=== PATIENT | female | born 1940 | race Caucasian/White ===

== ENCOUNTER → 2018-08-16 13:41 | Outpatient (CLI) | payer MEDICARE, SELFPAY ==
[2018-08-16 14:17] LABS: Basophils % 0.6 % (0.1-2.0); Eosinophils # 0.1 K/mm3 (0.0-0.4); Eosinophils % 1.6 % (0.1-12.0); Hematocrit 40.8 % (37.0-47.0); Hemoglobin 13.9 g/dL (12.2-16.2); Lymphocytes % 21.1 % (10-50); Mean Corpuscular HGB Conc 34.1 g/dL (31.8-35.4); Mean Corpuscular Volume 93.9 fl (81-99); Mean Platelet Volume 9.1 fl (7.4-10.4); Monocytes # 0.3 K/mm3 (0.1-1.0); Monocytes % 5.8 % (1.7-9.3); Neutrophils # 3.4 K/mm3 (1.8-7.8); Platelet Count 157 K/mm3 (142-424); Red Blood Count 4.35 M/mm3 (4.20-5.40); Red Cell Distribution Width 12.7 % (11.5-17.5); White Blood Count 4.8 K/mm3 (4.8-10.8)
[2018-08-16 14:54] LABS: Alanine Aminotransferase 26 U/L (12-78); Albumin Level 4.5 gm/dL (3.4-5.0); Albumin/Globulin Ratio 1.4 (1.1-1.8); Alkaline Phosphatase 56 U/L (46-116); Anion Gap 14.4 mEq/L (5-15); Aspartate Amino Transferase 24 U/L (15-37); Bilirubin,Total 0.6 mg/dL (0.2-1.0); Blood Urea Nitrogen 10 mg/dL (7-18); Calcium 9.5 mg/dL (8.5-10.1); Carbon Dioxide 29 mmol/L (21.0-32.0); Chloride 95 mmol/L (98-107); Chol/HDL Ratio 2.4 (1-3.5); Cholesterol 208 mg/dL (140-200); Creatinine,Serum 0.73 mg/dL (0.55-1.02); Estimated Glomerular Filt Rate 77 ml/min (>60); Free T4 (Free Thyroxine) 0.95 ng/dl (0.76-1.46); GFR (African American) 94 ML/MIN (>60); Globulin 3.2 gm/dl (1.3-3.2); Glucose 95 mg/dL (74-106); HDL Cholesterol 87 mg/dL (29-89); LDL Cholesterol 101 mg/dL (0-130); Potassium 4.4 mmoL/L (3.5-5.1); Sodium 134 mmol/L (136-145); Thyroid Stimulating Hormone 1.88 uIU/ml (0.358-3.740); Total Protein,Serum 7.7 gm/dL (6.4-8.2); Triglycerides 99 mg/dL (30-200); VLDL Cholesterol 20 mg/dL (0-40)
[2018-08-24 19:10] LABS: 1,25-Dihydroxy, Vitamin D-2 <10 pg/mL (.)
[2018-08-26 13:11] LABS: 1,25 Dihydroxy Vitamin D 43 pg/mL (.); 1,25-Dihydroxy, Vitamin D-3 40 pg/mL (.)
== END ==
PROVIDERS: Visit Provider Emergency Medicine
DX: R53.83 Other fatigue (principal); E78.5 Hyperlipidemia, unspecified
CPT/HCPCS: 80053; 80061; 82652; 84439; 84443; 85025

== ENCOUNTER → 2018-12-27 09:19 | Outpatient (CLI) | payer MEDICARE, SELFPAY ==
--- NOTE | 2018-12-27 09:21 | MM_ITS ---
MM Dig screening mamm BI w/CAD CAD Screening COMPARISON: Digital mammograms with CAD 10/17/2017 and 10/13/2016 INDICATION: There is no personal or family history of breast cancer. There has been previous biopsy left breast for benign disease. TECHNIQUE: Standard CC and MLO images were obtained. R2 CAD reviewed. FINDINGS: Moderate diffuse fibroglandular densities are seen throughout both breast. There are possible nodular density right breast not deftly seen on the previous exam and best seen on the CC projection. These could be summation shadow but recommend patient return for spot compression views in the CC projection and 90 degree lateral view. Ultrasound may be necessary as well. There are couple benign-appearing calcination is in each breast. A cardiac pacemaker seen overlying the left axilla. IMPRESSION: Moderate diffuse breast density with possible new nodular densities right breast BI-RADS Category: 0 Need Additional Imaging Evaluation RECOMMENDED FOLLOW-UP: IMM - IMMEDIATE FOLLOW-UP RECOMMENDED (A letter has been sent to the patient regarding results of the study.)
== END ==
PROVIDERS: PCP Emergency Medicine; Visit Provider Emergency Medicine
DX: Z12.31 Encounter for screening mammogram for malignant neoplasm of breast (principal)
CPT/HCPCS: 77067

== ENCOUNTER → 2019-01-09 14:15 | Outpatient (CLI) | payer MEDICARE, SELFPAY ==
--- NOTE | 2019-01-09 14:20 | MM_ITS ---
MM Dig mamm DX unilat RT CAD, US breast RT complete INDICATION: Follow-up abnormal mammogram ORDERING PHYSICIAN: Bruce Pineda MD PATIENT AGE: 78 years COMPARISON: 12/27/2018, 10/12/2016 TECHNIQUE: Problem-solving views performed along with right breast ultrasound FINDINGS: Right mammogram: There is very dense fibroglandular tissue which decreases the sensitivity of mammography. There is a benign-appearing 5 mm nodular density in the lateral aspect of the right breast not readily apparent on the orthogonal view. A 4 mm nodular densities present in the medial aspect of the right breast. There are benign appearing calcifications. Right breast ultrasound: At 10:00 there is a 4 mm hypoechoic nodule with some internal septations consistent with a complex cyst. A 1 cm lobulated cyst behind the nipple. At 1:00 there is a 4 mm cyst. 2:00 there is a 4 mm cyst. No suspicious nodules are evident. IMPRESSION: Nodular densities in the right breast may correspond to cyst however, they're not visualized within the orthogonal plane on the mammogram. There are multiple right breast cyst on the breast ultrasound one of which is a complex cyst at 10:00. Recommend 6 month mammographic and sonographic follow-up BI-RADS Category: 3 Probably Benign Finding Short Term Follow-up RECOMMENDED FOLLOW-UP: 6M - 6 MONTH FOLLOW-UP (A letter has been sent to the patient regarding results of the study.)
== END ==
PROVIDERS: PCP Emergency Medicine; Visit Provider Emergency Medicine
DX: R92.8 Other abnormal and inconclusive findings on diagnostic imaging of breast (principal)
CPT/HCPCS: 76641; 77065

== ENCOUNTER 2019-05-08 11:51 | Inpatient (IN) ==
--- NOTE | 2019-05-08 12:02 | Emergency Department Note ---
ED Disposition Clinical Impression: Left displaced femoral neck fracture, Hyponatremia Disposition: Admitted As Inpatient Condition on Discharge: Fair - Critical Care Critical Care Time: No Attestation: On , the high probability of a clinically significant, sudden or life threatening deterioration of the following system(s) required my full and direct attention, intervention and personal management. The time I documented below is in addition to time spent performing reported procedures but includes the following listed in this critical care notation. Medical Decision Making - Medical Records Medical records reviewed: Yes: I reviewed the patient's medical records. - Javier Inquiry Pt receiving controlled substance: Yes Javier was queried for this patient: No Reason not queried -: Emergent pt cond-no time Risks and benefits of using a controlled substance: were discussed with pt by me Vital Signs: 05/08/19 11:58 05/08/19 12:28 Temperature 98 F Temperature Source Oral Pulse Rate [Left Radial] 61 65 Respiratory Rate 16 Blood Pressure [Right Arm] 164/77 H 146/77 H Blood Pressure Mean [Right Arm] 106 100 Blood Pressure Position [Right Arm] Sitting Sitting 02 Sat by Pulse Oximetry 98 94 L Oxygen Delivery Method Room Air Nasal Cannula Oxygen Flow Rate (LPM) 2 - Lab Data Lab Results 05/08/19 12:00: WBC 4.3 L, RBC 4.06 L, Hgb 13.3, Hct 38.9, MCV 95.7, MCH 32.8 H, MCHC 34.3, RDW 12.9, Plt Count 146, MPV 8.6, Neut % (Auto) 61.1, Lymph % (Auto) 30.4, [place] % (Auto) 6.7, Eos % (Auto) 1.1, Baso % (Auto) 0.6, Neut # (Auto) 2.6, Lymph # (Auto) 1.3, [place] # (Auto) 0.3, Eos # (Auto) 0.1, Baso # (Auto) 0.0 05/08/19 12:00: PT 10.5, INR 1.01, APTT 26.0 05/08/19 12:00: Sodium 125 L, Potassium 4.3, Chloride 90 L, Carbon Dioxide 30, Anion Gap 9.3, BUN 7, Creatinine 0.68, Estimated Creat Clear 35, Estimated GFR 84, Est GFR ( Amer) 101, Glucose 101, Calcium 9.5 Result diagrams: 05/08/19 12:00 05/08/19 12:00 Orders (Tests/Meds): ED MEDICATIONS Discontinued Medications Generic Name Dose Route Start Last Admin Trade Name Karsten PRN Reason Stop Dose Admin Morphine Sulfate 4 mg 05/08/19 11:58 05/08/19 12:08 Morphine 4mg/Ml Syringe IV 05/08/19 11:59 4 mg ONCE ONE Administration Morphine Sulfate 4 mg 05/08/19 12:38 05/08/19 12:41 Morphine 4mg/Ml Syringe IV 05/08/19 12:39 4 mg ONCE ONE Administration Ondansetron HCl 4 mg 05/08/19 11:58 05/08/19 12:18 Zofran 4mg/2ml Vial IV 05/08/19 11:59 4 mg ONCE ONE Administration ORDERS Category Date Time Status Type and Screen Stat BBK 05/08/19 12:36 Received Consult to Orthopedic Surgery [CONS] Stat Cons 05/08/19 12:34 Ordered EKG Request [ECG Request by Dr/Nse] Stat Y 05/08/19 11:58 Ordered - Radiology Data #1 Image(s): Chest Image Reviewed: Yes I reviewed the patient's radiology image Preliminary Findings: Normal/NAD #2 Image(s): Hip Image Reviewed: Yes I reviewed the patient's radiology image Left femoral neck fracture Medical Decision Narrative: Patient with mechanical fall and left femoral neck fracture demonstrated on x- ray. She is neurovascularly intact distally. Labs do show some hyponatremia of 125, patient did have normal sodium in July of this year. I have discussed this case with Ortho on-call, Dr. Perez, who advises surgery later today or tomorrow morning if cleared by medicine. I discussed this case with Dr. Llanos who will admit for further management. Fall HPI - General Chief Complaint: Fall Stated Complaint: L hip pain Time Seen by Provider: 05/08/19 11:59 Mode of Arrival: EMS Source of Information: Patient Limitations: No Limitations - History of Present Illness HPI Narrative: This is a 79-year-old female with a past medical history significant for tremors who presents to the emergency department for evaluation of left hip pain after a fall that occurred just prior to arrival. She missed a step while at [employer] and fell onto her left hip. She did not hit her head, denies any loss of consciousness. No neck or back pain. Any movement makes the pain worse, nothing makes it better. No previous surgery to this hip. She does not take any blood thinners. - Related Data Home Medications Medication Instructions Recorded Confirmed atorvastatin 10 mg tablet 5 mg PO DAILY tab 07/30/18 05/08/19 cyanocobalamin (vitamin B-12) 1,000 mcg PO DAILY 07/30/18 05/08/19 1,000 mcg capsule primidone 50 mg tablet 1 tab PO DAILY 90 Days #180 tab 07/30/18 05/08/19 Allergies Allergy/AdvReac Type Severity Reaction Status Date / Time Sulfa (Sulfonamide Allergy Unknown Verified 02/26/19 13:13 Antibiotics) sulfamethizole Allergy Unknown Verified 02/26/19 13:13 triamcinolone Allergy Unknown Verified 02/26/19 13:13 [facility] History - Hepatitis A Screen Attestation statement:: This patient has been screened for Hepatitis A risk factors. I have reviewed the patient's past medical history: Yes Medical History: Reports:: Hyperlipidemia, Hypertension, Internal Pacemaker, Transient Ischemic Attacks (TIA) Other Medical History: Reports: Arthritis, Other Comment: Had 2 strokes - Last stroke 2005 Other Surgeries: Yes: Cholecystectomy, Pacemaker, Tubal Ligation, Other Amputation: No Fractures: Yes Comment: Hole in heart repair & D&C - Social History Smoking Status: Never smoker Alcohol Intake: never Substance Use Type: denies use Occupational Status: retired Housing: house Household Members: spouse Family Hx:: Cancer, Coronary Artery Disease, Diabetes, Heart Attack, Hyperl ipidemia, Hypertension, Stroke, Thyroid Disorder ROS Obtained: Yes All systems reviewed & no additional complaints Physical Exam - General General appearance: alert, in distress - Head Head exam: atraumatic, normocephalic, normal inspection, other (No signs of basilar skull fracture) - Eye Eye exam: Present: normal appearance, PERRL, EOMI - ENT ENT exam: Present: normal exam, mucous membranes moist - Neck Neck exam: Present: normal inspection, full ROM. Absent: tenderness - Chest Chest inspection: Present: normal inspection, symmetric chest wall rise. Absent: tenderness - Respiratory Respiratory exam: Present: normal lung sounds bilaterally. Absent: respiratory distress - Cardiovascular Cardiovascular exam: Present: regular rate, normal rhythm. Absent: JVD - Abdominal Exam Abdominal exam: Present: soft, normal bowel sounds. Absent: distention, tenderness, guarding - Expanded Lower Extremity Exam Left Hip/Pelvis exam: Present: other (Held in flexion, pain with range of motion) Foot/toe exam: Present: normal inspection, other (2+ DP and PT pulses, sensation grossly intact distally) - Neurological Exam Neurological exam: Present: alert, oriented X3 - Psychiatric Psychiatric exam: Present: normal affect - Skin Skin exam: Present: warm, dry, intact, normal color
[2019-05-08 12:17] LABS: Basophils % 0.6 % (0.1-2.0); Eosinophils # 0.1 K/mm3 (0.0-0.4); Eosinophils % 1.1 % (0.1-12.0); Hematocrit 38.9 % (37.0-47.0); Hemoglobin 13.3 g/dL (12.2-16.2); Lymphocytes # 1.3 K/mm3 (0.7-4.5); Lymphocytes % 30.4 % (10-50); Mean Corpuscular HGB Conc 34.3 g/dL (31.8-35.4); Mean Corpuscular Volume 95.7 fl (81-99); Mean Platelet Volume 8.6 fl (7.4-10.4); Monocytes # 0.3 K/mm3 (0.1-1.0); Monocytes % 6.7 % (1.7-9.3); Neutrophils # 2.6 K/mm3 (1.8-7.8); Neutrophils % 61.1 % (37.0-80.0); Platelet Count 146 K/mm3 (142-424); Red Blood Count 4.06 M/mm3 (4.20-5.40); Red Cell Distribution Width 12.9 % (11.5-17.5); White Blood Count 4.3 K/mm3 (4.8-10.8)
[2019-05-08 12:25] LABS: Anion Gap 9.3 mEq/L (5-15); Calcium 9.5 mg/dL (8.5-10.1)
[2019-05-08 12:27] LABS: INR 1.01 (0.9-1.1); Prothrombin Time 10.5 seconds (9.4-11.8)
--- NOTE | 2019-05-08 13:57 | Consult Report ---
History of Present Illness Consult date: 05/08/19 Requesting physician: Nieves Jefferson Consult reason: pre-op evaluation Chief complaint: left hip fracture, pre-op evaluation Additional Medical History:: 1. Status post [employer] pacemaker insertion 07/2018, Dr. Karla Schmidt, [place], [place] for sick sinus syndrome with symptomatic bradycardia 2. Prediabetic, on no medication 3. Hypertension 4. Hyperlipidemia History of present illness: 79-year-old white female was walking down basement steps in the [employer] and missed the last 2 steps resulting in falling on her left hip. Due to pain patient was transported to the emergency department for evaluation with x-ray showing evidence of mildly impacted left femoral neck fracture. Plan for surgical treatment later today. Cardiology consulted for evaluation in light of the patient's history of pacemaker. She denies chest pain, pressure or tightness prior to the fall and denies dizziness or lightheadedness. She reports having a stress test in the last 1 to 2 years that was unremarkable except inability to increase heart rate. [employer] pacemaker interrogated today. She is paced in the atrium 80% of the time and in the ventricle less than 1% of the time. No arrhythmias are noted. Long battery life of at least 10 years noted. [facility] History Medical History: Reports:: Hyperlipidemia, Hypertension, Internal Pacemaker, Transient Ischemic Attacks (TIA) *Have you ever received a pneumonia vaccine?: No *Have you received a flu vaccine this season?: No Other Medical History: Reports: Arthritis, Other Other Surgeries: Yes: Cholecystectomy, Pacemaker, Tubal Ligation, Other Amputation: No Fractures: Yes - *Social History Smoking Status: Never smoker Alcohol Intake: never Substance Use Type: denies use *Occupational Status:: retired Housing: house Household Members: spouse *Travel in the last 8 weeks: None Family Hx:: Cancer, Coronary Artery Disease, Diabetes, Heart Attack, Hyperlipidemia, Hypertension, Stroke, Thyroid Disorder Meds Home Medications Medication Instructions Recorded Confirmed Type atorvastatin 10 mg tablet 5 mg PO DAILY tab 07/30/18 05/08/19 History cyanocobalamin (vitamin B-12) 1,000 mcg PO DAILY 07/30/18 05/08/19 History 1,000 mcg capsule primidone 50 mg tablet 50 tab PO BID 90 Days #180 tab 07/30/18 05/08/19 History Allergies Allergy/AdvReac Type Severity Reaction Status Date / Time Sulfa (Sulfonamide Allergy Unknown Verified 02/26/19 13:13 Antibiotics) sulfamethizole Allergy Unknown Verified 02/26/19 13:13 triamcinolone Allergy Unknown Verified 02/26/19 13:13 Review of Systems - *Cardiovascular Denies chest pain, Denies shortness of breath - *Respiratory Denies cough, Denies shortness of breath - *Gastrointestinal Denies loose stools, Denies nausea, Denies vomiting - *Genitourinary Denies blood in urine - *Musculoskeletal Denies joint pain, Denies back pain - *Neurologic Denies fainting, Denies tingling, Denies dizziness, Denies weakness Exam Vital signs and Labs for Last 24 Hours: Temp Pulse Resp BP Pulse Ox 98 F 65 16 146/77 H 94 L 05/08/19 11:58 05/08/19 12:28 05/08/19 11:58 05/08/19 12:28 05/08/19 12:28 Laboratory Results - last 24 hr 05/08/19 12:00: WBC 4.3 L, RBC 4.06 L, Hgb 13.3, Hct 38.9, MCV 95.7, MCH 32.8 H, MCHC 34.3, RDW 12.9, Plt Count 146, MPV 8.6, Neut % (Auto) 61.1, Lymph % (Auto) 30.4, [place] % (Auto) 6.7, Eos % (Auto) 1.1, Baso % (Auto) 0.6, Neut # (Auto) 2.6, Lymph # (Auto) 1.3, [place] # (Auto) 0.3, Eos # (Auto) 0.1, Baso # (Auto) 0.0 05/08/19 12:00: PT 10.5, INR 1.01, APTT 26.0 05/08/19 12:00: Sodium 125 L, Potassium 4.3, Chloride 90 L, Carbon Dioxide 30, Anion Gap 9.3, BUN 7, Creatinine 0.68, Estimated Creat Clear 35, Estimated GFR 84, Est GFR ( Amer) 101, Glucose 101, Calcium 9.5 05/08/19 12:36: Blood Type A Positive, Antibody Screen Negative I & O for Last 24 hours: Intake & Output 05/06/19 05/07/19 05/08/19 05/09/19 11:59 11:59 11:59 11:59 Weight 105 lb - *Routine HEENT Exam Head: Present: normocephalic Eye: Present: EOMI, PERRL ENT: Present: mucous membranes moist - *Routine Neck Exam Present: supple. Absent: JVD, carotid bruit - *Routine Respiratory Exam Present: CTA bilaterally. Absent: accessory muscle use, rales, rhonchi, wheezes - *Routine Cardiovascular Exam Present: RRR. Absent: murmur, gallop, rubs - *Routine Abdominal Exam Present: soft. Absent: tenderness, distended, guarding - *Routine Extremities Exam Absent: edema, calf tenderness - *Routine Neurological Exam Present: alert, oriented X3, moving all extremities Assessment and Plan (1) Left displaced femoral neck fracture Current visit: Yes Status: Acute Category: Medical Code(s): S72.002A - Fracture of unspecified part of neck of left femur, initial encounter for closed fracture (2) Cardiac pacemaker in situ Current visit: Yes Status: Acute Category: Medical Code(s): Z95.0 - Presence of cardiac pacemaker (3) History of hypertension Current visit: Yes Status: Acute Category: Medical Code(s): Z86.79 - Personal history of other diseases of the circulatory system (4) Hyponatremia Current visit: Yes Status: Acute Category: Medical Code(s): E87.1 - Hypo-osmolality and hyponatremia - Assessment and plan all Dx Assessment and Plan for all problems:: 1. Preliminary echo shows normal LVEF without significant valve disease. Pt is a low and acceptable risk from a cardiology standpoint to proceed with orthopaedic surgery. Pacemaker precautions angie-operatively. 2. Continue home medications perioperatively. 3. History of hypertension but pt states she is not on medication. Elevated BP at this time likely due to pain from hip fracture.
--- NOTE | 2019-05-08 14:44 | Cardiology Report ---
APPROVED REPORT EXAM: Comprehensive 2D, Doppler, and color-flow Echocardiogram [employer] Rep[employer] Manager: Ariela Arora RVT Ht: 5 ft 4 in Wt: 105lbs BSA: 1.49 BP: 146/77 mmHg Indications: Pre-op-Lt hip fx, Pacer,HTN,HLD,Prior repair of hole in heart 2D Dimensions LVOT 1.66 cm (M/F) 1.5-2.5 M-Mode Dimensions RVDd 1.78 cm (0.9-2.6)LA Diam 3.10 cm (1.9-4.0) LVDd 4.30 cm (3.5-5.7)Ao Diam 3.00 cm (2.0-3.7) LVDs 2.69 cm (3.5-5.7)AV Cusp 1.70 cm (1.5-2.6) IVSd 1.07 cm (0.6-1.1)PWd 0.64 cm (0.6-1.1) EF (Teich) 67.70% FS 37.40% EDV (Teich) 83.10 mLESV (Teich) 26.80 mL LV Diastology E/A Ratio 0.52 Mitral Valve MV A Velocity 73.00 (40-130 cm/s) Left Ventricle Left atrium is mildly enlarged, left ventricle normal size, mild concentric left ventricular hypertrophy, visually estimated ejection fraction 55% with no regional wall motion abnormality, grade 1 diastolic dysfunction seen without tissue Doppler evidence of raise left atrial pressure. Right Ventricle Right atrium and right ventricle normal size and contractility, there is a pacemaker lead seen right atrium and right ventricle. Aortic Valve Aortic valve is thickened and calcified there is no aortic stenosis, there is mild aortic insufficiency. Mitral Valve Mitral valve leaflets are minimally thickened, there is no mitral stenosis, there is mild mitral regurgitation. Tricuspid Valve Tricuspid valve is grossly normal, there is mild tricuspid regurgitation. Tricuspid regurgitation jet velocity is inadequate for calculation of the right ventricular systolic pressure. Pulmonic Valve Pulmonic valve is poorly visualized. Great Vessels Aortic root is normal size. Pericardium No significant pericardial effusion noted. Conclusion 1. Mildly enlarged left atrium, normal left ventricular size, mild concentric left ventricular hypertrophy, visually estimated ejection fraction 55% with no regional wall motion abnormality, grade 1 diastolic dysfunction seen without tissue Doppler evidence of raise left atrial pressure. 2. Mild aortic, mild mitral and tricuspid regurgitation. 3. No significant pericardial effusion noted. Electronically signed by : Andres Estrdaa, 05/08/2019 14:43:58
--- NOTE | 2019-05-08 15:34 | History & Physical Report ---
*Admission Date: 05/08/19 *Chief complaint: fall *History of present illness: Patient is a 79 year old female who presented after a fall. She mentions that she was walking down the set of stairs at [employer] and missed a step then fell on her hardwood floor. She did not hit her head and/or lose consciousness. She mentions landing on her left hip and has been hurting in that area after mechanical fall, so she came into our ED. Workup in ED showed left femoral neck fracture. She is also notable to have chronic but stable hyponatremia. Dr. Miller was consulted for surgery. I saw and evaluated the patient at bedside around 130 pm for medical clearance for surgery [facility] History I have reviewed the patient's past medical history: Yes Medical History: Reports:: Hyperlipidemia, Hypertension, Internal Pacemaker, Transient Ischemic Attacks (TIA) Denies:: Diabetes Mellitus Type 1, Diabetes Mellitus Type 2 *Have you ever received a pneumonia vaccine?: Yes *Have you received a flu vaccine this season?: Yes Other Medical History: Reports: Arthritis, Other Other Surgeries: Yes: Cholecystectomy, Pacemaker, Tubal Ligation, Other Amputation: No Fractures: Yes - *Social History Educational Level: Completed High School Smoking Status: Former smoker Alcohol Intake: never Substance Use Type: denies use *Occupational Status:: retired Housing: house Household Members: spouse *Travel in the last 8 weeks: None Family Hx:: Cancer, Coronary Artery Disease, Diabetes, Heart Attack, Hyperlipidemia, Hypertension, Stroke, Thyroid Disorder Review of Systems - Constitutional Denies chills, Denies fever(s) - Eyes Denies blurry vision, Denies change in vision - ENT Denies bleeding gums, Denies nasal congestion - *Cardiovascular Denies chest pain at rest, Denies chest pain with activity - *Respiratory Denies chest congestion, Denies cough - *Gastrointestinal Denies bloating, Denies difficulty swallowing - *Genitourinary Denies pelvic pain - *Musculoskeletal Denies joint pain, Denies decreased muscle mass - Integumentary/Breasts Denies bleeding lesions - *Neurologic Denies fainting, Denies tingling, Denies dizziness, Denies weakness - Psychiatric Denies lack of enjoyment, Denies anxiety, Denies behavioral changes - Hematologic/Lymphatic Denies easy bleeding Meds Home Medications Medication Instructions Recorded Confirmed Type atorvastatin 10 mg tablet 5 mg PO DAILY tab 07/30/18 05/08/19 History cyanocobalamin (vitamin B-12) 1,000 mcg PO DAILY 07/30/18 05/08/19 History 1,000 mcg capsule primidone 50 mg tablet 50 tab PO BID 90 Days #180 tab 07/30/18 05/08/19 History Allergies Allergy/AdvReac Type Severity Reaction Status Date / Time Sulfa (Sulfonamide Allergy Unknown Verified 02/26/19 13:13 Antibiotics) sulfamethizole Allergy Unknown Verified 02/26/19 13:13 triamcinolone Allergy Unknown Verified 02/26/19 13:13 Exam Vital signs and Labs for Last 24 Hours: Temp Pulse Resp BP Pulse Ox 98.0 F 77 17 136/62 90 L 05/08/19 15:05 05/08/19 15:05 05/08/19 15:05 05/08/19 15:05 05/08/19 15:05 Laboratory Results - last 24 hr 05/08/19 12:00: WBC 4.3 L, RBC 4.06 L, Hgb 13.3, Hct 38.9, MCV 95.7, MCH 32.8 H, MCHC 34.3, RDW 12.9, Plt Count 146, MPV 8.6, Neut % (Auto) 61.1, Lymph % (Auto) 30.4, [place] % (Auto) 6.7, Eos % (Auto) 1.1, Baso % (Auto) 0.6, Neut # (Auto) 2.6, Lymph # (Auto) 1.3, [place] # (Auto) 0.3, Eos # (Auto) 0.1, Baso # (Auto) 0.0 05/08/19 12:00: PT 10.5, INR 1.01, APTT 26.0 05/08/19 12:00: Sodium 125 L, Potassium 4.3, Chloride 90 L, Carbon Dioxide 30, Anion Gap 9.3, BUN 7, Creatinine 0.68, Estimated Creat Clear 35, Estimated GFR 84, Est GFR ( Amer) 101, Glucose 101, Calcium 9.5 05/08/19 12:36: Blood Type A Positive, Antibody Screen Negative I & O for Last 24 hours: Intake & Output 05/06/19 05/07/19 05/08/19 05/09/19 11:59 11:59 11:59 11:59 Weight 105 lb 116 lb 7 oz - *Routine HEENT Exam Head: Present: normocephalic Eye: Present: EOMI, PERRL ENT: Present: mucous membranes moist - *Routine Neck Exam Present: supple. Absent: lymphadenopathy - *Routine Respiratory Exam Present: CTA bilaterally - *Routine Cardiovascular Exam Present: RRR - *Routine Abdominal Exam Present: soft, normoactive bowel sounds. Absent: tenderness - *Routine Extremities Exam Absent: cyanosis, clubbing, edema Comments: left hip pain and unable to lift her left leg active or passively, consistent w/ femur fracture - *Routine Skin Exam Present: warm. Absent: rash - *Routine Neurological Exam Present: alert, oriented X3 Assessment and Plan (1) Left displaced femoral neck fracture Current visit: Yes Status: Acute Category: Medical Code(s): S72.002A - Fracture of unspecified part of neck of left femur, initial encounter for closed fracture (2) Cardiac pacemaker in situ Current visit: Yes Status: Acute Category: Medical Code(s): Z95.0 - Presence of cardiac pacemaker (3) History of hypertension Current visit: Yes Status: Acute Category: Medical Code(s): Z86.79 - Personal history of other diseases of the circulatory system (4) Hyponatremia Current visit: Yes Status: Acute Category: Medical Code(s): E87.1 - Hypo- osmolality and hyponatremia - Assessment and plan all Dx Assessment and Plan for all problems:: She denies having any allergic reaction and/or complications with pain medications, anesthesia. Her hyponatremia is chronic and she is AAO x 4. She did take ASA 81 mg earlier this morning. Got cardiac clearance, please see their note for full details. Her last meal was 10 am today. From our standpoint, patient is cleared to have surgery.
--- NOTE | 2019-05-08 21:50 | Consult Report ---
*Admission Date: 05/08/19 *Reason for consult:: L hip fracture *History of present illness: 79yo F admitted earlier this evening after a fall at [employer] today. She was walking down a set of stairs and missed a step, falling onto the hardwood floor. She had immediate pain in the L hip and was unable to ambulate. She denies previous issues with this hip, no prior surgery on the hip. She was an independent ambulator and was able to walk without limitation or assistive device. No LOC or other injuries during today's fall. Her medical history includes HTN, hyperlipidemia, h/o TIA. She has had a pacemaker placed, as well as tubal ligation and cholecystectomy. She is a former smoker. She lives at home with her , in a one-level home with one step to enter. Currently she reports pain in the left hip but no numbness/tingling in the LLE, no chest pain/dyspnea, no abdominal pain. Review of Systems - Review of Systems Review of systems:: pertinent systems reviewed and negative unless documented below - *Neurologic Denies behavioral changes, Denies fainting, Denies tingling, Denies dizziness, Denies weakness [facility] History I have reviewed the patient's past medical history: Yes Medical History: Reports:: Hyperlipidemia, Hypertension, Internal Pacemaker, Transient Ischemic Attacks (TIA) Denies:: Diabetes Mellitus Type 1, Diabetes Mellitus Type 2 *Have you ever received a pneumonia vaccine?: Yes *Have you received a flu vaccine this season?: Yes Other Medical History: Reports: Arthritis, Other Other Surgeries: Yes: Cholecystectomy, Pacemaker, Tubal Ligation, Other Amputation: No Fractures: Yes - *Social History Educational Level: Completed High School Smoking Status: Former smoker Alcohol Intake: never Substance Use Type: denies use *Occupational Status:: retired Housing: house Household Members: spouse *Travel in the last 8 weeks: None Family Hx:: Cancer, Coronary Artery Disease, Diabetes, Heart Attack, Hyperlipidemia, Hypertension, Stroke, Thyroid Disorder Meds Home Medications Medication Instructions Recorded Confirmed Type atorvastatin 10 mg tablet 5 mg PO DAILY tab 07/30/18 05/08/19 History cyanocobalamin (vitamin B-12) 1,000 mcg PO DAILY 07/30/18 05/08/19 History 1,000 mcg capsule primidone 50 mg tablet 50 tab PO BID 90 Days #180 tab 07/30/18 05/08/19 History Allergies Allergy/AdvReac Type Severity Reaction Status Date / Time Sulfa (Sulfonamide Allergy Unknown Verified 02/26/19 13:13 Antibiotics) sulfamethizole Allergy Unknown Verified 02/26/19 13:13 triamcinolone Allergy Unknown Verified 02/26/19 13:13 Exam Vital signs and Labs for Last 24 Hours: Temp Pulse Resp BP Pulse Ox 98.0 F 60 16 149/64 H 99 05/08/19 19:41 05/08/19 20:30 05/08/19 20:30 05/08/19 19:41 05/08/19 20:30 Laboratory Results - last 24 hr 05/08/19 12:00: WBC 4.3 L, RBC 4.06 L, Hgb 13.3, Hct 38.9, MCV 95.7, MCH 32.8 H, MCHC 34.3, RDW 12.9, Plt Count 146, MPV 8.6, Neut % (Auto) 61.1, Lymph % (Auto) 30.4, [place] % (Auto) 6.7, Eos % (Auto) 1.1, Baso % (Auto) 0.6, Neut # (Auto) 2.6, Lymph # (Auto) 1.3, [place] # (Auto) 0.3, Eos # (Auto) 0.1, Baso # (Auto) 0.0 05/08/19 12:00: PT 10.5, INR 1.01, APTT 26.0 05/08/19 12:00: Sodium 125 L, Potassium 4.3, Chloride 90 L, Carbon Dioxide 30, Anion Gap 9.3, BUN 7, Creatinine 0.68, Estimated Creat Clear 35, Estimated GFR 84, Est GFR ( Amer) 101, Glucose 101, Calcium 9.5 05/08/19 12:36: Blood Type A Positive, Antibody Screen Negative I & O for Last 24 hours: Intake & Output 05/06/19 05/07/19 05/08/19 05/09/19 11:59 11:59 11:59 11:59 Intake Total 0 / 0 Balance 0 / 0 Weight 105 lb 116 lb 7 oz - Constitutional no acute distress - *Routine HEENT Exam Head: Present: normocephalic Eye: Present: EOMI ()))) ENT: Present: mucous membranes moist - *Routine Extremities Exam Comments: LLE shortened and internally rotated no ecchymosis, erythema or cutaneous lesions L hip moderate tenderness over L hip +DF/PF/EHL LLE palpable pedal pulses LLE, foot warm SILT distally LLE L calf soft, non-tender Results - Labs Result Diagrams: 05/08/19 12:00 05/08/19 12:00 Labs: Abnormal lab results 05/08/19 05/08/19 Range/Units 12:00 12:00 WBC 4.3 L (4.8-10.8) K/mm3 RBC 4.06 L (4.20-5.40) M/mm3 MCH 32.8 H (27.0-31.2) pg Sodium 125 L (136-145) mmol/L Chloride 90 L (98-107) mmol/L H & H 05/08/19 Range/Units 12:00 Hgb 13.3 (12.2-16.2) g/dL Hct 38.9 (37.0-47.0) % Coagulation 05/08/19 Range/Units 12:00 INR 1.01 (0.9-1.1) All other labs normal. - Diagnostic results Hip x-ray: image reviewed (mildly displaced L femoral neck fracture; garden IV) Assessment and Plan (1) Left displaced femoral neck fracture Current visit: Yes Status: Acute Category: Medical Code(s): S72.002A - Fracture of unspecified part of neck of left femur, initial encounter for closed fracture (2) Cardiac pacemaker in situ Current visit: Yes Status: Acute Category: Medical Code(s): Z95.0 - Presence of cardiac pacemaker (3) History of hypertension Current visit: Yes Status: Acute Category: Medical Code(s): Z86.79 - Personal history of other diseases of the circulatory system (4) Hyponatremia Current visit: Yes Status: Acute Category: Medical Code(s): E87.1 - Hypo- osmolality and hyponatremia - Assessment and plan all Dx Assessment and Plan for all problems:: 79yo F with L femoral neck fracture -- I discussed the nature of the patient's injury with her and her , and my recommendation is for hemiarthroplasty -- I discussed the risks of surgery, including bleeding, infection, fracture, persistent pain/limp, loss of function/mobility, and risk of anesthesia. The patient vocalized understanding, and would like to proceed with surgery. We will plan on L hip hemiarthroplasty tomorrow morning. -- bedrest, marin catheter for comfort; may try nam's traction for comfort -- ice pack L hip PRN -- patient has been medically cleared by Dr. Jefferson and the cardiology service
[2019-05-09 05:46] LABS: Basophils % 0.3 % (0.1-2.0); Eosinophils % 0.5 % (0.1-12.0); Hematocrit 34.7 % (37.0-47.0); Lymphocytes # 0.7 K/mm3 (0.7-4.5); Lymphocytes % 9.6 % (10-50); Mean Corpuscular HGB Conc 33.5 g/dL (31.8-35.4); Mean Corpuscular Volume 96.3 fl (81-99); Mean Platelet Volume 9.5 fl (7.4-10.4); Monocytes # 0.4 K/mm3 (0.1-1.0); Monocytes % 6.2 % (1.7-9.3); Neutrophils % 83.4 % (37.0-80.0); Platelet Count 126 K/mm3 (142-424); White Blood Count 7.2 K/mm3 (4.8-10.8)
[2019-05-09 05:50] LABS: Hemoglobin 11.5 g/dL (12.2-16.2)
[2019-05-09 05:58] LABS: Albumin Level 3.4 gm/dL (3.4-5.0); Albumin/Globulin Ratio 1.2 (1.1-1.8); Anion Gap 7.6 mEq/L (5-15); Bilirubin,Total 0.7 mg/dL (0.2-1.0); Globulin 2.8 gm/dl (1.3-3.2); Total Protein,Serum 6.2 gm/dL (6.4-8.2)
[2019-05-09 06:04] LABS: Calcium 8.2 mg/dL (8.5-10.1)
--- NOTE | 2019-05-09 07:31 | Progress Note ---
Subjective Date: 05/09/19 Time: 07:28 Principal diagnosis: Hip fracture Interval history: 79 yo WF in bed in [facility]. Admits to drinking lots of water at home (possibly the cause of her hyponatremia) No chest pain Exam Vital signs and Labs for Last 24 Hours: Temp Pulse Resp BP Pulse Ox 98.2 F 63 19 129/78 99 05/09/19 04:00 05/09/19 04:00 05/09/19 04:00 05/09/19 04:00 05/09/19 04:00 Laboratory Results - last 24 hr 05/08/19 12:00: WBC 4.3 L, RBC 4.06 L, Hgb 13.3, Hct 38.9, MCV 95.7, MCH 32.8 H, MCHC 34.3, RDW 12.9, Plt Count 146, MPV 8.6, Neut % (Auto) 61.1, Lymph % (Auto) 30.4, [place] % (Auto) 6.7, Eos % (Auto) 1.1, Baso % (Auto) 0.6, Neut # (Auto) 2.6, Lymph # (Auto) 1.3, [place] # (Auto) 0.3, Eos # (Auto) 0.1, Baso # (Auto) 0.0 05/08/19 12:00: PT 10.5, INR 1.01, APTT 26.0 05/08/19 12:00: Sodium 125 L, Potassium 4.3, Chloride 90 L, Carbon Dioxide 30, Anion Gap 9.3, BUN 7, Creatinine 0.68, Estimated Creat Clear 35, Estimated GFR 84, Est GFR ( Amer) 101, Glucose 101, Calcium 9.5 05/08/19 12:36: Blood Type A Positive, Antibody Screen Negative 05/09/19 05:31: WBC 7.2 D, RBC 3.60 L, Hgb 11.5 L D, Hct 34.7 L, MCV 96.3, MCH 32.3 H, MCHC 33.5, RDW 13.0, Plt Count 126 L, MPV 9.5, Neut % (Auto) 83.4 H, Lymph % (Auto) 9.6 L, [place] % (Auto) 6.2, Eos % (Auto) 0.5, Baso % (Auto) 0.3, Neut # (Auto) 6.0, Lymph # (Auto) 0.7, [place] # (Auto) 0.4, Eos # (Auto) 0.0, Baso # (Auto) 0.0 05/09/19 05:31: Sodium 127 L, Potassium 4.6, Chloride 96 L, Carbon Dioxide 28, Anion Gap 7.6, BUN 6 L, Creatinine 0.71, Estimated Creat Clear 40, Estimated GFR 80, Est GFR ( Amer) 96, Glucose 121 H, Calcium 8.2 L D, Total Bilirubin 0.7, AST 26, ALT 21, Alkaline Phosphatase 42 L, Total Protein 6.2 L, Albumin 3.4, Globulin 2.8, Albumin/Globulin Ratio 1.2 I & O for Last 24 hours: Intake & Output 05/06/19 05/07/19 05/08/19 05/09/19 11:59 11:59 11:59 11:59 Intake Total 1820 / 1820 Output Total 700 / 700 Balance 1120 / 1120 Weight 105 lb 119 lb 4 oz - *Routine HEENT Exam Head: Present: normocephalic Eye: Present: EOMI, PERRL ENT: Present: mucous membranes moist - *Routine Respiratory Exam Present: CTA bilaterally. Absent: accessory muscle use, rales, rhonchi, wheezes - *Routine Cardiovascular Exam Present: RRR. Absent: murmur, gallop, rubs - *Routine Extremities Exam Absent: edema, calf tenderness - *Routine Neurological Exam Present: alert, oriented X3, moving all extremities Progress Note: A&P (1) Left displaced femoral neck fracture Status: Acute Current Visit: Yes (2) Cardiac pacemaker in situ Status: Acute Current Visit: Yes (3) History of hypertension Status: Acute Current Visit: Yes (4) Hyponatremia Status: Acute Current Visit: Yes Assessment and Plan for All Diagnoses:: 1. Cardiac status stable. Pacemaker functioning normally. Echo shows normal LVEF. Follow up with Dr. Smith after discharge. 2. Hyponatremia, improved overnight 3. Hip surgery today. 4. Nothing further to add. Will see as needed.
--- NOTE | 2019-05-09 08:41 | Progress Note ---
<Nicolasa Greenfield - Last Filed: 05/09/19 08:39> Internal Medicine - PN: Subj *Date: 05/09/19 *Time: 08:39 Interval history: Patient states she has had a rough night. She has been in pain and could not sleep. She states she cannot take morphine because it makes her sick. She is requesting something else for pain today. She is scheduled for surgery on her hip at 10 am. Exam Vital signs and Labs for Last 24 Hours: Temp Pulse Resp BP Pulse Ox 98.2 F 63 19 129/78 99 05/09/19 04:00 05/09/19 04:00 05/09/19 04:00 05/09/19 04:00 05/09/19 04:00 Laboratory Results - last 24 hr 05/08/19 12:00: WBC 4.3 L, RBC 4.06 L, Hgb 13.3, Hct 38.9, MCV 95.7, MCH 32.8 H, MCHC 34.3, RDW 12.9, Plt Count 146, MPV 8.6, Neut % (Auto) 61.1, Lymph % (Auto) 30.4, [place] % (Auto) 6.7, Eos % (Auto) 1.1, Baso % (Auto) 0.6, Neut # (Auto) 2.6, Lymph # (Auto) 1.3, [place] # (Auto) 0.3, Eos # (Auto) 0.1, Baso # (Auto) 0.0 05/08/19 12:00: PT 10.5, INR 1.01, APTT 26.0 05/08/19 12:00: Sodium 125 L, Potassium 4.3, Chloride 90 L, Carbon Dioxide 30, Anion Gap 9.3, BUN 7, Creatinine 0.68, Estimated Creat Clear 35, Estimated GFR 84, Est GFR ( Amer) 101, Glucose 101, Calcium 9.5 05/08/19 12:36: Blood Type A Positive, Antibody Screen Negative 05/09/19 05:31: WBC 7.2 D, RBC 3.60 L, Hgb 11.5 L D, Hct 34.7 L, MCV 96.3, MCH 32.3 H, MCHC 33.5, RDW 13.0, Plt Count 126 L, MPV 9.5, Neut % (Auto) 83.4 H, Lymph % (Auto) 9.6 L, [place] % (Auto) 6.2, Eos % (Auto) 0.5, Baso % (Auto) 0.3, Neut # (Auto) 6.0, Lymph # (Auto) 0.7, [place] # (Auto) 0.4, Eos # (Auto) 0.0, Baso # (Auto) 0.0 05/09/19 05:31: Sodium 127 L, Potassium 4.6, Chloride 96 L, Carbon Dioxide 28, Anion Gap 7.6, BUN 6 L, Creatinine 0.71, Estimated Creat Clear 40, Estimated GFR 80, Est GFR ( Amer) 96, Glucose 121 H, Calcium 8.2 L D, Total Bilirubin 0.7, AST 26, ALT 21, Alkaline Phosphatase 42 L, Total Protein 6.2 L, Albumin 3.4, Globulin 2.8, Albumin/Globulin Ratio 1.2 I & O for Last 24 hours: Intake & Output 05/06/19 05/07/19 05/08/19 05/09/19 11:59 11:59 11:59 11:59 Intake Total 1820 / 1820 Output Total 700 / 700 Balance 1120 / 1120 Weight 105 lb 119 lb 4 oz - Constitutional no acute distress - *Routine Cardiovascular Exam Present: RRR - *Routine Abdominal Exam Present: soft, normoactive bowel sounds. Absent: tenderness - *Routine Extremities Exam Absent: cyanosis, clubbing, edema Comments: tenderness to palpation in the left groin area - *Routine Skin Exam Present: warm. Absent: rash - *Routine Neurological Exam Present: alert, oriented X3 Assessment and Plan (1) Left displaced femoral neck fracture Current visit: Yes Status: Acute Category: Medical Code(s): S72.002A - Fracture of unspecified part of neck of left femur, initial encounter for closed fracture (2) Cardiac pacemaker in situ Current visit: Yes Status: Acute Category: Medical Code(s): Z95.0 - Presence of cardiac pacemaker (3) History of hypertension Current visit: Yes Status: Acute Category: Medical Code(s): Z86.79 - Personal history of other diseases of the circulatory system (4) Hyponatremia Current visit: Yes Status: Acute Category: Medical Code(s): E87.1 - Hypo- osmolality and hyponatremia - Assessment and plan all Dx Assessment and Plan for all problems:: Still hyponatremic today. Patient is scheduled for surgery at 10 AM. Will discuss other pain medication options with Dr. Llanos. <Cam Llanos - Last Filed: 05/09/19 15:04> Internal Medicine - PN: Subj *Date: 05/09/19 *Time: 15:03 Exam Vital signs and Labs for Last 24 Hours: Temp Pulse Resp BP Pulse Ox 97.6 F 74 18 154/69 H 90 L 05/09/19 14:44 05/09/19 14:44 05/09/19 14:44 05/09/19 14:44 05/09/19 14:44 Laboratory Results - last 24 hr 05/09/19 05:31: WBC 7.2 D, RBC 3.60 L, Hgb 11.5 L D, Hct 34.7 L, MCV 96.3, MCH 32.3 H, MCHC 33.5, RDW 13.0, Plt Count 126 L, MPV 9.5, Neut % (Auto) 83.4 H, Lymph % (Auto) 9.6 L, [place] % (Auto) 6.2, Eos % (Auto) 0.5, Baso % (Auto) 0.3, Neut # (Auto) 6.0, Lymph # (Auto) 0.7, [place] # (Auto) 0.4, Eos # (Auto) 0.0, Baso # (Auto) 0.0 05/09/19 05:31: Sodium 127 L, Potassium 4.6, Chloride 96 L, Carbon Dioxide 28, Anion Gap 7.6, BUN 6 L, Creatinine 0.71, Estimated Creat Clear 40, Estimated GFR 80, Est GFR ( Amer) 96, Glucose 121 H, Calcium 8.2 L D, Total Bilirubin 0.7, AST 26, ALT 21, Alkaline Phosphatase 42 L, Total Protein 6.2 L, Albumin 3.4, Globulin 2.8, Albumin/Globulin Ratio 1.2 I & O for Last 24 hours: Intake & Output 05/07/19 05/08/19 05/09/19 05/10/19 11:59 11:59 11:59 11:59 Intake Total 1820 / 1820 1575 / 1575 Output Total 820 / 820 100 / 100 Balance 1000 / 1000 1475 / 1475 Weight 105 lb 119 lb 4 oz Assessment and Plan (1) Left displaced femoral neck fracture Current visit: Yes Status: Acute Category: Medical Code(s): S72.002A - Fracture of unspecified part of neck of left femur, initial encounter for closed fracture (2) Cardiac pacemaker in situ Current visit: Yes Status: Acute Category: Medical Code(s): Z95.0 - Presence of cardiac pacemaker (3) History of hypertension Current visit: Yes Status: Acute Category: Medical Code(s): Z86.79 - Personal history of other diseases of the circulatory system (4) Hyponatremia Current visit: Yes Status: Acute Category: Medical Code(s): E87.1 - Hypo- osmolality and hyponatremia - Assessment and plan all Dx Assessment and Plan for all problems:: Patient seen and examined. Concur with above.
--- NOTE | 2019-05-09 09:20 | Pharmacy Consult Notes ---
[facility] Pharmacy VTE Monitoring - Patient Demographics Admission date: 05/08/19 Report Date: 05/09/19 Time: 09:20 Allergies/Adverse Reactions: Patient Allergies Sulfa (Sulfonamide Antibiotics) Allergy (Unknown, Verified 02/26/19 13:13) sulfamethizole Allergy (Unknown, Verified 02/26/19 13:13) triamcinolone Allergy (Unknown, Verified 02/26/19 13:13) Height: 1.63 m Weight: 54.091 kg Patient Problems: Current Active Problems Left displaced femoral neck fracture (Acute) Hyponatremia (Acute) Cardiac pacemaker in situ (Acute) History of hypertension (Acute) - VTE Risk Labs: VTE Related Lab Results Hgb 11.5 g/dL (12.2-16.2) L D 05/09/19 05:31 Hct 34.7 % (37.0-47.0) L 05/09/19 05:31 Plt Count 126 K/mm3 (142-424) L 05/09/19 05:31 PT 10.5 seconds (9.4-11.8) 05/08/19 12:00 INR 1.01 (0.9-1.1) 05/08/19 12:00 APTT 26.0 seconds (23.6-34.0) 05/08/19 12:00 BUN 6 mg/dL (7-18) L 05/09/19 05:31 Creatinine 0.71 mg/dL (0.55-1.02) 05/09/19 05:31 Estimated Creat Clear 40 mL/min (50-200) 05/09/19 05:31 Was VTE Risk Assessment Performed: Yes VTE Score: 4 VTE Risk Level: Low Risk Clinical Trial Participant: No - Prophylaxis VTE Prophylaxis Ordered?: Yes Types of VTE Prophylaxis: TEDS Knee High
--- NOTE | 2019-05-09 12:56 | Electrocardiograph Report ---
APPROVED REPORT Exam: Resting ECG HR:60 bpm ECG Measurements Heart Rate 60 AXES MN 162 P 24 QRSd 76 QRS 36 QT 426 T71 QTc 426 <Conclusion> Electronic atrial pacemaker Electronically signed by : Franco Turner, 05/09/2019 12:56:15
--- NOTE | 2019-05-09 13:07 | Progress Note ---
[facility] Anesthesia Checklist - Structural Data Admitted From: Inpatient Planned Operative Procedure/s: orif l hip Consent for Planned Operative Procedure(s) Verified: Yes - Airway Assessment C-Spine Mobility Assessed: Yes TMJ Mobility Assessed: Yes Dentition: Poor Dentition - Neurological Assessment Level of Consciousness: Awake, Alert, Appropriate - Anesthesia Plan Anesthesia Risk discussed: Yes Anesthesia Plan: Verified ASA Class: III Anesthesia Type: MAC [facility] History I have reviewed the patient's past medical history: Yes Medical History: Reports:: Hyperlipidemia, Hypertension, Internal Pacemaker, Transient Ischemic Attacks (TIA) Denies:: Diabetes Mellitus Type 1, Diabetes Mellitus Type 2 *Have you ever received a pneumonia vaccine?: Yes *Have you received a flu vaccine this season?: Yes Other Medical History: Reports: Arthritis, Other Anesthesia experience/problems:: none Other Surgeries: Yes: Cholecystectomy, Pacemaker, Tubal Ligation, Other Amputation: No Fractures: Yes - *Social History Educational Level: Completed High School Smoking Status: Former smoker Alcohol Intake: never Substance Use Type: denies use *Occupational Status:: retired Housing: house Household Members: spouse *Travel in the last 8 weeks: None Family Hx:: Cancer, Coronary Artery Disease, Diabetes, Heart Attack, Hyperlipidemia, Hypertension, Stroke, Thyroid Disorder
--- NOTE | 2019-05-09 13:08 | Progress Note ---
[facility] Anesthesia Record Part I Intake, IV Amount: 1,500 Estimated blood loss (mL): 100 Urine output (mL): 450 Blood Pressure: 118/61 SaO2: 100 Pulse Rate: 69 Respiratory Rate: 12 Temperature: 98.1 F Patient is:: Awake, Stable Stable to PACU at:: 13:00
--- NOTE | 2019-05-09 13:09 | Progress Note ---
[facility] Anesthesia Record Part II Discharge Time: 13:30 Destination: floor PACU nurse assessment reviewed?: Yes Patient Condition:: Good Anesthesia Complications:: None Swallowing reflex intact?: Yes Cyanosis?: No
--- NOTE | 2019-05-09 16:44 | Operative Note ---
Date of procedure: 05/09/19 Pre-op Diagnosis:: LEFT femoral neck fracture Post-op Diagnosis:: LEFT femoral neck fracture Procedure performed:: LEFT hip hemiarthroplasty Surgeon:: Karen Miller MD Horse Groomer(s):: Tanvi Taylor MEDICAL LIBRARIAN:: Brian Banerjee Anesthesia: MAC, spinal Estimated blood loss (mL): 100 Clinical Note:: 79yo F admitted last night after a fall at [employer] earlier in the day. She was walking down a set of stairs and missed a step, falling onto the hardwood floor. She had immediate pain in the L hip and was unable to ambulate. She denies previous issues with this hip, no prior surgery on the hip. She was an independent ambulator and was able to walk without limitation or assistive device. No LOC or other injuries during today's fall. Her medical history includes HTN, hyperlipidemia, h/o TIA. She has had a pacemaker placed, as well as tubal ligation and cholecystectomy. She is a former smoker. She lives at home with her , in a one-level home with one step to enter. Currently she reports pain in the left hip but no numbness/tingling in the LLE, no chest pain/dyspnea, no abdominal pain. She was seen and cleared by both medical and cardiology services prior to surgery. I discussed the nature of the patient's injury with her and her , and my recommendation is for hemiarthroplasty. I discussed the risks of surgery, including bleeding, infection, fracture, persistent pain/limp, loss of function/mobility, and risk of anesthesia. The patient vocalized understanding and provided informed consent for the procedure. Operative findings:: implants: [employer] Synergy femoral stem, size 12; standard neck bipolar head component = 46mm (46mm OD, 28mm ID +8) Operative note:: The patient was identified in preoperative holding and the L hip signed by myself. She was then taken to the operating room where 1g Ancef was infused intravenously and spinal anesthesia administered with MAC. Once the patient was sedated, she was placed in the right lateral decubitus position with a peg board positioner, and the L hip prepped and draped in the usual sterile fashion. Timeout was performed, identifying the correct patient, correct procedure and correct site. The procedure was begun by making a longitudinal, curvilinear incision over the posterolateral aspect the the L hip, centered over the greater trochanter. Subcutaneous tissue was dissected with cautery until fascia was encountered. The fascia was incised in line with the shaft of the femur distally and curved proximally; fibers of the gluteus tony were bluntly spread with finger dissection. Charnley retractor was placed under the fascia. The hip joint was visualized and there was moderate fracture hematoma present. This was evacuated and the short external rotators identified. The piriformis was tagged and reflected off the femur. Underlying joint capsule was seen to have a rent from the fracture; capsulotomy was completed and leaflets tagged. Corkscrew was inserted into the femoral head through the fracture site, and the femoral head was removed intact; it measured around 46mm in diameter. A size 45mm femoral head trial was placed into the acetabulum and found to be too small. 46 trial was used and appeared to give a good fit, 47 was found to be too large; 46 was the desired bipolar head size. Oscillating saw was then used to clean up the femoral neck fracture site; the neck was resected at the level of one fingerbreadth above the lesser trochanter. Cookie cutter osteotome was used to remove bone proximally in the femoral neck/greater trochanter and create a lateralized starting point for my broach. Canal finder was passed to find/open the femoral canal. Reamers of increasing size were passed down the femoral canal, starting with an 8 and increasing by one until a 12 gave good chatter/fill to the canal. Broaches were then passed by hand, starting with a size 10 broach and increasing by one to a size 12 broach, taking care to retain the patient's natural femoral anteversion. A 12 broach appeared to give the best fit in the proximal femur, so this was the desired femoral stem size. Next, a trial neck of standard length was placed on the stem/broach and size 46 trial head placed on the neck. The hip was then reduced and taken through a range of motion; it was found to be slightly unstable with flexion/internal rotation. The head offset was increased to a +8, which provided excellent stability without the need to increase neck offset; the hip was stable in full extension and did not dislocate until around 80 degrees internal rotation with the hip flexed to 90 degrees. The hip felt very stable, so we decided upon this configuration of components for the final implants. All trial implants were removed, the wound irrigated with pulsivac saline, and the final components were placed: size 12 femoral stem with standard neck, 46mm +8 bipolar head. The head was impacted into place and the hip reduced. Piriformis and capsule were repaired and the wound closed in a layered fashion using patty on the skin. Sterile dressing wa s applied to the hip and an abduction pillow placed between the patient's legs. She was then awoken and transferred to her bed; she was taken to PACU in good condition. There were no complications during this case. Tourniquet time (min): 0 Condition: stable Disposition: PACU Specimens:: left femoral head removed, not sent for pathology Complications:: none
[2019-05-10 05:40] LABS: Lymphocytes # 0.6 K/mm3 (0.7-4.5)
[2019-05-10 05:41] LABS: Anion Gap 10.3 mEq/L (5-15); Calcium 7.5 mg/dL (8.5-10.1)
[2019-05-10 05:44] LABS: Basophils % 0.3 % (0.1-2.0); Eosinophils % 0.1 % (0.1-12.0); Lymphocytes % 9.9 % (10-50); Mean Corpuscular HGB Conc 33.2 g/dL (31.8-35.4); Mean Platelet Volume 9.3 fl (7.4-10.4); Monocytes # 0.5 K/mm3 (0.1-1.0); Monocytes % 7.5 % (1.7-9.3); Neutrophils # 5.1 K/mm3 (1.8-7.8); Neutrophils % 82.2 % (37.0-80.0); Platelet Count 111 K/mm3 (142-424); Red Blood Count 2.26 M/mm3 (4.20-5.40); Red Cell Distribution Width 13.4 % (11.5-17.5); White Blood Count 6.2 K/mm3 (4.8-10.8)
[2019-05-10 05:47] LABS: Hematocrit 21.9 % (37.0-47.0); Hemoglobin 7.3 g/dL (12.2-16.2)
[2019-05-10 06:38] LABS: Hemoglobin 6.7 g/dL (12.2-16.2)
[2019-05-10 06:39] LABS: Hematocrit 21.2 % (37.0-47.0)
--- NOTE | 2019-05-10 08:27 | Progress Note ---
<Nicolasa Greenfield - Last Filed: 05/10/19 08:25> Internal Medicine - PN: Subj *Date: 05/10/19 *Time: 08:25 Interval history: Patient states she is feeling better this morning. She only has pain in her hip if she moves it. She is currently getting blood as her H&H dropped. Her sodium has improved. She states she did sleep well and was able to eat some breakfast this morning. Exam Vital signs and Labs for Last 24 Hours: Temp Pulse Resp BP Pulse Ox 99.3 F 88 20 125/52 L 95 05/10/19 08:22 05/10/19 08:22 05/10/19 08:22 05/10/19 08:22 05/10/19 08:22 Laboratory Results - last 24 hr 05/08/19 12:36: Blood Type A Positive, Antibody Screen Negative, Crossmatch (AHG) See Detail 05/10/19 05:25: WBC 6.2, RBC 2.26 L D, Hgb 7.3 L* D, Hct 21.9 L*, MCV 97.0, MCH 32.2 H, MCHC 33.2, RDW 13.4, Plt Count 111 L, MPV 9.3, Neut % (Auto) 82.2 H, Lymph % (Auto) 9.9 L, Day % (Auto) 7.5, Eos % (Auto) 0.1, Baso % (Auto) 0.3, Neut # (Auto) 5.1, Lymph # (Auto) 0.6 L, Day # (Auto) 0.5, Eos # (Auto) 0.0, Baso # (Auto) 0.0 05/10/19 05:25: Sodium 131 L, Potassium 4.3, Chloride 100, Carbon Dioxide 25, Anion Gap 10.3, BUN 10 D, Creatinine 0.76, Estimated Creat Clear 40, Estimated GFR 74, Est GFR ( Amer) 89, Glucose 165 H D, Calcium 7.5 L 05/10/19 05:25: Blood Type Confirm A Positive 05/10/19 06:15: Hgb 6.7 L*, Hct 21.2 L* I & O for Last 24 hours: Intake & Output 05/07/19 05/08/19 05/09/19 05/10/19 11:59 11:59 11:59 11:59 Intake Total 1820 / 1820 6273 / 6273 Output Total 820 / 820 1300 / 1300 Balance 1000 / 1000 4973 / 4973 Weight 105 lb 119 lb 4 oz 120 lb 1 oz - Constitutional no acute distress - *Routine Respiratory Exam Present: CTA bilaterally - *Routine Cardiovascular Exam Present: RRR - *Routine Abdominal Exam Present: soft, normoactive bowel sounds. Absent: tenderness - *Routine Extremities Exam Absent: cyanosis, clubbing, edema - *Routine Skin Exam Present: pallor, warm. Absent: rash - *Routine Neurological Exam Present: alert, oriented X3 Assessment and Plan (1) Left displaced femoral neck fracture Current visit: Yes Status: Acute Category: Medical Code(s): S72.002A - Fracture of unspecified part of neck of left femur, initial encounter for closed fracture (2) Cardiac pacemaker in situ Current visit: Yes Status: Acute Category: Medical Code(s): Z95.0 - Presence of cardiac pacemaker (3) History of hypertension Current visit: Yes Status: Acute Category: Medical Code(s): Z86.79 - Personal history of other diseases of the circulatory system (4) Hyponatremia Current visit: Yes Status: Acute Category: Medical Code(s): E87.1 - Hypo- osmolality and hyponatremia (5) Anemia Current visit: Yes Status: Acute Category: Medical Code(s): D64.9 - Anemia, unspecified - Assessment and plan all Dx Assessment and Plan for all problems:: We will continue blood transfusion and recheck a 1 hour post H&H. Surgery and therapy to follow the patient. <Cam Llanos - Last Filed: 05/10/19 09:51> Internal Medicine - PN: Subj *Date: 05/10/19 *Time: 09:49 Exam Vital signs and Labs for Last 24 Hours: Temp Pulse Resp BP Pulse Ox 100.1 F H 98 H 15 146/59 H 95 05/10/19 09:07 05/10/19 09:07 05/10/19 09:07 05/10/19 09:07 05/10/19 09:07 Laboratory Results - last 24 hr 05/08/19 12:36: Blood Type A Positive, Antibody Screen Negative, Crossmatch (AHG) See Detail 05/10/19 05:25: WBC 6.2, RBC 2.26 L D, Hgb 7.3 L* D, Hct 21.9 L*, MCV 97.0, MCH 32.2 H, MCHC 33.2, RDW 13.4, Plt Count 111 L, MPV 9.3, Neut % (Auto) 82.2 H, Lymph % (Auto) 9.9 L, Day % (Auto) 7.5, Eos % (Auto) 0.1, Baso % (Auto) 0.3, Neut # (Auto) 5.1, Lymph # (Auto) 0.6 L, Day # (Auto) 0.5, Eos # (Auto) 0.0, Baso # (Auto) 0.0 05/10/19 05:25: Sodium 131 L, Potassium 4.3, Chloride 100, Carbon Dioxide 25, Anion Gap 10.3, BUN 10 D, Creatinine 0.76, Estimated Creat Clear 40, Estimated GFR 74, Est GFR ( Amer) 89, Glucose 165 H D, Calcium 7.5 L 05/10/19 05:25: Blood Type Confirm A Positive 05/10/19 06:15: Hgb 6.7 L*, Hct 21.2 L* I & O for Last 24 hours: Intake & Output 05/07/19 05/08/19 05/09/19 05/10/19 11:59 11:59 11:59 11:59 Intake Total 1820 / 1820 6753 / 6753 Output Total 820 / 820 1300 / 1300 Balance 1000 / 1000 5453 / 5453 Weight 105 lb 119 lb 4 oz 120 lb 1 oz Assessment and Plan (1) Left displaced femoral neck fracture Current visit: Yes Status: Acute Category: Medical Code(s): S72.002A - Fracture of unspecified part of neck of left femur, initial encounter for closed fracture (2) Cardiac pacemaker in situ Current visit: Yes Status: Acute Category: Medical Code(s): Z95.0 - Presence of cardiac pacemaker (3) History of hypertension Current visit: Yes Status: Acute Category: Medical Code(s): Z86.79 - Personal history of other diseases of the circulatory system (4) Hyponatremia Current visit: Yes Status: Acute Category: Medical Code(s): E87.1 - Hypo- osmolality and hyponatremia (5) Anemia Current visit: Yes Status: Acute Category: Medical Code(s): D64.9 - Anemia, unspecified - Assessment and plan all Dx Assessment and Plan for all problems:: Patient seen and examined. Concur with above. She became dizzy when tried to get up with therapy yesterday, likely from anemia. Agree with blood transfusion. Will give dose of Lasix after blood transfusion as she in positive on fluid balance from surgery.
[2019-05-10 14:03] LABS: Hematocrit 32.4 % (37.0-47.0)
[2019-05-10 14:05] LABS: Hemoglobin 10.9 g/dL (12.2-16.2)
--- NOTE | 2019-05-10 16:34 | Progress Note ---
Subjective Date: 05/10/19 Time: 16:15 Principal diagnosis: Hip fracture-status post bipolar hemiarthroplasty, left hip Interval history: Patient is status post LEFT hip bipolar hemiarthroplasty post op day #1. Patient is sitting out in the chair. Says is doing well and reports no problems. Patient has minimal pain and says it's well-controlled with medication. No history of any nausea or vomiting. No history of any cough, chest pain, shortness of breath or palpitations. Patient says she is eating and drinking well. No history of any distal tingling or numbness. Patient received blood transfusion earlier today for low postoperative H&H with appropriate posttran sfusion bump. PN: Obj Ex Vital signs: Temp Pulse Resp BP Pulse Ox 99.4 F 85 18 152/63 H 95 05/10/19 12:14 05/10/19 12:14 05/10/19 12:14 05/10/19 12:14 05/10/19 12:14 Narrative: Laboratory Results - last 24 hr 05/08/19 12:36: Blood Type A Positive, Antibody Screen Negative, Crossmatch (AHG) See Detail 05/10/19 05:25: WBC 6.2, RBC 2.26 L D, Hgb 7.3 L* D, Hct 21.9 L*, MCV 97.0, MCH 32.2 H, MCHC 33.2, RDW 13.4, Plt Count 111 L, MPV 9.3, Neut % (Auto) 82.2 H, Lymph % (Auto) 9.9 L, [place] % (Auto) 7.5, Eos % (Auto) 0.1, Baso % (Auto) 0.3, Neut # (Auto) 5.1, Lymph # (Auto) 0.6 L, [place] # (Auto) 0.5, Eos # (Auto) 0.0, Baso # (Auto) 0.0 05/10/19 05:25: Sodium 131 L, Potassium 4.3, Chloride 100, Carbon Dioxide 25, Anion Gap 10.3, BUN 10 D, Creatinine 0.76, Estimated Creat Clear 40, Estimated GFR 74, Est GFR ( Amer) 89, Glucose 165 H D, Calcium 7.5 L 05/10/19 05:25: Blood Type Confirm A Positive 05/10/19 06:15: Hgb 6.7 L*, Hct 21.2 L* 05/10/19 13:20: Hgb 10.9 L D, Hct 32.4 L Exam General appearance: alert, active, awake, no acute distress Cardiovascular: regular rate & rhythm, normal peripheral pulses Respiratory: No respiratory distress noted, speaks in full sentences ABD: soft and non tender Neuro: alert, awake, oriented x 3 Psych: normal mood and affect Genitourinary: Catheter in situ. On examination of the lower extremities the limb lengths are equal. Thigh and calf are soft and nontender. On examination of the LEFT hip the Silverlon dressings are clean, dry and intact. There is minimal soakage of the dressings. Distal pulses are 1+. Distal sensation is intact to light touch throughout. No motor deficits noted distally. - Urinary Catheter Management Soto Cath placed during this visit: Yes Urethral indwelling: Yes Reason for continuing: Surgical procedure Progress Note: A&P (1) Left displaced femoral neck fracture Status: Acute Current Visit: Yes (2) Cardiac pacemaker in situ Status: Acute Current Visit: Yes (3) History of hypertension Status: Acute Current Visit: Yes (4) Hyponatremia Status: Acute Current Visit: Yes (5) Anemia Status: Acute Current Visit: Yes Assessment and Plan for All Diagnoses:: I have reviewed the clinical findings and progress with the patient and family. Patient is doing well and reports no problems. Patient started mobilization weightbearing as tolerated on the LEFT side with a walker and to continue the same; continue PT OT. Continue DVT prophylaxis. Continue abduction pillow when in bed and continue standard precautions for the posterior approach to hip joint. Discontinue IV fluids and discontinue the urinary catheter. Case management consult regarding discharge planning. Continue medical management as per Dr. Llanos.
[2019-05-11 06:30] LABS: Basophils % 0.5 % (0.1-2.0); Eosinophils # 0.1 K/mm3 (0.0-0.4); Eosinophils % 1.4 % (0.1-12.0); Lymphocytes # 0.7 K/mm3 (0.7-4.5); Mean Corpuscular HGB Conc 33.7 g/dL (31.8-35.4); Mean Corpuscular Volume 92.2 fl (81-99); Mean Platelet Volume 10.3 fl (7.4-10.4); Monocytes # 0.4 K/mm3 (0.1-1.0); Neutrophils % 78.2 % (37.0-80.0); Platelet Count 73 K/mm3 (142-424); Red Cell Distribution Width 14.5 % (11.5-17.5); White Blood Count 5.2 K/mm3 (4.8-10.8)
[2019-05-11 06:32] LABS: Hematocrit 26.8 % (37.0-47.0)
[2019-05-11 06:38] LABS: Anion Gap 3.6 mEq/L (5-15); Calcium 7.8 mg/dL (8.5-10.1)
--- NOTE | 2019-05-11 08:03 | Progress Note ---
Internal Medicine - PN: Subj *Date: 05/11/19 *Time: 09:03 Interval history: She feels better after her blood transfusion. She sat up in the chair yesterday. Hip is sore. Denies shortness of breath or palpitations. Appetite is good. Exam Vital signs and Labs for Last 24 Hours: Temp Pulse Resp BP Pulse Ox 98.5 F 94 H 16 148/61 H 96 05/11/19 04:00 05/11/19 04:00 05/11/19 04:00 05/11/19 04:00 05/11/19 04:00 Laboratory Results - last 24 hr 05/08/19 12:36: Blood Type A Positive, Antibody Screen Negative, Crossmatch (AHG) See Detail 05/10/19 13:20: Hgb 10.9 L D, Hct 32.4 L 05/11/19 06:20: WBC 5.2, RBC 2.90 L D, Hgb 9.0 L D, Hct 26.8 L, MCV 92.2, MCH 31.1, MCHC 33.7, RDW 14.5, Plt Count 73 L D, MPV 10.3, Neut % (Auto) 78.2, Lymph % (Auto) 13.0, [place] % (Auto) 7.0, Eos % (Auto) 1.4, Baso % (Auto) 0.5, Neut # (Auto) 4.0, Lymph # (Auto) 0.7, [place] # (Auto) 0.4, Eos # (Auto) 0.1, Baso # (Auto) 0.0 05/11/19 06:20: Sodium 130 L, Potassium 3.6, Chloride 99, Carbon Dioxide 31 D, Anion Gap 3.6 L, BUN 9, Creatinine 0.53 L D, Estimated Creat Clear 40, Estimated GFR 112, Est GFR ( Amer) 135 D, Glucose 129 H, Calcium 7.8 L I & O for Last 24 hours: Intake & Output 05/08/19 05/09/19 05/10/19 05/11/19 11:59 11:59 11:59 11:59 Intake Total 1820 / 1820 7040 / 7040 1730 / 1730 Output Total 820 / 820 1300 / 1300 500 / 500 Balance 1000 / 1000 5740 / 5740 1230 / 1230 Weight 105 lb 119 lb 4 oz 120 lb 1 oz 120 lb 1 oz Narrative: She appears comfortable. Color improved. Lungs are clear to auscultation. Heart is regular. Extremities no edema. Assessment and Plan (1) Left displaced femoral neck fracture Current visit: Yes Status: Acute Category: Medical Code(s): S72.002A - Fracture of unspecified part of neck of left femur, initial encounter for closed fracture (2) Cardiac pacemaker in situ Current visit: Yes Status: Acute Category: Medical Code(s): Z95.0 - Presence of cardiac pacemaker (3) History of hypertension Current visit: Yes Status: Acute Category: Medical Code(s): Z86.79 - Personal history of other diseases of the circulatory system (4) Hyponatremia Current visit: Yes Status: Acute Category: Medical Code(s): E87.1 - Hypo- osmolality and hyponatremia (5) Postoperative anemia Current visit: Yes Status: Acute Category: Medical Code(s): D64.9 - Anemia, unspecified - Assessment and plan all Dx Assessment and Plan for all problems:: H&H improved after 3 units of blood but has decreased slightly this morning; likely due to equilibration. We will continue to monitor. Blood sugar has been elevated the past 2 mornings. Will check an A1c. Continue rehab per Ortho recommendations.
--- NOTE | 2019-05-11 21:49 | Progress Note ---
Subjective Date: 05/11/19 Time: 21:30 Principal diagnosis: Hip fracture-status post bipolar hemiarthroplasty, left hip Interval history: Patient is status post LEFT hip hemiarthroplasty post op day #2. Patient is sleeping at this time and I did not wake her up. Her family ([id number] and her ) are at the bedside and states she has been doing well. They did not have any concerns or questions. Nursing staff reports no problems and says that patient has been comfortable all day; patient has been mobilizing with help weightbearing as tolerated on the left side. PN: Obj Ex Vital signs: Temp Pulse Resp BP Pulse Ox 98.5 F 74 16 129/51 L 94 L 05/11/19 20:00 05/11/19 20:00 05/11/19 20:00 05/11/19 20:00 05/11/19 20:00 Narrative: Laboratory Results - last 24 hr 05/11/19 06:20: WBC 5.2, RBC 2.90 L D, Hgb 9.0 L D, Hct 26.8 L, MCV 92.2, MCH 31.1, MCHC 33.7, RDW 14.5, Plt Count 73 L D, MPV 10.3, Neut % (Auto) 78.2, Lymph % (Auto) 13.0, [place] % (Auto) 7.0, Eos % (Auto) 1.4, Baso % (Auto) 0.5, Neut # (Auto) 4.0, Lymph # (Auto) 0.7, [place] # (Auto) 0.4, Eos # (Auto) 0.1, Baso # (Auto) 0.0 05/11/19 06:20: Sodium 130 L, Potassium 3.6, Chloride 99, Carbon Dioxide 31 D, Anion Gap 3.6 L, BUN 9, Creatinine 0.53 L D, Estimated Creat Clear 40, Estimated GFR 112, Est GFR ( Amer) 135 D, Glucose 129 H, Calcium 7.8 L Exam General appearance: Sleeping, no acute distress Cardiovascular: regular rate & rhythm, normal peripheral pulses Respiratory: No respiratory distress noted On examination of the lower extremities the limb lengths are equal. She has abduction wedge between the legs. On examination of the LEFT hip the dressings are clean, dry and intact. There is minimal soakage of the Silverlon dressings. No evidence of any infection or other complications is noted. Distal pulses are 1+. - Urinary Catheter Management Soto Cath placed during this visit: no Urethral indwelling: Yes Progress Note: A&P (1) Left displaced femoral neck fracture Status: Acute Current Visit: Yes (2) Cardiac pacemaker in situ Status: Acute Current Visit: Yes (3) History of hypertension Status: Acute Current Visit: Yes (4) Hyponatremia Status: Acute Current Visit: Yes (5) Postoperative anemia Status: Acute Current Visit: Yes Assessment and Plan for All Diagnoses:: I have reviewed the findings and progress with the family. Patient is doing well and no problems are reported. Patient is mobilizing well weightbearing as tolerated on the LEFT side with the walker and to continue the same. Continue DVT prophylaxis. Continue abduction pillow when in bed and continue standard precautions for the posterior approach hip replacement. Case management consult regarding discharge planning. Continue medical management as per Viet.
[2019-05-12 06:17] LABS: Basophils % 0.3 % (0.1-2.0); Eosinophils # 0.2 K/mm3 (0.0-0.4); Eosinophils % 4.3 % (0.1-12.0); Lymphocytes # 0.8 K/mm3 (0.7-4.5); Lymphocytes % 16.9 % (10-50); Mean Corpuscular HGB Conc 33.5 g/dL (31.8-35.4); Mean Corpuscular Volume 92.5 fl (81-99); Mean Platelet Volume 9.4 fl (7.4-10.4); Monocytes # 0.4 K/mm3 (0.1-1.0); Monocytes % 7.7 % (1.7-9.3); Neutrophils # 3.3 K/mm3 (1.8-7.8); Neutrophils % 70.7 % (37.0-80.0); Platelet Count 94 K/mm3 (142-424); Red Blood Count 2.47 M/mm3 (4.20-5.40); Red Cell Distribution Width 14.3 % (11.5-17.5); White Blood Count 4.7 K/mm3 (4.8-10.8)
[2019-05-12 06:25] LABS: Anion Gap 8.3 mEq/L (5-15); Calcium 7.8 mg/dL (8.5-10.1)
[2019-05-12 06:27] LABS: Hematocrit 22.8 % (37.0-47.0); Hemoglobin 7.7 g/dL (12.2-16.2)
--- NOTE | 2019-05-12 08:59 | Progress Note ---
<Carol Frazier - Last Filed: 05/12/19 09:03> Internal Medicine - PN: Subj *Date: 05/12/19 *Time: 09:03 Interval history: Nursing reports bloody drainage from surgical site. Hemoglobin has decreased to 7.7 this morning. Potassium is low at 3.3. Hemoglobin A1c is normal at 5.7. Patient states she is feeling fine. She did sleep. She only has pain with ambulation. She is eating satisfactory. Bowels have not moved. She is voiding QS. She denies chest pain and shortness of breath. She continues to work with physical therapy. Exam Vital signs and Labs for Last 24 Hours: Temp Pulse Resp BP Pulse Ox 98.5 F 88 17 133/59 L 92 L 05/12/19 08:00 05/12/19 08:00 05/12/19 08:00 05/12/19 08:00 05/12/19 08:00 Laboratory Results - last 24 hr 05/12/19 05:28: WBC 4.7 L, RBC 2.47 L, Hgb 7.7 L*, Hct 22.8 L*, MCV 92.5, MCH 31.0, MCHC 33.5, RDW 14.3, Plt Count 94 L D, MPV 9.4, Neut % (Auto) 70.7, Lymph % (Auto) 16.9, [place] % (Auto) 7.7, Eos % (Auto) 4.3, Baso % (Auto) 0.3, Neut # (Auto) 3.3, Lymph # (Auto) 0.8, [place] # (Auto) 0.4, Eos # (Auto) 0.2, Baso # (Auto) 0.0 05/12/19 05:28: Sodium 134 L, Potassium 3.3 L, Chloride 99, Carbon Dioxide 30, Anion Gap 8.3, BUN 6 L D, Creatinine 0.61, Estimated Creat Clear 41, Estimated GFR 95, Est GFR ( Amer) 115, Glucose 113 H, Calcium 7.8 L 05/12/19 05:28: Hemoglobin A1c 5.7 I & O for Last 24 hours: Intake & Output 05/09/19 05/10/19 05/11/19 05/12/19 11:59 11:59 11:59 11:59 Intake Total 1820 / 1820 7040 / 7040 2090 / 2090 600 / 600 Output Total 820 / 820 1300 / 1300 700 / 700 200 / 200 Balance 1000 / 1000 5740 / 5740 1390 / 1390 400 / 400 Weight 119 lb 4 oz 120 lb 1 oz 120 lb 1 oz 122 lb 7 oz - Constitutional no acute distress Comments: Appears comfortable - *Routine Respiratory Exam Present: CTA bilaterally (Anteriorly and posteriorly) - *Routine Cardiovascular Exam Present: RRR - *Routine Abdominal Exam Present: soft, normoactive bowel sounds, distended (Mildly). Absent: tenderness - *Routine Extremities Exam Absent: edema Comments: Scuds in place bilateral lower extremities. Left reinforced wound dressing is clean and dry - *Routine Neurological Exam Present: alert, oriented X3 Assessment and Plan (1) Left displaced femoral neck fracture Current visit: Yes Status: Acute Category: Medical Code(s): S72.002A - Fracture of unspecified part of neck of left femur, initial encounter for closed fracture (2) Cardiac pacemaker in situ Current visit: Yes Status: Acute Category: Medical Code(s): Z95.0 - Presence of cardiac pacemaker (3) History of hypertension Current visit: Yes Status: Acute Category: Medical Code(s): Z86.79 - Personal history of other diseases of the circulatory system (4) Hyponatremia Current visit: Yes Status: Acute Category: Medical Code(s): E87.1 - Hypo- osmolality and hyponatremia (5) Postoperative anemia Current visit: Yes Status: Acute Category: Medical Code(s): D64.9 - Anemia, unspecified - Assessment and plan all Dx Assessment and Plan for all problems:: P.o. potassium has been ordered. Continue with physical therapy. Will follow orthopedic direction. <Cam Llanos - Last Filed: 05/12/19 12:49> Internal Medicine - PN: Subj *Date: 05/12/19 *Time: 12:48 Exam Vital signs and Labs for Last 24 Hours: Temp Pulse Resp BP Pulse Ox 98.5 F 88 17 133/59 L 92 L 05/12/19 08:00 05/12/19 08:00 05/12/19 08:00 05/12/19 08:00 05/12/19 08:00 Laboratory Results - last 24 hr 05/12/19 05:28: WBC 4.7 L, RBC 2.47 L, Hgb 7.7 L*, Hct 22.8 L*, MCV 92.5, MCH 31.0, MCHC 33.5, RDW 14.3, Plt Count 94 L D, MPV 9.4, Neut % (Auto) 70.7, Lymph % (Auto) 16.9, [place] % (Auto) 7.7, Eos % (Auto) 4.3, Baso % (Auto) 0.3, Neut # (Auto) 3.3, Lymph # (Auto) 0.8, [place] # (Auto) 0.4, Eos # (Auto) 0.2, Baso # (Auto) 0.0 05/12/19 05:28: Sodium 134 L, Potassium 3.3 L, Chloride 99, Carbon Dioxide 30, Anion Gap 8.3, BUN 6 L D, Creatinine 0.61, Estimated Creat Clear 41, Estimated GFR 95, Est GFR ( Amer) 115, Glucose 113 H, Calcium 7.8 L 05/12/19 05:28: Hemoglobin A1c 5.7 I & O for Last 24 hours: Intake & Output 05/10/19 05/11/19 05/12/19 05/13/19 11:59 11:59 11:59 11:59 Intake Total 7040 / 7040 2090 / 2090 600 / 600 Output Total 1300 / 1300 700 / 700 200 / 200 Balance 5740 / 5740 1390 / 1390 400 / 400 Weight 120 lb 1 oz 120 lb 1 oz 122 lb 7 oz Assessment and Plan (1) Left displaced femoral neck fracture Current visit: Yes Status: Acute Category: Medical Code(s): S72.002A - Fracture of unspecified part of neck of left femur, initial encounter for closed fracture (2) Cardiac pacemaker in situ Current visit: Yes Status: Acute Category: Medical Code(s): Z95.0 - Presence of cardiac pacemaker (3) History of hypertension Current visit: Yes Status: Acute Category: Medical Code(s): Z86.79 - Personal history of other diseases of the circulatory system (4) Hyponatremia Current visit: Yes Status: Acute Category: Medical Code(s): E87.1 - Hypo- osmolality and hyponatremia (5) Postoperative anemia Current visit: Yes Status: Acute Category: Medical Code(s): D64.9 - Anemia, unspecified - Assessment and plan all Dx Assessment and Plan for all problems:: Patient seen and examined. Subjectively she looks and feels better. She is tolerating activity in the room. Nursing staff notes increased bloody drainage from her wound in her hemoglobin has dropped again. Ortho to evaluate.
--- NOTE | 2019-05-12 15:59 | Progress Note ---
Subjective Date: 05/12/19 Time: 12:00 Principal diagnosis: Hip fracture-status post bipolar hemiarthroplasty, left hip Interval history: The patient was seen earlier this afternoon around lunch time, doing well at that time. She reports soreness in the L hip, controlled with pain medication. Denies lightheadedness, dizziness, chest pain, shortness of breath. Denies hematuria; has not had BM since surgery. Appetite is decreased. She has had some drainage from her dressing. PN: Obj Ex Vital signs: Temp Pulse Resp BP Pulse Ox 98.2 F 79 18 125/52 L 95 05/12/19 15:49 05/12/19 15:49 05/12/19 15:49 05/12/19 15:49 05/12/19 15:49 - Constitutional no acute distress - Routine Extremities Exam Comments: L hip dressing intact, moderate strikethrough dressing removed, no active drainage from hip; blood is dark/old mild periwound ecchymosis, no erythema, minimal tenderness negative logroll L hip 2+ palpable pedal pulses LLE, foot warm/well-perfused SILT distally LLE L calf soft, non-tender +DF/PF/EHL LLE hip abduction pillow in place - Urinary Catheter Management Soto Cath placed during this visit: no Urethral indwelling: Yes Progress Note: A&P (1) Left displaced femoral neck fracture Status: Acute Current Visit: Yes (2) Cardiac pacemaker in situ Status: Acute Current Visit: Yes (3) History of hypertension Status: Acute Current Visit: Yes (4) Hyponatremia Status: Acute Current Visit: Yes (5) Postoperative anemia Status: Acute Current Visit: Yes Assessment and Plan for All Diagnoses:: 79yo F POD 3 s/p L hip hemiarthroplasty for femoral neck fracture -- dressing changed, please apply ice frequently to surgical site; change dressing PRN -- continue PT/OT, posterior hip precautions, abduction pillow; WBAT LLE -- will continue to watch Hgb closely, do not believe there is active bleeding from the hip -- anticipate d/c home tomorrow if Hgb stable; will discuss with Dr. Llanos
[2019-05-12 16:23] LABS: Hemoglobin 7.3 g/dL (12.2-16.2)
[2019-05-12 16:24] LABS: Hematocrit 22.2 % (37.0-47.0)
[2019-05-13 06:57] LABS: Basophils % 0.4 % (0.1-2.0); Eosinophils # 0.2 K/mm3 (0.0-0.4); Eosinophils % 4.3 % (0.1-12.0); Lymphocytes # 0.7 K/mm3 (0.7-4.5); Mean Corpuscular HGB Conc 33.2 g/dL (31.8-35.4); Mean Corpuscular Volume 94.6 fl (81-99); Mean Platelet Volume 9.6 fl (7.4-10.4); Monocytes # 0.4 K/mm3 (0.1-1.0); Monocytes % 8.5 % (1.7-9.3); Neutrophils % 69.8 % (37.0-80.0); Platelet Count 120 K/mm3 (142-424); Red Blood Count 2.53 M/mm3 (4.20-5.40); Red Cell Distribution Width 14.6 % (11.5-17.5); White Blood Count 4.4 K/mm3 (4.8-10.8)
[2019-05-13 07:05] LABS: Hemoglobin 7.9 g/dL (12.2-16.2)
[2019-05-13 07:40] LABS: Anion Gap 5.6 mEq/L (5-15); Calcium 8.4 mg/dL (8.5-10.1)
--- NOTE | 2019-05-13 09:48 | Progress Note ---
<Carol Frazier - Last Filed: 05/13/19 09:49> Internal Medicine - PN: Subj *Date: 05/13/19 *Time: 09:49 Interval history: Patient had a good day yesterday. She ambulated with less discomfort. She has been eating without problems. Bowels have not moved but she feels like they will when when she gets home. She is voiding without difficulty. She is anxious to go home. Exam Vital signs and Labs for Last 24 Hours: Temp Pulse Resp BP Pulse Ox 98.7 F 94 H 20 156/74 H 97 05/13/19 07:52 05/13/19 07:52 05/13/19 07:52 05/13/19 07:52 05/13/19 07:52 Laboratory Results - last 24 hr 05/12/19 16:05: Hgb 7.3 L*, Hct 22.2 L* 05/13/19 06:43: WBC 4.4 L, RBC 2.53 L, Hgb 7.9 L*, Hct 24.0 L, MCV 94.6, MCH 31.4 H, MCHC 33.2, RDW 14.6, Plt Count 120 L D, MPV 9.6, Neut % (Auto) 69.8, Lymph % (Auto) 17.0, [place] % (Auto) 8.5, Eos % (Auto) 4.3, Baso % (Auto) 0.4, Neut # (Auto) 3.0, Lymph # (Auto) 0.7, [place] # (Auto) 0.4, Eos # (Auto) 0.2, Baso # (Auto) 0.0 05/13/19 06:43: Sodium 134 L, Potassium 3.6, Chloride 100, Carbon Dioxide 32, Anion Gap 5.6, BUN 8 D, Creatinine 0.57, Estimated Creat Clear 41, Estimated GFR 103, Est GFR ( Amer) 124, Glucose 112 H, Calcium 8.4 L I & O for Last 24 hours: Intake & Output 05/10/19 05/11/19 05/12/19 05/13/19 11:59 11:59 11:59 11:59 Intake Total 7040 / 7040 2090 / 2090 600 / 600 1080 / 1080 Output Total 1300 / 1300 700 / 700 200 / 200 Balance 5740 / 5740 1390 / 1390 400 / 400 1080 / 1080 Weight 120 lb 1 oz 120 lb 1 oz 122 lb 7 oz 122 lb 7.01 oz - Constitutional no acute distress Comments: Appears comfortable - *Routine Respiratory Exam Present: CTA bilaterally - *Routine Cardiovascular Exam Present: RRR - *Routine Extremities Exam Absent: edema, calf tenderness - *Routine Neurological Exam Present: alert, oriented X3 Assessment and Plan (1) Left displaced femoral neck fracture Current visit: Yes Status: Acute Category: Medical Code(s): S72.002A - Fracture of unspecified part of neck of left femur, initial encounter for closed fracture (2) Cardiac pacemaker in situ Current visit: Yes Status: Acute Category: Medical Code(s): Z95.0 - Presence of cardiac pacemaker (3) History of hypertension Current visit: Yes Status: Acute Category: Medical Code(s): Z86.79 - Personal history of other diseases of the circulatory system (4) Hyponatremia Current visit: Yes Status: Acute Category: Medical Code(s): E87.1 - Hypo- osmolality and hyponatremia (5) Postoperative anemia Current visit: Yes Status: Acute Category: Medical Code(s): D64.9 - Anemia, unspecified - Assessment and plan all Dx Assessment and Plan for all problems:: Discharge to home with home health. Follow-up with PCP and Dr. Perez <Cam Llanos - Last Filed: 05/13/19 11:07> Internal Medicine - PN: Subj *Date: 05/13/19 *Time: 11:05 Exam Vital signs and Labs for Last 24 Hours: Temp Pulse Resp BP Pulse Ox 98.7 F 94 H 20 156/74 H 97 05/13/19 07:52 05/13/19 07:52 05/13/19 07:52 05/13/19 07:52 05/13/19 07:52 Laboratory Results - last 24 hr 05/12/19 16:05: Hgb 7.3 L*, Hct 22.2 L* 05/13/19 06:43: WBC 4.4 L, RBC 2.53 L, Hgb 7.9 L*, Hct 24.0 L, MCV 94.6, MCH 31.4 H, MCHC 33.2, RDW 14.6, Plt Count 120 L D, MPV 9.6, Neut % (Auto) 69.8, Lymph % (Auto) 17.0, Bl[place] % (Auto) 8.5, Eos % (Auto) 4.3, Baso % (Auto) 0.4, Neut # (Auto) 3.0, Lymph # (Auto) 0.7, [place] # (Auto) 0.4, Eos # (Auto) 0.2, Baso # (Auto) 0.0 05/13/19 06:43: Sodium 134 L, Potassium 3.6, Chloride 100, Carbon Dioxide 32, Anion Gap 5.6, BUN 8 D, Creatinine 0.57, Estimated Creat Clear 41, Estimated GFR 103, Est GFR ( Amer) 124, Glucose 112 H, Calcium 8.4 L I & O for Last 24 hours: Intake & Output 05/10/19 05/11/19 05/12/19 05/13/19 11:59 11:59 11:59 11:59 Intake Total 7040 / 7040 2090 / 2090 600 / 600 1080 / 1080 Output Total 1300 / 1300 700 / 700 200 / 200 Balance 5740 / 5740 1390 / 1390 400 / 400 1080 / 1080 Weight 120 lb 1 oz 120 lb 1 oz 122 lb 7 oz 122 lb 7.01 oz Assessment and Plan (1) Left displaced femoral neck fracture Current visit: Yes Status: Acute Category: Medical Code(s): S72.002A - Fracture of unspecified part of neck of left femur, initial encounter for closed fracture (2) Cardiac pacemaker in situ Current visit: Yes Status: Acute Category: Medical Code(s): Z95.0 - Presence of cardiac pacemaker (3) History of hypertension Current visit: Yes Status: Acute Category: Medical Code(s): Z86.79 - Personal history of other diseases of the circulatory system (4) Hyponatremia Current visit: Yes Status: Acute Category: Medical Code(s): E87.1 - Hypo- osmolality and hyponatremia (5) Postoperative anemia Current visit: Yes Status: Acute Category: Medical Code(s): D64.9 - Anemia, unspecified - Assessment and plan all Dx Assessment and Plan for all problems:: Patient seen and examined. H&H has stabilized and increased this AM. She is hemodynamiclly stable and progressing well with PT. Concur with plan for discharge. SHe will see her PCP, Dr. Noel to f/u on her H&H and hypokalemia.
--- NOTE | 2019-05-13 13:33 | Discharge Summary ---
General - General Admission date:: 05/08/19 Discharge date: 05/13/19 HPI HPI: Patient is a 79 year old female who presented after a fall. She mentioned that she was walking down the [place] stairs [place] [employer] and missed a step then fell on the hardwood floor. She did not hit her head and/or lose consciousness. She mentioned landing on her left hip and it had been hurting in that area, so she came into our ED. Workup in ED showed left femoral neck fracture. She was also notable to have chronic but stable hyponatremia. Dr. Miller was consulted for surgery. Hospital Course Hospital Course: The patient's initial chest x-ray showed nothing acute. Cardiology was consulted for cardiac clearance and performed an echo. She had had a pacemaker inserted for sick sinus syndrome in the past. The echo showed a normal LVEF without significant valve disease and cardiology felt she was an acceptable risk to proceed with orthopedic surgery. The patient was seen by Dr. Miller and she planned surgery for 05/09/2019. The patient had a left hip hemiarthroplasty on 05/09/2019. She did have postoperative anemia and had to receive blood. Her sodium improved. She was able to rest a little bit better after surgery and tolerated some food. She was given a dose of Lasix after the blood transfusion as she was positive on her fluid balance from surgery. The patient's pain was well controlled with pain medication. Orthopedics felt she could mobilize as tolerated on the left side with a walker and would need continued PT and OT as well as DVT prophylaxis. She would also need the abduction pillow when in bed. Her H&H improved with transfusion of 3 units of packed red blood cells. She was able to work with physical therapy and tolerated the use of a walker. She did have some hypokalemia, therefore potassium was ordered. She had some increased bloody drainage from her wound and her hemoglobin dropped again down to 7.7. Dr. Miller saw the patient and did not feel that there was active bleeding from the hip. She wanted to monitor the patient's hemoglobin. The patient was able to ambulate with less discomfort and was eating with no problems. Her H&H did stabilize and it was felt she was hemodynamically stable to be discharged home and continue with home health physical therapy. She will need to follow-up with her PCP, Dr. Noel to have her H&H and her potassium rechecked. She will also follow-up with Dr. Miller. Objective Vital signs: Temp Pulse Resp BP Pulse Ox 98.7 F 94 H 20 156/74 H 97 05/13/19 07:52 05/13/19 07:52 05/13/19 07:52 05/13/19 07:52 05/13/19 07:52 Narrative: - Constitutional no acute distress Comments: Appears comfortable - *Routine Respiratory Exam Present: CTA bilaterally - *Routine Cardiovascular Exam Present: RRR - *Routine Extremities Exam Absent: edema, calf tenderness - *Routine Neurological Exam Present: alert, oriented X3 Results Labs on day of discharge: Labs from last 24 hours 05/13/19 05/13/19 05/12/19 06:43 06:43 16:05 WBC 4.4 L RBC 2.53 L Hgb 7.9 L* 7.3 L* Hct 24.0 L 22.2 L* MCV 94.6 MCH 31.4 H MCHC 33.2 RDW 14.6 Plt Count 120 L D MPV 9.6 Neut % (Auto) 69.8 Lymph % (Auto) 17.0 [place] % (Auto) 8.5 Eos % (Auto) 4.3 Baso % (Auto) 0.4 Neut # (Auto) 3.0 Lymph # (Auto) 0.7 [place] # (Auto) 0.4 Eos # (Auto) 0.2 Baso # (Auto) 0.0 Sodium 134 L Potassium 3.6 Chloride 100 Carbon Dioxide 32 Anion Gap 5.6 BUN 8 D Creatinine 0.57 Estimated Creat Clear 41 Estimated GFR 103 Est GFR ( Amer) 124 Glucose 112 H Calcium 8.4 L DS: Diagnosis - Discharge Diagnosis (1) Left displaced femoral neck fracture Status: Acute (2) Cardiac pacemaker in situ Status: Acute (3) History of hypertension Status: Acute (4) Hyponatremia Status: Acute (5) Postoperative anemia Status: Acute Discharge Plan - Patient Discharge Instructions ACTIVITY: Ambulate as tolerated DIET: continue same diet Additional Instructions: -- continue posterior hip precautions, hip abduction pillow while in bed -- up as tolerated with assistance and rolling walker -- ice to L hip as needed Patient Instructions: Hip Fracture, DI for Hip Fracture, DI for Hip Replacement, DI for Surgical Site Infection - Follow up Plan Follow up with: Karen Miller MD [Physician] - 06/02/19 1:15 pm Shawn Noel [Primary Care Provider] - 06/10/19 11:00 am (4 weeks) Disposition: Home Health Service Home Medications: Home Medications Medication Instructions Recorded Confirmed Type cyanocobalamin (vitamin B-12) 1,000 mcg PO DAILY 07/30/18 05/08/19 History 1,000 mcg capsule primidone 50 mg tablet 50 tab PO BID 90 Days #180 tab 07/30/18 05/08/19 History Aspirin [Aspirin 325mg Tab] 325 mg PO DAILY #45 tab 05/13/19 Rx Potassium Chloride [Klor-Con 10] 10 meq PO DAILY #30 tablet.er 05/13/19 Rx Prescriptions/Medication Reconciliation: New Aspirin [Aspirin 325mg Tab] 325 mg PO DAILY #45 tab Potassium Chloride [Klor-Con 10] 10 meq PO DAILY #30 tablet.er Continued primidone 50 mg tablet 50 tab PO BID 90 Days #180 tab cyanocobalamin (vitamin B-12) 1,000 mcg capsule 1,000 mcg PO DAILY - Problem Reconciliation Problems Reviewed?: Yes
== END 2019-05-13 12:45 | disposition home health service (06) | DRG 470 ==
LOC: ER 11:51 → 2ND 13:13
PROVIDERS: ADMIT Family Medicine; ATTEND Family Medicine
CPT/HCPCS: 36415; 71010; 71045; 73502; 80048; 80053; 83036; 85014; 85018; 85025; 85610; 85730; 86850; 93005; 93306; 94761; 96374; 96375; 96376; 97110; 97116; 97162; 97165; 97530; 99285; C1713; C1776; J2405; P9016

== ENCOUNTER → 2019-06-02 12:28 | Outpatient (CLI) | payer MEDICARE, SELFPAY ==
--- NOTE | 2019-06-02 12:33 | XR_ITS ---
PROCEDURE: XR HIP LT 2-3V W/PELVIS CLINICAL INDICATION: Post Op Lt hip FX COMPARISON: XR HIP LT 2-3V W/PELVIS from 05/09/2019 FINDINGS: Status post left hip hemiarthroplasty. There is good alignment with no evidence of orthopedic hardware malfunction. Skin clips remain present. Soft tissue gas is no longer apparent. IMPRESSION: Good alignment status post left hip hemiarthroplasty Dictated by: Jose Keen MD 06/02/2019 16:58 Electronically signed by Jose Keen MD in [place] 06/02/2019 16:58
== END ==
PROVIDERS: PCP Family Medicine; Visit Provider Orthopaedic Surgery
DX: S72.002A Fracture of unspecified part of neck of left femur, initial encounter for closed fracture (principal)
CPT/HCPCS: 73502

== ENCOUNTER 2019-06-13 13:00 | Outpatient (RCR) | payer MEDICARE, SELFPAY ==
--- NOTE | 2019-06-06 11:40 | HMH.PTOPEV ---
PT Outpatient Evaluation Rehab PT Outpatient Evaluation Start: 06/06/19 11:30 Freq: Status: Active Protocol: Document 06/06/19 11:31 CASTRO (Rec: 06/06/19 11:40 CASTRO [id number]) Electronically Signed By Jonnathan Silva, PT 06/06/19 11:31 Outpatient Therapy Subjective History Subjective History Pt presents s/p L hip hemiarthroplasty on 05/15/19. Pt reports sx. d/t fall-fx, and recovery post-op 'has been great'. Pt reports no L hip pain, and no limitations with prolonged standing/walking, and reports no restrictions from MD. Chief Complaint Stiff,Weakness Symptom Type Dull Symptoms Relieved By Rest/Positioning Symptoms Aggravated By Physical Activity Prior Functional Limitations None Current Functional Limitations Lifting,Housework,Walking Symptom Description Intermittent Level of pain today (0-10) 0 Pain scale - at its best (0-10) 0 Pain scale - at its worst (0-10) 0 Hip/Knee Eval Gait Observation General Gait Pattern Observation Shuffling Step Assistive Device Assistive Devices Rolling / Wheeled Walker Palpation Tenderness left Knee Palpation Overall Comment lateral hip 0-1/4 Hip Palpation Findings Tenderness MMT bilateral Hip Flexion Strength Grade 4 Good Hip Abduction Strength Grade 4- Good- Hip Adduction Strength Grade 4- Good- Hip Extension Strength Grade 4- Good- Hip External Rotation Strength Grade 4 Good Hip Internal Rotation Strength Grade 4 Good Knee Extension Strength Grade 5 Normal Knee Flexion Strength Grade 5 Normal ROM left Hip Flexion w/Knee Flexed Active Range 0-100 of Motion (degrees) Hip Abduction Active Range of Motion ( 0-40 degrees) Hip Extension Active Range of Motion ( 0-15 degrees) Outpatient Therapy Assessment Impairments Problems/Impairmments Palpation Tenderness,Impaired Range of Motion,Impaired Strength,Impaired Gait Pattern ,Impaired Walking,Impaired Household Care,Impaired Self Care/Self Management Prognosis Rehab Potential Good Clinical Impression Consistent with Diagnosis Yes Short Term Goals Number of Weeks 2-4 Decreased Palpation Tenderness Yes: WFL Increase Range of Motion Yes: WFL Increase Strength Yes: 4-4+/5 Improve Gait Pattern without Assistive Yes: WFL Device
== END 2019-06-13 13:05 | disposition home or self-care (01) ==
LOC: PT 13:00
PROVIDERS: PCP Family Medicine; Visit Provider Orthopaedic Surgery
DX: S72.002A Fracture of unspecified part of neck of left femur, initial encounter for closed fracture (principal)
CPT/HCPCS: 97110; 97163

== ENCOUNTER → 2019-07-28 09:50 | Outpatient (CLI) | payer MEDICARE, SELFPAY ==
--- NOTE | 2019-07-28 09:57 | XR_ITS ---
PROCEDURE: XR HIP LT 2-3V W/PELVIS CLINICAL INDICATION: Lt hip FU Follow-up hip replacement COMPARISON: XR HIP LT 2-3V W/PELVIS from 06/02/2019 FINDINGS: Left-sided bipolar prosthesis remains in place with good alignment. The tip of the prosthesis is not demonstrated on the exam and is asked be repeated but has not been repeated as 07/30/2019. Addendum may be added once that is performed. There are some coarse calcifications in the mid abdomen to the left of the L4 vertebral body and could be pancreatic. IMPRESSION: Status post left hip hemiarthroplasty placement as described above with good position. The tip of the femoral prosthesis is not included. Dictated by: Jose Keen MD 07/30/2019 08:54 Electronically signed by Jose Keen MD in [place] 07/30/2019 08:54
== END ==
PROVIDERS: PCP Family Medicine; Visit Provider Orthopaedic Surgery
DX: Z96.642 Presence of left artificial hip joint (principal); M25.552 Pain in left hip
CPT/HCPCS: 73502

== ENCOUNTER → 2019-07-30 10:15 | Outpatient (CLI) | payer MEDICARE, SELFPAY | PROVIDERS: PCP Family Medicine; Visit Provider Orthopaedic Surgery | DX: Z96.642 Presence of left artificial hip joint (principal); M25.552 Pain in left hip ==

== ENCOUNTER 2019-08-19 08:13 | Observation (INO) ==
[2019-08-19 08:33] LABS: Basophils % 0.6 % (0.1-2.0); Eosinophils # 0.1 K/mm3 (0.0-0.4); Eosinophils % 1.7 % (0.1-12.0); Hematocrit 42.7 % (37.0-47.0); Lymphocytes # 1.9 K/mm3 (0.7-4.5); Lymphocytes % 33.1 % (10-50); Mean Corpuscular HGB Conc 32.8 g/dL (31.8-35.4); Mean Corpuscular Volume 94.9 fl (81-99); Mean Platelet Volume 8.3 fl (7.4-10.4); Monocytes # 0.4 K/mm3 (0.1-1.0); Monocytes % 6.5 % (1.7-9.3); Neutrophils # 3.3 K/mm3 (1.8-7.8); Neutrophils % 58.1 % (37.0-80.0); Platelet Count 177 K/mm3 (142-424); Red Cell Distribution Width 13.2 % (11.5-17.5); White Blood Count 5.7 K/mm3 (4.8-10.8)
[2019-08-19 08:37] LABS: Albumin/Globulin Ratio 1.6 (1.1-1.8); Bilirubin,Total 0.4 mg/dl (0.2-1.3); Calcium 10.2 mg/dl (8.4-10.2); Globulin 3.1 g/dL (1.3-3.2); Total Protein,Serum 8.1 g/dl (6.3-8.2)
[2019-08-19 08:38] LABS: INR 0.96 (0.9-1.1)
[2019-08-19 09:27] LABS: Creatine Kinase 44 U/L (30-135)
--- NOTE | 2019-08-19 10:37 | Emergency Department Note ---
ED Disposition Clinical Impression: Uncontrolled hypertension, Hypotension, Epistaxis not due to trauma, Diaphoresis Disposition: Admitted as Observation Condition on Discharge: Good Instructions: DI for Nosebleed Additional Instructions: Patient was admitted to Dr. Valdovinos. Referrals: Shawn Noel [Primary Care Provider] - - Critical Care Critical Care Time: No Attestation: On 08/19/19, the high probability of a clinically significant, sudden or life threatening deterioration of the following system(s) required my full and direct attention, intervention and personal management. The time I documented below is in addition to time spent performing reported procedures but includes the following listed in this critical care notation. Medical Decision Making - Medical Records Medical records reviewed: Yes: I reviewed the patient's medical records. - Javier Inquiry Pt receiving controlled substance: No Vital Signs: 08/19/19 08:13 08/19/19 08:46 08/19/19 08:54 Pulse Rate [Radial] 113 H 62 63 Respiratory Rate 18 Blood Pressure [Right Arm] 128/81 70/46 L 108/61 L Blood Pressure Mean [Right Arm] 96 54 76 Blood Pressure Source [Right Arm] Automatic Cuff Automatic Cuff Automatic Cuff Blood Pressure Position [Right Arm] Sitting Sitting Sitting 02 Sat by Pulse Oximetry 95 91 L 93 L Oxygen Delivery Method Room Air Room Air Room Air Oxygen Flow Rate (LPM) 08/19/19 09:16 08/19/19 09:52 08/19/19 10:00 Pulse Rate [Radial] 61 67 61 Respiratory Rate 18 20 Blood Pressure [Right Arm] 199/94 H 155/92 H 201/89 H Blood Pressure Mean [Right Arm] 129 113 126 Blood Pressure Source [Right Arm] Automatic Cuff Blood Pressure Position [Right Arm] Sitting Supine 02 Sat by Pulse Oximetry 99 100 100 Oxygen Delivery Method Nasal Cannula Nasal Cannula Oxygen Flow Rate (LPM) 2 2 08/19/19 10:29 Pulse Rate [Radial] 60 Respiratory Rate 20 Blood Pressure [Right Arm] 192/79 H Blood Pressure Mean [Right Arm] 116 Blood Pressure Source [Right Arm] Blood Pressure Position [Right Arm] Supine 02 Sat by Pulse Oximetry 99 Oxygen Delivery Method Nasal Cannula Oxygen Flow Rate (LPM) 2 - Lab Data Lab results reviewed: Yes: I reviewed the patient's lab results. Lab Results 08/19/19 08:24: WBC 5.7, RBC 4.50, Hgb 14.0, Hct 42.7, MCV 94.9, MCH 31.2, MCHC 32.8, RDW 13.2, Plt Count 177, MPV 8.3, Neut % (Auto) 58.1, Lymph % (Auto) 33.1, [place] % (Auto) 6.5, Eos % (Auto) 1.7, Baso % (Auto) 0.6, Neut # (Auto) 3.3, Lymph # (Auto) 1.9, [place] # (Auto) 0.4, Eos # (Auto) 0.1, Baso # (Auto) 0.0 08/19/19 08:24: Sodium 130 L, Potassium 4.0, Chloride 93 L, Carbon Dioxide 28, Anion Gap 13.0, BUN 9, Creatinine 0.60, Estimated Creat Clear 36, Estimated GFR 97, Est GFR ( Amer) 117, Glucose 92, Calcium 10.2, Total Bilirubin 0.4, AST 35, ALT 19, Alkaline Phosphatase 50, Total Protein 8.1, Albumin 5.0, Globulin 3.1, Albumin/Globulin Ratio 1.6 08/19/19 08:24: PT 10.0, INR 0.96 08/19/19 08:24: Total Creatine Kinase 44, CK-MB (CK-2) 0.6, CK-MB (CK-2) Rel Index 1.4, Troponin I < 0.01 Result diagrams: 08/19/19 08:24 08/19/19 08:24 Orders (Tests/Meds): ED MEDICATIONS Discontinued Medications Generic Name Dose Route Start Last Admin Trade Name Karsten PRN Reason Stop Dose Admin Clonidine HCl 0.2 mg 08/19/19 09:40 08/19/19 10:12 Clonidine 0.1mg Tablet PO 08/19/19 09:41 0.1 mg ONCE ONE Administration Ketorolac Tromethamine 15 mg 08/19/19 10:08 08/19/19 10:12 Toradol 30mg/Ml Vial IV 08/19/19 10:09 15 mg ONCE ONE Administration Ondansetron HCl 4 mg 08/19/19 09:16 08/19/19 09:19 Zofran 4mg/2ml Vial IV 08/19/19 09:17 4 mg ONCE ONE Administration Oxymetazoline HCl 1 ml 08/19/19 08:25 08/19/19 08:26 Afrin Nasal [place] 15ml NS 08/19/19 08:26 1 bottle ONCE ONE Administration ORDERS Category Date Time Status Troponin I Q3H Lab 08/19/19 12:15 Ordered Troponin I Q3H Lab 08/19/19 15:15 Ordered - CT Data CT Scan: Head Time Received: 10:00 Preliminary Findings: Normal/NAD - ECG Data Tracing #1 Normal Sinus Rhythm: Yes Medical Decision Narrative: Patient did receive Afrin suctioning and a Rhino Rocket in the left nostril. This did control her bleeding. However patient became hypotensive and diaphoretic. Blood pressure went from 201/90 down to 70/40. She also had decreased peripheral pulses and she also became diaphoretic at that time an EKG was done which was within normal limits. Patient then was giving given a 1 L fluid bolus. Patient did go to radiology to have a CT scan done of her head which came back within normal limits presently patient is hypertensive at 192/70 patient did receive a 0.1 mg clonidine about 20 minutes ago. Epistaxis HPI - General Chief complaint: Epistaxis Stated complaint: nose bleed Time Seen by Provider: 08/19/19 09:00 Mode of Arrival: Wheelchair Limitations: No Limitations Description of Symptoms (Recalled from ER Triage Doc. by RN): nose bleed - History of Present Illness HPI Narrative: 79-year-old female presents the ED with an acute nosebleed. She stated that the nosebleed started about 1 hour prior to arrival. Patient denies any other symptoms. She denies any recent fever shakes or chills. And she also denies any nausea or vomiting. Patient does take aspirin. Patient's blood pressure here in the ED is 201/90. She also denies any cough or shortness of breath. - Related Data Home Medications Medication Instructions Recorded Confirmed cyanocobalamin (vitamin B-12) 1,000 mcg PO DAILY 07/30/18 08/19/19 1,000 mcg capsule primidone 50 mg tablet 50 tab PO BID 90 Days #180 tab 07/30/18 08/19/19 Aspirin [Aspirin 325mg Tab] 325 mg PO DAILY 08/19/19 08/19/19 Potassium Chloride [Klor-Con 10] 10 meq PO DAILY 08/19/19 08/19/19 Allergies Allergy/AdvReac Type Severity Reaction Status Date / Time Sulfa (Sulfonamide Allergy Unknown Verified 07/28/19 10:23 Antibiotics) sulfamethizole Allergy Unknown Verified 07/28/19 10:23 triamcinolone Allergy Unknown Verified 07/28/19 10:23 [facility] History - Hepatitis A Screen Drug use history?: No High risk sexual behaviors?: No History of sexually transmitted infection?: No Currently employed?: No Childcare worker?: No Do you have indoor plumbing?: Yes Do you have electricity?: Yes Attestation statement:: This patient has been screened for Hepatitis A risk factors. I have reviewed the patient's past medical history: Yes Medical History: Reports:: Hyperlipidemia, Hypertension, Internal Pacemaker, Transient Ischemic Attacks (TIA) Denies:: Diabetes Mellitus Type 1, Diabetes Mellitus Type 2 Other Medical History: Reports: Arthritis, Other Comment: Had 2 strokes - Last stroke 2005 Laterality Cases: Left: Total Hip Replacement Other Surgeries: Yes: Cholecystectomy, Colonoscopy, Pacemaker, Tubal Ligation, Other Amputation: No Fractures: Yes Comment: Hole in heart repair & D&C. Left hip - Social History Educational Level: Completed High School Smoking Status: Former smoker Alcohol Intake: never Substance Use Type: denies use Occupational Status: other Housing: house Household Members: spouse Family Hx:: Cancer, Coronary Artery Disease, Diabetes, Heart Attack, Hyperlipidemia, Hypertension, Stroke, Thyroid Disorder ROS Obtained: Yes All systems reviewed & no additional complaints - Constitutional Constitutional: Reports system reviewed and no additional complaints, except as docu - Eyes Eyes: Reports system reviewed and no additional complaints, except as docu - ENT Ears, Nose, Mouth, and Throat: Reports system reviewed and no additional complaints, except as docu - Cardiovascular Cardiovascular: Reports system reviewed and no additional complaints, except as docu - Respiratory Respiratory: Yes system reviewed and no additional complaints, except as docu - Gastrointestinal Gastrointestingal: Reports: system reviewed and no additional complaints, except as docu - Genitourinary Male Genitourinary: Reports system reviewed and no additional complaints, except as docu Female Genitourinary: Reports system reviewed and no additional complaints, exc ept as docu - Musculoskeletal Musculoskeletal: Reports system reviewed and no additional complaints, except as docu - Integumentary/Breasts Skin/Breast: Reports system reviewed and no additional complaints, except as docu - Neurologic Neurologic: Reports system reviewed and no additional complaints, except as docu - Endocrine Endocrine: Reports system reviewed and no additional complaints, except as docu - Hematologic/Lymphatic Henatologic/Lymphatic: Reports system reviewed and no additional complaints, except as docu - Allergic/Immunologic Allergic/Immunologic: Reports system reviewed and no additional complaints, except as docu Physical Exam - General General appearance: alert, in no apparent distress - Head Head exam: atraumatic, normocephalic - Eye Eye exam: Present: normal appearance, PERRL - ENT ENT exam: Present: other (Patient is having a nosebleed from the left nostril.) - Respiratory Respiratory exam: Present: normal lung sounds bilaterally - Cardiovascular Cardiovascular exam: Present: regular rate - Abdominal Exam Abdominal exam: Present: soft, distention - External exam: Present: normal external exam - Extremities Exam Extremities exam: Present: normal inspection - Back Exam Back exam: Present: normal inspection - Neurological Exam Neurological exam: Present: alert, oriented X3 - Psychiatric Psychiatric exam: Present: normal affect - Skin Skin exam: Present: warm, intact - Lymphatic Lymphatic Findings: no adenopathy
--- NOTE | 2019-08-19 12:07 | Pharmacy Consult Notes ---
[facility] Pharmacy VTE Monitoring - Patient Demographics Admission date: 08/19/19 Report Date: 08/19/19 Time: 12:06 Allergies/Adverse Reactions: Patient Allergies Sulfa (Sulfonamide Antibiotics) Allergy (Unknown, Verified 07/28/19 10:23) sulfamethizole Allergy (Unknown, Verified 07/28/19 10:23) triamcinolone Allergy (Unknown, Verified 07/28/19 10:23) Height: 1.63 m Weight: 48.648 kg Patient Problems: Current Active Problems Uncontrolled hypertension (Acute) Hypotension (Acute) Epistaxis not due to trauma (Acute) Diaphoresis (Acute) - VTE Risk Labs: VTE Related Lab Results Hgb 14.0 g/dL (12.2-16.2) 08/19/19 08:24 Hct 42.7 % (37.0-47.0) 08/19/19 08:24 Plt Count 177 K/mm3 (142-424) 08/19/19 08:24 PT 10.0 seconds (9.4-11.8) 08/19/19 08:24 INR 0.96 (0.9-1.1) 08/19/19 08:24 BUN 9 mg/dl (7-17) 08/19/19 08:24 Creatinine 0.60 mg/dl (0.52-1.04) 08/19/19 08:24 Estimated Creat Clear 36 mL/min (50-200) 08/19/19 08:24 - Prophylaxis VTE Prophylaxis Ordered?: Yes Types of VTE Prophylaxis: TEDS Knee High Location of Applied Device: Bilateral Lower Extremeties - VTE Diagnosis Confirmed Treatment or plan recommended: Continue Current Treatment
--- NOTE | 2019-08-19 16:04 | Consult Report ---
*Admission Date: 08/19/19 *Reason for consult:: epistaxis *History of present illness: left sided episaxis Review of Systems - ENT Reports nosebleed [facility] History Medical History: Reports:: Hyperlipidemia, Hypertension, Internal Pacemaker, Transient Ischemic Attacks (TIA) Denies:: Cancer, Diabetes Mellitus Type 1, Diabetes Mellitus Type 2, MRSA *Have you ever received a pneumonia vaccine?: Yes *Have you received a flu vaccine this season?: Yes Other Medical History: Reports: Anemia, Arthritis, Sinus Problems, Other Laterality Cases: Left: Arthroscopy Hip, Total Hip Replacement Other Surgeries: Yes: Cholecystectomy, Colonoscopy, Pacemaker, Tubal Ligation, Other Amputation: No Fractures: Yes - *Social History Educational Level: Completed Graduate School Smoking Status: Former smoker # Packs/Day (cigarettes): 1 Smoking End Date: 2003 Alcohol Intake: never Substance Use Type: denies use *Occupational Status:: retired Housing: house Household Members: spouse *Travel in the last 8 weeks: None Family Hx:: Cancer, Coronary Artery Disease, Diabetes, Heart Attack, Hyperlipidemia, Hypertension, Stroke, Thyroid Disorder Meds Home Medications Medication Instructions Recorded Confirmed Type primidone 50 mg tablet 50 tab PO BID 90 Days #180 tab 07/30/18 08/19/19 History Allergies Allergy/AdvReac Type Severity Reaction Status Date / Time Sulfa (Sulfonamide Allergy Unknown Verified 07/28/19 10:23 Antibiotics) sulfamethizole Allergy Unknown Verified 07/28/19 10:23 triamcinolone Allergy Unknown Verified 07/28/19 10:23 morphine AdvReac Mild Nausea Verified 08/19/19 12:49 Exam Vital signs and Labs for Last 24 Hours: Temp Pulse Resp BP Pulse Ox 98.1 F 66 18 193/86 H 95 08/19/19 11:21 08/19/19 11:21 08/19/19 11:21 08/19/19 11:21 08/19/19 11:21 Laboratory Results - last 24 hr 08/19/19 08:24: WBC 5.7, RBC 4.50, Hgb 14.0, Hct 42.7, MCV 94.9, MCH 31.2, MCHC 32.8, RDW 13.2, Plt Count 177, MPV 8.3, Neut % (Auto) 58.1, Lymph % (Auto) 33.1, [place] % (Auto) 6.5, Eos % (Auto) 1.7, Baso % (Auto) 0.6, Neut # (Auto) 3.3, Lymph # (Auto) 1.9, [place] # (Auto) 0.4, Eos # (Auto) 0.1, Baso # (Auto) 0.0 08/19/19 08:24: Sodium 130 L, Potassium 4.0, Chloride 93 L, Carbon Dioxide 28, Anion Gap 13.0, BUN 9, Creatinine 0.60, Estimated Creat Clear 36, Estimated GFR 97, Est GFR ( Amer) 117, Glucose 92, Calcium 10.2, Total Bilirubin 0.4, AST 35, ALT 19, Alkaline Phosphatase 50, Total Protein 8.1, Albumin 5.0, Inessa bulin 3.1, Albumin/Globulin Ratio 1.6 08/19/19 08:24: PT 10.0, INR 0.96 08/19/19 08:24: Total Creatine Kinase 44, CK-MB (CK-2) 0.6, CK-MB (CK-2) Rel I ndex 1.4, Troponin I < 0.01 I & O for Last 24 hours: Intake & Output 08/16/19 08/17/19 08/18/19 08/19/19 23:59 23:59 23:59 23:59 Intake Total 480 / 480 Balance 480 / 480 Weight 107 lb 4 oz - *Routine HEENT Exam Comments: Patient was seen at 3:50 PM on the second floor because of epistaxis which apparently happened at about 10 AM this morning when she went to the ER. A consult was apparently put in at 12:23 PM to the ENT clinic but we were not notified until 3:45 AM. When examined the patient had no active bleeding. Apparently a Rhino Rocket was placed in her nose and then removed by the ER doctor when she got to the floor. Examination revealed some dried blood in the left nasal fossa with an underlying significant deviation of the nasal septum to the left. There was no active bleeding the nasopharynx was clean and there was no retro-nasal drainage. The remainder of the head and neck examination was normal. A CBC and PT and INR done on admission were all within the normal range. Given the fact that there is no active bleeding what I did recommend was rest, ice packs to the nose for 10 minutes every 6 hours, Afrin nasal spray every 6 hours to both nostrils for 3 days, improved humidification at the bedside, and she needs to stay off her ASA 81 mg for at least 5 days. It would be a good idea to also use nasal saline spray 3 or 4 times a day in order to moisturize the nose. Vitals need to be monitored on a regular basis. As does her hemoglobin and if she should get recurrence of active bleeding then it would be prudent to place a Rhino Rocket and leave it in for a minimum of 3 days. She should follow-up with the ENT clinic as necessary. Dr Javier Pisano please send a copy to Dr. Franco Valdovinos Results - Labs 08/19/19 08:24 08/19/19 08:24 Laboratory Results - last 24 hr 08/19/19 08:24: WBC 5.7, RBC 4.50, Hgb 14.0, Hct 42.7, MCV 94.9, MCH 31.2, MCHC 32.8, RDW 13.2, Plt Count 177, MPV 8.3, Neut % (Auto) 58.1, Lymph % (Auto) 33.1, [place] % (Auto) 6.5, Eos % (Auto) 1.7, Baso % (Auto) 0.6, Neut # (Auto) 3.3, Lymph # (Auto) 1.9, [place] # (Auto) 0.4, Eos # (Auto) 0.1, Baso # (Auto) 0.0 08/19/19 08:24: Sodium 130 L, Potassium 4.0, Chloride 93 L, Carbon Dioxide 28, Anion Gap 13.0, BUN 9, Creatinine 0.60, Estimated Creat Clear 36, Estimated GFR 97, Est GFR ( Amer) 117, Glucose 92, Calcium 10.2, Total Bilirubin 0.4, AST 35, ALT 19, Alkaline Phosphatase 50, Total Protein 8.1, Albumin 5.0, Globulin 3.1, Albumin/Globulin Ratio 1.6 08/19/19 08:24: PT 10.0, INR 0.96 08/19/19 08:24: Total Creatine Kinase 44, CK-MB (CK-2) 0.6, CK-MB (CK-2) Rel Index 1.4, Troponin I < 0.01
--- NOTE | 2019-08-19 17:23 | History & Physical Report ---
*Admission Date: 08/19/19 *Chief complaint: nosebleed *History of present illness: 79-year-old female with medical history significant for sick sinus syndrome requiring pacemaker presented to the emergency department with 1 hour of nosebleed early this morning. Patient admits for the last several days she has had a frontal sinus headache. Without because this morning her nose began bleeding. She made multiple attempts at home to get the bleeding to stop but was unsuccessful. Patient presented to the emergency department. On presentation once her epistaxis was diagnosed a Rhino Rocket was placed. Patient became hypotensive after this and was given fluid bolus and IV fluids. She then became hypertensive. Because of her hypotension decision was made to admit her for further observation along with her epistaxes. Shortly after admission to the floor patient began bleeding around the Rhino Rocket. ER physician was kind enough to reassess the patient and the Rhino Rocket was removed and patient was given Afrin nasal spray which controlled her bleeding. Since then ENT consult has been obtained. Dr. Pisano has recommended continued medication as well as Afrin nasal spray every 6 hours. Patient reports feeling well and her headache is gone. Since admission to the floor patient's blood pressures have been in the 100s to 130 systolic. Patient has no personal history of hypertension and has never been on a new antihypertensive medication [facility] History I have reviewed the patient's past medical history: Yes Medical History: Reports:: Hyperlipidemia, Internal Pacemaker, Transient Ischemic Attacks (TIA) Denies:: Cancer, Diabetes Mellitus Type 1, Diabetes Mellitus Type 2, MRSA *Have you ever received a pneumonia vaccine?: Yes *Have you received a flu vaccine this season?: Yes Other Medical History: Reports: Anemia, Arthritis, Sinus Problems, Other Laterality Cases: Left: Arthroscopy Hip, Total Hip Replacement Other Surgeries: Yes: Cholecystectomy, Colonoscopy, Pacemaker, Tubal Ligation, Other Amputation: No Fractures: Yes - *Social History Educational Level: Completed Graduate School Smoking Status: Former smoker # Packs/Day (cigarettes): 1 Smoking End Date: 2003 Alcohol Intake: never Substance Use Type: denies use *Occupational Status:: retired Housing: house Household Members: spouse *Travel in the last 8 weeks: None Family Hx:: Cancer, Coronary Artery Disease, Diabetes, Heart Attack, Hyperlipidemia, Hypertension, Stroke, Thyroid Disorder Review of Systems - ENT Denies bleeding gums - *Cardiovascular Denies chest pain, Denies chest pain at rest - *Respiratory Denies change in phlegm color, Denies chest congestion, Denies cough - *Gastrointestinal Denies abdominal pain, Denies belching, Denies bloating - *Genitourinary Denies abnormal periods - *Musculoskeletal Denies abnormal walking, Denies joint pain, Denies decreased muscle mass Meds Home Medications Medication Instructions Recorded Confirmed Type primidone 50 mg tablet 50 tab PO BID 90 Days #180 tab 07/30/18 08/19/19 History Allergies Allergy/AdvReac Type Severity Reaction Status Date / Time Sulfa (Sulfonamide Allergy Unknown Verified 07/28/19 10:23 Antibiotics) sulfamethizole Allergy Unknown Verified 07/28/19 10:23 triamcinolone Allergy Unknown Verified 07/28/19 10:23 morphine AdvReac Mild Nausea Verified 08/19/19 12:49 Exam Vital signs and Labs for Last 24 Hours: Temp Pulse Resp BP Pulse Ox 98.0 F 60 17 110/44 L 97 08/19/19 16:00 08/19/19 16:00 08/19/19 16:00 08/19/19 16:00 08/19/19 16:00 Laboratory Results - last 24 hr 08/19/19 08:24: WBC 5.7, RBC 4.50, Hgb 14.0, Hct 42.7, MCV 94.9, MCH 31.2, MCHC 32.8, RDW 13.2, Plt Count 177, MPV 8.3, Neut % (Auto) 58.1, Lymph % (Auto) 33.1, [place] % (Auto) 6.5, Eos % (Auto) 1.7, Baso % (Auto) 0.6, Neut # (Auto) 3.3, Lymph # (Auto) 1.9, [place] # (Auto) 0.4, Eos # (Auto) 0.1, Baso # (Auto) 0.0 08/19/19 08:24: Sodium 130 L, Potassium 4.0, Chloride 93 L, Carbon Dioxide 28, Anion Gap 13.0, BUN 9, Creatinine 0.60, Estimated Creat Clear 36, Estimated GFR 97, Est GFR ( Amer) 117, Glucose 92, Calcium 10.2, Total Bilirubin 0.4, AST 35, ALT 19, Alkaline Phosphatase 50, Total Protein 8.1, Albumin 5.0, Globulin 3.1, Albumin/Globulin Ratio 1.6 08/19/19 08:24: PT 10.0, INR 0.96 08/19/19 08:24: Total Creatine Kinase 44, CK-MB (CK-2) 0.6, CK-MB (CK-2) Rel Index 1.4, Troponin I < 0.01 I & O for Last 24 hours: Intake & Output 08/17/19 08/18/19 08/19/19 08/20/19 11:59 11:59 11:59 11:59 Intake Total 720 / 720 Output Total 200 / 200 Balance 520 / 520 Weight 107 lb 4 oz - *Routine HEENT Exam Head: Present: normocephalic Eye: Present: EOMI, PERRL ENT: Present: mucous membranes moist Comments: Left anterior nasal septum with superficial erosion but no active bleeding. There is plenty of dried blood. - *Routine Neck Exam Present: supple. Absent: lymphadenopathy - *Routine Respiratory Exam Present: CTA bilaterally - *Routine Cardiovascular Exam Present: RRR - *Routine Abdominal Exam Present: soft, normoactive bowel sounds. Absent: tenderness - *Routine Extremities Exam Absent: cyanosis, clubbing, edema - *Routine Skin Exam Present: warm. Absent: rash - *Routine Neurological Exam Present: alert, oriented X3 - Detailed Eye Exam Eyelids: Left normal inspection Assessment and Plan (1) Epistaxis not due to trauma Current visit: Yes Status: Acute Category: Medical Code(s): R04.0 - Epistaxis (2) Long-term use of aspirin therapy Current visit: Yes Status: Acute Category: Medical Code(s): Z79.82 - alf (current) use of aspirin (3) Cardiac pacemaker in situ Current visit: No Status: Acute Category: Medical Code(s): Z95.0 - Presence of cardiac pacemaker - Assessment and plan all Dx Assessment and Plan for all problems:: Continue humidification and Afrin nasal spray overnight. Monitor blood pressure.
--- NOTE | 2019-08-20 07:10 | Discharge Summary ---
General - General Admission date:: 08/19/19 Discharge date: 08/20/19 HPI HPI: 79-year-old female with medical history significant for sick sinus syndrome requiring pacemaker presented to the emergency department with 1 hour of nosebleed early this morning. Patient admits for the last several days she has had a frontal sinus headache. Without because this morning her nose began bleeding. She made multiple attempts at home to get the bleeding to stop but was unsuccessful. Patient presented to the emergency department. On presentation once her epistaxis was diagnosed a Rhino Rocket was placed. Patient became hypotensive after this and was given fluid bolus and IV fluids. She then became hypertensive. Because of her hypotension decision was made to admit her for further observation along with her epistaxes. Shortly after admission to the floor patient began bleeding around the Rhino Rocket. ER physician was kind enough to reassess the patient and the Rhino Rocket was removed and patient was given Afrin nasal spray which controlled her bleeding. Since then ENT consult has been obtained. Dr. Pisano has recommended continued medication as well as Afrin nasal spray every 6 hours. Patient reports feeling well and her headache is gone. Since admission to the floor patient's blood pressures have been in the 100s to 130 systolic. Patient has no personal history of hypertension and has never been on a new antihypertensive medication Hospital Course Hospital Course: Patient was admitted. Dr. Pisano evaluated the patient. Nosebleed had stopped. He recommended Afrin nasal spray every 6 hours while hospitalized and monitoring of her blood pressure. Patient did not have any further hypertension. There was no further bleeding. Patient was observed overnight with constant application of humidified air to the nose and mouth. The following morning as there were no further nosebleeds and patient's blood pressure was controlled she was discharged home. Patient will follow-up with her primary care provider on an as needed basis. We did discuss ways to treat a nosebleed should this recur. I have recommended she stop her aspirin as she is taking this only for a primary preventive purposes. Objective Vital signs: Temp Pulse Resp BP Pulse Ox 97.9 F 62 18 147/72 H 95 08/20/19 03:51 08/20/19 03:51 08/20/19 03:51 08/20/19 03:51 08/20/19 03:51 no acute distress - *Routine Neck Exam Present: supple - *Routine Respiratory Exam Present: CTA bilaterally - *Routine Cardiovascular Exam Present: RRR (I mean his numbers look slightly better) Results Labs on day of discharge: Labs from last 24 hours 08/19/19 08/19/19 08/19/19 08:24 08:24 08:24 WBC RBC Hgb Hct MCV MCH MCHC RDW Plt Count MPV Neut % (Auto) Lymph % (Auto) [place] % (Auto) Eos % (Auto) Baso % (Auto) Neut # (Auto) Lymph # (Auto) [place] # (Auto) Eos # (Auto) Baso # (Auto) PT 10.0 INR 0.96 Sodium 130 L Potassium 4.0 Chloride 93 L Carbon Dioxide 28 Anion Gap 13.0 BUN 9 Creatinine 0.60 Estimated Creat Clear 36 Estimated GFR 97 Est GFR ( Amer) 117 Glucose 92 Calcium 10.2 Total Bilirubin 0.4 AST 35 ALT 19 Alkaline Phosphatase 50 Total Creatine Kinase 44 CK-MB (CK-2) 0.6 CK-MB (CK-2) Rel Index 1.4 Troponin I < 0.01 Total Protein 8.1 Albumin 5.0 Globulin 3.1 Albumin/Globulin Ratio 1.6 08/19/19 08:24 WBC 5.7 RBC 4.50 Hgb 14.0 Hct 42.7 MCV 94.9 MCH 31.2 MCHC 32.8 RDW 13.2 Plt Count 177 MPV 8.3 Neut % (Auto) 58.1 Lymph % (Auto) 33.1 [place] % (Auto) 6.5 Eos % (Auto) 1.7 Baso % (Auto) 0.6 Neut # (Auto) 3.3 Lymph # (Auto) 1.9 [place] # (Auto) 0.4 Eos # (Auto) 0.1 Baso # (Auto) 0.0 PT INR Sodium Potassium Chloride Carbon Dioxide Anion Gap BUN Creatinine Estimated Creat Clear Estimated GFR Est GFR ( Amer) Glucose Calcium Total Bilirubin AST ALT Alkaline Phosphatase Total Creatine Kinase CK-MB (CK-2) CK-MB (CK-2) Rel Index Troponin I Total Protein Albumin Globulin Albumin/Globulin Ratio DS: Diagnosis - Discharge Diagnosis (1) Epistaxis not due to trauma Status: Acute (2) Long-term use of aspirin therapy Status: Acute (3) Cardiac pacemaker in situ Status: Acute Discharge Plan - Patient Discharge Instructions ACTIVITY: Continue current activity DIET: continue same diet Patient Instructions: Essential Hypertension, DI for Hypotension - Follow up Plan Follow up with: Shawn Noel [Primary Care Provider] - Disposition: Home, Self-Intermediate Medications: Home Medications Medication Instructions Recorded Confirmed Type primidone 50 mg tablet 50 tab PO BID 90 Days #180 tab 07/30/18 08/19/19 History Prescriptions/Medication Reconciliation: Continued primidone 50 mg tablet 50 tab PO BID 90 Days #180 tab - Problem Reconciliation Problems Reviewed?: Yes
--- NOTE | 2019-08-20 16:12 | Electrocardiograph Report ---
APPROVED REPORT Exam: Resting ECG HR:62 bpm ECG Measurements Heart Rate 62 AXES [place] 122 P 15 QRSd 78 QRS 38 QT 432 T77 QTc 438 <Conclusion> Electronic atrial pacemaker Electronically signed by : Franco Turner, 08/20/2019 16:12:35
== END 2019-08-20 09:25 | disposition home or self-care (01) ==
LOC: ER 08:13 → 2ND 08:13
PROVIDERS: ADMIT Family Medicine; ATTEND Family Medicine
CPT/HCPCS: 70450; 80053; 82550; 82553; 84484; 85025; 85610; 93005; 96365; 96375; 99284; G0378; J2405

== ENCOUNTER → 2019-08-25 13:42 | Outpatient (CLI) | payer MEDICARE, SELFPAY ==
--- NOTE | 2019-08-25 13:42 | US_ITS ---
PROCEDURE: US BREAST RT COMPLETE CLINICAL INDICATION: 6 mth f/u due after 07/13/18 COMPARISON: BREASTRT US breast RT complete from 01/09/2019 FINDINGS: There is a stable small hypoechoic cystic-appearing lesion at the 10 o'clock position outer breast with internal echoes suggesting a complex cyst measuring 0.5 by 0.6 x 0.3 cm. There is a stable hypoechoic cystic-appearing lesion just behind the nipple measuring 0.9 by 1.0 x 0.4 cm. There is a normal appearing node in the axilla. IMPRESSION: Stable benign-appearing hypoechoic lesions, no additional follow-up is indicated Dictated by: Dr. Anthony Adan MD 08/29/2019 13:[address] Anthony Adan MD in [place] 08/29/2019 13:00
--- NOTE | 2019-08-25 13:42 | MM_ITS ---
PROCEDURE: MM DIG MAMM DX UNILAT RT CAD CLINICAL INDICATION: 6 mth f/u due after 07/13/18 COMPARISON: DIGMAMMDX MAMMOGRAM DX-MATERNITY NURSE N/C from 06/22/2009 DIGMAMMDX MAMMOGRAM DX-MATERNITY NURSE N/C from 07/14/2009 DMSB DIGITAL MAMM-SCREEN BILATERAL from 06/28/2010 DIG MAMM-SCREEN REJI from 12/27/2018 BREASTRT US breast RT complete from 01/09/2019 DIG MAMM-DX UNI-RT from 01/09/2019 TECHNIQUE: Standard CC and MLO images were obtained. R2 CAD reviewed. FINDINGS: Again noted is a diffusely dense and heterogenic parenchymal pattern. Nii images are most helpful revealing a small benign-appearing oval lesion at approximately the 10 o'clock position measuring 5.4 mm similar in size and overall appearance to the previous mammogram and ultrasound exam December 2018. The previous ultrasound exam showed minimal internal echoes and this likely is a small fibroadenoma or possibly a complex cyst. Certainly has benign features IMPRESSION: Dense parenchymal pattern with stable benign-appearing lesion 10 o'clock position and recommend the patient return to normal yearly screening schedule BI-RAD Category: 2 Benign Finding(s) FOLLOW-UP: 6M 6Month Follow-up to return to normal yearly screening schedule (A letter has been sent to the patient regarding results of the study.) Dictated by: Dr. Anthony Adan MD 08/29/2019 07:[address] Anthony Adan MD in [place] 08/29/2019 07:58
== END ==
PROVIDERS: PCP Family Medicine; Visit Provider Emergency Medicine
DX: R92.8 Other abnormal and inconclusive findings on diagnostic imaging of breast (principal)
CPT/HCPCS: 76641; 77061; 77065; G0279

== ENCOUNTER → 2020-03-05 08:52 | Outpatient (CLI) | payer MEDICARE, SELFPAY ==
--- NOTE | 2020-03-05 08:52 | MM_ITS ---
PROCEDURE: MM DIG SCREENING MAMM BI W/CAD Referring Doctor: Bruce Pineda Patient Age:79Y CLINICAL INDICATION: Follow-up screening no hormones, no new complaints. Pacemaker. Noncontributory family history Percutaneous biopsy medial left breast 2009 COMPARISON: MG DIGMAMMS MAMMOGRAM SCREEN-SENIOR INTEGRATION ARCHITECT N/C from 12/22/2008 MG DIGMAMMDX MAMMOGRAM DX-SENIOR INTEGRATION ARCHITECT N/C from 06/22/2009 MG DIGMAMMDX MAMMOGRAM DX-SENIOR INTEGRATION ARCHITECT N/C from 07/14/2009 MG DMSB DIGITAL MAMM-SCREEN BILATERAL from 06/28/2010 MG DIG MAMM-SCREEN REJI from 12/27/2018 MG DIG MAMM-DX UNI-RT from 01/09/2019 US BREASTRT US breast RT complete from 01/09/2019 MG MM DIG MAMM DX UNILAT RT CAD from 08/25/2019 US US BREAST RT COMPLETE from 08/25/2019 TECHNIQUE: Standard CC and MLO images were obtained. R2 CAD reviewed. Bilateral digital breast tomosynthesis included. Additional axillary CC views both breast along with additional nipple profile MLO views both breast included today FINDINGS: Areas of dense heterogeneous breast particular for this age patient-this does decrease sensitivity of mammography But no suspicious calcifications the the Right breast: Previous December 2018 and August 2019 ultrasound demonstrated stable well-marginated overall benign-appearing hypoechoic areas at right breast.. These seem to correlate with the stable ovoid well marginated stable appearing nodule seen laterally of measuring a just over 6 mm maximally but of given the stability this can be followed.. Otherwise areas of dense fibroglandular tissue, most pronounced at the retroareolar region, appear stable. The Left breast:. The relative density in the retroareolar region MLO view, seems to dissipate on the repeat standard MLO view as well as MLO tomosynthesis views thus, with no findings here on cc image sets. Overall left breast appear stable with no discrete nor focal new density Asymmetric region density towards axillary tail of the left breast also appears similar to multiple the previous studies.. The metallic marker from previous percutaneous biopsy at medial left breast is again noted IMPRESSION: No significant new findings. . Relatively dense heterogeneous breast for this age patient (which does decrease sensitivity of mammography) but But no new areas of significant concern Bilateral follow-up 1 year recommended and would be encouraged BI-RAD Category: 2 Benign Finding(s) FOLLOW-UP: 1YR 1 Year Follow-up (A letter has been sent to the patient regarding results of the study.) Dictated by: Chencho Casillas MD 03/10/2020 11:41 Chencho Casillas MD in [place] 03/10/2020 11:41
== END ==
PROVIDERS: PCP Emergency Medicine; Visit Provider Emergency Medicine
DX: Z12.31 Encounter for screening mammogram for malignant neoplasm of breast (principal)
CPT/HCPCS: 77063; 77067

== ENCOUNTER → 2020-04-14 13:44 | Outpatient (CLI) | payer MEDICARE, SELFPAY ==
[2020-04-14 14:00] LABS: Chloride 92 mmol/L (98-107)
[2020-04-14 14:01] LABS: Potassium 4.6 mmoL/L (3.5-5.1); Sodium 132 mmol/L (136-145)
[2020-04-14 14:03] LABS: Alanine Aminotransferase 19 U/L (12-78); Albumin Level 5.2 g/dl (3.5-5.0); Albumin/Globulin Ratio 1.6 (1.1-1.8); Alkaline Phosphatase 56 U/L (38-126); Anion Gap 15.6 mEq/L (5-15); Aspartate Amino Transferase 39 U/L (14-36); Bilirubin,Total 0.7 mg/dl (0.2-1.3); Blood Urea Nitrogen 9 mg/dl (7-17); Carbon Dioxide 29 mmol/L (22.0-30.0); Estimated Glomerular Filt Rate 96 ml/min (>60); GFR (African American) 117 ML/MIN (>60); Globulin 3.3 g/dL (1.3-3.2); Total Protein,Serum 8.5 g/dl (6.3-8.2)
[2020-04-14 14:04] LABS: Calcium 10.2 mg/dl (8.4-10.2); Chol/HDL Ratio 2.8 (1-3.5); Cholesterol 300 mg/dl (140-200); Glucose 103 mg/dl (74-100); HDL Cholesterol 106 mg/dl (40-60); Triglycerides 165 mg/dl (30-150); VLDL Cholesterol 33 mg/dL (0-40)
[2020-04-14 14:21] LABS: Free T4 (Free Thyroxine) 1.15 ng/dl (0.78-2.19)
[2020-04-14 14:25] LABS: Basophils % 0.6 % (0.1-2.0); Eosinophils # 0.1 K/mm3 (0.0-0.4); Eosinophils % 2.4 % (0.1-12.0); Hematocrit 45.6 % (37.0-47.0); Hemoglobin 15.1 g/dL (12.2-16.2); Lymphocytes # 1.2 K/mm3 (0.7-4.5); Lymphocytes % 27.2 % (10-50); Mean Corpuscular HGB Conc 33.1 g/dL (31.8-35.4); Mean Corpuscular Hemoglobin 32.6 pg (27.0-31.2); Mean Corpuscular Volume 98.5 fl (81-99); Mean Platelet Volume 9.5 fl (7.4-10.4); Monocytes # 0.4 K/mm3 (0.1-1.0); Monocytes % 8.4 % (1.7-9.3); Neutrophils # 2.6 K/mm3 (1.8-7.8); Neutrophils % 61.4 % (37.0-80.0); Platelet Count 183 K/mm3 (142-424); Red Blood Count 4.63 M/mm3 (4.20-5.40); Red Cell Distribution Width 13.2 % (11.5-17.5); White Blood Count 4.2 K/mm3 (4.8-10.8)
[2020-04-14 14:34] LABS: Thyroid Stimulating Hormone 2.03 uIU/mL (0.465-4.68)
[2020-04-14 15:14] LABS: 25-OH Vitamin D, Total 48.9 ng/mL (30-100)
== END ==
PROVIDERS: Visit Provider Emergency Medicine
DX: D64.9 Anemia, unspecified (principal); I10 Essential (primary) hypertension; E55.9 Vitamin D deficiency, unspecified
CPT/HCPCS: 80053; 80061; 82306; 84439; 84443; 85025

== ENCOUNTER 2020-09-21 15:24 | Emergency (ER) | payer MEDICARE, SELFPAY ==
[2020-09-21 15:31] VITALS: RESP 16; TEMP 36.7; O2SAT 98; BMI 18.8
--- NOTE | 2020-09-21 15:33 | XR_ITS ---
PROCEDURE: XR PELVIS 1-2V CLINICAL INDICATION: fall COMPARISON: CR XR HIP LT 2-3V W/PELVIS from 07/28/2019 TECHNIQUE: XR Pelvis AP View FINDINGS: Total left hip arthroplasty is noted. The distal femoral prosthesis is not visualized on the current study. No evidence of periprosthetic fractures within the limitations of the study. Minor degenerative changes of the right hip joint with subchondral sclerosis. No evidence of acute fractures within the limitations of the study. The visualized sacral foramina are unremarkable. Vascular calcification is noted. IMPRESSION: Total left hip arthroplasty noted. Distal femoral prosthesis is not visualized on the current study. No acute fractures within the limitations of the study. Dictated by: Brittany Chew 09/21/2020 16:05 Brittany Chew in [place] 09/21/2020 16:05
--- NOTE | 2020-09-21 15:33 | XR_ITS ---
PROCEDURE: XR COCCYX 2V CLINICAL INDICATION: fall COMPARISON: No exams were available for comparison FINDINGS: The visualized lumbosacral spine demonstrates normal alignment. Degenerative changes of the lower lumbar spine noted. The coccyx demonstrates no evidence of acute angulation or fractures. Mild osteopenia limits evaluation. Left hip arthroplasty is partially visualized. The sacral foramina and the visualized pelvis are unremarkable. IMPRESSION: No evidence of acute angulation or evidence of fractures noted on the current study. Osteopenia. Dictated by: Brittany Chew 09/21/2020 16:11 Brittany Chew in [place] 09/21/2020 16:11
--- NOTE | 2020-09-21 15:38 | HMH.EDUTC ---
[facility] [place] Clinical Impression: Coccyx contusion Qualifiers: Encounter type: initial encounter Qualified Code(s): S30.0XXA - Contusion of lower back and pelvis, initial encounter Disposition: Home, Self-Care Condition on Discharge: Good Instructions: Contusion Additional Instructions: Ice to area every couple hours may help with pain and discomfort Over the counter Motrin and/Tylenol as directed on package for pain Warm compresses may also help with pain discomfort along with sitting on pillow Return if needed Straight to ER if any life threatening symptoms Follow up with Family Doctor for further evaluation and treatment if needed Referrals: Bruce Pineda MD [Primary Care Provider] - As needed Time of Disposition: 16:20 Medical Decision Making - Javier Inquiry Pt receiving controlled substance: No Javier was queried for this patient: No Vital Signs: 09/21/20 15:31 09/21/20 16:30 Temperature 98.1 F 98.1 F Temperature Source Oral Pulse Rate 88 Respiratory Rate 16 16 Blood Pressure 148/56 H 02 Sat by Pulse Oximetry 98 Oxygen Delivery Method Room Air Room Air - Radiology Data #1 Image(s): Pelvis Image Reviewed: Yes I have reviewed radiologist's interpretation Preliminary Findings: No Fracture Seen Total left hip arthroplasty noted. Distal femoral prosthesis is not visualized on the current study. No acute fractures within the limitations of the study. #2 Image(s): Other (coccyx) Image Reviewed: Yes I have reviewed radiologist's interpretation Preliminary Findings: No Fracture Seen No evidence of acute angulation or evidence of fractures noted on the current study. Osteopenia [facility] [place] - General Stated complaint: AO 09/21@10:00 fell in tub injured tail bone Time Seen by Provider: 09/21/20 15:38 Mode of Arrival: Ambulatory Source of Information: Patient Limitations: No Limitations Description of Symptoms (Recalled from Triage Doc. by RN): pt fell in the bathtub around 10 am and is c/o pain in her tailbone area HEENT Symptoms (Recalled from RN notes): No Resp Symptoms (Recalled from RN notes): No Skin Symptoms (Recalled from RN notes): No MS Symptoms (Recalled from RN notes): Yes (tailbone pain) Functional Status (Recalled from RN notes): na - History of Present Illness Provider Complaint: Patient state that she was taking a bath at home when she slipped getting out of the tub and laned on her tailbone States that ever since she has been having pain in her tailbone and hurts when she sits on it Denies any other injuries and denies hip pain - Related Data Previous Rx's Medication Instructions Recorded atorvastatin 10 mg tablet 10 mg PO HS #90 tab 04/16/20 losartan 25 mg tablet 25 mg PO DAILY #90 tab 05/27/20 naproxen 500 mg tablet 500 mg PO Q12H 7 Days #14 tab 06/21/20 primidone 50 mg tablet See Rx Instructions .ROUTE 07/26/20 .COMPLEX #180 tab Allergies Allergy/AdvReac Type Severity Reaction Status Date / Time Sulfa (Sulfonamide Allergy Unknown Verified 06/21/20 14:07 Antibiotics) sulfamethizole Allergy Unknown Verified 06/21/20 14:07 triamcinolone Allergy Unknown Verified 06/21/20 14:07 morphine AdvReac Mild Nausea Verified 06/21/20 14:07 - Worker's Comp Is this a Worker's Comp case?: No [facility] History - Hepatitis A Screen Drug use history?: No High risk sexual behaviors?: No History of sexually transmitted infection?: No Currently employed?: No Childcare worker?: No Do you have indoor plumbing?: Yes Do you have electricity?: Yes Attestation statement:: This patient has been screened for Hepatitis A risk factors. I have reviewed the patient's past medical history: Yes Medical History: Reports:: Hyperlipidemia, Hypertension, Internal Pacemaker, Transient Ischemic Attacks (TIA) Denies:: Cancer, Diabetes Mellitus Type 1, Diabetes Mellitus Type 2, MRSA Other Medical History: Reports: Anemia, Arthritis, Sinus Problems, Other Comment: Rosa
[2020-09-21 16:30] VITALS: BP 148/56; PULSE 88; RESP 16; TEMP 36.7; O2SAT 98
== END 2020-09-21 16:30 | disposition home or self-care (01) ==
PROVIDERS: Emergency Provider Nurse Practitioner; PCP Emergency Medicine
DX: S30.0XXA Contusion of lower back and pelvis, initial encounter (principal); W16.212A Fall in (into) filled bathtub causing other injury, initial encounter; Y92.012 Bathroom of single-family (private) house as the place of occurrence of the external cause; E78.5 Hyperlipidemia, unspecified; I10 Essential (primary) hypertension; Z95.0 Presence of cardiac pacemaker; Z96.642 Presence of left artificial hip joint; Z87.891 Personal history of nicotine dependence
CPT/HCPCS: G0463; 72170; 72220; 99202

== ENCOUNTER → 2020-10-18 17:18 | Outpatient (CLI) | payer MEDICARE, SELFPAY ==
[2020-10-18 17:44] LABS: Basophils % 0.8 % (0.1-2.0); Eosinophils # 0.1 K/mm3 (0.0-0.4); Hematocrit 38.8 % (37.0-47.0); Hemoglobin 13.1 g/dL (12.2-16.2); Lymphocytes # 1.3 K/mm3 (0.7-4.5); Lymphocytes % 30.4 % (10-50); Mean Corpuscular HGB Conc 33.7 g/dL (31.8-35.4); Monocytes # 0.3 K/mm3 (0.1-1.0); Monocytes % 6.1 % (1.7-9.3); Neutrophils # 2.5 K/mm3 (1.8-7.8); Neutrophils % 59.8 % (37.0-80.0); Platelet Count 158 K/mm3 (142-424); Red Blood Count 4.09 M/mm3 (4.20-5.40); Red Cell Distribution Width 13.3 % (11.5-17.5); White Blood Count 4.2 K/mm3 (4.8-10.8)
[2020-10-18 18:09] LABS: Chloride 91 mmol/L (98-107); Potassium 4.1 mmoL/L (3.5-5.1); Sodium 128 mmol/L (136-145)
[2020-10-18 18:11] LABS: Alanine Aminotransferase 15 U/L (12-78); Aspartate Amino Transferase 33 U/L (14-36); Bilirubin,Total 0.4 mg/dl (0.2-1.3); Blood Urea Nitrogen 11 mg/dl (7-17); Estimated Glomerular Filt Rate 96 ml/min (>60); GFR (African American) 117 ML/MIN (>60)
[2020-10-18 18:12] LABS: Albumin Level 5.2 g/dl (3.5-5.0); Alkaline Phosphatase 62 U/L (38-126); Anion Gap 13.1 mEq/L (5-15); Calcium 9.8 mg/dl (8.4-10.2); Carbon Dioxide 28 mmol/L (22.0-30.0); Chol/HDL Ratio 2.9 (1-3.5); Cholesterol 277 mg/dl (140-200); Globulin 2.6 g/dL (1.3-3.2); Glucose 91 mg/dl (74-100); HDL Cholesterol 97 mg/dl (40-60); Total Protein,Serum 7.8 g/dl (6.3-8.2); Triglycerides 92 mg/dl (30-150); VLDL Cholesterol 18 mg/dL (0-40)
[2020-10-18 18:31] LABS: Free T4 (Free Thyroxine) 0.99 ng/dl (0.78-2.19)
[2020-10-18 18:44] LABS: Thyroid Stimulating Hormone 1.32 uIU/mL (0.465-4.68)
[2020-10-21 11:13] LABS: Peripheral Smear Review Scanned Result
== END ==
PROVIDERS: Visit Provider Physician Assistant
DX: D64.9 Anemia, unspecified (principal); E55.9 Vitamin D deficiency, unspecified; E87.1 Hypo-osmolality and hyponatremia; R61 Generalized hyperhidrosis; Z79.82 Long term (current) use of aspirin; I10 Essential (primary) hypertension; D72.9 Disorder of white blood cells, unspecified
CPT/HCPCS: 80053; 80061; 82306; 84439; 84443; 85025

== ENCOUNTER → 2020-11-03 11:36 | Outpatient (CLI) | payer MEDICARE, SELFPAY ==
[2020-11-03 12:19] LABS: Basophils % 0.8 % (0.1-2.0); Eosinophils % 0.7 % (0.1-12.0); Hematocrit 39.8 % (37.0-47.0); Hemoglobin 13.7 g/dL (12.2-16.2); Lymphocytes # 0.9 K/mm3 (0.7-4.5); Lymphocytes % 17.4 % (10-50); Mean Corpuscular HGB Conc 34.4 g/dL (31.8-35.4); Mean Corpuscular Hemoglobin 32.5 pg (27.0-31.2); Mean Corpuscular Volume 94.4 fl (81-99); Mean Platelet Volume 8.9 fl (7.4-10.4); Monocytes # 0.5 K/mm3 (0.1-1.0); Monocytes % 10.3 % (1.7-9.3); Neutrophils # 3.6 K/mm3 (1.8-7.8); Neutrophils % 70.7 % (37.0-80.0); Platelet Count 153 K/mm3 (142-424); Red Blood Count 4.22 M/mm3 (4.20-5.40); Red Cell Distribution Width 13.4 % (11.5-17.5); White Blood Count 5.1 K/mm3 (4.8-10.8)
[2020-11-03 13:32] LABS: Erythrocyte Sedimentation Rate 18 mm/hr (0-30)
[2020-11-03 19:19] LABS: C-Reactive Protein 7.5 mg/L (0-4)
[2020-11-03 20:20] LABS: Vitamin B12 270 pg/mL (239-931)
[2020-11-03 20:24] LABS: Folate 7.43 ng/mL
[2020-11-04 09:26] LABS: RA Latex Turbid. 10.6 IU/mL (0.0-13.9)
[2020-11-04 11:59] LABS: HIV Screen 4th Generation wRfx Non Reactive (Non Reactive)
[2020-11-07 10:27] LABS: Anti-Cyclic Citrullinated Pept 2 units (0-19)
[2020-11-20 11:40] LABS: Antinuclear Antibodies (ANA) NEGATIVE
== END ==
PROVIDERS: Visit Provider Physician Assistant
DX: D72.819 Decreased white blood cell count, unspecified (principal); R19.8 Other specified symptoms and signs involving the digestive system and abdomen; Z11.4 Encounter for screening for human immunodeficiency virus [HIV]
CPT/HCPCS: 36415; 82525; 82607; 82746; 85025; 85651; 86038; 86140; 86200; 86431; 86703; G0432

== ENCOUNTER → 2021-02-22 10:11 | Outpatient (POV) | payer MEDICARE, SELFPAY | PROVIDERS: Visit Provider Dermatology | DX: Z00.00 Encounter for general adult medical examination without abnormal findings (principal) ==

== ENCOUNTER → 2021-03-18 10:21 | Outpatient (CLI) | payer MEDICARE, SELFPAY ==
--- NOTE | 2021-03-18 10:21 | MM_ITS ---
PROCEDURE: MM DIG SCREENING MAMM BI W/CAD Digital Breast Tomosynthesis Included CLINICAL INDICATION: screening There is no personal or family history of breast cancer. There has been a previous biopsy left breast for benign disease. COMPARISON: MG DIG MAMM-DX UNI-RT from 01/09/2019 MG MM DIG MAMM DX UNILAT RT CAD from 08/25/2019 MG MM DIG SCREENING MAMM BI W/CAD from 03/05/2020 TECHNIQUE: Standard CC and MLO images and 3D Tomosynthesis was obtained. R2 CAD reviewed. FINDINGS: Moderate diffuse somewhat heterogenic fibroglandular densities are seen in both breasts and the findings are fairly symmetrical bilaterally. There is a biopsy clip inner quadrant left breast. A single CAD marking right breast was reviewed and it is benign. There is a stable round nodular density with smooth borders upper outer quadrant right breast. There is no suspicious lesion and no suspicious microcalcifications. IMPRESSION: Stable exam with moderate breast density and no suspicious lesions seen BI-RAD Category: 2 Benign Finding(s) FOLLOW-UP: 1YR 1 Year Follow-up (A letter has been sent to the patient regarding results of the study.) Dictated by: Dr. Anthony Adan MD 03/31/2021 13:30 Dr. Anthony Adan MD in [place] 03/31/2021 13:30
== END ==
PROVIDERS: PCP Emergency Medicine; Visit Provider Emergency Medicine
DX: Z12.31 Encounter for screening mammogram for malignant neoplasm of breast (principal)
CPT/HCPCS: 77063; 77067

== ENCOUNTER → 2021-07-18 12:32 | Outpatient (CLI) | payer MEDICARE, SELFPAY | PROVIDERS: Visit Provider Nurse Practitioner | DX: Z20.822 Contact with and (suspected) exposure to COVID-19 (principal) | CPT/HCPCS: C9803; U0003; U0005 ==

== ENCOUNTER → 2021-08-04 16:00 | Outpatient (CLI) | payer MEDICARE, SELFPAY ==
[2021-08-04 13:59] LABS: Eosinophils # 0.1 K/mm3 (0.0-0.4); Eosinophils % 1.8 % (0.1-12.0); Hematocrit 42.3 % (37.0-47.0); Hemoglobin 13.9 g/dL (12.2-16.2); Lymphocytes # 1.1 K/mm3 (0.7-4.5); Lymphocytes % 27.5 % (10-50); Mean Corpuscular HGB Conc 32.8 g/dL (31.8-35.4); Mean Corpuscular Hemoglobin 32.4 pg (27.0-31.2); Mean Corpuscular Volume 98.6 fl (81-99); Mean Platelet Volume 9.7 fl (7.4-10.4); Monocytes # 0.3 K/mm3 (0.1-1.0); Monocytes % 6.7 % (1.7-9.3); Neutrophils # 2.4 K/mm3 (1.8-7.8); Neutrophils % 62.9 % (37.0-80.0); Platelet Count 180 K/mm3 (142-424); Red Blood Count 4.29 M/mm3 (4.20-5.40); Red Cell Distribution Width 13.2 % (11.5-17.5); White Blood Count 3.9 K/mm3 (4.8-10.8)
[2021-08-04 14:45] LABS: Alanine Aminotransferase 17 U/L (12-78); Albumin Level 5.6 g/dl (3.5-5.0); Alkaline Phosphatase 47 U/L (38-126); Anion Gap 13.4 mEq/L (5-15); Aspartate Amino Transferase 36 U/L (14-36); Bilirubin,Total 0.7 mg/dl (0.2-1.3); Blood Urea Nitrogen 11 mg/dl (7-17); Calcium 9.6 mg/dl (8.4-10.2); Carbon Dioxide 29 mmol/L (22.0-30.0); Chloride 91 mmol/L (98-107); Chol/HDL Ratio 3.4 (1-3.5); Cholesterol 312 mg/dl (140-200); Estimated Glomerular Filt Rate 96 ml/min (>60); GFR (African American) 116 ML/MIN (>60); Globulin 2.8 g/dL (1.3-3.2); Glucose 92 mg/dl (74-100); HDL Cholesterol 93 mg/dl (40-60); Potassium 4.4 mmoL/L (3.5-5.1); Sodium 129 mmol/L (136-145); Total Protein,Serum 8.4 g/dl (6.3-8.2); Triglycerides 106 mg/dl (30-150); VLDL Cholesterol 21 mg/dL (0-40)
[2021-08-04 14:56] LABS: Direct LDL Cholesterol 178.33 mg/dL (100-129)
[2021-08-04 15:16] LABS: Thyroid Stimulating Hormone 1.48 uIU/mL (0.465-4.68)
[2021-08-04 15:35] LABS: Vitamin B12 > 1000 pg/mL (239-931)
[2021-08-04 17:00] LABS: Hemoglobin A1C 5.5 % (4.0-6.0)
== END ==
PROVIDERS: Visit Provider Family Medicine
DX: S72.002A Fracture of unspecified part of neck of left femur, initial encounter for closed fracture (principal); E11.9 Type 2 diabetes mellitus without complications; Z00.00 Encounter for general adult medical examination without abnormal findings; I10 Essential (primary) hypertension; E87.1 Hypo-osmolality and hyponatremia
CPT/HCPCS: 80053; 80061; 82607; 83036; 84443; 85025

== ENCOUNTER → 2021-10-05 09:00 | Outpatient (CLI) | payer MEDICARE, SELFPAY ==
--- NOTE | 2021-10-05 09:01 | XR_ITS ---
FINAL REPORT TECHNIQUE: Bone densitometry calculations of the lumbar spine, left forearm and right hip were obtained. CLINICAL HISTORY: . post menopausal FINDINGS: DEXA BONE DENSITY AXIAL SKELETON Using L1-4, the bone mineral density of the spine is 0.875 g/cm2, corresponding to T-score of -1.6. Using the right hip, the bone mineral density of the femoral neck is 0.492 g/cm2, corresponding to a T-score of -3.2. Using the left forearm, the bone mineral density of the distal 1/3 is 0.521 g/cm2, corresponding to a T-score of -2.9. NOTE: T-score: Standard deviation compared with peak bone mass of young adult mean. *Following the recommendations of the International Society of Bone Densitometry, classification of hip BMD is based on the lower of two T-scores; total hip or femoral neck. IMPRESSION: Osteoporosis: Lowest T-score is at or below -2.5. This patient's T-score meets the World Health Organization criteria for osteoporosis. Reviewed, Interpreted and Dictated by Maycol Frank MD Transcribed by Sangita Rehman Authenticated by Maycol Frank MD on 10/05/2021 10:12:20 AM [facility]
== END ==
PROVIDERS: PCP Emergency Medicine; Visit Provider Family Medicine
DX: Z78.0 Asymptomatic menopausal state (principal)
CPT/HCPCS: 77080

== ENCOUNTER 2022-02-15 13:21 | Outpatient (CLI) | payer MEDICARE, SELFPAY ==
[2022-02-15 14:08] VITALS: BP 158/96; PULSE 78; RESP 18; TEMP 36; O2SAT 97
== END 2022-02-15 14:08 | disposition home or self-care (01) ==
PROVIDERS: PCP Family Medicine; Visit Provider Family Medicine
DX: M81.0 Age-related osteoporosis without current pathological fracture (principal)
CPT/HCPCS: 96372; J0897

== ENCOUNTER → 2022-04-06 10:43 | Outpatient (CLI) | payer MEDICARE, SELFPAY ==
--- NOTE | 2022-04-06 10:43 | MM_ITS ---
PROCEDURE INFORMATION: Exam: MG Bilateral Screening 3D Mammography Exam date and time: 04/06/2022 10:45 AM Age: 82 years old Clinical indication: Screening examination TECHNIQUE: Imaging protocol: Bilateral Screening tomosynthesis and 2D mammography including computer-aided detection (CAD) when performed. COMPARISON: 1. MG MM DIG SCREENING MAMM BI W/CAD 03/18/2021 10:25 AM 2. MG MM DIG SCREENING MAMM BI W/CAD 03/05/2020 8:54 AM FINDINGS: MAMMOGRAPHY: Breast composition: The breasts are heterogeneously dense, which may obscure small masses. Mass: None. Architectural distortion: None. Calcifications: No suspicious calcifications. Asymmetric density: None. Skin thickening: None. Axillary adenopathy: None. IMPRESSION: No mammographic evidence of malignancy. Annual screening is recommended unless otherwise clinically indicated. ASSESSMENT: BI-RADS Category 1: Negative
== END ==
PROVIDERS: PCP Family Medicine; Visit Provider Family Medicine
DX: Z12.31 Encounter for screening mammogram for malignant neoplasm of breast (principal)
CPT/HCPCS: 77063; 77067

== ENCOUNTER → 2022-05-30 14:20 | Outpatient (CLI) | payer MEDICARE, SELFPAY ==
--- NOTE | 2022-05-30 14:20 | CT_ITS ---
FINAL REPORT TECHNIQUE: Thin section axial CT images of the temporal bones were obtained. Coronal reformatted images were also obtained.This study was performed with techniques to keep radiation doses as low as reasonably achievable (ALARA). Individualized dose reduction techniques using automated exposure control or adjustment of mA and/or kV according to the patient''s size were employed. CLINICAL HISTORY: .hearing loss FINDINGS: Right temporal bone: The internal auditory canal has an unremarkable appearance. The inner ear structures are unremarkable. The external auditory canal has an unremarkable appearance. No abnormality is identified of the middle ear cavity. The ossicles are intact. The mastoid air cells and mastoid antrum have an unremarkable appearance. No bony mass is identified. Left temporal bone:The internal auditory canal has an unremarkable appearance. The inner ear structures are unremarkable. The external auditory canal has an unremarkable appearance. No abnormality is identified of the middle ear cavity. The ossicles are intact. The mastoid air cells and mastoid antrum have an unremarkable appearance. No bony mass is identified. IMPRESSION: Unremarkable temporal bones. Reviewed, Interpreted and Dictated by Pelon Krause III, MD Transcribed by Carol Lopez Authenticated and [facility]
== END ==
PROVIDERS: PCP Family Medicine; Visit Provider Student in an Organized Health Care Education/Training Program
DX: H91.90 Unspecified hearing loss, unspecified ear (principal); H93.13 Tinnitus, bilateral
CPT/HCPCS: 70480

== ENCOUNTER → 2022-07-18 11:45 | Outpatient (CLI) | payer MEDICARE, SELFPAY ==
[2022-07-18 15:26] LABS: Basophils % 0.9 % (0.1-2.0); Hematocrit 39.6 % (37.0-47.0); Hemoglobin 13.5 g/dL (12.2-16.2); Lymphocytes # 1.2 K/mm3 (0.7-4.5); Lymphocytes % 26.9 % (10-50); Mean Corpuscular Hemoglobin 32.9 pg (27.0-31.2); Mean Corpuscular Volume 96.7 fl (81-99); Mean Platelet Volume 10.1 fl (7.4-10.4); Monocytes # 0.3 K/mm3 (0.1-1.0); Monocytes % 6.1 % (1.7-9.3); Neutrophils # 2.9 K/mm3 (1.8-7.8); Neutrophils % 65.2 % (37.0-80.0); Platelet Count 163 K/mm3 (142-424); Red Blood Count 4.09 M/mm3 (4.20-5.40); Red Cell Distribution Width 12.7 % (11.5-17.5); White Blood Count 4.5 K/mm3 (4.8-10.8)
[2022-07-18 15:32] LABS: Alanine Aminotransferase 20 U/L (12-78); Albumin/Globulin Ratio 1.8 (1.1-1.8); Alkaline Phosphatase 43 U/L (38-126); Anion Gap 12.5 mEq/L (5-15); Aspartate Amino Transferase 33 U/L (14-36); Bilirubin,Total 0.6 mg/dl (0.2-1.3); Blood Urea Nitrogen 9 mg/dl (7-17); Calcium 9.3 mg/dl (8.4-10.2); Carbon Dioxide 26 mmol/L (22.0-30.0); Chloride 96 mmol/L (98-107); Chol/HDL Ratio 2.4 (1-3.5); Cholesterol 188 mg/dl (140-200); Estimated Glomerular Filt Rate 96 ml/min (>60); GFR (African American) 116 ML/MIN (>60); Globulin 2.8 g/dL (1.3-3.2); Glucose 110 mg/dl (74-100); HDL Cholesterol 77 mg/dl (40-60); Potassium 4.5 mmoL/L (3.5-5.1); Sodium 130 mmol/L (136-145); Total Protein,Serum 7.8 g/dl (6.3-8.2); Triglycerides 136 mg/dl (30-150); VLDL Cholesterol 27 mg/dL (0-40)
[2022-07-18 15:51] LABS: Direct LDL Cholesterol 71.23 mg/dL (100-129)
== END ==
PROVIDERS: PCP Family Medicine; Visit Provider Family Medicine
DX: D64.9 Anemia, unspecified (principal); E78.5 Hyperlipidemia, unspecified
CPT/HCPCS: 80053; 80061; 85025

== ENCOUNTER 2022-07-19 09:02 | Emergency (ER) | payer MEDICARE, SELFPAY ==
[2022-07-19 09:05] VITALS: BP 182/85; PULSE 85; RESP 18; TEMP 36.5; O2SAT 96; BMI 21.2
--- NOTE | 2022-07-19 09:14 | XR_ITS ---
FINAL REPORT CLINICAL HISTORY: fall, pain COMPARISON: 05/08/2019 FINDINGS: SINGLE-VIEW CHEST The heart size is normal. The mediastinum is normal. The lungs are clear. No pleural effusion is identified. There is no pneumothorax. IMPRESSION: No acute disease. Reviewed, Interpreted and Dictated by Richie Perez MD Transcribed by Carol Lopez Authenticated and . [facility]
--- NOTE | 2022-07-19 09:14 | CT_ITS ---
FINAL REPORT TECHNIQUE: Axial imaging of the lumbar spine was obtained without contrast. Sagittal and coronal reformatted images were also obtained and reviewed.This study was performed with techniques to keep radiation doses as low as reasonably achievable (ALARA). Individualized dose reduction techniques using automated exposure control or adjustment of mA and/or kV according to the patient's size were employed. CLINICAL HISTORY: Acute low back pain after fall COMPARISON: None FINDINGS: There is no fracture. The vertebral alignment is normal. There is moderate diffuse degenerative disc with multilevel canal stenosis most pronounced at L3-4 and L4-5. IMPRESSION: Multilevel degenerative change without acute bony abnormality. Reviewed, Interpreted and Dictated by Richie Perez MD Transcribed by Leona Chavarria Authenticated and [facility]
--- NOTE | 2022-07-19 09:14 | CT_ITS ---
FINAL REPORT TECHNIQUE: Noncontrast exam CLINICAL HISTORY: fall, pain, no LOC COMPARISON: 08/19/2019 FINDINGS: No abnormal density is seen. There is moderate atrophy and chronic microvascular change. There is no hemorrhage. No mass effect is seen. There is a moderate size area of encephalomalacia noted in the left frontal lobe. Bone windows show no evidence of fracture. IMPRESSION: No acute findings. Chronic changes as above, progressed compared to the prior study. Reviewed, Interpreted and Dictated by Richie Perez MD Transcribed by Leona Chavarria Authenticated and . [facility]
--- NOTE | 2022-07-19 09:14 | CT_ITS ---
FINAL REPORT TECHNIQUE: Axial images through the pelvis were performed by computed tomography. This study was performed with techniques to keep radiation doses as low as reasonably achievable (ALARA). Individualized dose reduction techniques using automated exposure control or adjustment of mA and/or kV according to the patient's size were employed. CLINICAL HISTORY: fall, pain FINDINGS: There is mild flexion deformity of the distal sacrum best seen on sagittal images suspicious for fracture. The remaining bony pelvis is intact. Left hip arthroplasty is unremarkable. There is no pelvic hemorrhage. IMPRESSION: Mildly displaced fracture of the distal sacrum. Reviewed, Interpreted and Dictated by Richie Perez MD Transcribed by Carol Lopez Authenticated and [facility]
--- NOTE | 2022-07-19 09:14 | XR_ITS ---
FINAL REPORT CLINICAL HISTORY: fall, pain COMPARISON: 09/21/2020 FINDINGS: Pelvis A single view was obtained. There is no acute fracture or dislocation. Patient is status post left hip arthroplasty. The joint spaces appear normal. No soft tissue abnormality is identified. IMPRESSION: No acute process. Reviewed, Interpreted and Dictated by Richie Perez MD Transcribed by Carol Lopez Authenticated and [facility]
--- NOTE | 2022-07-19 09:14 | CT_ITS ---
FINAL REPORT TECHNIQUE: Axial images through the thoracic spine were performed. Sagittal reconstruction images were performed. This study was performed with techniques to keep radiation doses as low as reasonably achievable, (ALARA). Individualized dose reduction techniques using automated exposure control or adjustment of mA and/or kV according to the patient's size were employed. CLINICAL HISTORY: Acute mid back pain after fall COMPARISON: None FINDINGS: There is no fracture. There is thoracic kyphosis without subluxation. There are mild diffuse degenerative disc changes. IMPRESSION: Degenerative changes without acute process. Reviewed, Interpreted and Dictated by Richie Perez MD Transcribed by Leona Chavarria Authenticated and . [facility]
--- NOTE | 2022-07-19 09:14 | CT_ITS ---
FINAL REPORT TECHNIQUE: Thin section axial CT with sagittal reconstruction without contrast CLINICAL HISTORY: Acute neck pain after fall COMPARISON: None FINDINGS: No fracture is seen. Alignment is normal. There is moderate diffuse degenerative disc disease. There is mild facet arthropathy. IMPRESSION: Degenerative changes with no acute process. Reviewed, Interpreted and Dictated by Richie Perez MD Transcribed by Leona Chavarria Authenticated and [facility]
--- NOTE | 2022-07-19 09:17 | HMH.EDGENADL ---
Discharge Plan Disposition Patient Disposition: Home, Self-Care Condition: Good Prescriptions Prescriptions: New hydrocodone-acetaminophen 5-325 mg tablet 1 tab PO Q8H PRN (Reason: pain) Qty: 12 0RF No Action atorvastatin [Lipitor] 20 mg tablet 20 mg PO DAILY Qty: 90 3RF losartan 25 mg tablet See Rx Instructions .ROUTE .COMPLEX Qty: 90 3RF Rx Instructions: Take 1 tablet by mouth once daily primidone 50 mg tablet See Rx Instructions .ROUTE .COMPLEX Qty: 180 3RF Dose Instruction: Take 1 tablet by mouth twice daily Rx Instructions: Take 1 tablet by mouth twice daily Referrals Follow up/Referrals: El Garvey MD [Primary Care Provider] - See instructions Activity Restrictions/Add. Instructions Additional Instructions/Restrictions: You were evaluated in the emergency department today. Please follow-up with your primary care provider over the next 48 hours. 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 You may also take Tylenol and ibuprofen instead. Return to the emergency department for any new or worsening symptoms. Clinical Impressions Clinical Impression: Closed sacral fracture Qualifiers: Encounter type: initial encounter Zone of sacrum fracture: unspecified portion of sacrum Qualified Code(s): S32.10XA - Unspecified fracture of sacrum, initial encounter for closed fracture Laceration of scalp Qualifiers: Encounter type: initial encounter Qualified Code(s): S01.01XA - Laceration without foreign body of scalp, initial encounter Fall Qualifiers: Encounter type: initial encounter Qualified Code(s): W19.XXXA - Unspecified fall, initial encounter Instructions Patient Instructions: DI for Pelvic Fracture, How to Prevent Falls Discharge ED Provider: Erinn Beth General Adult HPI General Chief complaint: Fall Stated complaint: AO 07/19@home pain in [place] Time Seen by Provider: 07/19/22 09:11 History of Present Illness HPI narrative: This patient is an 82-year-old female presenting to the emergency department for evaluation after a mechanical ground-level fall that happened just prior to arrival. She reports that she did not realize that her puppy was behind her, and she tripped backwards over him, landing on her buttocks. She did hit her head, but she denies any loss of consciousness. She complains of severe low back/buttocks pain at this time. Her pain is moderate and constant, aching in nature. She does not take any blood thinners. She denies any other injuries. She was well prior to the fall. Related Data Previous Rx's Medication Instructions Recorded atorvastatin 20 mg tablet (Lipitor) 20 mg PO DAILY Cholesterol #90 tabs 07/18/22 losartan 25 mg tablet See Rx Instructions .Route 07/18/22 .COMPLEX blood pressure #90 tabs primidone 50 mg tablet See Rx Instructions .Route 07/18/22 .COMPLEX #180 tabs hydrocodone 5 mg-acetaminophen 325 1 tab PO Q8H PRN pain #12 tabs 07/19/22 mg tablet Allergies Allergy/AdvReac Type Severity Reaction Status Date / Time Sulfa (Sulfonamide Allergy Unknown Verified 07/18/22 10:24 Antibiotics) sulfamethizole Allergy Unknown Verified 07/18/22 10:24 triamcinolone Allergy Unknown Verified 07/18/22 10:24 morphine AdvReac Mild Nausea Verified 07/18/22 10:24 PFSH PFSH Disclaimer: The information contained in this section may have been updated after the patient was seen, as this information can be updated by other users. Medical History Arthritis Hearing Loss Hypercholesterolemia Hypertension Seizures Sinus disorder TIA (transient ischemic attack) Tinnitus Surgical History History of total left hip replacement Hx of cholecystectomy Hx of heart surgery Family History Other Cancer Coronary artery disease
--- NOTE | 2022-07-19 09:22 | PC.NURSE ---
pt to radiology with water treatment technician via WC
[2022-07-19 09:30] VITALS: BP 163/69; PULSE 61; O2SAT 98
[2022-07-19 09:50] LABS: Basophils % 0.3 % (0.1-2.0); Eosinophils # 0.1 K/mm3 (0.0-0.4); Eosinophils % 0.8 % (0.1-12.0); Hematocrit 39.1 % (37.0-47.0); Hemoglobin 13.4 g/dL (12.2-16.2); Lymphocytes # 0.6 K/mm3 (0.7-4.5); Lymphocytes % 10.3 % (10-50); Mean Corpuscular HGB Conc 34.3 g/dL (31.8-35.4); Mean Corpuscular Hemoglobin 33.3 pg (27.0-31.2); Mean Corpuscular Volume 97.1 fl (81-99); Mean Platelet Volume 9.2 fl (7.4-10.4); Monocytes # 0.2 K/mm3 (0.1-1.0); Monocytes % 4.3 % (1.7-9.3); Neutrophils # 4.8 K/mm3 (1.8-7.8); Neutrophils % 84.2 % (37.0-80.0); Platelet Count 152 K/mm3 (142-424); Red Blood Count 4.02 M/mm3 (4.20-5.40); Red Cell Distribution Width 12.8 % (11.5-17.5); White Blood Count 5.7 K/mm3 (4.8-10.8)
[2022-07-19 09:52] LABS: Chloride 95 mmol/L (98-107)
[2022-07-19 09:53] LABS: Potassium 4.5 mmoL/L (3.5-5.1); Sodium 132 mmol/L (136-145)
[2022-07-19 09:55] LABS: Alanine Aminotransferase 23 U/L (12-78); Aspartate Amino Transferase 34 U/L (14-36); Bilirubin,Total 0.5 mg/dl (0.2-1.3); Blood Urea Nitrogen 11 mg/dl (7-17); Creatinine Clearance Estimated 39 mL/min (50-200); Estimated Glomerular Filt Rate 96 ml/min (>60); GFR (African American) 116 ML/MIN (>60)
[2022-07-19 09:56] LABS: Albumin Level 4.6 g/dl (3.5-5.0); Albumin/Globulin Ratio 1.7 (1.1-1.8); Alkaline Phosphatase 33 U/L (38-126); Calcium 9.4 mg/dl (8.4-10.2); Globulin 2.7 g/dL (1.3-3.2); Glucose 146 mg/dl (74-100); Total Protein,Serum 7.3 g/dl (6.3-8.2)
[2022-07-19 10:17] LABS: Activated Partial Thrombo Time 24.6 seconds (22.8-30.6); INR 1.01 (0.9-1.1); Prothrombin Time 10.9 seconds (10.1-12.5)
[2022-07-19 11:00] VITALS: BP 137/67; PULSE 60; RESP 18; O2SAT 93
--- NOTE | 2022-07-19 11:15 | PC.NURSE ---
Consulting Ortho, Dr. Bradford.
--- NOTE | 2022-07-19 11:17 | PC.NURSE ---
pt ambulated to restroom with standby assist at this time
--- NOTE | 2022-07-19 11:23 | PC.NURSE ---
pt back to bed ER MD at discussing results and POC at this time
[2022-07-19 11:30] VITALS: BP 147/69; PULSE 60; RESP 18; O2SAT 95
[2022-07-19 12:32] VITALS: BP 132/70; PULSE 60; RESP 18; TEMP 36.5; O2SAT 93
[2022-07-19 12:37] LABS: Anion Gap 12.5 mEq/L (5-15); Carbon Dioxide 29 mmol/L (22.0-30.0)
== END 2022-07-19 12:32 | disposition home or self-care (01) ==
PROVIDERS: Emergency Provider Emergency Medicine; PCP Family Medicine
DX: S32.10XA Unspecified fracture of sacrum, initial encounter for closed fracture (principal); S01.01XA Laceration without foreign body of scalp, initial encounter; W18.30XA Fall on same level, unspecified, initial encounter; M19.90 Unspecified osteoarthritis, unspecified site; I10 Essential (primary) hypertension; E78.00 Pure hypercholesterolemia, unspecified; Z86.73 Personal history of transient ischemic attack (TIA), and cerebral infarction without residual deficits; G40.909 Epilepsy, unspecified, not intractable, without status epilepticus; Z96.642 Presence of left artificial hip joint; Z90.49 Acquired absence of other specified parts of digestive tract; Z86.79 Personal history of other diseases of the circulatory system; Z80.9 Family history of malignant neoplasm, unspecified; Z82.49 Family history of ischemic heart disease and other diseases of the circulatory system; Z83.3 Family history of diabetes mellitus; Z83.49 Family history of other endocrine, nutritional and metabolic diseases; Z82.3 Family history of stroke; Z83.42 Family history of familial hypercholesterolemia; Z23 Encounter for immunization
CPT/HCPCS: 70450; 71045; 72125; 72128; 72131; 72170; 72192; 80053; 85025; 85610; 85730; 90471; 90715; 99285

== ENCOUNTER 2022-08-16 14:00 | Outpatient (RCR) | payer MEDICARE, SELFPAY ==
--- NOTE | 2022-07-24 16:02 | HMH.PTOPEV ---
PT Outpatient Evaluation Rehab PT Outpatient Evaluation Start: 07/24/22 15:04 Freq: Status: Active Protocol: Document 07/24/22 15:04 ROSMERYANDREY (Rec: 07/24/22 16:02 NATALIYA [id number]) E-signed By Erinn Castro, PT Outpatient Therapy Subjective History Subjective History Pt is an 82 y/o female that reports she tripped and fell over her dog on 07/19/22 landing on her butt and hitting her head with immediate pain. Pt reports she went to [facility] ER on 07/19/22 and had a pelvis CT scan performed with findings of: mild flexion deformity of the distal sacrum best seen on sagittal images suspicious for fracture. The remaining bony pelvis is intact. Left hip arthroplasty is unremarkable. There is no pelvic hemorrhage. Pt also states she had imaging of her thoracic/lumbar spine and head without significant findings. Pt denies dizziness, headaches, paresthesia or b/b dysfunction . Pt reports dull, constant pain of the left-side of the sacrum that is worse with prolonged sitting or lying on her back, bending forward and performing transfers. Pt reports she was given a donut which does help with pain while sitting. Pt reports she was prescribed Oxycodone she takes as needed which helps with pain. Pt reports she is using a quad cane at home and a walker in the community. Pt reports she returns to her MD in a month for a followup. Medical History: hx of L JOSH, high blood pressure, osteoporosis TU with RW (likely limited by p! with sit to stand transfers) Balance: modified tanedm EO firm surface 20
== END 2022-08-16 14:05 | disposition home or self-care (01) ==
LOC: PT 14:00
PROVIDERS: PCP Family Medicine; Visit Provider Family Medicine
DX: S32.10XA Unspecified fracture of sacrum, initial encounter for closed fracture (principal)
CPT/HCPCS: 97110; 97112; 97163; 97530

== ENCOUNTER 2022-08-21 14:43 | Outpatient (CLI) | payer MEDICARE, SELFPAY ==
[2022-08-21 14:53] VITALS: BP 142/75; PULSE 89; RESP 20; TEMP 36.4; O2SAT 99
== END 2022-08-21 15:11 | disposition home or self-care (01) ==
LOC: INF 14:44
PROVIDERS: PCP Family Medicine; Visit Provider Family Medicine
DX: M81.0 Age-related osteoporosis without current pathological fracture (principal)
CPT/HCPCS: 96372; J0897

== ENCOUNTER 2022-10-02 14:33 | Emergency (ER) | payer MEDICARE, SELFPAY ==
[2022-10-02 14:34] VITALS: BP 140/70; PULSE 69; RESP 17; TEMP 36.6; O2SAT 98; BMI 21.4
--- NOTE | 2022-10-02 14:36 | HMH.EDGENADL ---
Discharge Plan Disposition Patient Disposition: Home, Self-Care Prescriptions Prescriptions: No Action atorvastatin [Lipitor] 20 mg tablet 20 mg PO DAILY Qty: 90 3RF hydrocodone-acetaminophen 5-325 mg tablet 1 tab PO Q8H PRN (Reason: pain) Qty: 20 0RF primidone 50 mg tablet 50 mg PO BID Rx Instructions: Take 1 tablet by mouth twice daily losartan 25 mg tablet 25 mg PO DAILY Rx Instructions: Take 1 tablet by mouth once daily Referrals Follow up/Referrals: Real Bradford DO [Staff Physician] - See instructions (next available appointment ) El Garvey MD [Primary Care Provider] - See instructions Clinical Impressions Clinical Impression: Closed fracture of left distal radius Discharge ED Provider: Darwin Noel General Adult HPI General Chief complaint: Extremity Injury, Upper Stated complaint: AO fell 09/01/22 left hand Time Seen by Provider: 10/02/22 14:36 History of Present Illness HPI narrative: 82-year-old female fall onto left arm outstretched with immediate deformity of the left distal forearm sensation or motor function since that time pain is mild does not take any pain medicine denies any denies any other injuries not on any anticoagulation. Related Data Home Medications Medication Instructions Recorded Confirmed losartan 25 mg tablet 25 mg PO DAILY blood pressure 08/21/22 08/21/22 primidone 50 mg tablet 50 mg PO BID Tremors 08/21/22 08/21/22 Previous Rx's Medication Instructions Recorded hydrocodone 5 mg-acetaminophen 325 1 tab PO Q8H PRN pain #20 tabs 08/03/22 mg tablet atorvastatin 20 mg tablet (Lipitor) 20 mg PO DAILY Cholesterol #90 tabs 08/15/22 Allergies Allergy/AdvReac Type Severity Reaction Status Date / Time Sulfa (Sulfonamide Allergy Unknown Verified 08/15/22 14:36 Antibiotics) sulfamethizole Allergy Unknown Verified 08/15/22 14:36 triamcinolone Allergy Unknown Verified 08/15/22 14:36 morphine AdvReac Mild Nausea Verified 08/15/22 14:36 [facility] Disclaimer: The information contained in this section may have been updated after the patient was seen, as this information can be updated by other users. Medical History Arthritis Hearing Loss Hypercholesterolemia Hypertension Seizures Sinus disorder TIA (transient ischemic attack) Tinnitus Surgical History History of total left hip replacement Hx of cholecystectomy Hx of heart surgery hole in heart fixed Family History Other Cancer Coronary artery disease Diabetes Heart attack Hypercholesterolemia Hypertension Stroke Thyroid disorder Social History (Updated 08/21/22 @ 15:09 by Brock Hunt RN) Smoking Status: Former smoker alcohol intake: never substance use type: denies use current occupational status: retired Travel in the last 8 weeks: None household members: spouse housing: house caffeine: Yes (one cup of coffee/day) ROS Obtained: Yes All systems reviewed & no additional complaints except as documented Physical Exam General General appearance: alert Respiratory Respiratory exam: Present normal lung sounds bilaterally; Absent respiratory distress Cardiovascular Cardiovascular exam: Present regular rate; Absent tachycardia Extremities Exam Extremities exam: Present other (Deformity at the distal forearm on the left arm with the dorsal angulation of the distal fragments median ulnar radial nerve sensation motor function normal vascular exam is normal) Neurological Exam Neurological exam: Present alert and oriented X3 Medical Decision Making Javier Inquiry Pt receiving controlled substance: No Vital Signs: 10/02/22 14:34 Temperature 97.9 F Temperature Source Oral Pulse Rate [Radial] 69 Respiratory Rate 17 Blood Pressure [Right Arm] 140/70 Blood Pressure
--- NOTE | 2022-10-02 14:37 | PC.NURSE ---
dr oliva at bedside for evaluation
--- NOTE | 2022-10-02 14:39 | XR_ITS ---
FINAL REPORT CLINICAL HISTORY: fall, deformity FINDINGS: LEFT WRIST Three views demonstrate a comminuted, impacted fracture of the distal radius with dorsal displacement and angulation of the distal fracture fragments. There are mild degenerative changes noted. There is soft tissue swelling. IMPRESSION: Comminuted, impacted fracture of the distal radius with dorsal displacement and angulation of the distal fracture fragments. Reviewed, Interpreted and Dictated by Pelon Krause III, MD Transcribed by Kadi Adorno Authenticated and [facility]
--- NOTE | 2022-10-02 14:41 | PC.NURSE ---
XR AT BEDSIDE
--- NOTE | 2022-10-02 15:14 | XR_ITS ---
FINAL REPORT CLINICAL HISTORY: post splint XR-- post reduction and splint COMPARISON: 30 minutes prior FINDINGS: 3 views of the left wrist were obtained. Overlying splint material is present. There is partially improved dorsal displacement of the distal radial fracture fragments. IMPRESSION: Partially improved dorsal displacement of the distal radial fracture fragments post splinting. Reviewed, Interpreted and Dictated by Pelon Krause III, MD Transcribed by Nehemias Espinosa Authenticated and [facility]
--- NOTE | 2022-10-02 15:19 | PC.NURSE ---
XR AT BEDSIDE
--- NOTE | 2022-10-02 15:30 | PC.NURSE ---
DR YADAV AT BEDSIDE TO UPDATE PT ON POC
--- NOTE | 2022-10-02 15:32 | PC.NURSE ---
DR YADAV SPEAKING WITH DR. HODGE
[2022-10-02 15:40] VITALS: BP 138/75; PULSE 72; RESP 17; TEMP 36.7; O2SAT 99
== END 2022-10-02 15:40 | disposition home or self-care (01) ==
PROVIDERS: Emergency Provider Student in an Organized Health Care Education/Training Program; PCP Family Medicine
DX: S52.502A Unspecified fracture of the lower end of left radius, initial encounter for closed fracture (principal); Z87.891 Personal history of nicotine dependence; W19.XXXA Unspecified fall, initial encounter
CPT/HCPCS: 25605; 73110; 99284

== ENCOUNTER → 2022-10-06 15:24 | Outpatient (CLI) | payer MEDICARE, SELFPAY ==
--- NOTE | 2022-10-06 15:33 | ECG_ITS ---
APPROVED REPORT Exam: Resting ECG HR:78 bpm ECG Measurements Heart Rate 78 AXES GA 237 P 251 QRSd 94 QRS 68 QT 368 T 47 QTc 402 Conclusion ELECTRONIC ATRIAL PACEMAKER ABNORMAL RHYTHM ECG UNCONFIRMED REPORT Electronically signed by : Franco Turner MD 10/07/2022 08:33:08
--- NOTE | 2022-10-06 15:47 | XR_ITS ---
FINAL REPORT CLINICAL HISTORY: pre op, cough COMPARISON: 07/19/2022 FINDINGS: Two views of the chest were obtained. The heart size and pulmonary vascularity are within normal limits. The mediastinum is normal. No acute pulmonary abnormality is identified. Left subclavian pacer is identified. There is no pneumothorax. The bony thorax is intact. There are moderate degenerative changes of the thoracic spine. IMPRESSION: No active cardiopulmonary disease. Reviewed, Interpreted and Dictated by Pelon Krause III, MD Transcribed by Carol Lopez Authenticated and [facility]
[2022-10-06 17:25] LABS: Basophils % 0.9 % (0.1-2.0); Eosinophils # 0.1 K/mm3 (0.0-0.4); Eosinophils % 2.4 % (0.1-12.0); Hematocrit 39.2 % (37.0-47.0); Hemoglobin 12.7 g/dL (12.2-16.2); Lymphocytes # 1.2 K/mm3 (0.7-4.5); Lymphocytes % 31.2 % (10-50); Mean Corpuscular HGB Conc 32.4 g/dL (31.8-35.4); Mean Corpuscular Hemoglobin 31.3 pg (27.0-31.2); Mean Corpuscular Volume 96.5 fl (81-99); Mean Platelet Volume 8.9 fl (7.4-10.4); Monocytes # 0.4 K/mm3 (0.1-1.0); Monocytes % 9.4 % (1.7-9.3); Neutrophils # 2.1 K/mm3 (1.8-7.8); Neutrophils % 56.1 % (37.0-80.0); Platelet Count 154 K/mm3 (142-424); Red Blood Count 4.06 M/mm3 (4.20-5.40); Red Cell Distribution Width 12.9 % (11.5-17.5); White Blood Count 3.8 K/mm3 (4.8-10.8)
[2022-10-06 17:42] LABS: Alanine Aminotransferase 17 U/L (12-78); Albumin Level 4.4 g/dl (3.5-5.0); Albumin/Globulin Ratio 1.9 (1.1-1.8); Alkaline Phosphatase 40 U/L (38-126); Anion Gap 8.5 mEq/L (5-15); Aspartate Amino Transferase 28 U/L (14-36); Bilirubin,Total 0.4 mg/dl (0.2-1.3); Blood Urea Nitrogen 10 mg/dl (7-17); Calcium 8.9 mg/dl (8.4-10.2); Carbon Dioxide 29 mmol/L (22.0-30.0); Chloride 95 mmol/L (98-107); Estimated Glomerular Filt Rate 96 ml/min (>60); GFR (African American) 116 ML/MIN (>60); Globulin 2.3 g/dL (1.3-3.2); Glucose 105 mg/dl (74-100); Potassium 4.5 mmoL/L (3.5-5.1); Sodium 128 mmol/L (136-145); Total Protein,Serum 6.7 g/dl (6.3-8.2)
== END ==
PROVIDERS: PCP Family Medicine; Visit Provider Orthopaedic Surgery
DX: S52.502A Unspecified fracture of the lower end of left radius, initial encounter for closed fracture (principal); S72.002A Fracture of unspecified part of neck of left femur, initial encounter for closed fracture; Z01.818 Encounter for other preprocedural examination
CPT/HCPCS: 36415; 71046; 80053; 85025; 93005

== ENCOUNTER 2022-10-11 10:29 | Day surgery (SDC) | payer MEDICARE, SELFPAY ==
[2022-10-06 09:48] VITALS: BMI 21.4
[2022-10-11 11:13] VITALS: BP 162/74; PULSE 62; RESP 18; TEMP 36.1; O2SAT 99
--- NOTE | 2022-10-11 12:03 | P.PN_ITS ---
[facility] Disclaimer: The information contained in this section may have been updated after the patient was seen, as this information can be updated by other users. Medical History Arthritis Hearing Loss Hypercholesterolemia Hypertension Sinus disorder TIA (transient ischemic attack) Tinnitus Surgical History History of total left hip replacement Hx of cholecystectomy Hx of heart surgery Family History Other Cancer Coronary artery disease Diabetes Heart attack Hypercholesterolemia Hypertension Stroke Thyroid disorder Social History Smoking Status: Former smoker alcohol intake: never substance use type: denies use current occupational status: retired Travel in the last 8 weeks: None household members: spouse housing: house caffeine: Yes (one cup of coffee/day) [facility] Anesthesia Checklist Patient Identification Patient Identification: Arm Band and Verbal (Name & ) Structural Data Admitted From: Home Planned Operative Procedure/s: ORIF wrist Consent for Planned Operative Procedure(s) Verified: Yes NPO Status Verified Time NPO: 00:00 Additional verifications Anesthesia Reactions: No Hx Blood Transfusions: Yes Blood Transfusion Reaction: No Airway Assessment C-Spine Mobility Assessed: Yes TMJ Mobility Assessed: Yes Dentition: Edentulous Neurological Assessment Level of Consciousness: Awake Hx Seizures: No Numbness or tingling in extremities: No Anesthesia Plan Anesthesia Risk discussed: Yes Anesthesia Plan: Verified ASA Class: III Anesthesia Type: MAC w/Block
--- NOTE | 2022-10-11 14:15 | XR_ITS ---
FINAL REPORT CLINICAL HISTORY: WRIST IN OR, FT 23sec FINDINGS: FLUOROSCOPY LESS THAN 1 HOUR HISTORY: Fluoroscopy guided injection. FINDINGS: Fluoroscopic guidance was provided for left wrist injection. Two images were obtained. 0.3 minutes of fluoroscopy time were used. IMPRESSION: As above Reviewed, Interpreted and Dictated by Pelon Krause III, MD Transcribed by Leona Chavarria Authenticated and [facility]
[2022-10-11 14:25] VITALS: BP 99/57; PULSE 74; RESP 14; TEMP 37.2; O2SAT 99
--- NOTE | 2022-10-11 14:29 | P.OP_ITS ---
Date of procedure: 10/11/22 Pre-op Diagnosis:: Left distal radius fracture intra-articular 3 part Post-op Diagnosis:: Same Procedure performed:: Open reduction internal fixation left distal radius fracture intra-articular 3 part Surgeon:: Real Bradford DO GLASS ROBOT OPERATOR:: Jer Davis Anesthesia: MAC and regional Estimated blood loss (mL): 0 Operative findings:: See dictation Operative note:: Patient was identified preoperatively left wrist marked yes my initials. Underwent a block with anesthesia. Taken to the operating room placed upon the operating bed. General anesthesia was ministered airway was secured. Left up per extremity prepped draped normal sterile fashion. Once prepped and draped final operative timeout performed to identify proper patient procedure and extremity. Everyone involved in the case agreed. No counter indications to beginning. Did receive preoperative antibiotics. Marking pen was used to doris plan incision over the volar wrist. Esmarch was used to exsanguinate extremity medic tourniquet inflated to 250 mmHg. Skin knife was used incise the skin careful dissection taken down over the FCR tendon. The FCR tendon sheath was opened FCR tendon was retracted radially throughout the procedure to protect the radial artery. Floor of the FCR was opened dissection was taken down to identify pronator quadratus muscle which was cut in L-type fashion off the distal radius. Fracture site was encountered hematoma evacuated. Pulmonary reduction was performed with traction and a dorsal to volar force with direct visualization of the fracture and reduction with the [place] elevator. C arm x-rays were taken to show christian of the radial height neutral alignment and severe posterior dorsal comminution. Plate was selected from the [employer] distal radius plate and pulmonary held to the bone with a K wire. A cortical screw was placed in the shaft. Distal locking screws were then placed in the distal radius. All monitored radiographically on the C arm images. Once adequate fixation was obtained distally additional locking screw was placed in the shaft. Copious irrigation of the wound performed. Deep layers closed with Vicryl stitch. Skin closed with nylon stitch. Sterile dressing placed. Well- padded volar splint placed. Patient waken from anesthesia taken recovery in stable condition. Condition: stable Disposition: PACU Complications:: None apparent
[2022-10-11 14:35] VITALS: BP 112/59; PULSE 60; RESP 16; O2SAT 95
[2022-10-11 14:45] VITALS: BP 100/53; PULSE 60; RESP 16; O2SAT 95
[2022-10-11 14:55] VITALS: BP 108/56; PULSE 60; RESP 16; TEMP 36.6; O2SAT 94
[2022-10-11 15:45] VITALS: TEMP 43
== END 2022-10-11 14:55 | disposition home or self-care (01) ==
PROVIDERS: PCP Family Medicine; Visit Provider Orthopaedic Surgery
PROC: (CPT 25609; principal; 2022-10-11 12:00)
DX: S52.572A Other intraarticular fracture of lower end of left radius, initial encounter for closed fracture (principal); W01.0XXA Fall on same level from slipping, tripping and stumbling without subsequent striking against object, initial encounter; I10 Essential (primary) hypertension
CPT/HCPCS: 25609; 73100; 96374; C1713; C1776

== ENCOUNTER → 2022-10-26 14:11 | Outpatient (CLI) | payer MEDICARE, SELFPAY ==
--- NOTE | 2022-10-26 14:15 | XR_ITS ---
FINAL REPORT CLINICAL HISTORY: left wrist pain COMPARISON: 10/02/2022 FINDINGS: LEFT WRIST Three views demonstrate sideplate and screws securing comminuted fracture of the distal radial metaphysis. Hardware is new since prior exam. Overlying cast. Bony fragments are near anatomic alignment. The visualized joint spaces are normally aligned. The soft tissues are unremarkable. IMPRESSION: New sideplate and screws securing the distal radial metaphysis fracture with near anatomic alignment of the bony fragments. Reviewed, Interpreted and Dictated by Maycol Frank MD Transcribed by Leona Chavarria Authenticated and [facility]
== END ==
PROVIDERS: PCP Family Medicine; Visit Provider Orthopaedic Surgery
DX: S52.502A Unspecified fracture of the lower end of left radius, initial encounter for closed fracture (principal); M25.532 Pain in left wrist
CPT/HCPCS: 73110

== ENCOUNTER 2022-10-26 15:19 | Outpatient (RCR) | payer MEDICARE, SELFPAY | END 2022-10-26 16:20 | disposition home or self-care (01) | LOC: OT 15:19 | PROVIDERS: Visit Provider Orthopaedic Surgery | DX: S52.502D Unspecified fracture of the lower end of left radius, subsequent encounter for closed fracture with routine healing (principal); M25.532 Pain in left wrist | CPT/HCPCS: 97763 ==

== ENCOUNTER → 2022-11-23 13:19 | Outpatient (CLI) | payer MEDICARE, SELFPAY ==
--- NOTE | 2022-11-23 13:24 | XR_ITS ---
FINAL REPORT CLINICAL HISTORY: lt wrist pain COMPARISON: 10/26/2022 FINDINGS: LEFT WRIST Three views of the left wrist revealed at the cast noted on the prior exam of October 26 has been removed. The comminuted fracture of the distal radius with a bridging orthopedic plate and screws is again noted, with fracture lines extending to the radiocarpal joint. There is an increase in callus formation since the prior exam.. The visualized joint spaces are normally aligned. The soft tissues are unremarkable. IMPRESSION: Increase in callus formation at the fracture site of the distal radius since October 26. No significant change in position of the fracture fragments. Reviewed, Interpreted and Dictated by Maycol Frank MD Transcribed by Bianca Lora Authenticated and [facility]
== END ==
PROVIDERS: PCP Family Medicine; Visit Provider Orthopaedic Surgery
DX: S72.002A Fracture of unspecified part of neck of left femur, initial encounter for closed fracture (principal); M25.532 Pain in left wrist
CPT/HCPCS: 73110

== ENCOUNTER 2023-03-06 10:32 | Outpatient (CLI) | payer MEDICARE, SELFPAY ==
[2023-03-06 10:46] VITALS: BP 140/79; PULSE 84; RESP 18; O2SAT 99
== END 2023-03-06 11:00 | disposition home or self-care (01) ==
LOC: INF 10:33
PROVIDERS: PCP Family Medicine; Visit Provider Nurse Practitioner Family
DX: M81.0 Age-related osteoporosis without current pathological fracture (principal)
CPT/HCPCS: 96372; J0897

== ENCOUNTER → 2023-03-15 15:59 | Outpatient (CLI) | payer MEDICARE, SELFPAY ==
[2023-03-15 13:04] LABS: Basophils % 0.8 % (0.1-2.0); Eosinophils # 0.1 K/mm3 (0.0-0.4); Eosinophils % 2.6 % (0.1-12.0); Hematocrit 43.2 % (37.0-47.0); Hemoglobin 14.2 g/dL (12.2-16.2); Lymphocytes % 28.6 % (10-50); Mean Corpuscular HGB Conc 32.8 g/dL (31.8-35.4); Mean Corpuscular Hemoglobin 31.5 pg (27.0-31.2); Mean Platelet Volume 10.1 fl (7.4-10.4); Monocytes # 0.3 K/mm3 (0.1-1.0); Monocytes % 8.1 % (1.7-9.3); Neutrophils % 59.8 % (37.0-80.0); Platelet Count 166 K/mm3 (142-424); Red Cell Distribution Width 13.5 % (11.5-17.5); White Blood Count 3.3 K/mm3 (4.8-10.8)
[2023-03-15 13:05] LABS: Alanine Aminotransferase 28 U/L (12-78); Albumin Level 4.8 g/dl (3.5-5.0); Albumin/Globulin Ratio 1.8 (1.1-1.8); Alkaline Phosphatase 51 U/L (38-126); Anion Gap 13.3 mEq/L (5-15); Aspartate Amino Transferase 35 U/L (14-36); Bilirubin,Total 0.6 mg/dl (0.2-1.3); Blood Urea Nitrogen 5 mg/dl (7-17); Calcium 9.3 mg/dl (8.4-10.2); Carbon Dioxide 25 mmol/L (22.0-30.0); Chloride 99 mmol/L (98-107); Cholesterol 204 mg/dl (140-200); Estimated Glomerular Filt Rate 80 ml/min (>60); GFR (African American) 97 ML/MIN (>60); Globulin 2.7 g/dL (1.3-3.2); Glucose 111 mg/dl (74-100); HDL Cholesterol 69 mg/dl (40-60); Potassium 4.3 mmoL/L (3.5-5.1); Sodium 133 mmol/L (136-145); Total Protein,Serum 7.5 g/dl (6.3-8.2); Triglycerides 149 mg/dl (30-150); VLDL Cholesterol 30 mg/dL (0-40)
[2023-03-15 13:17] LABS: Direct LDL Cholesterol 95.28 mg/dL (100-129)
== END ==
PROVIDERS: PCP Internal Medicine; Visit Provider Internal Medicine
DX: E78.5 Hyperlipidemia, unspecified (principal); S72.002A Fracture of unspecified part of neck of left femur, initial encounter for closed fracture; Y99.9 Unspecified external cause status
CPT/HCPCS: 80053; 80061; 85025

== ENCOUNTER 2023-08-15 08:51 | Outpatient (CLI) | payer MEDICARE, SELFPAY ==
--- NOTE | 2023-08-15 08:52 | XR_ITS ---
FINAL REPORT CLINICAL HISTORY: osteoporosis screening COMPARISON: 10/05/2021 FINDINGS: Using L1-4, the bone mineral density of the spine is 0.862 g/cm2, corresponding to T-score of -1.7 which is consistent with osteopenia. Previously was 0.875 with T-score of -1.6. Using the right hip, the bone mineral density of the femoral neck is 0.547 g/cm2, corresponding to a T-score of -2.7 which is consistent with osteoporosis. Previously was 0.492 with T-score of -3.2. Using the right wrist, the bone mineral density of the one third is 0.5-1 g/cm2, corresponding to a T-score of -2.9 which is consistent with osteoporosis. Previously was 0.521 with T-score of -2.9. FRAX not reported because some T-score at or below -2.5; patient treated for osteoporosis. NOTE: T-score: Standard deviation compared with peak bone mass of young adult mean. *Following the recommendations of the International Society of Bone densitometry, classification of hip BMD is based on the lower of two T-scores; total hip or femoral neck. IMPRESSION: Diminished bone mineral density consistent with osteoporosis. Reviewed, Interpreted and Dictated by Maycol Frank MD Transcribed by Leona Chavarria Authenticated and [facility]
== END 2023-08-15 23:59 ==
LOC: RAD 08:52
PROVIDERS: PCP Internal Medicine; Visit Provider Internal Medicine
DX: M81.0 Age-related osteoporosis without current pathological fracture (principal)
CPT/HCPCS: 77080

== ENCOUNTER 2023-09-05 10:46 | Outpatient (CLI) | payer MEDICARE, SELFPAY ==
[2023-09-05 10:55] VITALS: BP 122/64; PULSE 70; RESP 18; O2SAT 97
[2023-09-05] MEDS: DENOSUMAB 60 MG/ML SYRINGE SQ (10:55)
== END 2023-09-05 11:03 | disposition home or self-care (01) ==
LOC: INF 10:46
PROVIDERS: PCP Nurse Practitioner Family; Visit Provider Nurse Practitioner Family
DX: M81.0 Age-related osteoporosis without current pathological fracture (principal)
CPT/HCPCS: 96372; J0897

== ENCOUNTER 2023-09-26 18:31 | Outpatient (CLI) | payer MEDICARE, SELFPAY ==
[2023-09-26 18:10] LABS: Basophils % 0.9 % (0.1-2.0); Eosinophils # 0.1 K/mm3 (0.0-0.4); Eosinophils % 1.9 % (0.1-12.0); Hematocrit 43.8 % (37.0-47.0); Hemoglobin 14.2 g/dL (12.2-16.2); Lymphocytes # 1.5 K/mm3 (0.7-4.5); Lymphocytes % 34.1 % (10-50); Mean Corpuscular HGB Conc 32.4 g/dL (31.8-35.4); Mean Corpuscular Hemoglobin 32.9 pg (27.0-31.2); Mean Corpuscular Volume 101.5 fl (81-99); Mean Platelet Volume 10.2 fl (7.4-10.4); Monocytes # 0.3 K/mm3 (0.1-1.0); Monocytes % 7.9 % (1.7-9.3); Neutrophils # 2.4 K/mm3 (1.8-7.8); Neutrophils % 55.1 % (37.0-80.0); Platelet Count 164 K/mm3 (142-424); Red Blood Count 4.31 M/mm3 (4.20-5.40); Red Cell Distribution Width 14.4 % (11.5-17.5); White Blood Count 4.3 K/mm3 (4.8-10.8)
[2023-09-26 18:12] LABS: Chloride 101 mmol/L (98-107); Potassium 4.5 mmoL/L (3.5-5.1); Sodium 134 mmol/L (136-145)
[2023-09-26 18:14] LABS: Blood Urea Nitrogen 12 mg/dl (7-17); Estimated Glomerular Filt Rate 80 ml/min (>60); GFR (African American) 97 ML/MIN (>60)
[2023-09-26 18:15] LABS: Alanine Aminotransferase 27 U/L (12-78); Albumin Level 4.7 g/dl (3.5-5.0); Albumin/Globulin Ratio 1.9 (1.1-1.8); Alkaline Phosphatase 57 U/L (38-126); Anion Gap 9.5 mEq/L (5-15); Aspartate Amino Transferase 36 U/L (14-36); Bilirubin,Total 0.7 mg/dl (0.2-1.3); Calcium 9.8 mg/dl (8.4-10.2); Carbon Dioxide 28 mmol/L (22.0-30.0); Chol/HDL Ratio 2.5 (1-3.5); Cholesterol 210 mg/dl (140-200); Globulin 2.5 g/dL (1.3-3.2); Glucose 120 mg/dl (74-100); HDL Cholesterol 84 mg/dl (40-60); Total Protein,Serum 7.2 g/dl (6.3-8.2); Triglycerides 154 mg/dl (30-150); VLDL Cholesterol 31 mg/dL (0-40)
[2023-09-26 18:26] LABS: Direct LDL Cholesterol 95.66 mg/dL (100-129)
[2023-09-26 18:34] LABS: 25-OH Vitamin D, Total 48.8 ng/mL (30-100)
[2023-09-26 18:46] LABS: Thyroid Stimulating Hormone 1.75 uIU/mL (0.465-4.68)
[2023-09-26 18:50] LABS: Ferritin 50.1 ng/ml (11.1-264)
[2023-09-26 19:00] LABS: Hemoglobin A1C 5.9 % (4.0-6.0)
[2023-09-26 23:00] LABS: Vitamin B12 > 1000 pg/mL (239-931)
[2023-09-27 00:35] LABS: Folate 8.95 ng/mL
[2023-09-28 17:57] LABS: Peripheral Smear Review Scanned Result
== END 2023-09-26 23:59 ==
LOC: LAB.DROPOF 18:36
PROVIDERS: PCP Internal Medicine; Visit Provider Internal Medicine
DX: D64.9 Anemia, unspecified (principal); R53.83 Other fatigue; D72.810 Lymphocytopenia; T50.B95A Adverse effect of other viral vaccines, initial encounter; E78.5 Hyperlipidemia, unspecified; E55.9 Vitamin D deficiency, unspecified; R73.09 Other abnormal glucose; E05.90 Thyrotoxicosis, unspecified without thyrotoxic crisis or storm
CPT/HCPCS: 80053; 80061; 82306; 82607; 82728; 82746; 83036; 84443; 85025

== ENCOUNTER 2023-10-15 18:17 | Outpatient (CLI) | payer MEDICARE, SELFPAY | END 2023-10-15 23:59 | disposition home or self-care (01) | LOC: LAB.DROPOF 18:18 | PROVIDERS: PCP Internal Medicine; Visit Provider Internal Medicine | DX: R30.0 Dysuria (principal) | CPT/HCPCS: 87086 ==

== ENCOUNTER 2024-03-21 11:07 | Outpatient (CLI) | payer MEDICARE, SELFPAY ==
[2024-03-21] MEDS: DENOSUMAB 60 MG/ML SYRINGE SQ (11:16)
[2024-03-21 11:21] VITALS: BP 147/80; PULSE 83; RESP 18; TEMP 36.5; O2SAT 97
== END 2024-03-21 11:21 | disposition home or self-care (01) ==
LOC: INF 11:08
PROVIDERS: PCP Internal Medicine; Visit Provider Nurse Practitioner Family
DX: M81.0 Age-related osteoporosis without current pathological fracture (principal)
CPT/HCPCS: 96372; J0897

== ENCOUNTER 2024-05-05 14:00 | Outpatient (CLI) | payer MEDICARE, SELFPAY | END 2024-05-05 23:59 | disposition home or self-care (01) | LOC: LAB.DROPOF 05-06 10:06 | PROVIDERS: PCP Internal Medicine; Visit Provider Internal Medicine | DX: R39.9 Unspecified symptoms and signs involving the genitourinary system (principal) | CPT/HCPCS: 87086 ==

== ENCOUNTER 2024-09-19 10:59 | Outpatient (CLI) | payer MEDICARE, SELFPAY ==
[2024-09-19] MEDS: DENOSUMAB 60 MG/ML SYRINGE SUBCUT (11:19)
[2024-09-19 11:20] VITALS: BP 135/72; PULSE 94; RESP 18; TEMP 36; O2SAT 98
== END 2024-09-19 11:23 | disposition home or self-care (01) ==
LOC: INF 11:00
PROVIDERS: PCP Family Medicine; Visit Provider Nurse Practitioner Family
DX: M81.0 Age-related osteoporosis without current pathological fracture (principal)
CPT/HCPCS: 96372; J0897

== ENCOUNTER 2024-10-23 18:28 | Emergency (ER) | payer MEDICARE, SELFPAY ==
[2024-10-23 18:28] VITALS: BP 191/99; PULSE 88; RESP 24; TEMP 36.7; O2SAT 98; BMI 25.3
--- NOTE | 2024-10-23 18:30 | ECG_ITS ---
APPROVED REPORT Exam: Resting ECG HR:76 bpm ECG Measurements Heart Rate 76 AXES IN 252 P 267 QRSd 95 QRS 11 QT 361 T 51 QTc 391 Conclusion ELECTRONIC ATRIAL PACEMAKER ABNORMAL RHYTHM ECG Electronically signed by : MERRITT ESTRELLA, 10/24/2024 02:46:26
--- NOTE | 2024-10-23 18:34 | XR_ITS ---
PROCEDURE INFORMATION: Exam: XR Chest Exam date and time: 10/23/2024 6:40 PM Age: 84 years old Clinical indication: Other: Chest pain TECHNIQUE: Imaging protocol: Radiologic exam of the chest. Views: 2 views. COMPARISON: CR XR CHEST 2V 10/06/2022 3:50 PM FINDINGS: Tubes, catheters and devices: Stable pacemaker. Lungs: Left lower lobar benign calcified granulomata. No consolidation. Pleural spaces: Unremarkable. No pleural effusion. No pneumothorax. Heart/Mediastinum: Unremarkable. No cardiomegaly. Bones/joints: Unremarkable. IMPRESSION: No acute findings.
--- NOTE | 2024-10-23 18:34 | ED_ITS ---
<Statement entered by Umesh Dooley MD - 10/23/24 19:49> I was consulted by the NESTOR, and we discussed the complexity of problems being addressed. I approved the treatment and management plan for this patient's care in the emergency department, thus performing a substantial portion of the medical decision making. I had a lengthy discussion with the patient and at bedside. She feels completely back to normal after the above interventions. Her troponin is slightly elevated at 0.05, her EKG is reassuring. She is made aware that we would like to wait for 2-hour troponin for her to rule out ACS. Given that she feels completely back to normal and feels that her food bolus is passed, she is adamant that she wants to go home. I informed her that there could be an occult cardiac process that could only be ruled out with troponin, but she prefers to go home at this time and understands and is able to verbalize the risks of cardiac events back to me. Regarding her hyponatremia, I told her that this must be followed up with PCP. She is completely asymptomatic from this, but understands that it could have significant effects on both her mentation and kidney function, she is able to verbalize this back to me and again would like to be discharged with follow-up with PCP. Umesh Dooley MD Discharge Plan Disposition Patient Disposition: Home, Self-Care Condition: Good Prescriptions Prescriptions: No Action propranolol 10 mg tablet 10 mg PO BID 90 Days Qty: 180 4RF Prolia 60 mg/mL syringe 60 mg SQ [id number] losartan 25 mg tablet 25 mg PO DAILY 90 Days Qty: 90 4RF Rx Instructions: Take 1 tablet by mouth once daily nitrofurantoin monohyd/m-cryst [Macrobid] 100 mg capsule 100 mg PO BID 5 Days Qty: 10 0RF Rx Instructions: must administer with a meal/food primidone 50 mg tablet See Rx Instructions .ROUTE .COMPLEX Qty: 90 4RF Dose Instruction: TAKE 1 TABLET BY MOUTH TWICE DAILY FOR TREMORS Rx Instructions: TAKE 1 TABLET BY MOUTH TWICE DAILY FOR TREMORS atorvastatin [Lipitor] 20 mg tablet 20 mg PO DAILY Qty: 90 3RF coQ10 (ubiquinol) 100 mg Capsule 100 mg PO DAILY Rx Instructions: UNKNOWN DOSE Referrals Follow up/Referrals: Eddie Mallory II, MD [Staff Physician] - See instructions Provider,Referral, [Primary Care Provider] - See instructions Activity Restrictions/Add. Instructions Additional Instructions/Restrictions: As we discussed if you have any new recurrent or worsening signs or symptoms return to the ER. I am going to refer you to gastroenterology for upper endoscopy. Please call tomorrow to make your appointment. Clinical Impressions Clinical Impression: Esophageal obstruction due to food impaction Print Language Print Language: Icelandic Discharge ED Provider: Umesh Dooley HPI General Chief Complaint: Chest Pain Stated Complaint: Chest Pain Time Seen by Provider: 10/23/24 18:34 History of Present Illness HPI narrative: Patient presents initially for evaluation of chest pain. Patient states that she was eating dinner of a hamburger at home and tried to swallow and felt a sharp pain in her chest. She has had no nausea no vomiting but reports that the pain is still present. It happened approximately an hour prior to presentation. She has never had dysphagia before. Patient does have a history of cardiac pacemaker hyperlipidemia hypertension and a history of grade 1 diastolic dysfunction in the past. And also a history of a repair of a hole in her heart . She denies any diaphoresis shortness of breath fever chills hemoptysis hematochezia melena hematemesis diarrhea. Related Data Home Medications ?Medication ?Instructions ?Recorded ?Confirmed coQ10 (ubiquinol) 100 mg capsule 100 mg PO DAILY Supplement 10/11/22 08/04/24 denosumab 60 mg/mL subcutaneous 60 mg SQ [id number] 08/20/23 08/04/24 syringe (Prolia) Previous Rx's ?Medication ?Instructions ?Recorded propranolol 10 mg tablet 10 mg PO BID 90 days #180 tabs 09/26/23 losartan 25 mg tablet 25 mg PO DAILY blood pressure 90 10/11/23 days #90 tabs nitrofurantoin 100 mg PO BID 5 days #10 caps 05/09/24 monohydrate/macrocrystals 100 mg capsule (Macrobid) primidone 50 mg tablet See Rx Instructions .Route 09/08/24 .COMPLEX #90 tabs atorvastatin 20 mg tablet (Lipitor) 20 mg PO DAILY Cholesterol #90 tabs 09/22/24 Allergies Allergy/AdvReac Type Severity Reaction Status Date / Time Sulfa (Sulfonamide Allergy Unknown Verified 08/04/24 09:14 Antibiotics) sulfamethizole Allergy Unknown Verified 08/04/24 09:14 triamcinolone Allergy Unknown Verified 08/04/24 09:14 morphine AdvReac Mild Nausea Verified 08/04/24 09:14 [facility] Disclaimer: The information contained in this section may have been updated after the patient was seen, as this information can be updated by other users. Medical History Closed fracture of left distal radius Status post open reduction internal fixation with volar plating after her fall. [facility] and is currently home. She has no pain from this and actually seems to be doing fairly well considering. Hearing Loss Tinnitus Sinus disorder Arthritis Hypercholesterolemia Hypertension TIA (transient ischemic attack) Surgical History Hx of cholecystectomy Hx of heart surgery hole in heart fixed History of total left hip replacement Family History Other Cancer Coronary artery disease Diabetes Heart attack Hypercholesterolemia Hypertension Stroke Thyroid disorder Social History Smoking Status: Former smoker alcohol intake: never substance use type: denies use current occupational status: retired Travel in the last 8 weeks?: None household members: spouse housing: house caffeine: Yes (one cup of coffee/day) Have you lived/traveled outside [place] in past 30 days?: No Contact w/someone who lives/traveled outside US past 30 days?: No Exposure to someone with infectious disease in past 14 days?: No Do you have a fever (greater than 100.4 F or 38 C)?: No Have you tested positive for COVID-19?: No Exposed to someone with COVID-19 in past 14 days?: No Do you have a sore throat?: No Do you have a cough?: No Do you have any weakness?: No Do you have any diarrhea?: No Are you experiencing any unusual bleeding?: No Do you have any muscle aches/pain?: No Do you have any abdominal pain?: No Are you experiencing loss of taste or smell?: No Other Medical History Have you received the Flu Vaccine for this season: No Have you received the Pneumonia Vaccine: Yes ROS Obtained: Yes Systems reviewed as appropriate & no additional complaints except as documented Physical Exam General General appearance: alert and in no apparent distress Respiratory Respiratory exam: Present normal lung sounds bilaterally Cardiovascular Cardiovascular exam: Present regular rate Neurological Exam Neurological exam: Present alert and oriented X3 HEART Score HEART Score HEART Score assessment performed?: Yes History (anamnesis): Slightly suspicious ECG: Normal Age: >65 years Risk factors: 3 or more risk factors Troponin: 1-3x normal limit HEART Score: 5 Critical Care Critical Care Time Critical Care Time: Yes Attestation: On 10/23/24, the high probability of a clinically significant, sudden or life threatening deterioration of the following system(s) required my full and direct attention, intervention and personal management. The time I documented below is in addition to time spent performing reported procedures but includes the following listed in this critical care notation. Total Time Total Critical Care Time: 35 Medical Decision Making Medical Records Medical records reviewed: Yes I reviewed the patient's medical records. Javier Inquiry Pt receiving controlled substance: No Vital Signs Vital Signs: 10/23/24 18:28 10/23/24 18:36 10/23/24 19:02 Temperature 98.1 F Temperature Source Oral Pulse Rate 60 Pulse Rate [Right] 88 Respiratory Rate 24 12 13 Blood Pressure 191/99 H 165/87 H Blood Pressure [Right Arm] 191/99 H Blood Pressure Mean [Right Arm] 129 Blood Pressure Source Blood Pressure Source [Right Arm] Automatic Cuff Blood Pressure Position 02 Sat by Pulse Oximetry 98 98 Oxygen Delivery Method Room Air 10/23/24 19:33 Temperature 98.2 F Temperature Source Oral Pulse Rate 61 Pulse Rate [Right] Respiratory Rate 20 Blood Pressure 165/87 H Blood Pressure [Right Arm] Blood Pressure Mean [Right Arm] Blood Pressure Source Automatic Cuff Blood Pressure Source [Right Arm] Blood Pressure Position Sitting 02 Sat by Pulse Oximetry Oxygen Delivery Method Room Air Lab Data Lab results reviewed: Yes I reviewed the patient's lab results. Labs: Lab Results 10/23/24 18:39: WBC 4.7 L, RBC 4.07 L, Hgb 13.2, Hct 37.8, MCV 92.9, MCH 32.4 H, MCHC 34.9, RDW 12.3, Plt Count 143, MPV 10.6 H, Neut % (Auto) 55.3, Lymph % (Auto) 29.5, [place] % (Auto) 9.8 H, Eos % (Auto) 4.3, Baso % (Auto) 0.9, Neut # (Auto) 2.6, Lymph # (Auto) 1.4, [place] # (Auto) 0.5, Eos # (Auto) 0.2, Baso # (Auto) 0.0, Sodium 122 L, Potassium 4.5, Chloride 98, Carbon Dioxide 23, Anion Gap 5.5, BUN 8, Creatinine 0.60, Estimated Creat Clear 44, Estimated GFR 95, Est GFR ( Amer) 116, Glucose 140 H, Calcium 9.8, Magnesium 2.0, Total Bilirubin 0.5, AST 37 H, ALT 30, Alkaline Phosphatase 44, Troponin I 0.05 H, Total Protein 7.1, Albumin 4.8, Globulin 2.3, Albumin/Globulin Ratio 2.1 H 10/23/24 18:39 10/23/24 18:39 Response Orders (Tests/Meds): ED MEDICATIONS Discontinued Medications Generic Name Dose Route Start Last Admin Trade Name Freq PRN Reason Stop Dose Admin Belladonna Alkaloids 60 ml 10/23/24 18:57 Belladonna Alkaloids 60 Ml Ml PO 10/23/24 18:58 ONCE ONE Ondansetron HCl 4 mg 10/23/24 18:34 10/23/24 18:42 Ondansetron 4mg/2ml Vial IV 10/23/24 18:35 Not Given ONCE ONE ORDERS Category Date Time Status Chest XR 2 view (NOT portable) [XR chest 2V] Stat Exams 10/23/24 18:34 Taken CBC w/Auto Diff [Complete Blood Count Auto Diff] Stat Lab 10/23/24 18:39 Completed CMP [Comprehensive Metabolic Panel] Stat Lab 10/23/24 18:39 Completed HIV Combo Stat Lab 10/23/24 18:39 Received Hepatitis C Ab Qual. W/ RFX Stat Lab 10/23/24 18:39 Received Magnesium Stat Lab 10/23/24 18:39 Completed Trop I [Troponin I] Stat Lab 10/23/24 18:39 Completed Troponin I Q3H Lab 10/23/24 21:45 Ordered MDM Narrative Medical Decision Narrative: In summary patient is a 84-year-old female who presents to the emergency department for evaluation of initially a complaint of chest pain. Patient is initially hypertensive on arrival with a blood pressure 191/99 pulse 88 normal sinus rhythm on bedside monitor breathing 24 times a minute satting at 98% on room air upon arrival, afebrile at 98.1. Physical exam is remarkable for clear breath sounds with no increased work of breathing adventitious sounds or accessory muscle use, heart sounds are S1-S2 regular rate and rhythm without murmurs gallops rubs or thrills. Patient does have tenderness to palpation in the epigastrium/substernally with no radiation. The remainder of her abdomen is soft nontender no rebound or guarding no rigidity.. Differential diagnosis includes esophageal spasm versus food impaction versus ACS etc. Initial workup will be conducted with hematologic labs twelve-lead EKG plain film chest x-ray. Initial interventions include Toradol Tylenol Zofran. I also gave the patient a small sip of water which was painful however she did not vomited back up. Initial workup reviewed by me and her hematologic labs are significant for white count of 4.7 hemoglobin and hematocrit are normal there is no neutrophilic shift, CMP significant for sodium of 122 glucose of 141 AST of 37 troponin of 0.05 and the remainder of her hematologic labs are nonactionable. My informal interpretation of her plain film of the chest shows no acute processes prior to radiology read. Please see final read for formal interpretation.. Upon repeat evaluation we had the patient drink a soda and jump up and down at the bedside and she felt like her symptoms completely resolved after that. She was tolerant of oral intake. We did have a shared decision-making discussion with the patient regarding her elevated troponin and low sodium however patient was adamant that she was not staying for repeat testing and via patient directed discharge and decision making has elected to go home with strict return precautions. Given this patient is appropriate for discharge at her request with referral to gastroenterology for upper endoscopy and strict return precautions if she has continued new or worsening signs or symptoms. Patient verbalized understanding agreement.
--- OUTSIDE RECORDS SUMMARY | 2024-10-23 18:34 | XMS_ITS ---
Author Organization Unknown Patient Care team information Name Category Status Period Participants - - Proposed period not known -
--- OUTSIDE RECORDS SUMMARY | 2024-10-23 18:35 | XMS_ITS | Data Portability ---
Author Organization [facility] Address [address] [facility] [place] [address] Care Team Providers Care Black Ash Worker Name Role Phone DELON CORTES Referring Provider [phone] SABRINA ROBERSON Orthopedic Surgeon ROJELIO OAKES Phys. Med. & Rehab Assessment Encounter Date Assessment Date Assessment LastModified by Organization Details LastModified Time 08/31/2023 08/31/2023 MLF 1) significant MCP and PIP joint capsular stiffness of the small finger inhibiting terminal hook and fist postures. 2) volar plate tightness with mild flexion contracture of the small finger inhibiting terminal extension. 3) diminished light touch along the median nerve distribution inhibiting normal and functional sensation. [email or web address] Not available 08/31/2023 12:58:41 09/07/2023 09/07/2023 MLF 1) significant MCP and PIP joint capsular stiffness of the small finger inhibiting terminal hook and fist postures. 2) volar plate tightness with mild flexion contracture of the small finger inhibiting terminal extension. 3) diminished light touch along the median nerve distribution inhibiting normal and functional sensation. [email or web address] Not available 09/07/2023 09:14:51 09/14/2023 09/14/2023 MLF 1) significant MCP and PIP joint capsular stiffness of the small finger inhibiting terminal hook and fist postures. 2) volar plate tightness with mild flexion contracture of the small finger inhibiting terminal extension. 3) diminished light touch along the median nerve distribution inhibiting normal and functional sensation. [email or web address] Not available 09/14/2023 13:27:28 09/18/2023 09/18/2023 Patient is doing very well at this time and can continue activity with the hand/arm as tolerated at this time. Continue scar massage. Her preference is to transition to a home therapy program. Patient will follow up in clinic on an as-needed basis should additional questions or concerns arise. [email or web address] Not available 09/18/2023 16:12:14 09/18/2023 09/18/2023 MLF 1) significant MCP and PIP joint capsular stiffness of the small finger inhibiting terminal hook and fist postures. 2) volar plate tightness with mild flexion contracture of the small finger inhibiting terminal extension. 3) diminished light touch along the median nerve distribution inhibiting normal and functional sensation. [email or web address] Not available 09/18/2023 11:47:13 Plan of Treatment Reminders Order Date Submit Date Provider Last Modified By Organization Details Last Modified Time Details Appointments None record ed. Lab None record ed. Referral None record ed. Procedures None record ed. Surgeries None record ed. Imaging None record ed. Medication Orders None record ed. Patient TargetsNo targets recorded. Patient Instructions Encounter Date Encounter Id Patient Instructions Last Modified By Organization Details Last Modified Time 08/31/2023 [id number] STG 1) Improving functional AROM to within 80-90% of the unaffected within an appropriate time-frame from the injury/surgery to improve ADL function with fine and gross motor dexterity. 2) Obtain intrinsic length with a PDC of < 1cm and within 80-90% of the unaffected in 3-4 weeks 3) To achieve 80-90% of functional scada technician and pinch strength in order to maintain normal ADL function and/or engage in personally meaningful occupations that are rewarding to the client. 4) Client will improve overall function at home and work and demonstrate this through the QuickDASH assessment when/if appropriate time frames are determined. Rehab potential is Good Plan of Care (POC: 1-2x/week for 6-8 weeks.) [email or web address] Not available 08/31/2023 12:58:42 09/07/2023 [id number] STG 1) Improving functional AROM to within 80-90% of the unaffected within an appropriate time-frame from the injury/surgery to improve ADL function with fine and gross motor dexterity. 2) Obtain intrinsic length with a PDC of < 1cm and within 80-90% of the unaffected in 3-4 weeks 3) To achieve 80-90% of functional scada technician and pinch strength in order to maintain normal ADL function and/or engage in personally meaningful occupations that are rewarding to the client. 4) Client will improve overall function at home and work and demonstrate this through the QuickDASH assessment when/if appropriate time frames are determined. Rehab potential is Good Plan of Care (POC: 1-2x/week for 6-8 weeks.) [email or web address] Not available 09/07/2023 09:14:51 09/14/2023 [id number] STG 1) Improving functional AROM to within 80-90% of the unaffected within an appropriate time-frame from the injury/surgery to improve ADL function with fine and gross motor dexterity. 2) Obtain intrinsic length with a PDC of < 1cm and within 80-90% of the unaffected in 3-4 weeks 3) To achieve 80-90% of functional scada technician and pinch strength in order to maintain normal ADL function and/or engage in personally meaningful occupations that are rewarding to the client. 4) Client will improve overall function at home and work and demonstrate this through the QuickDASH assessment when/if appropriate time frames are determined. Rehab potential is Good Plan of Care (POC: 1-2x/week for 6-8 weeks.) [email or web address] Not available 09/14/2023 13:27:28 09/18/2023 [id number] STG 1) Improving functional AROM to within 80-90% of the unaffected within an appropriate time-frame from the injury/surgery to improve ADL function with fine and gross motor dexterity. 2) Obtain intrinsic length with a PDC of < 1cm and within 80-90% of the unaffected in 3-4 weeks 3) To achieve 80-90% of functional scada technician and pinch strength in order to maintain normal ADL function and/or engage in personally meaningful occupations that are rewarding to the client. 4) Client will improve overall function at home and work and demonstrate this through the QuickDASH assessment when/if appropriate time frames are determined. Rehab potential is Good Plan of Care (POC: 1-2x/week for 6-8 weeks.) [email or web address] Not available 09/18/2023 11:47:13 Reason for Referral None Reported. Results Created Date Observation Date Name Description Value Unit Range Abnormal Flag Note LastModifiedBy Organization Detail LastModifiedTime 08/08/19 24 08/08/2023 SURGI LEIGHA surgical SEE BELOW normal Depar tment of Patho logy Surgi leigha Patho logy Repor t NAME: TOVA JAMA PATH. 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 SOURC E OF SPECI MEN: KEN TREN' S RIGHT , SMALL FINGE R - FASCI A CLINI LEIGHA INFOR MATIO N: CARPA L TUNNE L SYNDR OME / KEN TREN' S CONTR ACTUR E Gross Descr iptio n: Recei nava in forma lisa label ed with the patie nt's name and desig nated as righ t small finge r Ken tren' s fasci a is a singl e irreg ular fragm ent of yello w-louise fibro us soft tissu e which is 2.1 x 1.4 x 0.3 cm. Entir whit submi tted in a singl e casse tte label ed A1. JAB 08/08 03:56 PM Micro scopi c Descr iptio n: A micro scopi c exami natio n has been perfo rmed and the resul t(s) are as noted above . SY Savage MD Monet d Out Date: 08/09 15:40 Page 1 of 1 Not Available [facility] [address] [place] [address], [phone], 08/09/2023 15:40:50 Result Notes None recorded. Procedures Surgical History Date Name Laterality Status Provider Name and Address Organization Details Recorded Time 09/18/19 24 OT Therapeutic Exercise completed JOSEFINA KENDALL/L, T [address] [place] [address], [phone], [facility] 09/18/2023 11:47:13 09/18/19 24 OT Manual Therapy completed JOSEFINA KENDALL/Haily, T [address] [place] [address], [phone], [facility] 09/18/2023 11:47:13 09/18/19 24 PT Paraffin Bath completed VONDA LOPES, OTR/L, CHT [address] [place], [address], [facility] 09/18/2023 11:47:13 09/14/19 24 OT Therapeutic Exercise completed VONDA LOPES, OTR/L, CHT [address] [place], [address], [facility] 09/14/2023 14:29:22 09/14/19 24 OT Manual Therapy completed VONDA LOPES, OTR/L, CHT [address] [place], [address], [facility] 09/14/2023 13:27:28 09/14/19 24 PT Paraffin Bath completed VONDA LOPES, OTR/L, CHT [address] [place], [address], [facility] 09/14/2023 13:27:28 09/07/19 24 OT Therapeutic Exercise completed VONDA LOPES, OTR/L, CHT [address] [place], [address], [facility] 09/07/2023 14:08:05 09/07/19 24 OT Manual Therapy completed VONDA LOPES, OTR/L, CHT [address] [place], [address], [facility] 09/07/2023 09:14:51 09/07/19 24 PT Paraffin Bath completed VONDA LOPES, OTR/L, CHT [address] [place], [address], [facility] 09/07/2023 13:21:52 08/31/19 24 Orthotic Management; Subsequent Encounter completed VONDA LOPES, OTR/L, CHT [address] [place], [address], [facility] 08/31/2023 14:14:35 08/31/19 24 OT Therapeutic Exercise completed VONDA LOPES, OTR/L, CHT [address] [place], [address], [facility] 08/31/2023 12:58:41 08/31/19 24 OT Manual Therapy completed VONDA LOPES, OTR/L, CHT [address] [place], [address], [facility] 08/31/2023 14:14:30 08/31/19 24 PT Hot/Cold Pack completed VONDA LOPES, OTR/L, CHT [address] [place], [address], [facility] 08/31/2023 13:08:53 08/21/19 24 OT Therapeutic Exercise completed VONDA LOPES, OTR/L, CHT [address] [place], [address], [facility] 08/21/2023 16:07:13 08/21/19 24 OT Manual Therapy completed VONDA LOPES, OTR/L, CHT [address] [place], [address], [facility] 08/21/2023 13:05:00 08/14/19 24 OT Therapeutic Exercise completed VONDA LOPES, OTR/L, CHT [address] [place], [address], [facility] 08/14/2023 14:11:25 08/14/19 24 OT Manual Therapy completed VONDA LOPES, OTR/L, CHT [address] [place], [address], [facility] 08/14/2023 14:11:21 08/10/19 24 Orthotic, HFO, Static Custom completed VONDA LOPES, OTR/L, CHT [address] [place], [address], [facility] 08/10/2023 14:43:56 08/10/19 24 OT Evaluation - High complexity completed VONDA LOPES, OTR/L, CHT [address] [place], [address], [facility] 08/10/2023 14:43:47 08/10/19 24 OT Therapeutic Exercise completed VONDA LOPES, OTR/L, CHT [address] [place], [address], [facility] 08/10/2023 14:44:05 08/08/19 24 Op Note completed SABRINA ROBERSON MD [address] [place], [address], [facility] 08/08/2023 17:26:26 07/09/19 24 Electromyography (EMG) with Nerve Conduction Study (NCV) completed ROJELIO OAKES MD [address] [place], [address], [facility] 07/09/2023 15:45:02 07/09/19 24 Ultrasound evaluation, Nerve(s) completed ROJELIO OAKES MD [address] [place], [address], [facility] 07/09/2023 15:45:31 04/24/20 22 Tympanogram completed KEISHA BLEVINS [address] [place], [address], [facility] 04/24/2022 12:13:04 04/24/20 22 Audiogram completed KEISHA BLEVINS [address] [place], [address], [facility] 04/24/2022 12:13:02 Pacemaker/Cardiac Implant completed Ayana [facility] 07/27/2023 10:37:52 cholecystectomy completed Ayana [facility] 07/27/2023 10:34:20 ligation of fallopian tube completed Ayana [facility] 07/27/2023 10:34:32 procedure on wrist completed García saucedo [facility] 07/27/2023 10:34:48 total replacement of left hip joint completed Ayana [facility] 07/27/2023 10:35:07 Imaging Results None recorded. Procedure Notes None recorded. Medical Equipment None Reported. Allergies Allergen ID Allergen Name Allergen Category Reaction Reaction Severity Criticality Documentation Date Start Date Code Code System Note Provider Name and Address Organization Details Recorded Time 837612 Substance with sulfonami de structure and antibacte rial mechanism of action (substanc e) medicatio n Not available Not available Not available 06/15/2023 54943 8003 SNOMED Barak Chacon [facility] 3 09:35:27 183292 morphine medicatio n vomiting moderate Not available 07/27/2023 7052 RxNorm Matilda Disla [facility] 4 10:58:17 Medications Name Sig Start Date Stop Date Status Note LastModified by Organization Details LastModified Time primidone 50 mg tablet Take 1 tablet twice a day by oral route. active Not Available Not Available No t Available hydrocodone 5 mg-acetamino phen 325 mg tablet Take 1 tablet(s) EVERY 4-6 HOURS by oral route, as needed for severe post surgical pain 2023 active Not Available Not Available Not Avai lable meloxicam 7.5 mg tablet TAKE 1 TAB PO QD WITH FOOD REGARDLESS OF PAIL LEVEL FOR 1 WEEK, THEN TAKE ONLY PRN FOR PAIN RELIEF THEREAFTER 2023 active Not Available Not Available Not Avai lable propranolol 10 mg tablet Take 1 tablet twice a day by oral route. active Not Available Not Available No t Available Neurontin 100 mg capsule TAKE 1 CAPSULE PO QHS FOR 1 WEEK 2023 active Not Available Not Available Not Avai lable losartan 25 mg tablet Take 1 tablet every day by oral route. active Not Available Not Available No t Available atorvastatin active Not Available Not Available Not Available Vitals Date Recorded Body height Body mass index (BMI) Body weight Provider Name and Address Organization Details Last Updated DateTime 09/18/2023 160.02 cm 23 kg/m2 25549.01 g Barak Chacon [facility] 09/18/2023 15:53:33 Social History Question Answer Notes LastModified by Organizat ion Details LastModified Time Tobacco Smoking Status Never Smoker Ayana Parish [facility] 07/27/2023 10:31:33 What Is Your Level Of Alcohol Consumption? None [email or web address] Information not available 07/27/2023 What Was The Date Of Your Most Recent Tobacco Screening? 07/27/2023 [email or web address] Information not available 07/27/2023 Do You Use Any Illicit Or Recreational Drugs? No [email or web address] Information not available 07/27/2023 Has Tobacco Cessation Counseling Been Provided? No [email or web address] Information not available 07/27/2023 Do You Or Have You Ever Used Any Other Forms Of Tobacco Or Nicotine? No [email or web address] Information not available 07/27/2023 Sex: Unknown Functional Status None recorded. Mental Status None recorded. Family History Nothing Reported. Medical History Condition Response Allergies/Hayfever N Gout N Anxiety/Depression N Other N Thyroid Disease N Kidney Stones N Heart Conditions Y Hernia N Migraines N Thyroid Problems N COPD N Glaucoma N Pneumonia N Skin Problems N Pacemaker Y Immune System Disorder N Anesthesia Complications N Heart Attack ([place]) N Mental Illness N Neurological Problems N Diabetes N Rheumatic Fever N Bleeding Disorder N Arthritis Y Seizures/Epilepsy N Blood Clot N Tuberculosis N Genetic Disorder N AIDS/HIV N Cancer N Stroke Y Asthma N Blood Thinners N Alcohol Overuse/Alcohol Abuse N Sleep Apnea N High Cholesterol Y Liver Disease N Included as Review of Systems N Hypertension Y Osteoporosis N Kidney Disease N Gynecological HistoryNo gynecological history recorded. Obstetrics History GPAL:G 0 P 0 0 0 0 Immunizations Vaccine Type Date Status Note Provider Nam e and Address Organization Details Recorded Time Influenza, adjuvanted, trivalent, PF 05/15/2018 [facility] 14:31:22 Influenza, high-dose, quadrivalent, PF 04/05/2021 completed Cornelius Springer [facility] 08/21/2023 14:31:22 Influenza, high-dose, quadrivalent, PF 04/21/2022 [facility]23 14:31:22 COVID-19, mRNA, LNP-S, PF, 100 mcg/0.5mL dose or 50 mcg/0.25mL dose 08/04/2020 completed Cornelius Springer [facility] 08/21/2023 14:31:22 COVID-19, mRNA, LNP-S, PF, 100 mcg/0.5mL dose or 50 mcg/0.25mL dose 09/01/2020 [facility] 08/[facility]/2023 14:31:22 COVID-19, mRNA, LNP-S, PF, 100 mcg/0.5mL dose or 50 mcg/0.25mL dose 04/20/2021 completed Cornelius Springer [facility] 08/21/2023 14:31:22 zoster live 07/16/2018 completed Cornelius savage [facility] 08/21/2023 14:31:22 Influenza, high-dose, trivalent, PF 04/14/2020 completed Cornelius Springer [facility], [facility] 08/21/2023 14:31:22 Hep A, adult 11/27/2018 completed Cornelius Martin er [facility] 08/21/2023 14:31:22 Past Encounters Encounter ID Performer Location Encounter Start Date Encounter Closed Date Diagnosis/Indication Diagnosis SNOMED-CT Code Diagnosis ICD10 Code Diagnosis Note [id number] KEISHA BLEVINS ENT [facility] CLOSED [address] [place] [address] 04/24/2022 11:42:29 04/24/2022 12:22:48 Mixed conductive and sensorineural hearing loss of right ear 7196834844 9105 H90.A31 Bilateral tinnitus 01353 33226 102 H93.13 [id number] SABRINA ROBERSON MD ORTHOPEDI [address] [place] [address] 06/15/2023 09:26:50 06/15/2023 10:19:03 Carpal tunnel syndrome 09231561 G56.01 Dupuytren' s contracture of finger 739335304 M72.0 Right small finger Dupuytren' s contractur e with ADQ cord: 70?? PIP contractur e [id number] ROJELIO OAKES MD PHYSICAL MEDICINE & REHABILIT ATION [facility] [place] [address] 07/09/2023 14:13:13 07/10/2023 12:39:50 Carpal tunnel syndrome of right wrist 9316266779 06855 G56.01 Severe [id number] SABRINA ROBERSON MD ORTHOPEDI [address] [place] [address] 07/27/2023 10:22:40 07/27/2023 11:03:58 Carpal tunnel syndrome 14102261 G56.01 EMG/NCV (07/09/2023 ) demonstrat ed acute severe right carpal tunnel syndrome affecting sensory and motor components with ongoing axonal loss. Also evidence of mild ulnar neuropathy without focal slowing, which may be incidental and age-relate d. No evidence of radiculopa thy. Supplement al ultrasound revealed median nerve compressio n at the carpal tunnel with proximal swelling. Dupuytren' s contracture of finger 275510769 M72.0 Right small finger Dupuytren' s contractur e with ADQ cord: 70?? PIP contractur e Closed fra cture of distal end of radius 83714103 S52.551D Right minimally displaced extra-naldo cular distal radius fracture (DOI: 03/28/2023) [id number] SABRINA ROBERSON MD SURGERY SCHEDULE [address] [place] [address] 08/08/2023 11:26:04 08/08/2023 11:26:46 [id number] VONDA LOPES OTR/L, CHT PHYSICAL THERAPY / HAND THERAPY [facility] [address] [place] [address] 08/10/2023 13:21:31 08/13/2023 14:00:19 Carpal tunnel syndrome of right wrist 0486907492 33043 G56.01 ECTR Dupuytren contracture of right palm 2984633763 5770331 M72.0 SF STPF [id number] JOSEFINA KENDALL/L, CHT PHYSICAL THERAPY / HAND THERAPY [facility] [address] [place] [address] 08/14/2023 13:26:36 08/15/2023 10:14:42 Carpal tunnel syndrome of right wrist 9261000789 53146 G56.01 ECTR Dupuytren contracture of right palm 0674642028 9564875 M72.0 SF STPF [id number] SYLVIE CLAIRE PA-C ORTHOPEDI CS [facility] [address] [place] [address] 08/21/2023 14:21:28 08/21/2023 14:56:02 Postoperative care 676931918 Z48.89 s/p Right endoscopic carpal tunnel release; Right small finger Dupuytren' s fasciectom y with contractur e release (DOS: 08/08/23) Closed fra cture of distal end of radius 58588502 S52.551D Right minimally displaced extra-naldo cular distal radius fracture (DOI: 03/28/2023) [id number] VONDA LOPES OTR/L, CHT PHYSICAL THERAPY / HAND THERAPY [facility] [place] [address] 08/21/2023 14:22:05 08/22/2023 04:50:41 Carpal tunnel syndrome of right wrist 5135791721 72245 G56.01 ECTR Dupuytren contracture of right palm 5357193319 8780708 M72.0 SF STPF [id number] JOSEFINA KENDALL/L, CHT PHYSICAL THERAPY / HAND THERAPY [facility] [place] [address] 08/31/2023 12:37:32 09/03/2023 14:26:45 Carpal tunnel syndrome of right wrist 0672373306 15133 G56.01 ECTR Dupuytren contracture of right palm 5220206336 9773770 M72.0 SF STPF [id number] VONDA LOPES OTR/L, CHT PHYSICAL THERAPY / HAND THERAPY [place] [facility] [address] [place] [address] 09/07/2023 13:10:20 09/08/2023 04:20:18 Carpal tunnel syndrome of right wrist 9929416918 07921 G56.01 ECTR Dupuytren contracture of right palm 1367839767 0475781 M72.0 SF STPF [id number] JOSEFINA KENDALL/L, CHT PHYSICAL THERAPY / HAND THERAPY [place] [address] [place] [address] 09/14/2023 13:23:10 09/15/2023 05:08:16 Carpal tunnel syndrome of right wrist 3761997308 77783 G56.01 ECTR Dupuytren contracture of right palm 6474772634 9262455 M72.0 SF STPF [id number] SABRINA ROBERSON [place] [address] 09/18/2023 14:09:34 09/18/2023 16:14:28 Postoperative care 589889832 Z48.89 6 weeks s/p Right endoscopic carpal tunnel release; Right small finger Dupuytren' s fasciectom y with contractur e release (DOS: 08/08/23) Closed fra cture of distal end of radius 88338374 S52.551D Right minimally displaced extra-naldo cular distal radius fracture (DOI: 03/28/2023) [id number] VONDA LOPES, OTR/L, CHT [facility] [address] [address] 09/18/2023 14:06:56 09/19/2023 04:58:19 Carpal tunnel syndrome of right wrist 4509189047 03969 G56.01 ECTR Dupuytren contracture of right palm 5658491640 2052869 M72.0 SF STPF Health Concerns Section Related Observation LastModified by Organization Detai ls LastModified Time None Recorded Concern Status LastModified by Organization Details LastModified Time None Recorded Advance Directives Directive None Recorded Payers Encounter Date Sequence Insurance Name Policy Number Policy Cancino Covered Member ID Cancino Member ID Guarantor Name 08/31/2023 1 [place]EMENT [place]IONAL PPO) [facility] Tova Pisano [id number] Tova Pisano 09/07/2023 1 [place]) [facility] [id number] Tova Pisano 09/14/2023 1 [place] [facility] T[place] [id number] Tova Pisano 09/18/2023 1 [place] [facility] Tova Pis[place] [id number] Tova Pisano 09/18/2023 1 [place] [facility] Tova Pisano [id number] Tova Pisano Notes Date Note Type Note Provider Name and Address Organization Details Recorded Time 08/31/2023 text/html Patient History: Pt reports that she has not been wearing her extension splint at night, but overall is making good progress with flexion. Pain (0-10): Moderate Pain in last 24 hours (0-10:How often symptoms experienced Constantly (76-100%), Frequently (51-75%), Occasionally (26-50%), Intermittently (0-25%): Intermittently DOI:DOS: [id number] Deficits: Pt reports having at least 3 performance deficits that are limiting ADL and IADL functional secondary to having hand/arm surgery/injury.These ADL Deficits specifically are related to: JOSEFINA KENDALL/Haily, [address], [address], [facility] 08/31/2023 14:15:05 09/07/2023 text/html Patient History: Pt reports that she is functionally improving. Pain (0-10): Moderate Pain in last 24 hours (0-10:How often symptoms experienced Constantly (76-100%), Frequently (51-75%), Occasionally (26-50%), Intermittently (0-25%): Intermittently DOI:DOS: [id number] Deficits: Pt reports having at least 3 performance deficits that are limiting ADL and IADL functional secondary to having hand/arm surgery/injury.These ADL Deficits specifically are related to: JOSEFINA KENDALL/Haily, [facility] [address] [place] [address], [phone], [facility] 09/07/2023 14:08:41 09/14/2023 text/html Patient History: Pt reports that her SF continues to get more straight. Pain (0-10): Moderate Pain in last 24 hours (0-10:How often symptoms experienced Constantly (76-100%), Frequently (51-75%), Occasionally (26-50%), Intermittently (0-25%): Intermittently DOI:DOS: [id number] Deficits: Pt reports having at least 3 performance deficits that are limiting ADL and IADL functional secondary to having hand/arm surgery/injury.These ADL Deficits specifically are related to: JOSEFINA KENDALL/Haily, T [address] [place], [phone], [facility] 09/14/2023 14:39:34 09/18/2023 text/html Patient History: Pt reports with continued progress with functional strengthening. Pain (0-10): Moderate Pain in last 24 hours (0-10:How often symptoms experienced Constantly (76-100%), Frequently (51-75%), Occasionally (26-50%), Intermittently (0-25%): Intermittently DOI:DOS: [id number] Deficits: Pt reports having at least 3 performance deficits that are limiting ADL and IADL functional secondary to having hand/arm surgery/injury.These ADL Deficits specifically are related to: JOSEFINA KENDALL/Haily, T [address] [place] [address], [phone], [facility] 09/18/2023 15:39:55 09/18/2023 text/html Patient returns to the clinic today for postoperative evaluation. Reports she is doing well with improvement in preoperative numbness and tingling, only with mild residual fingers and the fingertips which is gradually improving. Therapy has been helpful. POST OP GLOBAL VISITDATE OF SURGERY: 08/08/23TIME POST SURGERY:{{10-14 DAYS 2 WKS 6 WKS 12WKS OTHER: 5-6 weeks#}}SURGERY:-Rig ht endoscopic carpal tunnel release-Right small finger Dupuytren's fasciectomy with contracture release PREOP SYMPTOMS{{RESOLVED B ARMAND* WORSE SAME}} PAIN LEVEL (VAS){{1* 2 3 4 5 6 7 8 9 10}}/10 OVERALL ASSESSMENT{{IMPROVIN G* WORSENING SAME}} NEW SYMPTOMS OR QUESTIONS: Doing well, less n.t, OTHER RECENT SURGERIES: EMPLOYMENT STATUS: SABRINA ROBERSON MD [address] [place] [address], [phone], [facility] 09/18/2023 16:12:25 OBGyn Episode No OBEpisode recorded.
--- OUTSIDE RECORDS SUMMARY | 2024-10-23 18:35 | XMS_ITS ---
Author Organization Unknown TREATMENT PLAN Planned Care Start Date Provider Encounter for Check-up [id number] [facility]
[2024-10-23 18:36] VITALS: BP 191/99; PULSE 60; RESP 12; O2SAT 98
[2024-10-23 18:48] LABS: Basophils % 0.9 % (0.1-2.0); Eosinophils # 0.2 Kmm3 (0.0-0.4); Eosinophils % 4.3 % (0.1-12.0); Hematocrit 37.8 % (37.0-47.0); Hemoglobin 13.2 g/dL (12.2-16.2); Lymphocytes # 1.4 K/mm3 (0.7-4.5); Lymphocytes % 29.5 % (10-50); Mean Corpuscular HGB Conc 34.9 g/dL (31.8-35.4); Mean Corpuscular Hemoglobin 32.4 pg (27.0-31.2); Mean Corpuscular Volume 92.9 fl (81-99); Mean Platelet Volume 10.6 fl (7.4-10.4); Monocytes # 0.5 K/mm3 (0.1-1.0); Monocytes % 9.8 % (1.7-9.3); Neutrophils # 2.6 K/mm3 (1.8-7.8); Neutrophils % 55.3 % (37.0-80.0); Nucleated Red Blood Cells # 0 10^3/uL; Nucleated Red Blood Cells % 0 %; Platelet Count 143 K/mm3 (142-424); Red Blood Count 4.07 M/mm3 (4.20-5.40); Red Cell Distribution Width 12.3 % (11.5-17.5); Red Cell Distribution Width-SD 42.1 fL; White Blood Count 4.7 K/mm3 (4.8-10.8)
[2024-10-23 18:57] LABS: Alanine Aminotransferase 30 U/L (12-78); Albumin Level 4.8 g/dl (3.5-5.0); Albumin/Globulin Ratio 2.1 (1.1-1.8); Alkaline Phosphatase 44 U/L (38-126); Anion Gap 5.5 mEq/L (5-15); Aspartate Amino Transferase 37 U/L (14-36); Bilirubin,Total 0.5 mg/dl (0.2-1.3); Blood Urea Nitrogen 8 mg/dl (7-17); Calcium 9.8 mg/dl (8.4-10.2); Carbon Dioxide 23 mmol/L (22.0-30.0); Chloride 98 mmol/L (98-107); Creatinine Clearance Estimated 44 mL/min (50-200); Estimated Glomerular Filt Rate 95 ml/min (>60); GFR (African American) 116 ML/MIN (>60); Globulin 2.3 g/dL (1.3-3.2); Glucose 140 mg/dl (74-100); Potassium 4.5 mmoL/L (3.5-5.1); Sodium 122 mmol/L (136-145); Total Protein,Serum 7.1 g/dl (6.3-8.2)
[2024-10-23 19:02] VITALS: BP 165/87; RESP 13
[2024-10-23 19:09] LABS: Troponin I 0.05 ng/ml (0.00-0.034)
--- NOTE | 2024-10-23 19:11 | PC.NURSE ---
Report received from Kami RN Pt resting quietly in bed epigastric pain of 5 on 1-10 scale reported. Skin pink warm and dry Resp full and easy Speech clear and appropriate. at bedside
--- NOTE | 2024-10-23 19:21 | PC.NURSE ---
Pt able to drink a soda and some water with no vomiting Pt jumped up and down slightly with standby assistance. Pt states pain in epigastric pain improved MD notified
[2024-10-23 19:33] VITALS: BP 165/87; PULSE 61; RESP 20; TEMP 36.8; O2SAT 97
[2024-10-23 19:47] LABS: HIV Combo NEGATIVE (Negative)
[2024-10-23 19:54] LABS: Hepatitis C Ab Qual. W/ RFX NEGATIVE (Negative)
== END 2024-10-23 19:35 | disposition home or self-care (01) ==
PROVIDERS: Physician Assistant; Emergency Provider Emergency Medicine
DX: R07.89 Other chest pain (principal); T18.128A Food in esophagus causing other injury, initial encounter; E87.1 Hypo-osmolality and hyponatremia; Z11.59 Encounter for screening for other viral diseases; Z11.4 Encounter for screening for human immunodeficiency virus [HIV]
CPT/HCPCS: 71046; 80053; 83735; 84484; 85025; 86803; 87389; 93005; 99285

== ENCOUNTER 2024-10-28 10:41 | Outpatient (CLI) | payer MEDICARE, SELFPAY ==
[2024-10-28 19:37] LABS: Creatinine,Urine Random 32 mg/dL (Not Estab.); Microalbumin < 6.000 mg/L (0-16.7)
[2024-10-28 19:39] LABS: Alanine Aminotransferase 24 U/L (12-78); Alkaline Phosphatase 46 U/L (38-126); Aspartate Amino Transferase 32 U/L (14-36); Bilirubin,Total 0.5 mg/dl (0.2-1.3); Calcium 9.6 mg/dl (8.4-10.2); Chloride 99 mmol/L (98-107); Chol/HDL Ratio 3.1 (1-3.5); Cholesterol 153 mg/dl (140-200); Glucose 109 mg/dl (74-100); HDL Cholesterol 50 mg/dl (40-60); Potassium 4.3 mmoL/L (3.5-5.1); Sodium 129 mmol/L (136-145); Triglycerides 296 mg/dl (30-150); VLDL Cholesterol 59 mg/dL (0-40)
[2024-10-28 19:41] LABS: Albumin Level 4.6 g/dl (3.5-5.0); Albumin/Globulin Ratio 2.2 (1.1-1.8); Anion Gap 10.3 mEq/L (5-15); Blood Urea Nitrogen 8 mg/dl (7-17); Carbon Dioxide 24 mmol/L (22.0-30.0); Estimated Glomerular Filt Rate 95 ml/min (>60); GFR (African American) 116 ML/MIN (>60); Globulin 2.1 g/dL (1.3-3.2); Total Protein,Serum 6.7 g/dl (6.3-8.2)
[2024-10-28 19:50] LABS: Direct LDL Cholesterol 55.25 mg/dL (100-129)
--- OUTSIDE RECORDS SUMMARY | 2024-10-29 11:04 | XMS_ITS | Data Portability ---
Author Organization [facility]ST[facility] Address [address] [place] [address] Care Team Providers Care Chemical Process Engineer Name Role Phone DELON CORTES Referring Provider [phone] SABRINA ROBERSON Orthopedic Surgeon ROJELIO OAKES Phys. Med. & Rehab [phone] Assessment Encounter Date Assessment Date Assessment LastModified by Organization Details LastModified Time 08/31/2023 08/31/2023 MLF 1) significant MCP and PIP joint capsular stiffness of the small finger inhibiting terminal hook and fist postures. 2) volar plate tightness with mild flexion contracture of the small finger inhibiting terminal extension. 3) diminished light touch along the median nerve distribution inhibiting normal and functional sensation. [email or web address] Not available 08/31/2023 12:58:41 09/07/2023 09/07/2023 MLF 1) significant MCP and PIP joint capsular stiffness of the small finger inhibiting terminal hook and fist postures. 2) volar plate tightness with mild flexion contracture of the small finger inhibiting terminal extension. 3) diminished light touch along the median nerve distribution inhibiting normal and functional sensation. Not available 09/07/2023 09:14:51 09/14/2023 09/14/2023 MLF 1) significant MCP and PIP joint capsular stiffness of the small finger inhibiting terminal hook and fist postures. 2) volar plate tightness with mild flexion contracture of the small finger inhibiting terminal extension. 3) diminished light touch along the median nerve distribution inhibiting normal and functional sensation. Not available 09/14/2023 13:27:28 09/18/2023 09/18/2023 Patient [...] nerve distribution inhibiting normal and functional sensation. [email or web address] Not available 09/18/2023 11:47:13 Plan of Treatment [...] By Organization Details Last Modified Time 08/31/2023 [id number] STG 1) Improving functional AROM to within 80-90% of the unaffected within an appropriate time-frame from the injury/surgery to improve ADL function with fine and gross motor dexterity. 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 4) Client will improve overall function at home and work and demonstrate this through the QuickDASH assessment when/if appropriate time frames are determined. Rehab potential is Good Plan of Care (POC: 1-2x/week for 6-8 weeks.) [email or web address] Not available 08/31/2023 12:58:42 09/07/2023 [id number] STG 1) Improving functional AROM to within 80-90% of the unaffected within an appropriate time-frame from the injury/surgery to improve ADL function with fine and gross motor dexterity. 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 4) Client will improve overall function at home and work and demonstrate this through the QuickDASH assessment when/if appropriate time frames are determined. Rehab potential is Good Plan of Care (POC: 1-2x/week for 6-8 weeks.) [email or web address] Not available 09/07/2023 09:14:51 09/14/2023 [id number] STG 1) Improving functional AROM to within 80-90% of the unaffected within an appropriate time-frame from the injury/surgery to improve ADL function with fine and gross motor dexterity. 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 4) Client will improve overall function at home and work and demonstrate this through the QuickDASH assessment when/if appropriate time frames are determined. Rehab potential is Good Plan of Care (POC: 1-2x/week for 6-8 weeks.) [email or web address] Not available 09/14/2023 13:27:28 09/18/2023 [id number] STG 1) Improving functional AROM to within 80-90% of the unaffected within an appropriate time-frame from the injury/surgery to improve ADL function with fine and gross motor dexterity. 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 4) Client will improve overall function at home and work and demonstrate this through the QuickDASH assessment when/if appropriate time frames are determined. Rehab potential is Good Plan of Care (POC: 1-2x/week for 6-8 weeks.) [email or web address] Not available 09/18/2023 11:47:13 Reason for Referral None Reported. Results Created Date Observation Date Name Description Value Unit Range Abnormal Flag Note LastModifiedBy Organization Detail LastModifiedTime 08/08/19 24 08/08/2023 SURGI LEIGHA surgical SEE BELOW normal Depar tment of Patho logy Surgi leigha Patho logy Repor t NAME: TOVA JAMA PATH. :SS-2 [id number] Copy to: Diagn osis: Right small [...] 15:40 Page 1 of 1 Not Available [facility] [address] [place] [address], [phone], 08/09/2023 15:40:50 Result Notes None recorded. Procedures Surgical History Date Name Laterality Status Provider Name and Address Organization Details Recorded Time 09/18/19 24 OT Therapeutic Exercise completed JOSEFINA KENDALL/L, T [address] [place] [address], [phone], [facility] 09/18/2023 11:47:13 09/18/19 24 OT Manual Therapy completed JOSEFINA KENDALL/Haily, T [address] [place] [address], [address], [facility] 09/18/2023 11:47:13 09/18/19 24 PT Paraffin Bath completed VONDA LOPES, OTR/L, CHT [address] [place], [address], [facility] 09/18/2023 11:47:13 09/14/19 24 OT Therapeutic Exercise completed VONDA LOPES, OTR/L, CHT [address] [place], [address], [facility] 09/14/2023 14:29:22 09/14/19 24 OT Manual Therapy completed VONDA LOPES, OTR/L, CHT [address] [place], [address], [facility] 09/14/2023 13:27:28 09/14/19 24 PT Paraffin Bath completed VNODA LOPES, OTR/L, CHT [address] [place], [address], [facility] 09/14/2023 13:27:28 09/07/19 24 OT Therapeutic Exercise completed VONDA LOPES, OTR/L, CHT [address] [place], [address], [facility] 09/07/2023 14:08:05 09/07/19 24 OT Manual Therapy completed VONDA LOPES, OTR/L, CHT [address] [place], [address], [facility] 09/07/2023 09:14:51 09/07/19 24 PT Paraffin Bath completed VONDA LOPES, OTR/L, CHT [address] [place], [address], [facility] 09/07/2023 13:21:52 08/31/19 24 Orthotic Management; Subsequent Encounter completed VONDA LOPES, OTR/L, CHT [address] [place], [address], [facility] 08/31/2023 14:14:35 08/31/19 24 OT Therapeutic Exercise completed VONDA LOPES, OTR/L, CHT [address] [place], [address], [facility] 08/31/2023 12:58:41 08/31/19 24 OT Manual Therapy completed VONDA LOPES, OTR/L, CHT [address] [place], [address], [facility] 08/31/2023 14:14:30 08/31/19 24 PT Hot/Cold Pack completed VONDA LOPES, OTR/L, CHT [address] [place], [address], [facility] 08/31/2023 13:08:53 08/21/19 24 OT Therapeutic Exercise completed VONDA LOPES, OTR/L, CHT [address] [place], [address], [facility] 08/21/2023 16:07:13 08/21/19 24 OT Manual Therapy completed VONDA LOPES, OTR/L, CHT [address] [place], [address], [facility] 08/21/2023 13:05:00 08/14/19 24 OT Therapeutic Exercise completed VONDA LOPES, OTR/L, CHT [address] [place], [address], [facility] 08/14/2023 14:11:25 08/14/19 24 OT Manual Therapy completed VONDA LOPES, OTR/L, CHT [address] [place], [address], [facility] 08/14/2023 14:11:21 08/10/19 24 Orthotic, HFO, Static Custom completed VONDA LOPES, OTR/L, CHT [address] [place], [address], [facility] 08/10/2023 14:43:56 08/10/19 24 OT Evaluation - High complexity completed VONDA LOPES, OTR/L, CHT [address] [place], [address], [facility] 08/10/2023 14:43:47 08/10/19 24 OT Therapeutic Exercise completed VONDA LOPES, OTR/L, CHT [address] [place], [address], [facility] 08/10/2023 14:44:05 08/08/19 24 Op Note completed SABRINA ROBERSON MD [address] [place], [address], [facility] 08/08/2023 17:26:26 07/09/19 24 Electromyography (EMG) with Nerve Conduction Study (NCV) completed ROJELIO OAKES MD [address] [place], [address], [facility] 07/09/2023 15:45:02 07/09/19 24 Ultrasound evaluation, Nerve(s) completed ROJELIO OAKES MD [address] [place], [address], [facility] 07/09/2023 15:45:31 04/24/20 22 Tympanogram completed KEISHA BLEVINS [address] [place], [address], [facility] 04/24/2022 12:13:04 04/24/20 22 Audiogram completed KEISHA BLEVINS [address] [place], [address], [facility] 04/24/2022 12:13:02 Pacemaker/Cardiac Implant completed Ayana [facility] 07/27/2023 10:37:52 cholecystectomy completed Ayana [facility] 07/27/2023 10:34:20 ligation of fallopian tube completed Ayana [facility] 07/27/2023 10:34:32 procedure on wrist completed García saucedo [facility] 07/27/2023 10:34:48 total replacement of left hip joint completed Ayana [facility] 07/27/2023 10:35:07 Imaging Results None recorded. Procedure Notes None recorded. Medical Equipment None Reported. Allergies Allergen ID Allergen Name Allergen Category Reaction Reaction Severity Criticality Documentation Date Start Date Code Code System Note Provider Name and Address Organization Details Recorded Time 562321 Substance with sulfonami de structure and antibacte rial mechanism of action (substanc e) medicatio n Not available Not available Not available 06/15/2023 69297 8003 SNOMED Barak Chacon [facility] 3 09:35:27 273720 morphine medicatio n vomiting moderate Not available 07/27/2023 7052 RxNorm Matilda Disla [facility] 4 10:58:17 Medications Name Sig Start Date [...] Updated DateTime 09/18/2023 160.02 cm 23 kg/m2 73718.01 g Barak Chacon [facility] 09/18/2023 15:53:33 Social History Question Answer Notes LastModified by Organizat ion Details LastModified Time Tobacco Smoking Status Never Smoker Ayana Parish [facility] 07/27/2023 10:31:33 What Is Your Level Of Alcohol Consumption? None [email or web address] Information not available 07/27/2023 What Was The Date Of Your Most Recent Tobacco Screening? 07/27/2023 [email or web address] Information not available 07/27/2023 Do You Use Any Illicit Or Recreational Drugs? No [email or web address] Information not available 07/27/2023 Has Tobacco Cessation Counseling Been Provided? No [email or web address] Information not available 07/27/2023 Do You Or Have You Ever Used Any Other Forms Of Tobacco Or Nicotine? No [email or web address] Information not available 07/27/2023 Sex: Unknown Functional Status None recorded. Mental Status None recorded. Family History Nothing Reported. Medical History Condition Response Allergies/Hayfever N Other N Anxiety/Depression N Gout N Thyroid Disease N Heart Conditions Y Kidney Stones N Hernia N Migraines N Thyroid Problems N COPD N Glaucoma N Pneumonia N Skin Problems N Pacemaker Y Immune System Disorder N Anesthesia Complications N Heart Attack (VT) N Mental Illness N Neurological Problems N [...] Influenza, adjuvanted, trivalent, PF 05[facility]15/2018 [facility] 14:31:22 Influenza, high-dose, quadrivalent, PF 04/05/2021 completed Cornelius Springer [facility] 08/21/2023 14:31:22 Influenza, high-dose, quadrivalent, PF 04/21/2022 [facility]/2023 14:31:22 COVID-19, mRNA, LNP-S, PF, 100 mcg/0.5mL dose or 50 mcg/0.25mL dose 08/04/2020 completed Cornelius Springer [facility] 08/21/2023 14:31:22 COVID-19, mRNA, LNP-S, PF, 100 mcg/0.5mL dose or 50 mcg/0.25mL dose 09/01/2020 [facility] 08/21/2023 14:31:22 COVID-19, mRNA, LNP-S, PF, 100 mcg/0.5mL dose or 50 mcg/0.25mL dose 04/20/2021 completed Cornelius Springer [facility] 08/21/2023 14:31:22 zoster live 07/16/2018 completed Cornelius [facility], [facility] 08/21/2023 14:31:22 Influenza, high-dose, trivalent, PF 04/14/2020 completed Cornelius Springer [facility], [facility] 08/21/2023 14:31:22 Hep A, adult 11/27/2018 completed Cornelius Martin er [facility] 08/21/2023 14:31:22 Past Encounters Encounter ID Performer Location Encounter Start Date Encounter Closed Date Diagnosis/Indication Diagnosis SNOMED-CT Code Diagnosis ICD10 Code Diagnosis Note [id number] KEISHA BLEVINS ENT [facility] CLOSED [address] [place] [address] 04/24/2022 11:42:29 04/24/2022 12:22:48 Mixed conductive and sensorineural hearing loss of right ear 3757068203 9105 H90.A31 Bilateral tinnitus 94576 89060 102 H93.13 [id number] SABRINA ROBERSON MD ORTHOPEDI [address] [place] [address] 06/15/2023 09:26:50 06/15/2023 10:19:03 Carpal tunnel syndrome 83214671 G56.01 Dupuytren' s contracture of finger 314953802 M72.0 Right small finger Dupuytren' s contractur e with ADQ cord: 70?? PIP contractur e [id number] ROJELIO OAKES MD PHYSICAL MEDICINE & REHABILIT ATION [facility] [place] [address] 07/09/2023 14:13:13 07/10/2023 12:39:50 Carpal tunnel syndrome of right wrist 3145636942 74594 G56.01 Severe [id number] SABRINA ROBERSON MD ORTHOPEDI [address] [place] [address] 07/27/2023 10:22:40 07/27/2023 11:03:58 Carpal tunnel syndrome 00779028 G56.01 EMG/NCV (07/09/2023 ) demonstrat ed acute severe right carpal tunnel syndrome affecting sensory and motor components with ongoing axonal loss. Also evidence of mild ulnar neuropathy without focal slowing, which may be incidental and age-relate d. No evidence of radiculopa thy. Supplement al ultrasound revealed median nerve compressio n at the carpal tunnel with proximal swelling. Dupuytren' s contracture of finger 883931616 M72.0 Right small finger Dupuytren' s contractur e with ADQ cord: 70?? PIP contractur e Closed fra cture of distal end of radius 16604371 S52.551D Right minimally displaced extra-naldo cular distal radius fracture (DOI: 03/28/2023) [id number] SABRINA ROBERSON MD SURGERY SCHEDULE [address] [place] [address] 08/08/2023 11:26:04 08/08/2023 11:26:46 [id number] VONDA LOPES OTR/L, CHT PHYSICAL THERAPY / HAND THERAPY [facility] [address] [place] [address] 08/10/2023 13:21:31 08/13/2023 14:00:19 Carpal tunnel syndrome of right wrist 8636714101 30031 G56.01 ECTR Dupuytren contracture of right palm 7633430408 8767478 M72.0 SF STPF [id number] JOSEFINA KENDALL/L, CHT PHYSICAL THERAPY / HAND THERAPY [facility] [address] [place] [address] 08/14/2023 13:26:36 08/15/2023 10:14:42 Carpal tunnel syndrome of right wrist 1040088686 59224 G56.01 ECTR Dupuytren contracture of right palm 5989221783 6770777 M72.0 SF STPF [id number] SYLVIE CLAIRE PA-C ORTHOPEDI CS [facility] [address] [place] [address] 08/21/2023 14:21:28 08/21/2023 14:56:02 Postoperative care 429370126 Z48.89 s/p Right endoscopic carpal tunnel release; Right small finger Dupuytren' s fasciectom y with contractur e release (DOS: 08/08/23) Closed fra cture of distal end of radius 63195204 S52.551D Right minimally displaced extra-naldo cular distal radius fracture (DOI: 03/28/2023) [id number] VONDA LOPES OTR/L, CHT PHYSICAL THERAPY / HAND THERAPY [facility] [address] 08/21/2023 14:22:05 08/22/2023 04:50:41 Carpal tunnel syndrome of right wrist 6799840496 72501 G56.01 ECTR Dupuytren contracture of right palm 5953415806 2818262 M72.0 SF STPF [id number] JOSEFINA KENDALL/L, CHT PHYSICAL THERAPY / HAND THERAPY [facility] [place] [address] 08/31/2023 12:37:32 09/03/2023 14:26:45 Carpal tunnel syndrome of right wrist 9707751422 64304 G56.01 ECTR Dupuytren contracture of right palm 0151273423 7078250 M72.0 SF STPF [id number] VONDA LOPES OTR/L, CHT PHYSICAL THERAPY / HAND THERAPY [place] [address] [place] [address] 09/07/2023 13:10:20 09/08/2023 04:20:18 Carpal tunnel syndrome of right wrist 0914888533 77802 G56.01 ECTR Dupuytren contracture of right palm 8390440354 9626166 M72.0 SF STPF [id number] JOSEFINA KENDALL/L, CHT PHYSICAL THERAPY / HAND THERAPY [place] [address] [place] [address] 09/14/2023 13:23:10 09/15/2023 05:08:16 Carpal tunnel syndrome of right wrist 3415866992 66739 G56.01 ECTR Dupuytren contracture of right palm 0934074095 8509963 M72.0 SF STPF [id number] SABRINA ROBERSON [place] [address] 09/18/2023 14:09:34 09/18/2023 16:14:28 Postoperative care 882295329 Z48.89 6 weeks s/p Right endoscopic carpal tunnel release; Right small finger Dupuytren' s fasciectom y with contractur e release (DOS: 08/08/23) Closed fra cture of distal end of radius 71705146 S52.551D Right minimally displaced extra-naldo cular distal radius fracture (DOI: 03/28/2023) [id number] VONDA LOPES, JOHNR/L, CHT [facility] [address] [place] [address] 09/18/2023 14:06:56 09/19/2023 04:58:19 Carpal tunnel syndrome of right wrist 8967677983 65823 G56.01 ECTR Dupuytren contracture of right palm 1977455029 5787975 M72.0 SF STPF Health Concerns Section Related Observation LastModified by Organization Detai ls LastModified Time None Recorded Concern Status LastModified by Organization Details LastModified Time None Recorded Advance Directives Directive None Recorded Payers Insurance Date Sequence Insurance Name Policy Number Policy Cancino Covered Member ID Cancino Member ID Guarantor Name 09/18/2023 1 [place]: CHEN CARROLL OF [facility] (MEDICARE REPLACEMENT REGIONAL PPO) [id number] Tova Pisano [id number] Tova Pisano Notes Date Note Type Note Provider Name and Address Organization Details Recorded Time 08/31/2023 text/html Patient History: Pt reports that she has not been wearing her extension splint at night, but overall is making good progress with flexion. Pain (0-10): Moderate Pain in last 24 hours (0-10:How often symptoms experienced Constantly (76-100%), Frequently (51-75%), Occasionally (26-50%), Intermittently (0-25%): Intermittently DOI:DOS: [id number] Deficits: Pt reports having at least 3 performance deficits that are limiting ADL and IADL functional secondary to having hand/arm surgery/injury.These ADL Deficits specifically are related to: JOSEFINA KENDALL/L, CHT [address] [place], [address], [facility] 08/31/2023 14:15:05 09/07/2023 text/html Patient History: Pt reports that she is functionally improving. Pain (0-10): Moderate Pain in last 24 hours (0-10:How often symptoms experienced Constantly (76-100%), Frequently (51-75%), Occasionally (26-50%), Intermittently (0-25%): Intermittently DOI:DOS: [id number] Deficits: Pt reports having at least 3 performance deficits that are limiting ADL and IADL functional secondary to having hand/arm surgery/injury.These ADL Deficits specifically are related to: MARLENE KENDALL, [facility] [address] [place], [address], [facility] 09/07/2023 14:08:41 09/14/2023 text/html Patient History: Pt reports that her SF continues to get more straight. Pain (0-10): Moderate Pain in last 24 hours (0-10:How often symptoms experienced Constantly (76-100%), Frequently (51-75%), Occasionally (26-50%), Intermittently (0-25%): Intermittently DOI:DOS: [id number] Deficits: Pt reports having at least 3 performance deficits that are limiting ADL and IADL functional secondary to having hand/arm surgery/injury.These ADL Deficits specifically are related to: MARLENE KENDALL, [address] [place], [address], [facility] 09/14/2023 14:39:34 09/18/2023 text/html Patient History: Pt reports with continued progress with functional strengthening. Pain (0-10): Moderate Pain in last 24 hours (0-10:How often symptoms experienced Constantly (76-100%), Frequently (51-75%), Occasionally (26-50%), Intermittently (0-25%): Intermittently DOI:DOS: [id number] Deficits: Pt reports having at least 3 performance deficits that are limiting ADL and IADL functional secondary to having hand/arm surgery/injury.These ADL Deficits specifically are related to: MARLENE KENDALL, [address] [place], [address], [facility] 09/18/2023 15:39:55 09/18/2023 text/html Patient returns to [...] RECENT SURGERIES: EMPLOYMENT STATUS: SABRINA ROBERSON MD [address] [place], [address], [facility] 09/18/2023 16:12:25 OBGyn Episode No OBEpisode recorded.
[2024-10-30 16:12] LABS: Osmolality, Urine 157 mOsmol/kg (.)
== END 2024-10-28 23:59 | disposition home or self-care (01) ==
LOC: LAB.DROPOF 10-29 11:02
PROVIDERS: PCP Family Medicine; Visit Provider Family Medicine
DX: E78.2 Mixed hyperlipidemia (principal); R82.998 Other abnormal findings in urine; E11.9 Type 2 diabetes mellitus without complications; E87.1 Hypo-osmolality and hyponatremia
CPT/HCPCS: 80053; 80061; 82043; 82570; 83930; 83935; 84540; 87086

== ENCOUNTER 2024-11-13 10:23 | Outpatient (CLI) | payer MEDICARE, SELFPAY ==
[2024-11-13 19:17] LABS: Anion Gap 11.8 mEq/L (5-15); Blood Urea Nitrogen 7 mg/dl (7-17); Calcium 9.2 mg/dl (8.4-10.2); Carbon Dioxide 26 mmol/L (22.0-30.0); Chloride 94 mmol/L (98-107); Estimated Glomerular Filt Rate 80 ml/min (>60); GFR (African American) 97 ML/MIN (>60); Glucose 117 mg/dl (74-100); Potassium 4.8 mmoL/L (3.5-5.1); Sodium 127 mmol/L (136-145)
--- OUTSIDE RECORDS SUMMARY | 2024-11-13 22:59 | XMS_ITS | Data Portability ---
Author Organization CHRISTINA ZOE Ibarra [place] [facility] Address [address] [facility] [address] [place] [address] Care Team Providers Care Terrazzo Finisher Helper Name Role Phone DELON CORTES Referring Provider [phone] SABRINA ROBERSON Orthopedic Surgeon ROJELIO OAKES Phys. [...] nerve distribution inhibiting normal and functional sensation. [email or web address] Not available 08/31/2023 12:58:41 09/07/2023 09/07/2023 MLF 1) significant MCP and PIP joint capsular stiffness of the small finger inhibiting terminal hook and fist postures. 2) volar plate tightness with mild flexion contracture of the small finger inhibiting terminal extension. 3) diminished light touch along the median nerve distribution inhibiting normal and functional sensation. [email or web address] Not available 09/07/2023 09:14:51 09/14/2023 09/14/2023 MLF 1) significant MCP and PIP joint capsular stiffness of the small finger inhibiting terminal hook and fist postures. 2) volar plate tightness with mild flexion contracture of the small finger inhibiting terminal extension. 3) diminished light touch along the median nerve distribution inhibiting normal and functional sensation. [email or web address] Not available 09/14/2023 13:27:28 09/18/2023 09/18/2023 Patient [...] inhibiting normal and functional sensation. Not available 09/18/2023 11:47:13 Plan of Treatment [...] By Organization Details Last Modified Time 08/31/2023 [id number] STG 1) Improving functional AROM to within 80-90% of the unaffected within an appropriate time-frame from the injury/surgery to improve ADL function with fine and gross motor dexterity. 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 4) Client will improve overall function at home and work and demonstrate this through the QuickDASH assessment when/if appropriate time frames are determined. Rehab potential is Good Plan of Care (POC: 1-2x/week for 6-8 weeks.) [email or web address] Not available 08/31/2023 12:58:42 09/07/2023 [id number] STG 1) Improving functional AROM to within 80-90% of the unaffected within an appropriate time-frame from the injury/surgery to improve ADL function with fine and gross motor dexterity. 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 4) Client will improve overall function at home and work and demonstrate this through the QuickDASH assessment when/if appropriate time frames are determined. Rehab potential is Good Plan of Care (POC: 1-2x/week for 6-8 weeks.) [email or web address] Not available 09/07/2023 09:14:51 09/14/2023 [id number] STG 1) Improving functional AROM to within 80-90% of the unaffected within an appropriate time-frame from the injury/surgery to improve ADL function with fine and gross motor dexterity. 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 4) Client will improve overall function at home and work and demonstrate this through the QuickDASH assessment when/if appropriate time frames are determined. Rehab potential is Good Plan of Care (POC: 1-2x/week for 6-8 weeks.) [email or web address] Not available 09/14/2023 13:27:28 09/18/2023 [id number] STG 1) Improving functional AROM to within 80-90% of the unaffected within an appropriate time-frame from the injury/surgery to improve ADL function with fine and gross motor dexterity. 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 4) Client will improve overall function at home and work and demonstrate this through the QuickDASH assessment when/if appropriate time frames are determined. Rehab potential is Good Plan of Care (POC: 1-2x/week for 6-8 weeks.) [email or web address] Not available 09/18/2023 11:47:13 Reason for Referral None Reported. Results Created Date Observation Date Name Description Value Unit Range Abnormal Flag Note LastModifiedBy Organization Detail LastModifiedTime 08/08/19 24 08/08/2023 SURGI LEIGHA surgical SEE BELOW normal Depar tment of Patho logy Surgi leigha Patho logy Repor t NAME: TOVA JAMA PATH. :SS-2 [id number] Copy to: Diagn osis: Right small [...] 15:40 Page 1 of 1 Not Available [facility] [address] [place] [address], [phone], 08/09/2023 15:40:50 Result Notes None recorded. Procedures Surgical History Date Name Laterality Status Provider Name and Address Organization Details Recorded Time 09/18/19 24 OT Therapeutic Exercise completed JOSEFINA KENDALL/L, T [address] [place] [address], [phone], [facility] 09/18/2023 11:47:13 09/18/19 24 OT Manual Therapy completed JOSEFINA KENDALL/Haily, T [address] [place] [address], [address], [facility] 09/18/2023 11:47:13 09/18/19 24 PT Paraffin Bath completed VONDA LOPES, OTR/L, CHT [address] [place], [address], [facility] 09/18/2023 11:47:13 09/14/19 24 OT Therapeutic Exercise completed VONDA LOPES, OTR/L, CHT [address] [place], [address], [facility] 09/14/2023 14:29:22 09/14/19 24 OT Manual Therapy completed VONDA LOPES, OTR/L, CHT [address] [place], [address], [facility] 09/14/2023 13:27:28 09/14/19 24 PT Paraffin Bath completed VONDA LOPES, OTR/L, CHT [address] [place], [address], [facility] 09/14/2023 13:27:28 09/07/19 24 OT Therapeutic Exercise completed VNODA LOPES, OTR/L, CHT [address] [place], [address], [facility] 09/07/2023 14:08:05 09/07/19 24 OT Manual Therapy completed VONDA LOPES, OTR/L, CHT [address] [place], [address], [facility] 09/07/2023 09:14:51 09/07/19 24 PT Paraffin Bath completed VONDA LOPES, OTR/L, CHT [address] [place], [address], [facility] 09/07/2023 13:21:52 08/31/19 24 Orthotic Management; Subsequent Encounter completed VONDA LOPES, OTR/L, CHT [address] [place], [address], [facility] 08/31/2023 14:14:35 08/31/19 24 OT Therapeutic Exercise completed VONDA LOPES, OTR/L, CHT [address] [place], [address], [facility] 08/31/2023 12:58:41 08/31/19 24 OT Manual Therapy completed VONDA LOPES, OTR/L, CHT [address] [place], [address], [facility] 08/31/2023 14:14:30 08/31/19 24 PT Hot/Cold Pack completed VONDA LOPES, OTR/L, CHT [address] [place], [address], [facility] 08/31/2023 13:08:53 08/21/19 24 OT Therapeutic Exercise completed VONDA LOPES, OTR/L, CHT [address] [place], [address], [facility] 08/21/2023 16:07:13 08/21/19 24 OT Manual Therapy completed VONDA LOPES, OTR/L, CHT [address] [place], [address], [facility] 08/21/2023 13:05:00 08/14/19 24 OT Therapeutic Exercise completed VONDA LOPES, OTR/L, CHT [address] [place], [address], [facility] 08/14/2023 14:11:25 08/14/19 24 OT Manual Therapy completed VONDA LOPES, OTR/L, CHT [address] [place], [address], [facility] 08/14/2023 14:11:21 08/10/19 24 Orthotic, HFO, Static Custom completed VONDA LOPES, OTR/L, CHT [address] [place], [address], [facility] 08/10/2023 14:43:56 08/10/19 24 OT Evaluation - High complexity completed VONDA LOPES, OTR/L, CHT [address] [place], [address], [facility] 08/10/2023 14:43:47 08/10/19 24 OT Therapeutic Exercise completed VONDA LOPES, OTR/L, CHT [address] [place], [address], [facility] 08/10/2023 14:44:05 08/08/19 24 Op Note completed SABRINA ROBERSON MD [address] [place], [address], [facility] 08/08/2023 17:26:26 07/09/19 24 Electromyography (EMG) with Nerve Conduction Study (NCV) completed ROJELIO OAKES MD [address] [place], [address], [facility] 07/09/2023 15:45:02 07/09/19 24 Ultrasound evaluation, Nerve(s) completed ROJELIO OAKES MD [address] [place], [address], [facility] 07/09/2023 15:45:31 04/24/20 22 Tympanogram completed KEISHA BLEVINS [address] [place], [address], [facility] 04/24/2022 12:13:04 04/24/20 22 Audiogram completed KEISHA BLEVINS [address] [place], [address], [facility] 04/24/2022 12:13:02 Pacemaker/Cardiac Implant completed Ayana [facility] 07/27/2023 10:37:52 cholecystectomy completed Ayana [facility] 07/27/2023 10:34:20 ligation of fallopian tube completed Ayana [facility] 07/27/2023 10:34:32 procedure on wrist completed García saucedo [facility] 07/27/2023 10:34:48 total replacement of left hip joint completed Ayana [facility] 07/27/2023 10:35:07 Imaging Results None recorded. Procedure Notes None recorded. Medical Equipment None Reported. Allergies Allergen ID Allergen Name Allergen Category Reaction Reaction Severity Criticality Documentation Date Start Date Code Code System Note Provider Name and Address Organization Details Recorded Time 824513 Substance with sulfonami de structure and antibacte rial mechanism of action (substanc e) medicatio n Not available Not available Not available 06/15/2023 61185 8003 SNOMED Barak Chacon [facility] 3 09:35:27 544595 morphine medicatio n vomiting moderate Not available 07/27/2023 7052 RxNorm Matilda Disla [facility] 4 10:58:17 Medications Name Sig Start [...] Updated DateTime 09/18/2023 160.02 cm 23 kg/m2 19848.01 g Barak Chacon [facility] 09/18/2023 15:53:33 Social History Question Answer Notes LastModified by [employer] Details LastModified Time Tobacco Smoking Status Never Smoker Ayana Parish [facility] 07/27/2023 10:31:33 What Was The Date Of Your Most Recent Tobacco Screening? 07/27/2023 [email or web address] Information not available 07/27/2023 Has Tobacco Cessation Counseling Been Provided? No Information not available 07/27/2023 Sex: Unknown Functional Status Question Answer Note LastModified by [employer] Details LastModified Time Do you use any illicit or recreational drugs? No [email or web address] Information not available 07/27/2023 Do you or have you ever used any other forms of tobacco or nicotine? No [email or web address] Information not available 07/27/2023 What is your level of alcohol consumption? None [email or web address] Information not available 07/27/2023 Mental Status None recorded. Family History Nothing Reported. Medical History Condition Response Allergies/Hayfever N Other N Anxiety/Depression N Gout N Thyroid Disease N Kidney Stones N Heart Conditions Y Hernia N Migraines N Thyroid Problems N COPD N Glaucoma N Pneumonia N Skin Problems N Pacemaker Y Immune System Disorder N Anesthesia Complications N Heart Attack ([place]) N Mental Illness N Neurological Problems N Diabetes N Rheumatic Fever N Bleeding Disorder N Seizures/Epilepsy N Arthritis Y Blood Clot N Tuberculosis N Genetic Disorder N AIDS/HIV N Cancer N Stroke Y Asthma N Blood Thinners N Sleep Apnea N Alcohol Overuse/Alcohol Abuse N High Cholesterol Y Liver Disease N Included as Review of Systems N Hypertension Y Osteoporosis N Kidney Disease N Gynecological HistoryNo gynecological history recorded. Obstetrics History GPAL:G 0 P 0 0 0 0 Immunizations Vaccine Type Date Status Note Provider Nam e and Address Organization Details Recorded Time Influenza, adjuvanted, trivalent, PF 05/15/2018 [facility] 14:31:22 Influenza, high-dose, quadrivalent, PF 04/05/2021 [facility] 14:31:22 Influenza, high-dose, quadrivalent, PF 04/21/2022 [facility] 14:31:22 COVID-19, mRNA, LNP-S, PF, 100 mcg/0.5mL dose or 50 mcg/0.25mL dose 08/04/2020 [facility]/2023 14:31:22 COVID-19, mRNA, LNP-S, PF, 100 mcg/0.5mL dose or 50 mcg/0.25mL dose 09/01/2020 [facility]/2023 14:31:22 COVID-19, mRNA, LNP-S, PF, 100 mcg/0.5mL dose or 50 mcg/0.25mL dose 04/20/2021 nguyen espinal, [facility] 08/21/2023 14:31:22 zoster live 07/16/2018 completed Cornelius savage null, [facility] 08/21/2023 14:31:22 Influenza, high-dose, trivalent, PF 04/14/2020 completed Cornelius Springer [facility], [facility] 08/21/2023 14:31:22 Hep A, adult 11/27/2018 completed Cornelius Martin er [facility], [facility] 08/21/2023 14:31:22 Past Encounters Encounter ID Performer Location Encounter Start Date Encounter Closed Date Diagnosis/Indication Diagnosis SNOMED-CT Code Diagnosis ICD10 Code Diagnosis Note [id number] KEISHA BLEVINS ENT [facility] [address] [facility] [place] [address] 04/24/2022 11:42:29 04/24/2022 12:22:48 Mixed conductive and sensorineural hearing loss of right ear 2224446065 9105 H90.A31 Bilateral tinnitus 56413 60894 102 H93.13 [id number] SABRINA ROBERSON MD ORTHOPEDI [address] [place] [address] 06/15/2023 09:26:50 06/15/2023 10:19:03 Carpal tunnel syndrome 44397727 G56.01 Dupuytren' s contracture of finger 685702953 M72.0 Right small finger Dupuytren' s contractur e with ADQ cord: 70?? PIP contractur e [id number] ROJELIO OAKES MD PHYSICAL [facility]IC[facility] & REHABIL[facility] ATFORMERLY [facility], [facility] [address] [place] [address] 07/09/2023 14:13:13 07/10/2023 12:39:50 Carpal tunnel syndrome of right wrist 8810816200 58894 G56.01 Severe [id number] SABRINA ROBERSON MD ORTHOPEDI [address] [place] [address] 07/27/2023 10:22:40 07/27/2023 11:03:58 Carpal tunnel syndrome 80393567 G56.01 EMG/NCV (07/09/2023 ) demonstrat ed acute severe right carpal tunnel syndrome affecting sensory and motor components with ongoing axonal loss. Also evidence of mild ulnar neuropathy without focal slowing, which may be incidental and age-relate d. No evidence of radiculopa thy. Supplement al ultrasound revealed median nerve compressio n at the carpal tunnel with proximal swelling. Dupuytren' s contracture of finger 305180686 M72.0 Right small finger Dupuytren' s contractur e with ADQ cord: 70?? PIP contractur e Closed fra cture of distal end of radius 28877678 S52.551D Right minimally displaced extra-naldo cular distal radius fracture (DOI: 03/28/2023) [id number] SABRINA ROBERSON MD SURGERY SCHEDULE [address] [place] [address] 08/08/2023 11:26:04 08/08/2023 11:26:46 [id number] VONDA LOPES OTR/L, CHT PHYSICAL THERAPY / HAND THERAPY [facility] [address] [place] [address] 08/10/2023 13:21:31 08/13/2023 14:00:19 Carpal tunnel syndrome of right wrist 5297691502 46157 G56.01 ECTR Dupuytren contracture of right palm 9141988733 0716654 M72.0 SF STPF [id number] JOSEFINA KENDALL/L, CHT PHYSICAL THERAPY / HAND THERAPY [facility] [address] [place] [address] 08/14/2023 13:26:36 08/15/2023 10:14:42 Carpal tunnel syndrome of right wrist 0251169232 16707 G56.01 ECTR Dupuytren contracture of right palm 9308844081 9899659 M72.0 SF STPF [id number] SYLVIE CLAIRE PA-C ORTHOPEDI CS [facility] [address] [place] [address] 08/21/2023 14:21:28 08/21/2023 14:56:02 Postoperative care 592994192 Z48.89 s/p Right endoscopic carpal tunnel release; Right small finger Dupuytren' s fasciectom y with contractur e release (DOS: 08/08/23) Closed fra cture of distal end of radius 47193571 S52.551D Right minimally displaced extra-naldo cular distal radius fracture (DOI: 03/28/2023) [id number] JOSEFINA KENDALL/Haily, CHT PHYSICAL THERAPY / HAND THERAPY [place] [address] [place] [address] 08/21/2023 14:22:05 08/22/2023 04:50:41 Carpal tunnel syndrome of right wrist 6452925160 55341 G56.01 ECTR Dupuytren contracture of right palm 1323944188 2937517 M72.0 SF STPF [id number] JOSEFINA KENDALL/Haily, CHT PHYSICAL THERAPY / HAND THERAPY [place] [address] [place] [address] 08/31/2023 12:37:32 09/03/2023 14:26:45 Carpal tunnel syndrome of right wrist 7696560324 61905 G56.01 ECTR Dupuytren contracture of right palm 7040485003 7884560 M72.0 SF STPF [id number] JOSEFINA KENDALL/Haily, T PHYSICAL THERAPY / HAND THERAPY [place] [address] [place] [address] 09/07/2023 13:10:20 09/08/2023 04:20:18 Carpal tunnel syndrome of right wrist 8290624566 57833 G56.01 ECTR Dupuytren contracture of right palm 2708010316 5081810 M72.0 SF STPF [id number] MARLENE KENDALL, T PHYSICAL THERAPY / HAND THERAPY [place] [address] [place] [address] 09/14/2023 13:23:10 09/15/2023 05:08:16 Carpal tunnel syndrome of right wrist 5275306283 85987 G56.01 ECTR Dupuytren contracture of right palm 5671719738 1915515 M72.0 SF STPF [id number] SABRINA ROBERSON [facility] [place] [address] 09/18/2023 14:09:34 09/18/2023 16:14:28 Postoperative care 313699693 Z48.89 6 weeks s/p Right endoscopic carpal tunnel release; Right small finger Dupuytren' s fasciectom y with contractur e release (DOS: 08/08/23) Closed fra cture of distal end of radius 50246780 S52.551D Right minimally displaced extra-naldo cular distal radius fracture (DOI: 03/28/2023) [id number] JOSEFINA KENDALL/Haily, CHT [facility]ICAL THER[facility] [address] [place] [address] 09/18/2023 14:06:56 09/19/2023 04:58:19 Carpal tunnel syndrome of right wrist 5829061622 37163 G56.01 ECTR Dupuytren contracture of right palm 5513012854 0077170 M72.0 SF STPF Health Concerns Section Related Observation LastModified by Organization Detai ls LastModified Time None Recorded Concern Status LastModified by Organization Details LastModified Time None Recorded Advance Directives Directive None Recorded Payers Insurance Date Sequence Insurance Name Policy Number Policy Cancino Covered Member ID Cancino Member ID Guarantor Name 09/18/2023 1 [place] [facility] (MEDICARE REPLACEMENT REGIONAL PPO) [id number] Tova Pisano [id number] Tova Pisano Notes Date Note Type Note Provider Name and Address Organization Details Recorded Time 08/31/2023 text/html Patient History: Pt reports that she has not been wearing her extension splint at night, but overall is making good progress with flexion. Pain (0-10): Moderate Pain in last 24 hours (0-10:How often symptoms experienced Constantly (76-100%), Frequently (51-75%), Occasionally (26-50%), Intermittently (0-25%): Intermittently DOI:DOS: [id number] Deficits: Pt reports having at least 3 performance deficits that are limiting ADL and IADL functional secondary to having hand/arm surgery/injury.These ADL Deficits specifically are related to: JOSEFINA KENDALL/Haily, CHT [address] [place], [address], [facility] 08/31/2023 14:15:05 09/07/2023 text/html Patient History: Pt reports that she is functionally improving. Pain (0-10): Moderate Pain in last 24 hours (0-10:How often symptoms experienced Constantly (76-100%), Frequently (51-75%), Occasionally (26-50%), Intermittently (0-25%): Intermittently DOI:DOS: [id number] Deficits: Pt reports having at least 3 performance deficits that are limiting ADL and IADL functional secondary to having hand/arm surgery/injury.These ADL Deficits specifically are related to: MARLENE KENDALL, ROSA [address] [place], [place], [address] [place] [address], [facility] 09/07/2023 14:08:41 09/14/2023 text/html Patient History: Pt reports that her SF continues to get more straight. Pain (0-10): Moderate Pain in last 24 hours (0-10:How often symptoms experienced Constantly (76-100%), Frequently (51-75%), Occasionally (26-50%), Intermittently (0-25%): Intermittently DOI:DOS: [id number] Deficits: Pt reports having at least 3 performance deficits that are limiting ADL and IADL functional secondary to having hand/arm surgery/injury.These ADL Deficits specifically are related to: MARLENE KENDALL, ROSA [address] [place], [address], [facility] 09/14/2023 14:39:34 09/18/2023 text/html Patient History: Pt reports with continued progress with functional strengthening. Pain (0-10): Moderate Pain in last 24 hours (0-10:How often symptoms experienced Constantly (76-100%), Frequently (51-75%), Occasionally (26-50%), Intermittently (0-25%): Intermittently DOI:DOS: [id number] Deficits: Pt reports having at least 3 performance deficits that are limiting ADL and IADL functional secondary to having hand/arm surgery/injury.These ADL Deficits specifically are related to: MARLENE KENDALL, ROSA [address] [place], [address], [facility] 09/18/2023 15:39:55 09/18/2023 text/html Patient returns [...] RECENT SURGERIES: EMPLOYMENT STATUS: SABRINA ROBERSON MD [address] [place], [address], [facility] 09/18/2023 16:12:25 OBGyn Episode No OBEpisode recorded.
== END 2024-11-13 23:59 | disposition home or self-care (01) ==
LOC: LAB.DROPOF 22:58
PROVIDERS: PCP Family Medicine; Visit Provider Family Medicine
DX: E87.1 Hypo-osmolality and hyponatremia (principal)
CPT/HCPCS: 80048

== ENCOUNTER 2024-11-27 12:31 | Outpatient (CLI) | payer MEDICARE, SELFPAY ==
[2024-11-27 13:38] LABS: Chloride 95 mmol/L (98-107); Sodium 131 mmol/L (136-145)
[2024-11-27 13:39] LABS: Potassium 4.6 mmoL/L (3.5-5.1)
[2024-11-27 13:42] LABS: Anion Gap 12.6 mEq/L (5-15); Blood Urea Nitrogen 9 mg/dl (7-17); Calcium 9.9 mg/dl (8.4-10.2); Carbon Dioxide 28 mmol/L (22.0-30.0); Estimated Glomerular Filt Rate 95 ml/min (>60); GFR (African American) 116 ML/MIN (>60); Glucose 101 mg/dl (74-100)
== END 2024-11-27 23:59 | disposition home or self-care (01) ==
LOC: LAB 12:33
PROVIDERS: PCP Family Medicine; Visit Provider Nurse Practitioner Family
DX: E87.1 Hypo-osmolality and hyponatremia (principal)
CPT/HCPCS: 36415; 80048

== ENCOUNTER 2024-12-01 11:25 | Day surgery (SDC) | payer MEDICARE, SELFPAY ==
[2024-11-28 13:27] VITALS: BMI 23.0
[2024-12-01] MEDS: LACTATED RINGERS 1000ML 1,000 ML 50 ML IV (12:15)
[2024-12-01 12:21] VITALS: BP 127/70; PULSE 61; RESP 18; TEMP 36.1; O2SAT 92
--- NOTE | 2024-12-01 13:18 | EXP.HP ---
History of Present Illness *Admission Date: 12/01/24 *Reason for visit:: Dysphagia/food impaction and bloating *History of present illness: Mrs. Pisano is an 84-year-old female who is here for diagnostic/therapeutic upper endoscopy secondary to dysphagia. The patient did have a recent food impaction in the ER in early October 2024. She has been struggling for approximately 6 months. The examination is deemed medically necessary for diagnostic/therapeutic EGD. The patient has been seen, interviewed and examined prior to the procedure by both myself and the anesthesia provider. [facility] Disclaimer: The information contained in this section may have been updated after the patient was seen, as this information can be updated by other users. Medical History Pneumonia History of COVID-19 History of pacemaker Dysphagia Closed fracture of left distal radius Hearing Loss Tinnitus Sinus disorder Arthritis Hypercholesterolemia Hypertension TIA (transient ischemic attack) Surgical History Hx of cholecystectomy Hx of heart surgery History of total left hip replacement Family History Other Cancer Coronary artery disease Diabetes Heart attack Hypercholesterolemia Hypertension Stroke Thyroid disorder Social History Smoking Status: Former smoker alcohol intake: never substance use type: denies use current occupational status: retired Travel in the last 8 weeks?: None household members: spouse housing: house caffeine: Yes (one cup of coffee/day) Have you lived/traveled outside US in past 30 days?: No Contact w/someone who lives/traveled outside US past 30 days?: No Exposure to someone with infectious disease in past 14 days?: No Do you have a fever (greater than 100.4 F or 38 C)?: No Have you tested positive for COVID-19?: No Exposed to someone with COVID-19 in past 14 days?: No Do you have a sore throat?: No Do you have a cough?: No Do you have any weakness?: No Do you have any diarrhea?: No Are you experiencing any unusual bleeding?: No Do you have any muscle aches/pain?: No Do you have any abdominal pain?: No Are you experiencing loss of taste or smell?: No Other Medical History Have you received the Flu Vaccine for this season: No Have you received the Pneumonia Vaccine: Yes Review of Systems Review of Systems Review of systems (narrative): Negative *Cardiovascular Comments: Negative *Gastrointestinal Comments: Negative *Genitourinary Comments: Negative *Musculoskeletal Comments: Negative *Neurologic Comments: Negative Meds Home Medications and Allergies Home Medications ?Medication ?Instructions ?Recorded ?Confirmed ?Type coQ10 (ubiquinol) 100 mg capsule 50 mg PO DAILY Supplement 10/11/22 11/28/24 History denosumab 60 mg/mL subcutaneous 60 mg SQ [id number] 08/20/23 11/28/24 History syringe (Prolia) propranolol 10 mg tablet 10 mg PO BID 90 days #180 tabs 09/26/23 11/28/24 Rx losartan 25 mg tablet 25 mg PO DAILY blood pressure 90 10/11/23 11/28/24 Rx days #90 tabs atorvastatin 20 mg tablet (Lipitor) 20 mg PO DAILY Cholesterol #90 tabs 09/22/24 11/28/24 Rx lorazepam 0.5 mg tablet 0.5 mg PO HS PRN sleep #30 tabs 10/28/24 11/28/24 Rx cholecalciferol (vitamin D3) 25 50 mcg PO DAILY 11/27/24 11/28/24 History mcg (1,000 unit) capsule latanoprost 0.005 % eye drops 1 drp Eye-Both HS 11/27/24 11/28/24 History primidone 50 mg tablet 50 mg PO BID 11/28/24 11/28/24 History New Prescriptions to Start Prescriptions: Allergies Allergy/AdvReac Type Severity Reaction Status Date / Time Sulfa (Sulfonamide Allergy Unknown ITCHING Verified 12/01/24 12:20 Antibiotics) sulfamethizole Allergy Unknown ITCHING Verified 12/01/24 12:20 triamcinolone Allergy Unknown Cough Verified 12/01/24 12:20 morphine AdvReac Mild Nausea Verified 12/01/24 12:20 Exam Data for Last 24 hours Vital signs and Labs for Last 24 Hours: Temp Pulse Resp BP Pulse Ox O2 Del Method 97.0 F L 61 18 127/70 92 L Room Air 12/01/24 12:21 12/01/24 12:21 12/01/24 12:12/01/24 12:12/01/24 12:21 12/01/24 12:21 I & O for Last 24 hours: Intake & Output 11/28/24 11/29/24 11/30/24 12/01/24 23:59 23:59 23:59 23:59 Weight 130 lb *Routine HEENT Exam Head: Present normocephalic Eye: Present EOMI and PERRL ENT: Present mucous membranes moist *Routine Neck Exam Neck: Present supple *Routine Respiratory Exam Respiratory: Present CTA bilaterally *Routine Cardiovascular Exam Cardiovascular: Present RRR *Routine Abdominal Exam Abdominal: Present soft and normoactive bowel sounds; Absent tenderness *Routine Rectal Exam Rectal:: deferred *Routine Genitalia Exam Genitalia:: deferred *Routine Extremities Exam Extremities: Absent cyanosis, clubbing or edema *Routine Skin Exam Skin: Present warm; Absent rash *Routine Neurological Exam Neurological: Present alert and oriented X3 Assessment and Plan *Assessment and plan (1) Dysphagia: Status: Acute Category: Medical Code(s): R13.10 - Dysphagia, unspecified Plan A/P: 1. Dysphagia with recent food impaction is the preprocedural diagnosis. The patient will be anesthetized/sedated using MAC sedation. The patient has been seen and examined. Cardiac and lung assessment prior to the examination is stable. Proceed with planned diagnostic/therapeutic EGD.
--- NOTE | 2024-12-01 13:29 | HMH.PROCNOTE ---
[facility] Procedure Note Date: 12/01/24 Time: 13:37 Procedure Note:: Upper Endoscopy Procedure Report: Esophagogastroduodenoscopy with cold biopsies and TTS balloon dilation Endoscopost: Eddie Mallory II, MD Referring Physician: Franco Loyd MD Date of Procedure: December 01, 2024 Equipment: Olympus GIF 190 standard upper endoscope Sedation: MAC sedation Indications: Mrs. Pisano is an 84-year-old female who is here for diagnostic/therapeutic upper endoscopy secondary to dysphagia. She was eating sirloin steak or hamburger and presented to the ED on 10/23/2024 and felt that this got hung in was still present. This did pass. She does have some reflux. She reports some bloating and belching intermittently. This is her first EGD. Procedure: Prior to the procedure, a history and physical exam was performed, and patient's medications and allergies were reviewed. The risks, benefits and alternatives of the sedation and procedure were discussed with the patient. All questions were answered and informed consent was obtained. The patient was brought to the procedure room. Patient identification and proposed procedure were verified by the physician and the nurse. The patient was placed in a left lateral decubitus position and the scope was passed under direct vision. Throughout the procedure, the patient's blood pressure, pulse, and oxygen saturations were monitored continuously. The upper GI endoscopy was accomplished without difficulty. The patient tolerated the procedure well. Findings: The scope was passed directly into the upper esophagus and advanced to the third portion of the duodenum. The post bulbar duodenum and duodenal bulb were normal with normal mucosa and conniventes. The scope was withdrawn through a normal duodenal bulb and pylorus into the stomach. The antrum body and fundus of the stomach were grossly normal. Upon retroflexion there was a small 2 to 3 cm hiatal hernia. The scope was then withdrawn into the esophagus. There was grade C (LA classification) reflux esophagitis and a short tongue of salmon-colored mucosa that was biopsied using cold biopsy forceps. There was a distal esophageal peptic stricture that was dilated to 18 mm with a TTS hydrostatic balloon. The remainder of the mid and proximal esophageal mucosa was normal. There appeared to be some faint esophageal varices. Impression: 1. Grade C reflux esophagitis with distal peptic stricture dilated to 18 mm 2. Small 2 to 3 cm hiatal hernia Plan: I will place her on omeprazole daily for complicated GERD. She should have clinical improvement with dilation and addition of PPI therapy. I will follow-up the biopsies.
[2024-12-01 13:41] VITALS: BP 102/66; PULSE 77; RESP 17; TEMP 36.3; O2SAT 93
[2024-12-01 13:51] VITALS: BP 136/66; PULSE 62; RESP 18; O2SAT 92
[2024-12-01 14:01] VITALS: BP 120/67; PULSE 63; RESP 17; O2SAT 91
[2024-12-01 14:11] VITALS: BP 127/67; PULSE 60; RESP 17; TEMP 36.3; O2SAT 94
--- NOTE | 2024-12-01 14:38 | EXP.ANES.CKL ---
[facility] Disclaimer: The information contained in this section may have been updated after the patient was seen, as this information can be updated by other users. Medical History (Updated 12/01/24 @ 13:41 by Eddie Mallory II, MD) Pneumonia History of COVID-19 History of pacemaker Dysphagia Closed fracture of left distal radius Hearing Loss Tinnitus Sinus disorder Arthritis Hypercholesterolemia Hypertension TIA (transient ischemic attack) Surgical History Hx of cholecystectomy Hx of heart surgery History of total left hip replacement Family History Other Cancer Coronary artery disease Diabetes Heart attack Hypercholesterolemia Hypertension Stroke Thyroid disorder Social History Smoking Status: Former smoker alcohol intake: never substance use type: denies use current occupational status: retired Travel in the last 8 weeks?: None household members: spouse housing: house caffeine: Yes (one cup of coffee/day) Have you lived/traveled outside US in past 30 days?: No Contact w/someone who lives/traveled outside US past 30 days?: No Exposure to someone with infectious disease in past 14 days?: No Do you have a fever (greater than 100.4 F or 38 C)?: No Have you tested positive for COVID-19?: No Exposed to someone with COVID-19 in past 14 days?: No Do you have a sore throat?: No Do you have a cough?: No Do you have any weakness?: No Do you have any diarrhea?: No Are you experiencing any unusual bleeding?: No Do you have any muscle aches/pain?: No Do you have any abdominal pain?: No Are you experiencing loss of taste or smell?: No [facility] Anesthesia Checklist Patient Identification Patient Identification: Arm Band Structural Data Admitted From: Home Planned Operative Procedure/s: EGD Consent for Planned Operative Procedure(s) Verified: Yes Verified Documents: Surgical Consent and History and Physical NPO Status Verified Time NPO: 00:00 Additional verifications Anesthesia Reactions: No Hx Blood Transfusions: Yes Blood Transfusion Reaction: No Airway Assessment Mallampati Score:: Class II C-Spine Mobility Assessed: Yes TMJ Mobility Assessed: Yes Dentition: Good Dentition Neurological Assessment Level of Consciousness: Awake, Alert and Appropriate Anesthesia Plan Anesthesia Risk discussed: Yes Anesthesia Plan: Verified ASA Class: II Anesthesia Type: MAC
== END 2024-12-01 14:29 | disposition home or self-care (01) ==
PROVIDERS: PCP Family Medicine; Visit Provider Internal Medicine Gastroenterology
PROC: 0DJ08ZZ Inspection of Upper Intestinal Tract, Via Natural or Artificial Opening Endoscopic (ICD-10-PCS; CPT 43239; principal; 2024-12-01 13:00)
DX: K22.10 Ulcer of esophagus without bleeding (principal); K22.2 Esophageal obstruction; K21.00 Gastro-esophageal reflux disease with esophagitis, without bleeding; K44.9 Diaphragmatic hernia without obstruction or gangrene; K29.60 Other gastritis without bleeding; Z95.0 Presence of cardiac pacemaker; Z86.16 Personal history of COVID-19; E78.00 Pure hypercholesterolemia, unspecified; I10 Essential (primary) hypertension; Z86.73 Personal history of transient ischemic attack (TIA), and cerebral infarction without residual deficits; Z90.49 Acquired absence of other specified parts of digestive tract; Z96.642 Presence of left artificial hip joint; Z87.891 Personal history of nicotine dependence; Z88.5 Allergy status to narcotic agent; Z88.2 Allergy status to sulfonamides; Z88.8 Allergy status to other drugs, medicaments and biological substances; Z79.899 Other long term (current) drug therapy; R13.10 Dysphagia, unspecified
CPT/HCPCS: 43239; 43249; 88305; 88312; 88341; 88342; C1726; J2003; J2704; J7120

== ENCOUNTER 2025-02-02 09:47 | Outpatient (CLI) | payer MEDICARE, SELFPAY ==
[2025-02-02 15:59] LABS: Anion Gap 12.6 mEq/L (5-15); Blood Urea Nitrogen 8 mg/dl (7-17); Carbon Dioxide 25 mmol/L (22.0-30.0); Chloride 99 mmol/L (98-107); Creatinine,Serum 0.60 mg/dl (0.52-1.04); Potassium 4.6 mmoL/L (3.5-5.1); Sodium 132 mmol/L (136-145)
[2025-02-02 16:00] LABS: Alanine Aminotransferase 22 U/L (12-78); Albumin Level 4.5 g/dl (3.5-5.0); Albumin/Globulin Ratio 2.0 (1.1-1.8); Alkaline Phosphatase 50 U/L (38-126); Aspartate Amino Transferase 34 U/L (14-36); Bilirubin,Total 0.5 mg/dl (0.2-1.3); Calcium 9.0 mg/dl (8.4-10.2); Cholesterol 210 mg/dl (140-200); Estimated Glomerular Filt Rate 95 ml/min (>60); GFR (African American) 116 ML/MIN (>60); Globulin 2.3 g/dL (1.3-3.2); Glucose 99 mg/dl (74-100); HDL Cholesterol 57 mg/dl (40-60); Total Protein,Serum 6.8 g/dl (6.3-8.2); Triglycerides 171 mg/dl (30-150)
--- OUTSIDE RECORDS SUMMARY | 2025-02-03 14:43 | XMS_ITS | Clinical Summary ---
Author Organization [facility] Address [address] [place] [address] Care Team Providers Care Manager Social Name Role Phone Barak Blas DO Primary Care Provider [phone] Allergies Active Allergy Reactions Criticality Noted Date Comments Morphine Nausea Only,Nausea And Vomiting Medium 07/27 Sulfa Antibiotics Itching 08/15/2022 Triamcinolone Unknown - Low Severity 08/15/2022 Medications atorvastatin (LIPITOR) 20 MG tablet Take 1 tablet by mouth Daily. 06/21/2022 Active primidone (MYSOLINE) 50 MG tablet Take 1 tablet by mouth Every 12 (Twelve) Hours. 07/17/2022 Active losartan (COZAAR) 25 MG tablet Take 1 tablet by mouth Daily. for blood pressure 05/25/2022 Active vitamin D3 125 MCG (5000 UT) capsule capsule Take 1 capsule by mouth Daily. Active vitamin B-12 (CYANOCOBALAMIN ) 1000 MCG tablet Take 1 tablet by mouth Daily. Active propranolol (INDERAL) 10 MG tablet Take 1 tablet by mouth Every 12 (Twelve) Hours. 08/08/2023 Active latanoprost (XALATAN) 0.005 % ophthalmic solution instill 1 drop into each eye at bedtime 03/13/2024 Active Active Problems Problem Noted Date Diagnosed Date Nonrheumatic aortic valve insufficiency 03/07/20 Nonrheumatic mitral valve regurgitation 08/21/19 Assessment & Plan (10/06/2024 1:10 PM EDT): Echocardiogram from 09/12/23 revealed mild mitral regurgitation. Currently stable and asymptomatic. Assessment & Plan (03/24/2024 3:30 PM EDT): Echocardiogram from 09/12/23 revealed mild mitral regurgitation. Currently stable and asymptomatic. Assessment & Plan (09/12/2023 2:28 PM EDT): Echocardiogram today shows mild mitral regurgitation. Currently stable and asymptomatic. Assessment & Plan (08/21/2022 10:26 AM EST): Mild to moderate. Last assessment January 2022. Update at follow-up. Pacemaker 08/21/2022 Assessment & Plan (10/06/2024 1:10 PM EDT): Device interrogation today shows good battery life and lead function. No events noted and no changes made. Follow-up in 6 months. Assessment & Plan (03/24/2024 3:30 PM EDT): Device interrogation today shows good battery life and lead function. No events noted and no changes made. Follow-up in 6 months. Assessment & Plan (09/12/2023 2:26 PM EDT): Device interrogation today shows good battery life and lead function. No events noted and no changes made. Follow-up in 6 months. Assessment & Plan (08/21/2022 10:27 AM EST): Good battery life and lead function. No changes made. Follow-up in 6 months. Family History Medical History Relation Name Comments Stroke Father Pancreatic cancer Mother Cancer Son PROSTATE,LIVER, LUNG Relation Name Status Comments Brother 1 Alive Brother 2 Alive Brother 3 Alive Brother 4 (Age 22) FARM ACCID ENT Father (Age 69) Mother (Age 58) Sister 1 Alive Sister 2 Alive Sister 3 (Age 69) CARDIAC HI STORY Son Social History Tobacco Use Types Packs/Day Years Used Date Smoking Tobacco: Former Cigarettes Passive Smoke Exposure: Past Smokeless Tobacco: Never Tobacco Cessation:Counseling Given: Yes Alcohol Use Standard Drinks/Week Comments Not Currently 0 (1 standard drink = 0.6 oz pur e alcohol) Comments Unknown Sex and Gender Information Value Date Recorded Sex Assigned at Not on file Legal Sex Female 12:22 PM EDT Gender Identity Not on file Sexual Orientation Not on file Last Filed Vital Signs Vital Sign Reading Time Taken Comments Blood Pressure 110/76 10/06/2024 12:29 PM EDT Pulse 88 10/06/2024 12:29 PM EDT Temperature - - Respiratory Rate - - Oxygen Saturation 99% 10/06/2024 12:29 PM EDT Inhaled Oxygen Concentration - - Weight 60.8 kg (134 lb) 10/06/2024 12:29 PM EDT Height 162.6 cm (5' 4 ) 10/06/2024 12:29 PM EDT Body Mass Index 23 10/06/2024 12:29 PM EDT Plan of Treatment Upcoming Encounters Date Type Department Care Team (Late st Contact Info) Description 04/07/2025 11:30 AM EDT Office Visit [facility] [address] [place] [address] Patty Vela APRN [address] [place] [address] 04/07/2025 11:30 AM EDT Clinical Support No Requirements [facility] [address] [place] [address] Health Maintenance Due Date Last Done Comments DXA SCAN 1940 Pneumococcal Vaccine 50+ (1 of 1 - PCV) 1991 RSV Vaccine - Adults (1 - 1- dose 75+ series) 2016 ZOSTER VACCINE (2 of 3) 09/10/2018 07/16/2018 ANNUAL WELLNESS VISIT 08/17/2022 COVID-19 Vaccine (4 - 2023-2 5 season) 2024 04/20/2021, 09/01/2020, 08/04/2020 INFLUENZA VACCINE 03/25/2025 04/28/2024, , 04/05/2021, Additional history exists TDAP/TD VACCINES (2 - Td or Tdap) 07/19/2032 023 Procedures Procedure Name Priority Date/Time Associated Diagnosis Comments REMOTE DEVICE CHECK 12/10/2024 2 :38 AM EDT from Last 3 Months Results * Remote Device Check (12/10/2024 2:38 AM EDT) Date Time Interrogation Session [id number] [facility] Type Interrogation Session Remote [facility] Implantable Pulse Generator Grocery [employer] [facility] Implantable Pulse Generator Type IPG [facility] Implantable Pulse Generator Model Cuca XT DR HUTCHINSON [id number] [facility] Implantable Pulse Generator Serial Number [id number] [facility] Implantable Pulse Generator Implant Date [id number] [facility] Battery Remaining Longevity 90.0 mo [facility] Battery Voltage 2.980 [facility] Battery EXHIBITION SPECIALIST Trigger 2.625 [facility] Battery Status OK [facility] Abraham Statistic RA Percent Paced 99.88 [facility] Abraham Statistic RV Percent Paced 0.04 [facility] Atrial Tachy Statistic AT/AF [place] Percent 0.00 [facility] Lead Channel RA Sensing Intrinsic Amplitude 2.000 [facility] Lead Channel Setting RA Sensing Sensitivity 0.45 [facility] Lead Channel RA Impedance Value 418 [facility] Lead Channel RA Pacing Threshold Amplitude 0.375 [facility] Lead Channel RA Pacing Threshold Pulse Width 0.4 [facility] Lead Channel RA Measurements Date and Time [id number] [facility] Lead Channel Setting RA Pacing Amplitude 1.500 [facility] Lead Channel Setting RA Pacing Pulse Width 0.4 [facility] Lead Channel RV Sensing Intrinsic Amplitude 8.750 [facility] Lead Channel Setting RV Sensing Sensitivity 0.90 [facility] Lead Channel RV Impedance Value 532 [facility] Lead Channel RV Pacing Threshold Amplitude 0.625 [facility] Lead Channel RV Pacing Threshold Pulse Width 0.4 [facility] Lead Channel RV Measurements Date and Time [id number] [facility] Lead Channel Setting RV Pacing Amplitude 2.000 [facility] Lead Channel Setting RV Pacing Pulse Width 0.4 [facility] Abraham Setting Mode (NBG Code) AAIR<=>DDDR [facility] Abraham Setting Lower Rate Limit 60 [facility] Abraham Setting AT Mode Switch Rate 171 [facility] Abraham Setting Maximum Tracking Rate 130 [facility] Abraham Setting Maximum Sensor Rate 130 [facility] Abraham Setting PAV Delay 180 [facility] Abraham Setting EMA Delay 150 [facility] Lead Channel Setting RA Sensing Polarity Bipolar [facility] Lead Channel Setting RV Sensing Polarity Bipolar [facility] Lead Channel Setting RA Pacing Polarity Bipolar [facility] Lead Channel Setting RV Pacing Polarity Bipolar [facility] Lead Channel RA Pacing Threshold Polarity Bipolar [facility] Lead Channel RV Pacing Threshold Polarity Bipolar [facility] Zone Setting Type Category AT/AF [facility] IDC RATE 1 171 [facility] THERAPIES All Rx On [facility] Zone Setting Status Monitor [facility] Zone ID 2 [facility] Zone Setting Type Category VT [facility] IDC RATE 1 150 [facility] Zone Setting Status ENABLED [facility] Zone ID 6 [facility] 12/10/2024 2:38 AM EDT us Florencia Franco MD CV IMPLANTABLE CARDIAC DEVIC E Final Result Performing Organization Address City/State/[facility] Co de Phone Number [facility] from Last 3 Months Insurance MEDICARE ADVANTAGE HMO Care Teams Manager Social Relationship Specialty Start Date End Date Barak Blas DO [address] [place] [address] PCP - General Internal Medicine 09/12/23
== END 2025-02-02 23:59 | disposition home or self-care (01) ==
LOC: LAB.DROPOF 02-03 14:41
PROVIDERS: PCP Family Medicine; Visit Provider Family Medicine
DX: E78.2 Mixed hyperlipidemia (principal); I10 Essential (primary) hypertension
CPT/HCPCS: 80053; 80061

== ENCOUNTER 2025-03-18 17:18 | Emergency (ER) | payer MEDICARE, SELFPAY ==
[2025-03-18 17:37] VITALS: BP 175/69; PULSE 79; RESP 16; TEMP 37; O2SAT 100; BMI 23.0
--- NOTE | 2025-03-18 17:41 | XR_ITS ---
PROCEDURE INFORMATION: Exam: XR Right Wrist Exam date and time: 03/18/2025 6:52 PM Age: 84 years old Clinical indication: Injury or trauma; Fall; Blunt trauma (contusions or hematomas); Wrist; Right; Additional info: Fall this morning TECHNIQUE: Imaging protocol: Radiologic exam of the right wrist. Views: 1 or 2 views. COMPARISON: CR XR HAND RT MIN 3V 03/18/2025 6:52 PM FINDINGS: Bones/joints: Healed fracture of the distal radius. Moderate osteophytosis and degenerative changes involve the proximal carpal row with cystic changes of the triquetrum. Soft tissues: Moderate dorsal soft tissue swelling. IMPRESSION: 1. Healed fracture of the distal radius. Moderate dorsal soft tissue swelling. If there is high clinical suspicion for occult fracture recommend conservative immobilization and follow-up radiographs in 10-14 days. 2. Moderate osteophytosis and degenerative changes involve the proximal carpal row with cystic changes of the triquetrum.
--- NOTE | 2025-03-18 17:41 | XR_ITS ---
PROCEDURE INFORMATION: Exam: XR Right Knee Exam date and time: 03/18/2025 6:52 PM Age: 84 years old Clinical indication: Injury or trauma; Other: Fall this morning TECHNIQUE: Imaging protocol: Radiologic exam of the right knee. Views: 3 views. COMPARISON: CR XR TIBIA FIBULA RT 2V 03/18/2025 6:52 PM FINDINGS: Bones/joints: Transverse fracture of the patella with 11 mm of distraction. Soft tissues: Moderate soft tissue swelling of the anterior knee. IMPRESSION: 1. Transverse fracture of the patella with 11 mm of distraction. 2. Moderate soft tissue swelling of the anterior knee.
--- NOTE | 2025-03-18 17:54 | ED_ITS ---
<Statement entered by Yoanna Garcia DO - 03/19/25 16:32> I was consulted by the NESTOR, and we discussed the complexity of problems being addressed. I approve the treatment and management plan for this patient's care in the emergency department, thus performing a substantial portion of the medical decision making. Yoanna Garcia DO Discharge Plan Disposition Patient Disposition: Home, Self-Care Condition: Good Prescriptions Prescriptions: New oxycodone 5 mg tablet 5 mg PO BID Qty: 6 0RF No Action lorazepam 0.5 mg tablet 0.5 mg PO HS PRN (Reason: sleep) Qty: 30 0RF latanoprost 0.005 % drops 1 drp Eye-Both HS Patient Comments: INSTILL 1 DROP INTO EACH EYE AT BEDTIME cholecalciferol (vitamin D3) 25 mcg (1,000 unit) capsule 50 mcg PO DAILY Prolia 60 mg/mL syringe 60 mg SQ [id number] atorvastatin [Lipitor] 20 mg tablet 20 mg PO DAILY Qty: 90 3RF propranolol 10 mg tablet 10 mg PO BID 90 Days Qty: 180 4RF losartan 25 mg tablet 25 mg PO DAILY 90 Days Qty: 90 4RF Rx Instructions: Take 1 tablet by mouth once daily coQ10 (ubiquinol) 100 mg Capsule 50 mg PO DAILY primidone 50 mg tablet 50 mg PO BID Rx Instructions: TAKE 1 TABLET BY MOUTH TWICE DAILY FOR TREMORS omeprazole 40 mg capsule,delayed release(DR/EC) 40 mg PO DAILY Qty: 30 12RF Rx Instructions: Please take 1 capsule p.o. daily Referrals Follow up/Referrals: Franco Loyd MD [Primary Care Provider, Family Practice] - See instructions Real Bradford DO [Staff Physician, Orthopedics] - See instructions Activity Restrictions/Add. Instructions Additional Instructions/Restrictions: Please return to the emergency department with any worsening signs or symptoms. Please follow-up with orthopedic doctor in the upcoming days/weeks. Please stay on your knee immobilizer and utilize your crutches until orthopedic follow-up. Please utilize ibuprofen and Tylenol as well as your other pain medication as needed for symptomatic relief. Clinical Impressions Clinical Impression: Fracture of left patella Instructions Patient Instructions: DI for Patella Fracture, How to Prevent Falls Print Language Print Language: Scottish Discharge ED Provider: Yoanna Garcia General Adult [facility] General Chief complaint: Fall Stated complaint: right knee and hand pain Time Seen by Provider: 03/18/25 17:46 Mode of Arrival: Ambulatory Source of Information: Patient Description of Symptoms (Recalled from ER Triage Doc. by RN): juany presents to ED with complaints of right knee adn wrist pain after a fall while shopping at the [employer] in [place] today. Flakito stated she tripped while shop ping and fell, also hitting her head. patient is not on blood thinners. History of Present Illness HPI narrative: 84-year-old female presents to the emergency department accompanied by her for a mechanical fall, patient states that she was at the [employer] , when she was going in to go shopping , when she tripped on a rug and metal piece , falling striking her head, denies any LOC, denies any presyncopal or syncopal event, no anticoagulants, patient complains of right wrist pain, fourth digit finger pain on the right, right knee pain, no fever no chills no chest pain no cough no congestion, no shortness of breath, no abdominal pain no nausea no vomiting no constipation or diarrhea, patient is a former smoker, den ies any alcohol or drug use, patient denies any neck pain, mid back pain or lower back pain, patient has been unable to ambulate on the affected extremity after the fall. Patient's past medical history consistent with hypertension, essential tremor, mixed conductive and sensorineural hearing loss, hyperlipidemia, GERD. Initial triage vitals unremarkable. Please note that above description of symptoms, in this electronic medical record under categorization of recalled from ER triage doctor by RN are reflective of an initial nursing assessment, however, is not reflective of my full history and physical exam that was personally taken and clarified. Consequentially, this preceding description of symptoms, which may include the patient's categorized chief complaint in the EMR, do not reflect my personal clinical impression, and the ultimate description of history of present illness and patient stated complaints should be deferred to this section of the note. Unless stated otherwise or congruent with this section of the note, additional signs, symptoms, or incongruence should be interpreted as inaccurate with my clinical impression. Onset (ago): hour(s) Related Data Home Medications ?Medication ?Instructions ?Recorded ?Confirmed coQ10 (ubiquinol) 100 mg capsule 50 mg PO DAILY Supple ment 10/11/22 02/02/25 denosumab 60 mg/mL subcutaneous 60 mg SQ [id number] 07/2702/02/25 syringe (Prolia) cholecalciferol (vitamin D3) 25 50 mcg PO DAILY 02/02/25 mcg (1,000 unit) capsule latanoprost 0.005 % eye drops 1 drp Eye-Both HS 02/02/25 primidone 50 mg tablet 50 mg PO BID 11/28/24 Previous Rx's ?Medication ?Instructions ?Recorded atorvastatin 20 mg tablet (Lipitor) 20 mg PO DAILY Cho lesterol #90 tabs 09/22/24 lorazepam 0.5 mg tablet 0.5 mg PO HS PRN sleep #30 t abs 10/28/24 omeprazole 40 mg capsule,delayed 40 mg PO DAILY #30 ca ps 12/01/24 release propranolol 10 mg tablet 10 mg PO BID 90 days #180 ta bs 12/23/24 losartan 25 mg tablet 25 mg PO DAILY blood pressur e 90 01/13/25 days #90 tabs oxycodone 5 mg tablet 5 mg PO BID #6 tabs 03/18/25 Allergies Allergy/AdvReac Type Severity Reaction Status Date / Time Sulfa (Sulfonamide Allergy Unknown ITCHING Verified 02/02/25 09:02 Antibiotics) sulfamethizole Allergy Unknown ITCHING Verified 02/02/25 09:02 triamcinolone Allergy Unknown Cough Verified 02/02/25 09:02 morphine AdvReac Mild Nausea Verified 02/02/25 09:02 [facility] Disclaimer: The information contained in this section may have been updated after the patient was seen, as this information can be updated by other users. Medical History Pneumonia History of COVID-19 History of pacemaker Dysphagia Closed fracture of left distal radius Status post open reduction internal fixation with volar plating after her fall. She has been in the alf for rehab and is currently home. She has no pain from this and actually seems to be doing fairly well considering. Hearing Loss Tinnitus Sinus disorder Arthritis Hypercholesterolemia Hypertension TIA (transient ischemic attack) Surgical History Hx of cholecystectomy Hx of heart surgery hole in heart fixed History of total left hip replacement Family History Other Cancer Coronary artery disease Diabetes Heart attack Hypercholesterolemia Hypertension Stroke Thyroid disorder Social History Smoking Status: Never smoker alcohol intake: never substance use type: denies use current occupational status: retired Travel in the last 8 weeks?: None household members: spouse housing: house caffeine: Yes (one cup of coffee/day) Have you lived/traveled outside US in past 30 days?: No Contact w/someone who lives/traveled outside US past 30 days?: No Exposure to someone with infectious disease in past 14 days?: No Do you have a fever (greater than 100.4 F or 38 C)?: No Have you tested positive for COVID-19?: No Exposed to someone with COVID-19 in past 14 days?: No Do you have a sore throat?: No Do you have a cough?: No Do you have any weakness?: No Do you have any diarrhea?: No Are you experiencing any unusual bleeding?: No Do you have any muscle aches/pain?: No Do you have any abdominal pain?: No Are you experiencing loss of taste or smell?: No Other Medical History Have you received the Flu Vaccine for this season: No Have you received the Pneumonia Vaccine: Yes ROS Obtained: Yes All systems reviewed & no additional complaints except as documented Physical Exam General General appearance: alert and in no apparent distress Head Head exam: atraumatic and normocephalic Eye Eye exam: Present PERRL and EOMI ENT ENT exam: Present mucous membranes moist Neck Neck exam: Present normal inspection Chest Chest inspection: Present normal inspection and symmetric chest wall rise; Absent tenderness Respiratory Respiratory exam: Present normal lung sounds bilaterally; Absent respiratory distress Cardiovascular Cardiovascular exam: Present regular rate and normal rhythm Abdominal Exam Abdominal exam: Present soft; Absent tenderness, guarding, rebound or rigidity Extremities Exam Extremities exam: Present normal inspection, tenderness, joint swelling and other (Minimal joint effusion on the right knee, difficulty with flexion extension, pain to palpation over the patella, patella is mobile, otherwise neurovascular intact, pain to palpation over the dorsal and volar aspect of the patient's right wrist, and pain to palpation to the fourth digit on the right,); Absent full ROM Back Exam Back exam: Present normal inspection and full ROM; Absent tenderness, muscle spasm or paraspinal tenderness Neurological Exam Neurological exam: Present alert and oriented X3 Psychiatric Psychiatric exam: Present normal affect Skin Skin exam: Present warm and dry Medical Decision Making Medical Records Medical records reviewed: Yes I reviewed the patient's medical records. Screening: Per USPSTF and CDC recommendations, given the prevalence of disease in our region, it is our hospital?s policy to screen for HIV and viral Hepatitis for all patients aged 18 and over and those with ongoing risk factors. Javier Inquiry Pt receiving controlled substance: Yes Javier was queried for this patient: No Reason not queried -: Emergent pt cond-no time Risks and benefits of using a controlled substance: were discussed with pt by me Vital Signs: 03/18/25 17:37 03/18/25 17:55 03/18/25 18:15 Temperature 98.6 F Temperature Source Temporal Artery Scan Pulse Rate 95 H Pulse Rate [Right Radial] 79 Respiratory Rate 16 Blood Pressure 197/130 H Blood Pressure [Right Arm] 175/69 H Blood Pressure Mean [Right Arm] 104 Blood Pressure Source [Right Arm] Automatic Cuff Blood Pressure Position [Right Arm] Sitting 02 Sat by Pulse Oximetry 100 98 95 Oxygen Delivery Method Room Air Room Air Lab Data Lab results reviewed: Yes I reviewed the patient's lab results. Orders (Tests/Meds): ED MEDICATIONS Discontinued Medications Generic Name Dose Route Start Last Admin Trade Name Freq PRN Reason Stop Dose Admin Hydrocodone Bitart/Acetaminophen 1 tab 03/18/25 18:01 03/18/25 18:15 Hydrocodone/Apap 5/325 Mg Tablet PO 03/18/25 18:02 1 tab ONCE ONE Administration ORDERS Category Date Time Status CT cervical spine wo con Stat Cat Scan 03/18/25 18:[address] head/brain wo con Stat Cat Scan 03/18/25 18:03 Completed Pelvis XR 1-2 views [XR pelvis 1-2V] Stat Exams 03/18/25 18:01 Completed Wrist XR right 2 views [XR wrist RT 2V] Stat Exams 03/18/25 17:41 Completed XR chest portable Stat Exams 03/18/25 18:01 Completed XR forearm RT 2V Stat Exams 03/18/25 18:00 Completed XR hand RT min 3V Stat Exams 03/18/25 18:00 Completed XR knee RT 3V Stat Exams 03/18/25 17:41 Completed XR tibia fibula RT 2V Stat Exams 03/18/25 18:00 Completed Medical Decision Narrative: 84-year-old female presents emergency department for mechanical fall that occurred several hours ago, differential diagnose include but not limited to, closed head injury, acute SDH, traumatic SAH, cervicalgia, cervical spine fracture, tuft fracture, hand sprain/strain, wrist fracture, wrist sprain/strain, knee fracture, knee sprain/strain among others. I discussed this patient's case with the attending physician Dr. Garcia Will obtain CT cervical spine without contrast CT head without contrast, CXR, forearm x-ray hand x-ray knee x-ray on the right, pelvic x-ray, tib-fib x-ray of the right and right wrist x-ray on the right. Will give 5 mg p.o. [place] for pain. I reviewed the patient's right knee x-ray, and right tib-fib x-ray, along the corresponding radiologic reports, transverse fracture of the patella with 11 mm of distraction moderate soft tissue swelling of the anterior knee Reviewed the patient's chest x-ray along the corresponding radiologic report pleural-parenchymal scarring at the lung base without subsegmental atelectasis is present without consolidation or pleural effusion the project over the diaphragm. I reviewed the patient's pelvic x-ray along the corresponding radiologic report, sclerotic lesion of the right pubic symphysis with os expansion new from comparison exam recommended further evaluation with whole-body nuclear bone study to evaluate for other lesions that may be neoplastic lesion. I reviewed the patient's right hand x-ray as well as right forearm x-ray along the corresponding radiological reports, he will fracture the distal radius, moderate dorsal soft tissue swelling, if there is high clinical sufficient for occult fracture recommend conservative mobilization follow-up radiographs in 10 to 14 days, moderate osteophytosis and degenerative changes on the proximal carpal row with cystic changes triquetrum. I reviewed the patient's CT cervical spine without contrast along the corresponding radiologic report, no acute cervical fracture or traumatic subluxation, moderate to severe multilevel degenerative disc disease, moderate to severe upper lobe central lobar emphysema, additional chronic and incidental findings as above. I reviewed the patient's CT head without contrast along the corresponding radiologic report, no acute intracranial process, age-indeterminate nondisplaced fracture of anterior wall of right maxillary sinus, moderate cortical atrophy, moderate to severe remote white matter small vessel ischemic changes remote left frontal lobe insult with encephalomalacia I reviewed the patient's wrist x-ray, healed fracture of the distal radius moderate dorsal soft tissue swelling. I discussed this patient's case with on-call orthopedic surgeon at approximately 9:03 PM, he recommends locking knee immobilizer in extension and follow-up in the orthopedic clinic. I discussed these results with the patient with him at the bedside patient and family would like to pursue outpatient treatment with knee immobilizer, would like to attempt ambulation with assistance devices, I did offer admission for PT OT and training with assistive devices, patient denied at this time, shared decision making was utilized, we would once again like to pursue outpatient treatment with orthopedic provider as discussed above. Patient is able to range the knee, some difficulty with flexion no difficulty with extension, can lift leg off the bed and fires quadriceps muscles appropriately Patient was able to get up and ambulate with assistance with crutches and knee immobilizer, patient was given very strict ED return precautions. Patient once again would like to pursue outpatient therapy/discharge home and follow-up with orthopedic provider. Shared decision making was also once again utilized. Patient voiced understanding and agreement with current treatment plan/discharge plan. P.o. analgesia will be provided by attending physician. Patient voiced understanding and agreement with current treatment plan/discharge plan Critical Care Critical Care Time Critical Care Time: No
[2025-03-18 17:55] VITALS: O2SAT 98
--- OUTSIDE RECORDS SUMMARY | 2025-03-18 17:56 | XMS_ITS | Clinical Summary ---
Author Organization [facility] Address [address] [place] [address] Care Team Providers Care Fitness Worker Name Role Phone Barak Blas DO Primary Care Provider [phone] Allergies Active Allergy Reactions Criticality Noted Date [...] Description 04/07/2025 11:30 AM EDT Office Visit [facility] [address] [place] [id number] Patty Vela APRN [address] [place] [address] 04/07/2025 11:30 AM EDT Clinical Support No Requirements [facility] [address] [place] [id number] Health Maintenance Due Date Last Done Comments DXA SCAN 1940 Pneumococcal Vaccine 50+ (1 of 1 - PCV) 1991 RSV Vaccine - Adults (1 - 1- dose 75+ series) 2016 ZOSTER VACCINE (2 of 3) 09/10/2018 07/16/2018 ANNUAL WELLNESS VISIT 08/17/2022 INFLUENZA VACCINE 01/23/2025 04/28/2024, , 04/05/2021, Additional history exists COVID-19 Vaccine (4 - 2024-2 6 season) 2025 04/20/2021, 09/01/2020, 08/04/2020 TDAP/TD VACCINES (2 - Td or Tdap) 07/19/2032 023 Procedures Procedure Name Priority Date/Time Associated Diagnosis Comments REMOTE DEVICE CHECK 03/03/2025 2:40 AM EDT from Last 3 Months Insurance [facility] MEDICARE ADVANTAGE HMO Care Teams Fitness Worker Relationship Specialty Start Date End Date Barak Blas DO [address] [place] [address] PCP - General Internal Medicine 09/12/23
--- NOTE | 2025-03-18 18:00 | XR_ITS ---
PROCEDURE INFORMATION: Exam: XR Right Forearm Exam date and time: 03/18/2025 6:52 PM Age: 84 years old Clinical indication: Injury or trauma; Fall; Blunt trauma (contusions or hematomas); Arm, lower; Right; Additional info: Right arm/hand injury to fall TECHNIQUE: Imaging protocol: Radiologic exam of the right forearm. Views: 2 views. COMPARISON: CR XR WRIST RT 2V 03/18/2025 6:52 PM FINDINGS: Bones/joints: Healed fracture of the distal radius. Moderate osteophytosis and degenerative changes involve the proximal carpal row with cystic changes of the triquetrum. Soft tissues: Moderate dorsal soft tissue swelling of the wrist. IMPRESSION: 1. Healed fracture of the distal radius. Moderate dorsal soft tissue swelling. If there is high clinical suspicion for occult fracture recommend conservative immobilization and follow-up radiographs in 10-14 days. 2. Moderate osteophytosis and degenerative changes involve the proximal carpal row with cystic changes of the triquetrum.
--- NOTE | 2025-03-18 18:00 | XR_ITS ---
PROCEDURE INFORMATION: Exam: XR Right Tibia and Fibula Exam date and time: 03/18/2025 6:52 PM Age: 84 years old Clinical indication: Injury or trauma; Other: Fall right leg/knee pain TECHNIQUE: Imaging protocol: Radiologic exam of the right tibia and fibula. Views: 2 views. COMPARISON: CR XR KNEE RT 3V 03/18/2025 6:52 PM FINDINGS: Bones/joints: Transverse fracture of the patella with 11 mm of distraction. Soft tissues: Moderate soft tissue swelling of the anterior knee. IMPRESSION: 1. Transverse fracture of the patella with 11 mm of distraction. No tibia fracture. 2. Moderate soft tissue swelling of the anterior knee.
--- NOTE | 2025-03-18 18:00 | XR_ITS ---
PROCEDURE INFORMATION: Exam: XR Right Hand Exam date and time: 03/18/2025 6:52 PM Age: 84 years old Clinical indication: Injury or trauma; Fall; Blunt trauma (contusions or hematomas); Hand; Right; Additional info: Fourth digit injury after fall TECHNIQUE: Imaging protocol: Radiologic exam of the right hand. Views: 3 or more views. COMPARISON: CR XR WRIST RT 2V 03/18/2025 6:52 PM FINDINGS: Bones/joints: Healed fracture of the distal radius. Moderate osteophytosis and degenerative changes involve the proximal carpal row with cystic changes of the triquetrum. Soft tissues: Moderate dorsal soft tissue swelling. IMPRESSION: 1. Healed fracture of the distal radius. Moderate dorsal soft tissue swelling. If there is high clinical suspicion for occult fracture recommend conservative immobilization and follow-up radiographs in 10-14 days. 2. Moderate osteophytosis and degenerative changes involve the proximal carpal row with cystic changes of the triquetrum.
--- NOTE | 2025-03-18 18:01 | XR_ITS ---
PROCEDURE INFORMATION: Exam: XR Chest Exam date and time: 03/18/2025 6:52 PM Age: 84 years old Clinical indication: Injury or trauma; Fall; Blunt trauma (contusions or hematomas) TECHNIQUE: Imaging protocol: Radiologic exam of the chest. Views: 1 view. COMPARISON: CR XR CHEST 2V 10/23/2024 6:40 PM FINDINGS: Tubes, catheters and devices: A 2 lead internal cardiac device implanted at the left chest with leads extending to the right heart. Lungs: Pleuroparenchymal scarring of the lung bases with subsegmental atelectasis is present without consolidations or pleural effusions that project above the diaphragm. Pleural spaces: Unremarkable. No pleural effusion. No pneumothorax. Heart/Mediastinum: Unremarkable. No cardiomegaly. Bones/joints: Unremarkable. IMPRESSION: Pleuroparenchymal scarring of the lung bases with subsegmental atelectasis is present without consolidations or pleural effusions that project above the diaphragm.
--- NOTE | 2025-03-18 18:01 | XR_ITS ---
PROCEDURE INFORMATION: Exam: XR Pelvis Exam date and time: 03/18/2025 6:52 PM Age: 84 years old Clinical indication: Injury or trauma; Fall TECHNIQUE: Imaging protocol: Radiologic exam of the pelvis. Views: 1 or 2 view. COMPARISON: CR XR PELVIS 1-2V 07/19/2022 10:38 AM FINDINGS: Bones/joints: Sclerotic lesion of the right pubic symphysis with osseous expansion new from comparison exam recommend further evaluation with whole-body nuclear bone study to evaluate for other lesions as this may be neoplastic lesion. Postsurgical changes compatible with left hip arthroplasty. Soft tissues: Unremarkable. IMPRESSION: Sclerotic lesion of the right pubic symphysis with osseous expansion new from comparison exam recommend further evaluation with whole-body nuclear bone study to evaluate for other lesions as this may be neoplastic lesion.
--- NOTE | 2025-03-18 18:03 | CT_ITS ---
PROCEDURE INFORMATION: Exam: CT Cervical Spine Without Contrast Exam date and time: 03/18/2025 6:51 PM Age: 84 years old Clinical indication: Injury or trauma; Fall; Blunt trauma TECHNIQUE: Imaging protocol: Computed tomography of the cervical spine without contrast. Total images: 486 Radiation optimization: All CT scans at this facility use at least one of these dose optimization techniques: automated exposure control; mA and/or kV adjustment per patient size (includes targeted exams where dose is matched to clinical indication); or iterative reconstruction. COMPARISON: CT CERVICAL SPINE WO CON 07/19/2022 10:04 AM FINDINGS: Tubes, catheters and devices: Left subclavian cardiac pacemaker. Bones: Osteopenia. Maintained cervical lordosis. Cervical vertebral body height and alignment is preserved. The base of the dens and the C1 and C2 articulations are maintained with mild degenerative arthropathy. The cervicooccipital junction is intact. The facet joints are appropriately aligned with mild degenerative spondylosis throughout the cervical spine. Moderate degenerate facet joint spondylosis bilaterally at C7-T1. Posterior elements are intact. Perhaps mild loss of vertebral body height at C7 , unchanged. Moderate to severe degenerative disc disease C4-C5, C5-C6, and C6-C7 with small posterior projecting disc osteophyte complex. Moderate degenerate disc disease C3-C4. Minor anterolisthesis C7-T1 is most likely degenerative. Mild bilateral neural foraminal encroachments at multiple levels. No critical spinal canal stenosis. Paranasal sinuses: Mild mucosal thickening base of the right maxillary sinus. Age indeterminate nondisplaced fracture anterior wall right maxillary sinus. Lungs: Moderate to severe upper lobe centrilobular emphysema. Soft tissues: No prevertebral soft tissue swelling. IMPRESSION: 1. No acute cervical fracture or traumatic subluxation. 2. Moderate to severe multilevel degenerative disc disease. 3. Moderate to severe upper lobe centrilobular emphysema. 4. Additional chronic and incidental findings.
--- NOTE | 2025-03-18 18:03 | CT_ITS ---
PROCEDURE INFORMATION: Exam: CT Head Without Contrast Exam date and time: 03/18/2025 6:48 PM Age: 84 years old Clinical indication: Injury or trauma; Fall; Blunt trauma (contusions or hematomas); Additional info: Fall, head trauma TECHNIQUE: Imaging protocol: Computed tomography of the head without contrast. Total images: 635 Radiation optimization: All CT scans at this facility use at least one of these dose optimization techniques: automated exposure control; mA and/or kV adjustment per patient size (includes targeted exams where dose is matched to clinical indication); or iterative reconstruction. COMPARISON: CT HEAD/BRAIN WO CON 07/19/2022 10:02 AM FINDINGS: Brain: No acute intracranial hemorrhage, midline shift, or mass. Moderate cortical and cerebellar atrophy. Moderate to severe remote white matter small-vessel ischemic changes. 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 No acute territorial infarct. The basilar cisterns are preserved. Cerebral ventricles: Ventriculomegaly compatible with degree of central atrophy. Paranasal sinuses: Mild mucosal thickening base of the right maxillary sinus. Age indeterminate nondisplaced fracture anterior wall of the right maxillary sinus. Mastoid air cells: Visualized mastoid air cells are well aerated. Orbital cavities: Bilateral orbital lens replacement. Bones: Osteopenia. No skull fracture. Soft tissues: Unremarkable. Vasculature: Mild calcifications bilateral intracranial internal carotid arteries. IMPRESSION: 1. No acute intracranial process. 2. Age indeterminate nondisplaced fracture anterior wall right maxillary sinus. 3. Moderate cortical atrophy. 4. Moderate to severe remote white matter small-vessel ischemic changes. 5. Remote left frontal lobe insult with encephalomalacia.
[2025-03-18 18:15] VITALS: BP 197/130; PULSE 95; O2SAT 95
[2025-03-18] MEDS: HYDROCODONE/APAP 5/325 MG TABLET 1 TAB PO (18:15)
--- OUTSIDE RECORDS SUMMARY | 2025-03-18 18:55 | XMS_ITS | CCD ---
Author Organization Unknown Care Team Providers Care Sr Account Executive Name Role Phone Unavailable Primary Care Provider Unavailabl e Unavailable Chronic Care Management Unavaila ble Summary Purpose DataExchange Insurance Providers Payer name Policy type / Coverage type Covered alliance party ID Effective Begin Date Effective End Date [facility] [id number] Unknown Unknown Family History Family History data not found Medication Administered No Medication Administered data Reason For Visit No Reason For Visit data Medical Equipment No Medical Equipment data Advance Directives No Advance Directive data
--- NOTE | 2025-03-18 19:08 | PC.NURSE ---
Pt back from Rad
[2025-03-18 21:28] VITALS: BP 172/86; PULSE 60; RESP 18; TEMP 36.9; O2SAT 96
== END 2025-03-18 21:40 | disposition home or self-care (01) ==
PROVIDERS: Emergency Provider Student in an Organized Health Care Education/Training Program; PCP Family Medicine
DX: S82.031A Displaced transverse fracture of right patella, initial encounter for closed fracture (principal); M25.531 Pain in right wrist; W01.10XA Fall on same level from slipping, tripping and stumbling with subsequent striking against unspecified object, initial encounter
CPT/HCPCS: 70450; 71045; 72125; 72170; 73090; 73100; 73130; 73562; 73590; 99284; 99285

== ENCOUNTER 2025-03-23 15:15 | Outpatient (RCR) | payer MEDICARE, SELFPAY | END 2025-03-23 23:59 | disposition home or self-care (01) | LOC: PT 15:15 | PROVIDERS: Visit Provider Orthopaedic Surgery | DX: S82.001A Unspecified fracture of right patella, initial encounter for closed fracture (principal) | CPT/HCPCS: 97760 ==

== ENCOUNTER 2025-04-13 13:44 | Outpatient (CLI) | payer MEDICARE, SELFPAY ==
--- NOTE | 2025-04-13 13:45 | XR_ITS ---
FINAL REPORT CLINICAL HISTORY: right knee pain..fall and broke knee cap COMPARISON: 03/18/2025 FINDINGS: Three views of the right knee were obtained. There is a transverse mildly comminuted fracture of the mid patella. There is up to 10 mm of displacement, previously 12 mm. There is no subluxation or dislocation. Visualized joint spaces are normally aligned. Soft tissues are unremarkable. IMPRESSION: Stable mid patellar fracture. Reviewed, Interpreted and Dictated by Richie Perez MD Transcribed by Leona Chavarria Authenticated and [facility]
--- OUTSIDE RECORDS SUMMARY | 2025-04-13 13:55 | XMS_ITS | Encounter Summary ---
[facility] Address [address] [place] [address] Care Team Providers Care Hourly Sign Language Interpreter Name Role Phone Barak Blas DO Primary Care Provider [phone] Encounter Details Date Type Department Care Team (Late Contact Info) Description 03/30/2025 Telephone [facility] [address] [place] [address] Sebastian Vela APRN [address] [place] [address] Social History Tobacco Use Types Packs/Day Years Used Date Smoking Tobacco: Former Cigarettes Passive Smoke Exposure: Past Smokeless Tobacco: Never Alcohol Use Standard Drinks/Week Comments Not Currently 0 (1 standard drink = 0.6 oz pur e alcohol) Comments Unknown Sex and Gender Information Value Date Recorded Sex Assigned at Not on file Legal Sex Female 12:22 PM EDT Gender Identity Not on file Sexual Orientation Not on file documented as of this encounter Miscellaneous Notes * Telephone Encounter - Yahaira Nicolas RegSched Rep - 03/30/2025 11:34 AM EDT LEFT VM FOR PT TO CALL AND RESCHEDULE APPT ON 04/07/25 WITH SEBASTIAN VELA IN [place], DR CORTES HAS TO BE PRESENT WHEN A PACEMAKER CHECK IS DONE AND DR CORTES WILL BE OUT OF CLINIC ON 04/07/25. THANK YOU. documented in this encounter Plan of Treatment Upcoming Encounters Date Type Department Care Team (Late st Contact Info) Description 04/29/2025 11:15 AM EST Office Visit [facility] [address] [place] [address] Sebastian Vela APRN [address] [place] [address] 04/29/2025 11:15 AM EST Clinical Support No Requirements [facility] [address] [place] [id number] documented as of this encounter Visit Diagnoses Not on filedocumented in this encounter Care Teams Hourly Sign Language Interpreter Relationship Specialty Start Date End Date Barak Blas DO [address] [place] [address] [address] [place] [id number] PCP - General Internal Medicine 09/12/23 documented as of this encounter
--- OUTSIDE RECORDS SUMMARY | 2025-04-13 13:55 | XMS_ITS | Data Portability ---
Author Organization [facility] - ZOE Ibarra ROSCOE CLOSED Address [address] [facility] [address] [place] [address] Care Team Providers Care Tube Draw Helper Name Role Phone DELON CORTES Referring Provider SABRINA ROBERSON Orthopedic Surgeon [phone] ROJELIO OAKES Phys. Med. & Rehab Assessment [...] nerve distribution inhibiting normal and functional sensation. [email or web address] Not available 08/31/2023 12:58:41 09/07/2023 09/07/2023 MLF 1) significant MCP and PIP joint capsular stiffness of the small finger inhibiting terminal hook and fist postures. 2) volar plate tightness with mild flexion contracture of the small finger inhibiting terminal extension. 3) diminished light touch along the median nerve distribution inhibiting normal and functional sensation. [email or web address] Not available 09/07/2023 09:14:51 09/14/2023 09/14/2023 MLF 1) significant MCP and PIP joint capsular stiffness of the small finger inhibiting terminal hook and fist postures. 2) volar plate tightness with mild flexion contracture of the small finger inhibiting terminal extension. 3) diminished light touch along the median nerve distribution inhibiting normal and functional sensation. [email or web address] Not available 09/14/2023 13:27:28 09/18/2023 09/18/2023 Patient [...] nerve distribution inhibiting normal and functional sensation. [email or web address] Not available 09/18/2023 11:47:13 Plan of Treatment [...] By Organization Details Last Modified Time 08/31/2023 [id number] STG 1) Improving functional AROM to within 80-90% of the unaffected within an appropriate time-frame from the injury/surgery to improve ADL function with fine and gross motor dexterity. 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 4) Client will improve overall function at home and work and demonstrate this through the QuickDASH assessment when/if appropriate time frames are determined. Rehab potential is Good Plan of Care (POC: 1-2x/week for 6-8 weeks.) [email or web address] Not available 08/31/2023 12:58:42 09/07/2023 [id number] STG 1) Improving functional AROM to within 80-90% of the unaffected within an appropriate time-frame from the injury/surgery to improve ADL function with fine and gross motor dexterity. 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 4) Client will improve overall function at home and work and demonstrate this through the QuickDASH assessment when/if appropriate time frames are determined. Rehab potential is Good Plan of Care (POC: 1-2x/week for 6-8 weeks.) [email or web address] Not available 09/07/2023 09:14:51 09/14/2023 [id number] STG 1) Improving functional AROM to within 80-90% of the unaffected within an appropriate time-frame from the injury/surgery to improve ADL function with fine and gross motor dexterity. 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 4) Client will improve overall function at home and work and demonstrate this through the QuickDASH assessment when/if appropriate time frames are determined. Rehab potential is Good Plan of Care (POC: 1-2x/week for 6-8 weeks.) [email or web address] Not available 09/14/2023 13:27:28 09/18/2023 [id number] STG 1) Improving functional AROM to within 80-90% of the unaffected within an appropriate time-frame from the injury/surgery to improve ADL function with fine and gross motor dexterity. 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 4) Client will improve overall function at home and work and demonstrate this through the QuickDASH assessment when/if appropriate time frames are determined. Rehab potential is Good Plan of Care (POC: 1-2x/week for 6-8 weeks.) [email or web address] Not available 09/18/2023 11:47:13 Reason for Referral None Reported. Results Created Date Observation Date Name Description Value Unit Range Abnormal Flag Note LastModifiedBy Organization Detail LastModifiedTime 08/08/19 24 08/08/2023 SURGI LEIGHA surgical SEE BELOW normal Depar tment of Patho logy Surgi leigha Patho logy Repor t NAME: TOVA JAMA PATH. :SS-2 [id number] Copy to: Diagn osis: Right small [...] singl e casse tte label ed A1. B 08/08 03:56 PM Micro scopi c Descr iptio n: A micro scopi c exami natio n has been perfo rmed and the resul t(s) are as noted above . SY Savage MD Monet d Out Date: 08/09 15:40 Page 1 of 1 Not Available [facility] [address] [place] [address], [phone], 08/09/2023 15:40:50 Result Notes None recorded. Procedures Surgical History Date Name Laterality Status Provider Name and Address Organization Details Recorded Time 09/18/19 24 OT Therapeutic Exercise completed JOSEFINA KENDALL/L, T [address] [place] [address], [phone], [facility] 09/18/2023 11:47:13 09/18/19 24 OT Manual Therapy completed JOSEFINA KENDALL/Haily, T [address] [place] [address], [phone], [facility] 09/18/2023 11:47:13 09/18/19 24 PT Paraffin Bath completed VONDA LOPES, OTR/L, CHT [address] [place], [address], [facility] 09/18/2023 11:47:13 09/14/19 24 OT Therapeutic Exercise completed VONDA LOPES, OTR/L, CHT [address] [place], [address], [facility] 09/14/2023 14:29:22 09/14/19 24 OT Manual Therapy completed VONDA LOPES, OTR/L, CHT [address] [place], [address], [facility] 09/14/2023 13:27:28 09/14/19 24 PT Paraffin Bath completed VONDA LOPES, OTR/L, CHT [address] [place], [address], [facility] 09/14/2023 13:27:28 09/07/19 24 OT Therapeutic Exercise completed VONDA LOPES, OTR/L, CHT [address] [place], [address], [facility] 09/07/2023 14:08:05 09/07/19 24 OT Manual Therapy completed VONDA LOPES, OTR/L, CHT [address] [place], [address], [facility] 09/07/2023 09:14:51 09/07/19 24 PT Paraffin Bath completed VONDA LOPES, OTR/L, CHT [address] [place], [address], [facility] 09/07/2023 13:21:52 08/31/19 24 Orthotic Management; Subsequent Encounter completed VONDA LOPES, OTR/L, CHT [address] [place], [address], [facility] 08/31/2023 14:14:35 08/31/19 24 OT Therapeutic Exercise completed VONDA LOPES, OTR/L, CHT [address] [place], [address], [facility] 08/31/2023 12:58:41 08/31/19 24 OT Manual Therapy completed VONDA LOPES, OTR/L, CHT [address] [place], [address], [facility] 08/31/2023 14:14:30 08/31/19 24 PT Hot/Cold Pack completed VONDA LOPES, OTR/L, CHT [address] [place], [address], [facility] 08/31/2023 13:08:53 08/21/19 24 OT Therapeutic Exercise completed VONDA LOPES, OTR/L, CHT [address] [place], [address], [facility] 08/21/2023 16:07:13 08/21/19 24 OT Manual Therapy completed VONDA LOPES, OTR/L, CHT [address] [place], [address], [facility] 08/21/2023 13:05:00 08/14/19 24 OT Therapeutic Exercise completed VONDA LOPES, OTR/L, CHT [address] [place], [address], [facility] 08/14/2023 14:11:25 08/14/19 24 OT Manual Therapy completed VONDA LOPES, OTR/L, CHT [address] [place], [address], [facility] 08/14/2023 14:11:21 08/10/19 24 Orthotic, HFO, Static Custom completed VONDA LOPES, OTR/L, CHT [address] [place], [address], [facility] 08/10/2023 14:43:56 08/10/19 24 OT Evaluation - High complexity completed VONAD LOPES, OTR/L, CHT [address] [place], [address], [facility] 08/10/2023 14:43:47 08/10/19 24 OT Therapeutic Exercise completed VONDA LOPES, OTR/L, CHT [address] [place], [address], [facility] 08/10/2023 14:44:05 08/08/19 24 Op Note completed SABRINA ROBERSON MD [address] [place], [address], [facility] 08/08/2023 17:26:26 07/09/19 24 Electromyography (EMG) with Nerve Conduction Study (NCV) completed ROJELIO OAKES MD [address] [place], [address], [facility] 07/09/2023 15:45:02 07/09/19 24 Ultrasound evaluation, Nerve(s) completed ROJELIO OAKES MD [address] [place], [address], [facility] 07/09/2023 15:45:31 04/24/20 22 Tympanogram completed KEISHA BLEVINS [address] [place], [address], [facility] 04/24/2022 12:13:04 04/24/20 22 Audiogram completed KEISHA BLEVINS [address] [place], [address], [facility] 04/24/2022 12:13:02 Pacemaker/Cardiac Implant completed Ayana [facility] 07/27/2023 10:37:52 cholecystectomy completed Ayana Parish [facility] 07/27/2023 10:34:20 ligation of fallopian tube completed Ayana Parish [facility] 07/27/2023 10:34:32 procedure on wrist completed García saucedo [facility] 07/27/2023 10:34:48 total replacement of left hip joint completed Ayana Lugo [facility] 07/27/2023 10:35:07 Imaging Results None recorded. Procedure Notes None recorded. Medical Equipment None Reported. Allergies Allergen ID Allergen Name Allergen Category Reaction Reaction Severity Criticality Documentation Date Start Date Code Code System Note Provider Name and Address Organization Details Recorded Time 792622 Substance with sulfonami de structure and antibacte rial mechanism of action (substanc e) medicatio n Not available Not available Not available 06/15/2023 36230 8003 SNOMED Barak Chacon [facility] 3 09:35:27 893144 morphine medicatio n vomiting moderate Not available 07/27/2023 7052 RxNorm Matilda Disla [facility] 4 10:58:17 Medications Name Sig Start Date [...] Updated DateTime 09/18/2023 160.02 cm 23 kg/m2 20392.01 g Barak Chacon [facility] 09/18/2023 15:53:33 Social History Question Answer Notes LastModified by Organizat ion Details LastModified Time Tobacco Smoking Status Never Smoker Ayana Parish [facility] 07/27/2023 10:31:33 What Was The Date Of Your Most Recent Tobacco Screening? 07/27/2023 [email or web address] Information not available 07/27/2023 Has Tobacco Cessation Counseling Been Provided? No [email or web address] Information not available 07/27/2023 Sex: Unknown Functional Status Question Answer Note LastModified by Organizat ion Details LastModified Time Do you use any illicit or recreational drugs? No [email or web address] Information not available 07/27/2023 Do you or have you ever used any other forms of tobacco or nicotine? No [email or web address] Information not available 07/27/2023 What is your level of alcohol consumption? None [email or web address] Information not available 07/27/2023 Mental Status None recorded. Family History Nothing Reported. Medical History Condition Response Allergies/Hayfever N Other N Anxiety/Depression N Gout N Thyroid Disease N Kidney Stones N Heart Conditions Y Hernia N Migraines N Thyroid Problems N COPD N Glaucoma N Pneumonia N Skin Problems N Pacemaker Y Immune System Disorder N Anesthesia Complications N Heart Attack ([place]) N Mental Illness N Neurological Problems N [...] Influenza, adjuvanted, trivalent, PF [facility]15/2018 [facility] 14:31:22 Influenza, high-dose, quadrivalent, PF 04/05/2021 [facility] 14:31:22 Influenza, high-dose, quadrivalent, PF 04/21/2022 [facility] 14:31:22 COVID-19, mRNA, LNP-S, PF, 100 mcg/0.5mL dose or 50 mcg/0.25mL dose 08/04/2020 [facility] 14:31:22 COVID-19, mRNA, LNP-S, PF, 100 mcg/0.5mL dose or 50 mcg/0.25mL dose 09/01/2020 [facility] 14:31:22 COVID-19, mRNA, LNP-S, PF, 100 mcg/0.5mL dose or 50 mcg/0.25mL dose 04/20/2021 completed Cornelius Springer null, [facility] 08/21/2023 14:31:22 zoster live 07/16/2018 completed Cornelius savage null, [facility] 08/21/2023 14:31:22 Influenza, high-dose, trivalent, PF 04/14/2020 completed Cornelius Springer null, [facility] 08/21/2023 14:31:22 Hep A, adult 11/27/2018 completed Cornelius Martin er null, [facility] 08/21/2023 14:31:22 Past Encounters Encounter ID Performer Location Encounter Start Date Encounter Closed Date Diagnosis/Indication Diagnosis SNOMED-CT Code Diagnosis ICD10 Code Diagnosis IMO Codes Diagnosis Note [id number] KEISHA BLEVINS ENT [facility] CLOSED [address] [address] 04/24/2022 11:42:29 04/24/2022 12:22:48 Mixed conductive and sensorineural hearing loss of right ear 5358644843 9105 H90.A31 Bilateral tinnitus 03138 42249 102 H93.13 [id number] SABRINA ROBERSON MD ORTHOPEDI [address] [place] [address] 06/15/2023 09:26:50 06/15/2023 10:19:03 Carpal tunnel syndrome 90354128 G56.01 Dupuytren' s contracture of finger 791787410 M72.0 Right small finger Dupuytren' s contractur e with ADQ cord: 70 PIP contractur e [id number] ROJELIO OAKES MD [facility] CLOSED [address] [place] [address] 07/09/2023 14:13:13 07/10/2023 12:39:50 Carpal tunnel syndrome of right wrist 4889814424 70906 G56.01 Severe [id number] SABRINA ROBERSON MD ORTHOPEDI [address] [place] [address] 07/27/2023 10:22:40 07/27/2023 11:03:58 Carpal tunnel syndrome 12693379 G56.01 EMG/NCV (07/09/2023 ) demonstrat ed acute severe right carpal tunnel syndrome affecting sensory and motor components with ongoing axonal loss. Also evidence of mild ulnar neuropathy without focal slowing, which may be incidental and age-relate d. No evidence of radiculopa thy. Supplement al ultrasound revealed median nerve compressio n at the carpal tunnel with proximal swelling. Dupuytren' s contracture of finger 712219231 M72.0 Right small finger Dupuytren' s contractur e with ADQ cord: 70 PIP contractur e Closed fra cture of distal end of radius 92157833 S52.551D Right minimally displaced extra-naldo cular distal radius fracture (DOI: 03/28/2023) [id number] SABRINA ROBERSON MD SURGERY SCHEDULE [address] [place] [address] 08/08/2023 11:26:04 08/08/2023 11:26:46 [id number] VONDA LOPES, OTR/L, CHT PHYSICAL THERAPY / HAND THERAPY [facility] [address] [place] [address] 08/10/2023 13:21:31 08/13/2023 14:00:19 Carpal tunnel syndrome of right wrist 9028953471 35794 G56.01 ECTR Dupuytren contracture of right palm 2571140747 8457554 M72.0 SF STPF [id number] VONDA LOPES OTR/L, CHT PHYSICAL THERAPY / HAND THERAPY [facility] [address] [place] [address] 08/14/2023 13:26:36 08/15/2023 10:14:42 Carpal tunnel syndrome of right wrist 0124763710 75713 G56.01 ECTR Dupuytren contracture of right palm 3650911570 1846586 M72.0 SF STPF [id number] SYLVIE CLAIRE PA-C ORTHOPEDI CS [facility] [address] [place] [address] 08/21/2023 14:21:28 08/21/2023 14:56:02 Postoperative care 579826491 Z48.89 s/p Right endoscopic carpal tunnel release; Right small finger Dupuytren' s fasciectom y with contractur e release (DOS: 08/08/23) Closed fra cture of distal end of radius 97507604 S52.551D Right minimally displaced extra-naldo cular distal radius fracture (DOI: 03/28/2023) [id number] VONDA LOPES OTR/L, CHT PHYSICAL THERAPY / [facility]AP[facility] [address] [place] [address] 08/21/2023 14:22:05 08/22/2023 04:50:41 Carpal tunnel syndrome of right wrist 8201467075 73999 G56.01 ECTR Dupuytren contracture of right palm 5939870414 2384297 M72.0 SF STPF [id number] JOSEFINA KENDALL/L, CHT PHYSICAL THERAPY / HAND TH[facility]APY [facility] [address] [place] [address] 08/31/2023 12:37:32 09/03/2023 14:26:45 Carpal tunnel syndrome of right wrist 0975810008 37501 G56.01 ECTR Dupuytren contracture of right palm 4958578487 7567443 M72.0 SF STPF [id number] VONDA LOPES OTR/L, CHT PHYSICAL THERAPY / [facility]APY [facility] [address] [place] [address] 09/07/2023 13:10:20 09/08/2023 04:20:18 Carpal tunnel syndrome of right wrist 1787789639 94125 G56.01 ECTR Dupuytren contracture of right palm 0812858761 5789117 M72.0 SF STPF [id number] VONDA LOPES OTR/L, CHT PHYSICAL THERAPY / [facility]APY [facility] [address] [place] [address] 09/14/2023 13:23:10 09/15/2023 05:08:16 Carpal tunnel syndrome of right wrist 9543226367 53380 G56.01 ECTR Dupuytren contracture of right palm 6621627544 5677031 M72.0 SF STPF [id number] SABRINA ROBERSON MD ORTHOPEDI [facility] [address] [place] [address] 09/18/2023 14:09:34 09/18/2023 16:14:28 Postoperative care 103434485 Z48.89 6 weeks s/p Right endoscopic carpal tunnel release; Right small finger Dupuytren' s fasciectom y with contractur e release (DOS: 08/08/23) Closed fra cture of distal end of radius 09695594 S52.551D Right minimally displaced extra-naldo cular distal radius fracture (DOI: 03/28/2023) [id number] VONDA LOPES, OTR/L, CHT PHYSICAL THERAPY / [facility]APY [facility] [address] [place] [address] 09/18/2023 14:06:56 09/19/2023 04:58:19 Carpal tunnel syndrome of right wrist 5105772154 73826 G56.01 ECTR Dupuytren contracture of right palm 8104119555 7416242 M72.0 SF STPF Health Concerns Section Related Observation LastModified by Organization Detai ls LastModified Time None Recorded Concern Status LastModified by Organization Details LastModified Time None Recorded Advance Directives Directive None Recorded Payers Insurance Date Sequence Insurance Name Policy Number Policy Cancino Covered Member ID Cancino Member ID Guarantor Name 09/18/2023 1 [place]: [facility] (MEDICARE REPLACEMENT REGIONAL PPO) [id number] Tova Pisano [id number] Tova Pisano Notes Date Note Type Note Provider Name and Address Organization Details Recorded Time text/html Patient History: Pt reports that she has not been wearing her extension splint at night, but overall is making good progress with flexion. Pain (0-10): Moderate Pain in last 24 hours (0-10:How often symptoms experienced Constantly (76-100%), Frequently (51-75%), Occasionally (26-50%), Intermittently (0-25%): Intermittently DOI:DOS: [id number] Deficits: Pt reports having at least 3 performance deficits that are limiting ADL and IADL functional secondary to having hand/arm surgery/injury.These ADL Deficits specifically are related to: VONDA LOPES OTR/L, [address], [address], [facility] 08/31/2023 14:15:05 4 text/html Patient History: Pt reports that she is functionally improving. Pain (0-10): Moderate Pain in last 24 hours (0-10:How often symptoms experienced Constantly (76-100%), Frequently (51-75%), Occasionally (26-50%), Intermittently (0-25%): Intermittently DOI:DOS: [id number] Deficits: Pt reports having at least 3 performance deficits that are limiting ADL and IADL functional secondary to having hand/arm surgery/injury.These ADL Deficits specifically are related to: MARLENE KENDALL, [address], [address], [facility] 09/07/2023 14:08:41 4 text/html Patient History: Pt reports that her SF continues to get more straight. Pain (0-10): Moderate Pain in last 24 hours (0-10:How often symptoms experienced Constantly (76-100%), Frequently (51-75%), Occasionally (26-50%), Intermittently (0-25%): Intermittently DOI:DOS: [id number] Deficits: Pt reports having at least 3 performance deficits that are limiting ADL and IADL functional secondary to having hand/arm surgery/injury.These ADL Deficits specifically are related to: MARLENE KENDALL, [address], [address], [facility] 09/14/2023 14:39:34 4 text/html Patient History: Pt reports with continued progress with functional strengthening. Pain (0-10): Moderate Pain in last 24 hours (0-10:How often symptoms experienced Constantly (76-100%), Frequently (51-75%), Occasionally (26-50%), Intermittently (0-25%): Intermittently DOI:DOS: [id number] Deficits: Pt reports having at least 3 performance deficits that are limiting ADL and IADL functional secondary to having hand/arm surgery/injury.These ADL Deficits specifically are related to: VONDA LOPES, OTR/L, CHT [address] [place], [address], [facility] 09/18/2023 15:39:55 4 text/html ROS as noted in the HPI Patient returns to the clinic today for postoperative evaluation. Reports she is doing well with improvement in preoperative numbness and tingling, only with mild residual fingers and the fingertips which is gradually improving. Therapy has been helpful. POST OP GLOBAL VISITDATE OF SURGERY: 08/08/23TIME POST SURGERY:5-6 weeksSURGERY:-Right endoscopic carpal tunnel release-Right small finger Dupuytren's fasciectomy with contracture release PREOP SYMPTOMSBETTER PAIN LEVEL (VAS)1/10 OVERALL ASSESSMENTIMPROVING NEW SYMPTOMS OR QUESTIONS: Doing well, less n.t, OTHER RECENT SURGERIES: EMPLOYMENT STATUS: SABRINA ROBERSON MD [address] [place], [address], [facility] 09/18/2023 16:12:25 OBGyn Episode No OBEpisode recorded.
--- OUTSIDE RECORDS SUMMARY | 2025-04-13 13:55 | XMS_ITS | Clinical Summary ---
[facility] Address [address] [place] [address] Care Team Providers Care Medical Anthropology Director Name Role Phone Barak Blas DO Primary Care Provider [phone] Allergies Active Allergy Reactions Criticality Noted Date [...] No changes made. Follow-up in 6 months. Encounters Date Type Department Care Team Description 03/30/2025 Telephone [facility] [address] [place], [place] [id number] Patty Vela APRN from Last 3 Months Family History Medical History Relation Name Comments [...] Description 04/29/2025 11:15 AM EST Office Visit [facility] [address] [place] [phone] Patty Vela APRN [address] [facility] [place] [address] 04/29/2025 11:15 AM EST Clinical Support No Requirements [facility] [address] [place] [phone] Health Maintenance Due Date Last Done [...] Associated Diagnosis Comments REMOTE DEVICE CHECK 03/03/2025 2 :40 AM EDT from Last 3 Months Results * Remote Device Check (03/03/2025 2:40 AM EDT) Date Time Interrogation Session [id number] [facility] Type Interrogation Session Remote [facility] Implantable Pulse Generator 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 Med[employer] [facility] Implantable Pulse Generator Type IPG [facility] Implantable Pulse Generator Model [place] XT DR MRI [id number] [facility] Implantable Pulse Generator Serial Number [id number] [facility] Implantable Pulse Generator Implant Date [id number] [facility] Battery Remaining Longevity 87.0 mo [employer] Battery Voltage 2.980 [facility] [employer] 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 2.625 [employer] Battery Status OK [facility] Abraham Statistic RA Percent Paced 99.85 [facility] Abraham Statistic RV Percent Paced 0.04 [facility] Atrial Tachy Statistic AT/AF Ada Percent 0.00 [facility] Lead Channel RA Sensing Intrinsic Amplitude 1.875 [facility] Lead Channel Setting RA Sensing Sensitivity 0.45 [facility] Lead Channel RA Impedance Value 437 [facility] Lead Channel RA Pacing Threshold Amplitude 0.375 [facility] Lead Channel RA Pacing Threshold Pulse Width 0.4 [facility] Lead Channel RA Measurements Date and Time [id number] [facility] Lead Channel Setting RA Pacing Amplitude 1.500 [facility] Lead Channel Setting RA Pacing Pulse Width 0.4 [facility] Lead Channel RV Sensing Intrinsic Amplitude 7.500 [facility] Lead Channel Setting RV Sensing Sensitivity 0.90 [facility] Lead Channel RV Impedance Value 608 [facility] Lead Channel RV Pacing Threshold Amplitude 0.500 [facility] Lead Channel RV Pacing Threshold Pulse Width 0.4 [facility] Lead Channel RV Measurements Date and Time [id number] [facility] Lead Channel Setting RV Pacing Amplitude 2.000 [facility] Lead Channel Setting RV Pacing Pulse Width 0.4 [facility] Abraham Setting Mode (NBG Code) AAIR<=>DDDR [facility] Abraham Setting Lower Rate Limit 60 [facility] Abraham Setting AT Mode Switch Rate 171 [facility] Abraham Setting Maximum Tracking Rate 130 [facility] Abraham Setting Maximum Sensor Rate 130 [facility] Abraham Setting PAV Delay 180 [facility] Abraham Setting EMA Delay 150 [facility] Lead Channel Setting RA Sensing Polarity Bipolar [facility] Lead Channel Setting RV Sensing Polarity Bipolar [facility] Lead Channel Setting RA Pacing Polarity Bipolar [facility] Lead Channel Setting RV Pacing Polarity Bipolar [facility] Lead Channel RA Pacing Threshold Polarity Bipolar [facility] Lead Channel RV Pacing Threshold Polarity Bipolar [facility] Zone Setting Type Category AT/AF [facility] IDC RATE 1 171 [facility] THERAPIES All Rx On [facility] Zone Setting Status Monitor [facility] Zone ID 2 [facility] Zone Setting Type Category VT [facility] IDC RATE 1 150 [facility] Zone Setting Status ENABLED [facility] Zone ID 6 [facility] 03/03/2025 2:40 AM EDT us Florencia Franco MD CV IMPLANTABLE CARDIAC DEVIC E Final Result [facility] from Last 3 Months Insurance [employer] HMO Care Teams Medical Anthropology Director Relationship Specialty Start Date End Date Barak Blas DO [address] [place] [address] [place] [address] PCP - General Internal Medicine 09/12/23
--- OUTSIDE RECORDS SUMMARY | 2025-04-13 14:55 | XMS_ITS | CCD ---
Author Organization Unknown Care Team Providers Care Mdm Sr Name Role Phone Unavailable Primary Care Provider Unavailabl e Unavailable Chronic Care Management Unavaila ble Summary Purpose DataExchange Insurance Providers Payer name Policy type / Coverage type Covered republican ID Effective Begin Date Effective End Date [facility] [id number] Unknown Unknown Family History Family History data not found Medication Administered No Medication Administered data Reason For Visit No Reason For Visit data Medical Equipment No Medical Equipment data Advance Directives No Advance Directive data
== END 2025-04-13 23:59 | disposition home or self-care (01) ==
LOC: RAD 13:45
PROVIDERS: Visit Provider Orthopaedic Surgery
DX: S82.031D Displaced transverse fracture of right patella, subsequent encounter for closed fracture with routine healing (principal); W19.XXXD Unspecified fall, subsequent encounter
CPT/HCPCS: 73562

== ENCOUNTER 2025-05-04 12:39 | Outpatient (CLI) | payer MEDICARE, SELFPAY ==
--- OUTSIDE RECORDS SUMMARY | 2025-04-29 11:30 | XMS_ITS | Encounter Summary ---
Author Organization [facility] Address [address] [place] [address] Care Team Providers Care Plaster Maker Name Role Phone RoopaBarak Primary Care Provider [phone] [phone] Reason for Referral * Diagnostic Imaging (Routine) - Pending Review Specialty Diagnoses / Procedures Referred By Osbaldo anand Referred To Contact Diagnoses Nonrheumatic mitral valve regurgitation Hypertension, essential Procedures Adult Transthoracic Echo Complete W/ Cont if Necessary Per Protocol [place] ECHO TTHRC R-T 2D W/WOM-MODE COMPL SPEC&COLR D NV ECHO TRANSTHORC R-T 2D W/WO M-MODE REC F-UP/LMTD Florencia Franco MD [address] [place] [address] Phone: tel: fax: [facility] [address] [place] [phone] Phone: tel: fax: Referral ID Status Reason Start Date Expiration Date V isits Requested Visits Authorized [id number] Pending Review 04/29/2025 07/29/2026 1 1 Reason for Visit * Reason Comments Follow-up Pt here for schedule d six month follow up with PM interrogation. She denies chest pain, SOA, palpitations or dizziness. She is using a rolling walker bc fx rt patella after a fall on 03/18/25. Seen at [facility]. No surgery anticipated.Scheduled to see PCP on Sunday with labs. Encounter Details Date Type Department Care Team (Latest Contact Info) Description 04/29/2025 11:30 AM EST Office Visit [facility] [address] [place], [place] [id number] Florencia Franco MD [address] [place], [place] [id number] Nonrheumatic mitral valve regurgitation (Primary Dx); Pacemaker [Z95.0]; Hypertension, essential Social History Tobacco Use Types Packs/Day Years Used Date Smoking Tobacco: Former Cigarettes Passive Smoke Exposure: Past Smokeless Tobacco: Never Tobacco Cessation:Counseling Given: Not Answered Alcohol Use Standard Drinks/Week Comments Not Currently 0 (1 standard drink = 0.6 oz pur e alcohol) Comments No Sex and Gender Information Value Date Recorded Sex Assigned at Not on file Legal Sex Female 12:22 PM EDT Gender Identity Not on file Sexual Orientation Not on file documented as of this encounter Last Filed Vital Signs Vital Sign Reading Time Taken Comments Blood Pressure 118/64 04/29/2025 12:18 PM EST Pulse 85 04/29/2025 12:18 PM EST Temperature - - Respiratory Rate - - Oxygen Saturation 98% 04/29/2025 12:18 PM EST Inhaled Oxygen Concentration - - Weight 61.7 kg (136 lb) 04/29/2025 12:18 PM EST Height 162.6 cm (5' 4 ) 04/29/2025 12:18 PM EST Body Mass Index 23.34 04/29/2025 12:18 PM EST documented in this encounter Progress Notes * Florencia Franco MD - 04/29/2025 11:30 AM EST Images from the original note were not included. [facility] Provider Note Date: 04/29/2025 Name: Araceli iPsano : 1940 PCP: Barak Blas DO Chief Complaint Patient presents with Follow-up Pt here for scheduled six month follow up with PM interrogation. She denies chest pain, SOA, palpitations or dizziness. She is using a rolling walker bc fx rt patella after a fall on 03/18/25. Seen [facility]. No surgery anticipated. Scheduled to see PCP on Sunday with labs. Subjective History of Present Illness Araceli Pisano is a 85 y.o. female who presents today for 6 month follow up Pacemaker interrogation today No Chest pain or palpitations No Shortness of air No Lightheadedness,syncope. Had a fall in [place] and obtained a fractured patella. Was not D/T dizziness.No surgery planned.Using walker today and not driving No Swelling Seeing primary Sunday and getting labs done. Cardiac history 1. Hypertension 2. PFO closure in 2003 (after stroke) 3. History of CVA 4. History of DVT 5. Pacemaker 6. Mild mitral regurgitation 04/29/2025 Updated with no new issues or concerns. Allergies Allergen Reactions Morphine Nausea Only and Nausea And Vomiting Sulfa Antibiotics Itching Triamcinolone Unknown - Low Severity Current Outpatient Medications: atorvastatin (LIPITOR) 20 MG tablet, Take 1 tablet by mouth Daily., Disp: , Rfl: latanoprost (XALATAN) 0.005 % ophthalmic solution, instill 1 drop into each eye at bedtime, Disp: ,Rfl: losartan (COZAAR) 25 MG tablet, Take 1 tablet by mouth Daily. for blood pressure, Disp: , Rfl: omeprazole (priLOSEC) 40 MG capsule, Take 1 capsule by mouth Daily., Disp: , Rfl: primidone (MYSOLINE) 50 MG tablet, Take 1 tablet by mouth Every 12 (Twelve) Hours., Disp: , Rfl: propranolol (INDERAL) 10 MG tablet, Take 1 tablet by mouth Every 12 (Twelve) Hours., Disp: , Rfl: vitamin B-12 (CYANOCOBALAMIN) 1000 MCG tablet, Take 1 tablet by mouth Daily., Disp: , Rfl: vitamin D3 125 MCG (5000 UT) capsule capsule, Take 1 capsule by mouth Daily., Disp: , Rfl: Past Medical History: Diagnosis Date Allergies SULFA Atrial septal defect Bradycardia, unspecified Cataract Diabetes Dizziness and giddiness Essential (primary) hypertension GERD (gastroesophageal reflux disease) after esophageal dilation H/O blood clots LEGS Hypercholesteremia Nonrheumatic aortic (valve) insufficiency SOB (shortness of breath) Stroke Past Surgical History: Procedure Laterality Date CARPAL TUNNEL RELEASE CHOLECYSTECTOMY FINGER SURGERY HEMORRHOIDECTOMY PATENT FORAMEN OVALE CLOSURE 2004 AFTER STROKE TOTAL HIP ARTHROPLASTY 2019 TUBAL ABDOMINAL LIGATION Family History Problem Relation Name Age of Onset Pancreatic cancer Mother Stroke Father Cancer Son PROSTATE,LIVER,LUNG Social History Socioeconomic History Marital status: Tobacco Use Smoking status: Former Types: Cigarettes Passive exposure: Past Smokeless tobacco: Never Vaping Use Vaping status: Never Used Substance and Sexual Activity Alcohol use: Not Currently Drug use: Not Currently Sexual activity: Defer Objective Vital Signs: BP 118/64 (BP Location: Right arm, Patient Position: Sitting, Cuff Size: Adult) Pulse 85 Ht 162.6 cm (64 ) Wt 61.7 kg (136 lb) SpO2 98% BMI 23.34 kg/m?? Estimated body mass index is 23.34 kg/m?? as calculated from the following: Height as of this encounter: 162.6 cm (64 ). Weight as of this encounter: 61.7 kg (136 lb). Physical Exam Constitutional: Appearance: Normal appearance. She is well-developed. HENT: Head: Normocephalic and atraumatic. Eyes: General: No scleral icterus. Pupils: Pupils are equal, round, and reactive to light. Neck: Vascular: No carotid bruit. Cardiovascular: Rate and Rhythm: Normal rate and regular rhythm. Pulses: Normal pulses. Radial pulses are 2+ on the right side and 2+ on the left side. Dorsalis pedis pulses are 2+ on the right side and 2+ on the left side. Posterior tibial pulses are 2+ on the right side and 2+ on the left side. Heart sounds: Normal heart sounds. No murmur heard. Pulmonary: Breath sounds: Normal breath sounds. No wheezing or rhonchi. Musculoskeletal: Right lower leg: No edema. Left lower leg: No edema. Skin: Capillary Refill: Capillary refill takes less than 2 seconds. Coloration: Skin is not cyanotic. Nails: There is no clubbing. Neurological: Mental Status: She is alert and oriented to person, place, and time. Motor: No weakness. Gait: Gait normal. Psychiatric: Mood and Affect: Mood normal. Behavior: Behavior is cooperative. Thought Content: Thought content normal. Cognition and Memory: Memory normal. Assessment and Plan Diagnoses and all orders for this visit: 1. Nonrheumatic mitral valve regurgitation (Primary) - Adult Transthoracic Echo Complete W/ Cont if Necessary Per Protocol; Future 2. Pacemaker [Z95.0] 3. Hypertension, essential - Adult Transthoracic Echo Complete W/ Cont if Necessary Per Protocol; Future PLAN: -PM interrogation showed good battery life and lead funtion -Htn well controlled on current meds -mild mitral regurg a few years ago. Will update at next OV. Recommendations: ER if symptoms increase and Report if any new/changing symptoms immediately Follow Up Return in about 6 months (around 10/27/2025) for PM/ICD check, with testing at that appointment. Patient was given instructions and counseling regarding her condition or for health maintenance advice. Please see specific information pulled into the AVS if appropriate. documented in this encounter Plan of Treatment Upcoming Encounters Date Type Department Care Team (Late st Contact Info) Description 10/28/2025 10:30 AM EDT Ancillary Procedure [facility] [address] [place] [address] [place] [phone] 10/28/2025 11:15 AM EDT Clinical Support No Requirements [facility] [address] [place] [address] [place] [phone] 10/28/2025 11:30 AM EDT Office Visit [facility] [address] [place] [address] [place] [phone] Florencia Franco MD [address] [place] [address] Scheduled Orders Name Type Priority Associated Diagnoses Order Schedule Adult Transthoracic Echo Complete W/ Cont if Necessary Per Protocol Echocardiography Routine Nonrheumatic mitral valve regurgitation Hypertension, essential Expected: 10/26/2025, Expires: 04/29/2026 documented as of this encounter Visit Diagnoses Diagnosis Nonrheumatic mitral valve regurgitation- Primary Pacemaker [Z95.0] Cardiac pacemaker in situ Hypertension, essential Unspecified essential hypertension documented in this encounter Care Teams Plaster Maker Relationship Specialty Start Date End Date Barak Blas DO [address] [place] [address] [address] [place] [id number] PCP - General Internal Medicine 09/12/23 documented as of this encounter
--- OUTSIDE RECORDS SUMMARY | 2025-05-04 12:41 | XMS_ITS | Data Portability ---
Author Organization [facility] Address [address] [place] [address] Care Team Providers Care Sound Printer Name Role Phone DELON CORTES Referring Provider [phone] SABRINA ROBERSON Orthopedic Surgeon [phone] ROJELIO OAKES Phys. Med. & Rehab Assessment [...] nerve distribution inhibiting normal and functional sensation. [email or web address] Not available 08/31/2023 12:58:41 09/07/2023 09/07/2023 MLF 1) significant MCP and PIP joint capsular stiffness of the small finger inhibiting terminal hook and fist postures. 2) volar plate tightness with mild flexion contracture of the small finger inhibiting terminal extension. 3) diminished light touch along the median nerve distribution inhibiting normal and functional sensation. [email or web address] Not available 09/07/2023 09:14:51 09/14/2023 09/14/2023 MLF 1) significant MCP and PIP joint capsular stiffness of the small finger inhibiting terminal hook and fist postures. 2) volar plate tightness with mild flexion contracture of the small finger inhibiting terminal extension. 3) diminished light touch along the median nerve distribution inhibiting normal and functional sensation. [email or web address] Not available 09/14/2023 13:27:28 09/18/2023 09/18/2023 Patient [...] nerve distribution inhibiting normal and functional sensation. [email or web address] Not available 09/18/2023 11:47:13 Plan of Treatment [...] By Organization Details Last Modified Time 08/31/2023 [id number] STG 1) Improving functional AROM to within 80-90% of the unaffected within an appropriate time-frame from the injury/surgery to improve ADL function with fine and gross motor dexterity. 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 4) Client will improve overall function at home and work and demonstrate this through the QuickDASH assessment when/if appropriate time frames are determined. Rehab potential is Good Plan of Care (POC: 1-2x/week for 6-8 weeks.) [email or web address] Not available 08/31/2023 12:58:42 09/07/2023 [id number] STG 1) Improving functional AROM to within 80-90% of the unaffected within an appropriate time-frame from the injury/surgery to improve ADL function with fine and gross motor dexterity. 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 4) Client will improve overall function at home and work and demonstrate this through the QuickDASH assessment when/if appropriate time frames are determined. Rehab potential is Good Plan of Care (POC: 1-2x/week for 6-8 weeks.) [email or web address] Not available 09/07/2023 09:14:51 09/14/2023 [id number] STG 1) Improving functional AROM to within 80-90% of the unaffected within an appropriate time-frame from the injury/surgery to improve ADL function with fine and gross motor dexterity. 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 4) Client will improve overall function at home and work and demonstrate this through the QuickDASH assessment when/if appropriate time frames are determined. Rehab potential is Good Plan of Care (POC: 1-2x/week for 6-8 weeks.) Not available 09/14/2023 13:27:28 09/18/2023 [id number] STG 1) Improving functional AROM to within 80-90% of the unaffected within an appropriate time-frame from the injury/surgery to improve ADL function with fine and gross motor dexterity. 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 4) Client will improve overall function at home and work and demonstrate this through the QuickDASH assessment when/if appropriate time frames are determined. Rehab potential is Good Plan of Care (POC: 1-2x/week for 6-8 weeks.) Not available 09/18/2023 11:47:13 Reason for Referral None Reported. Results Created Date Observation Date Name Description Value Unit Range Abnormal Flag Note LastModifiedBy Organization Detail LastModifiedTime 08/08/19 24 08/08/2023 SURGI LEIGHA surgical SEE BELOW normal Depar tment of Patho logy Surgi leigha Patho logy Repor t NAME: TOVA JAMA PATH. :SS-2 [id number] Copy to: Diagn osis: Right small [...] 15:40 Page 1 of 1 Not Available [facility] [address] [place] [address], [phone], 08/09/2023 15:40:50 Result Notes None recorded. Procedures Surgical History Date Name Laterality Status Provider Name and Address Organization Details Recorded Time 09/18/19 24 OT Therapeutic Exercise completed JOSEFINA KENDALL/L, T [address] [place] [address], [phone], [facility] 09/18/2023 11:47:13 09/18/19 24 OT Manual Therapy completed JOSEFINA KENDALL/Haily, T [address] [place] [address], [address], [facility] 09/18/2023 11:47:13 09/18/19 24 PT Paraffin Bath completed VONDA LOPES, OTR/L, CHT [address] [place], [address], [facility] 09/18/2023 11:47:13 09/14/19 24 OT Therapeutic Exercise completed VONDA LOPES, OTR/L, CHT [address] [place], [address], [facility] 09/14/2023 14:29:22 09/14/19 24 OT Manual Therapy completed VONDA LOPES, OTR/L, CHT [address] [place], [address], [facility] 09/14/2023 13:27:28 09/14/19 24 PT Paraffin Bath completed VONDA LOPES, OTR/L, CHT [address] [place], [address], [facility] 09/14/2023 13:27:28 09/07/19 24 OT Therapeutic Exercise completed VONDA LOPES, OTR/L, CHT [address] [place], [address], [facility] 09/07/2023 14:08:05 09/07/19 24 OT Manual Therapy completed VONDA LOPES, OTR/L, CHT [address] [place], [address], [facility] 09/07/2023 09:14:51 09/07/19 24 PT Paraffin Bath completed VONDA LOPES, OTR/L, CHT [address] [place], [address], [facility] 09/07/2023 13:21:52 08/31/19 24 Orthotic Management; Subsequent Encounter completed VONDA LOPES, OTR/L, CHT [address] [place], [address], [facility] 08/31/2023 14:14:35 08/31/19 24 OT Therapeutic Exercise completed VONDA LOPES, OTR/L, CHT [address] [place], [address], [facility] 08/31/2023 12:58:41 08/31/19 24 OT Manual Therapy completed VONDA LOPES, OTR/L, CHT [address] [place], [address], [facility] 08/31/2023 14:14:30 08/31/19 24 PT Hot/Cold Pack completed VONDA LOPES, OTR/L, CHT [address] [place], [address], [facility] 08/31/2023 13:08:53 08/21/19 24 OT Therapeutic Exercise completed VONDA LOPES, OTR/L, CHT [address] [place], [address], [facility] 08/21/2023 16:07:13 08/21/19 24 OT Manual Therapy completed VONDA LOPES, OTR/L, CHT [address] [place], [address], [facility] 08/21/2023 13:05:00 08/14/19 24 OT Therapeutic Exercise completed VONDA LOPES, OTR/L, CHT [address] [place], [address], [facility] 08/14/2023 14:11:25 08/14/19 24 OT Manual Therapy completed VONDA LOPES, OTR/L, CHT [address] [place], [address], [facility] 08/14/2023 14:11:21 08/10/19 24 Orthotic, HFO, Static Custom completed VONDA LOPES, OTR/L, CHT [address] [place], [address], [facility] 08/10/2023 14:43:56 08/10/19 24 OT Evaluation - High complexity completed VONDA LOPES, OTR/L, CHT [address] [place], [address], [facility] 08/10/2023 14:43:47 08/10/19 24 OT Therapeutic Exercise completed VONDA LOPES, OTR/L, CHT [address] [place], [address], [facility] 08/10/2023 14:44:05 08/08/19 24 Op Note completed SABRINA ROBEROSN MD [address] [place], [address], [facility] 08/08/2023 17:26:26 07/09/19 24 Electromyography (EMG) with Nerve Conduction Study (NCV) completed ROJELIO OAKES MD [address] [place], [address], [facility] 07/09/2023 15:45:02 07/09/19 24 Ultrasound evaluation, Nerve(s) completed ROJELIO OAKES MD [address] [place], [address], [facility] 07/09/2023 15:45:31 04/24/20 22 Tympanogram completed KEISHA BLEVINS [address] [place], [address], [facility] 04/24/2022 12:13:04 04/24/20 22 Audiogram completed KEISHA BLEVINS [address] [place], [address], [facility] 04/24/2022 12:13:02 Pacemaker/Cardiac Implant completed Ayana [facility] 07/27/2023 10:37:52 cholecystectomy completed Ayana Parish [facility] 07/27/2023 10:34:20 ligation of fallopian tube completed Aynaa Parish [facility] 07/27/2023 10:34:32 procedure on wrist completed García saucedo [facility] 07/27/2023 10:34:48 total replacement of left hip joint completed Ayana Lugo [facility] 07/27/2023 10:35:07 Imaging Results None recorded. Procedure Notes None recorded. Medical Equipment None Reported. Allergies Allergen ID Allergen Name Allergen Category Reaction Reaction Severity Criticality Documentation Date Start Date Code Code System Note Provider Name and Address Organization Details Recorded Time 076766 Substance with sulfonami de structure and antibacte rial mechanism of action (substanc e) medicatio n Not available Not available Not available 06/15/2023 37668 8003 SNOMED Barak Chacon [facility] 3 09:35:27 608817 morphine medicatio n vomiting moderate Not available 07/27/2023 7052 RxNorm Matilda Disla [facility] 4 10:58:17 Medications Name Sig Start [...] Updated DateTime 09/18/2023 160.02 cm 23 kg/m2 90382.01 g Barak Chacon [facility] 09/18/2023 15:53:33 Social History Question Answer Notes LastModified by Organizat ion Details LastModified Time Tobacco Smoking Status Never Smoker Ayana Parish [facility] 07/27/2023 10:31:33 What Was The Date Of Your Most Recent Tobacco Screening? 07/27/2023 [email or web address] Information not available 07/27/2023 Has Tobacco Cessation Counseling Been Provided? No Information not available 07/27/2023 Sex: Unknown Functional Status Question Answer Note LastModified by Organizat ion Details LastModified Time Do you use any illicit or recreational drugs? No [email or web address] Information not available 07/27/2023 Do you or have you ever used any other forms of tobacco or nicotine? No [email or web address] Information not available 07/27/2023 What is your level of alcohol consumption? None [email or web address] Information not available 07/27/2023 Mental Status None recorded. Family History Nothing Reported. Medical History Condition Response Allergies/Hayfever N Other N Gout N Anxiety/Depression N Thyroid Disease N Kidney Stones N Heart Conditions Y Hernia N Migraines N Thyroid Problems N Glaucoma N COPD N Pneumonia N Skin Problems N Pacemaker Y Immune System Disorder N Anesthesia Complications N Heart Attack ([place]) N Mental Illness N Neurological Problems N [...] adjuvanted, trivalent, PF [facility] 14:31:22 Influenza, high-dose, quadrivalent, PF 04/05/2021 [facility] 14:31:22 Influenza, high-dose, quadrivalent, PF 04/21/2022 [facility] 14:31:22 COVID-19, mRNA, LNP-S, PF, 100 mcg/0.5mL dose or 50 mcg/0.25mL dose 08/04/2020 [facility] 14:31:22 COVID-19, mRNA, LNP-S, PF, 100 mcg/0.5mL dose or 50 mcg/0.25mL dose 09/01/2020 [facility]23 14:31:22 COVID-19, mRNA, LNP-S, PF, 100 mcg/0.5mL dose or 50 mcg/0.25mL dose 04/20/2021 completed Cornelius Springer null, [facility] 08/21/2023 14:31:22 zoster live 07/16/2018 completed Cornelius savage null, [facility] 08/21/2023 14:31:22 Influenza, high-dose, trivalent, PF 04/14/2020 completed Cornelius Springer null, [facility] 08/21/2023 14:31:22 Hep A, adult 11/27/2018 completed Cornelius Martin er null, [facility] 08/21/2023 14:31:22 Past Encounters Encounter ID Performer Location Encounter Start Date Encounter Closed Date Diagnosis/Indication Diagnosis SNOMED-CT Code Diagnosis ICD10 Code Diagnosis IMO Codes Diagnosis Note [id number] KEISHA BLEVINS ENT [facility] [address] [address] 04/24/2022 11:42:29 04/24/2022 12:22:48 Mixed conductive and sensorineural hearing loss of right ear 4655693195 9105 H90.A31 Bilateral tinnitus 06730 31919 102 H93.13 [id number] SABRINA ROBERSON MD ORTHOPEDI [address] [place] [address] 06/15/2023 09:26:50 06/15/2023 10:19:03 Carpal tunnel syndrome 64404445 G56.01 Dupuytren' s contracture of finger 502476510 M72.0 Right small finger Dupuytren' s contractur e with ADQ cord: 70 PIP contractur e [id number] ROJELIO OAKES MD [facility] [address] [place] [address] 07/09/2023 14:13:13 07/10/2023 12:39:50 Carpal tunnel syndrome of right wrist 4439477092 55360 G56.01 Severe [id number] SABRINA ROBERSON MD ORTHOPEDI [address] [place] [address] 07/27/2023 10:22:40 07/27/2023 11:03:58 Carpal tunnel syndrome 47915227 G56.01 EMG/NCV (07/09/2023 ) demonstrat ed acute severe right carpal tunnel syndrome affecting sensory and motor components with ongoing axonal loss. Also evidence of mild ulnar neuropathy without focal slowing, which may be incidental and age-relate d. No evidence of radiculopa thy. Supplement al ultrasound revealed median nerve compressio n at the carpal tunnel with proximal swelling. Dupuytren' s contracture of finger 638366402 M72.0 Right small finger Dupuytren' s contractur e with ADQ cord: 70 PIP contractur e Closed fra cture of distal end of radius 89379602 S52.551D Right minimally displaced extra-naldo cular distal radius fracture (DOI: 03/28/2023) [id number] SABRINA ROBERSON MD SURGERY SCHEDULE [address] [place] [address] 08/08/2023 11:26:04 08/08/2023 11:26:46 [id number] VONDA LOPES, OTR/L, CHT PHYSICAL THERAPY / HAND THERAPY [facility] [address] [place] [address] 08/10/2023 13:21:31 08/13/2023 14:00:19 Carpal tunnel syndrome of right wrist 5706643622 27518 G56.01 ECTR Dupuytren contracture of right palm 0239236713 0148402 M72.0 SF STPF [id number] VONDA LOPES OTR/L, CHT PHYSICAL THERAPY / [facility]APY [facility] [address] [place] [address] 08/14/2023 13:26:36 08/15/2023 10:14:42 Carpal tunnel syndrome of right wrist 2135209524 43618 G56.01 ECTR Dupuytren contracture of right palm 2672617073 8513788 M72.0 SF STPF [id number] SYLVIE CLAIRE PA-C ORTHOPEDI CS [facility] [address] [place] [address] 08/21/2023 14:21:28 08/21/2023 14:56:02 Postoperative care 135900487 Z48.89 s/p Right endoscopic carpal tunnel release; Right small finger Dupuytren' s fasciectom y with contractur e release (DOS: 08/08/23) Closed fra cture of distal end of radius 20796141 S52.551D Right minimally displaced extra-naldo cular distal radius fracture (DOI: 03/28/2023) [id number] VONDA LOPES OTR/L, CHT PHYSICAL THERAPY / [facility]APY [facility] [address] [place] [address] 08/21/2023 14:22:05 08/22/2023 04:50:41 Carpal tunnel syndrome of right wrist 4023102487 76263 G56.01 ECTR Dupuytren contracture of right palm 1662397514 7253619 M72.0 SF STPF [id number] JOSEFINA KENDALL/L, CHT PHYSICAL THERAPY / [facility]APY [facility] [address] [place] [address] 08/31/2023 12:37:32 09/03/2023 14:26:45 Carpal tunnel syndrome of right wrist 2547512578 90262 G56.01 ECTR Dupuytren contracture of right palm 2306721930 6771769 M72.0 SF STPF [id number] VONDA LOPES OTR/L, CHT PHYSICAL THERAPY / [facility]APY [facility] [address] [place] [address] 09/07/2023 13:10:20 09/08/2023 04:20:18 Carpal tunnel syndrome of right wrist 1031217438 34671 G56.01 ECTR Dupuytren contracture of right palm 0351896749 7152976 M72.0 SF STPF [id number] VONDA LOPES OTR/L, CHT PHYSICAL THERAPY / [facility] [address] [place] [address] 09/14/2023 13:23:10 09/15/2023 05:08:16 Carpal tunnel syndrome of right wrist 8141639919 08060 G56.01 ECTR Dupuytren contracture of right palm 5771946147 5803462 M72.0 SF STPF [id number] SABRINA ROBERSON MD ORTHOPEDI [facility] [address] [place] [address] 09/18/2023 14:09:34 09/18/2023 16:14:28 Postoperative care 967255891 Z48.89 6 weeks s/p Right endoscopic carpal tunnel release; Right small finger Dupuytren' s fasciectom y with contractur e release (DOS: 08/08/23) Closed fra cture of distal end of radius 38018528 S52.551D Right minimally displaced extra-naldo cular distal radius fracture (DOI: 03/28/2023) [id number] VONDA LOPES, OTR/L, CHT PHYSICAL THERAPY / [facility]APY [facility] [address] [place] [address] 09/18/2023 14:06:56 09/19/2023 04:58:19 Carpal tunnel syndrome of right wrist 1994347064 24206 G56.01 ECTR Dupuytren contracture of right palm 1843898418 3456387 M72.0 SF STPF Health Concerns Section Related Observation LastModified by Organization Detai ls LastModified Time None Recorded Concern Status LastModified by Organization Details LastModified Time None Recorded Advance Directives Directive None Recorded Payers Insurance Date Sequence Insurance Name Policy Number Policy Cancino Covered Member ID Cancino Member ID Guarantor Name 09/18/2023 1 [place]: CHEN CARROLL OF [facility] (MEDICARE REPLACEMENT REGIONAL PPO) [id number] Tova Pisano [id number] Tova Pisano Notes Date Note Type Note Provider Name and Address Organization Details Recorded Time text/html Patient History: Pt reports that she has not been wearing her extension splint at night, but overall is making good progress with flexion. Pain (0-10): Moderate Pain in last 24 hours (0-10:How often symptoms experienced Constantly (76-100%), Frequently (51-75%), Occasionally (26-50%), Intermittently (0-25%): Intermittently DOI:DOS: [id number] Deficits: Pt reports having at least 3 performance deficits that are limiting ADL and IADL functional secondary to having hand/arm surgery/injury.These ADL Deficits specifically are related to: VONDA LOPES OTR/L, [address], [address], [facility] 08/31/2023 14:15:05 4 text/html Patient History: Pt reports that she is functionally improving. Pain (0-10): Moderate Pain in last 24 hours (0-10:How often symptoms experienced Constantly (76-100%), Frequently (51-75%), Occasionally (26-50%), Intermittently (0-25%): Intermittently DOI:DOS: [id number] Deficits: Pt reports having at least 3 performance deficits that are limiting ADL and IADL functional secondary to having hand/arm surgery/injury.These ADL Deficits specifically are related to: MARLENE KENDALL, [address], [address], [facility] 09/07/2023 14:08:41 4 text/html Patient History: Pt reports that her SF continues to get more straight. Pain (0-10): Moderate Pain in last 24 hours (0-10:How often symptoms experienced Constantly (76-100%), Frequently (51-75%), Occasionally (26-50%), Intermittently (0-25%): Intermittently DOI:DOS: [id number] Deficits: Pt reports having at least 3 performance deficits that are limiting ADL and IADL functional secondary to having hand/arm surgery/injury.These ADL Deficits specifically are related to: MARLENE KENDALL, [address], [address], [facility] 09/14/2023 14:39:34 4 text/html Patient History: Pt reports with continued progress with functional strengthening. Pain (0-10): Moderate Pain in last 24 hours (0-10:How often symptoms experienced Constantly (76-100%), Frequently (51-75%), Occasionally (26-50%), Intermittently (0-25%): Intermittently DOI:DOS: [id number] Deficits: Pt reports having at least 3 performance deficits that are limiting ADL and IADL functional secondary to having hand/arm surgery/injury.These ADL Deficits specifically are related to: VONDA LOPES, OTR/L, CHT [address] [place], [address], [facility] 09/18/2023 15:39:55 4 text/html ROS as noted [...] SURGERIES: EMPLOYMENT STATUS: SABRINA ROBERSON MD [address] [place], [address], [facility] 09/18/2023 16:12:25 OBGyn Episode No OBEpisode recorded.
--- OUTSIDE RECORDS SUMMARY | 2025-05-04 12:41 | XMS_ITS | CCD ---
Author Organization Unknown Care Team Providers Care Kraft Digester Operator Name Role Phone Unavailable Primary Care Provider Unavailabl e Unavailable Chronic Care Management Unavaila ble Summary Purpose DataExchange Insurance Providers Payer name Policy type / Coverage type Covered libertarian ID Effective Begin Date Effective End Date [facility] [id number] Unknown Unknown Family History Family History data not found Medication Administered No Medication Administered data Reason For Visit No Reason For Visit data Medical Equipment No Medical Equipment data Advance Directives No Advance Directive data
--- OUTSIDE RECORDS SUMMARY | 2025-05-04 12:41 | XMS_ITS | Encounter Summary ---
[facility] Organization [facility] Address [address] [place] [address] Care Team Providers Care Principal Trainer Name Role Phone Barak Blas DO Primary Care Provider [phone] Encounter Details Date Type Department Care Team (Late st Contact Info) Description 03/30/2025 Telephone [facility] [address] [place] [address] Sebastian Vela APRN [address] [place] [address] Social History Tobacco Use Types [...] APPT ON 04/07/25 WITH SEBASTIAN VELA IN [place], DR FRANCO HAS TO BE PRESENT WHEN A PACEMAKER CHECK IS DONE AND DR FRANCO WILL BE OUT OF CLINIC ON 04/07/25. THANK YOU. documented in this encounter Plan of Treatment Upcoming Encounters Date Type Department Care Team (Late st Contact Info) Description 10/28/2025 10:30 AM EDT Ancillary Procedure [facility] [address] [place] [address] [place] [address] 10/28/2025 11:15 AM EDT Clinical Support No Requirements [facility] [address] [place] [address] [place] [address] 10/28/2025 11:30 AM EDT Office Visit [facility] [address] [place] [address] [place] [address] Florencia Franco MD [address] [place] [address] [place] [address] documented as of this encounter Visit Diagnoses Not on filedocumented in this encounter Care Teams Principal Trainer Relationship Specialty Start Date End Date Barak Blas DO [address] [place] [id number] PCP - General Internal Medicine 09/12/23 documented as of this encounter
--- OUTSIDE RECORDS SUMMARY | 2025-05-04 12:41 | XMS_ITS | Encounter Summary ---
Author Organization [facility] Address [address] [place] [address] Care Team Providers Care Nursery Technician Name Role Phone Barak Blas DO Primary Care Provider [phone] Encounter Details Date Type Department Care Team (Latest Contact Info) Description 04/29/2025 Travel Social History Tobacco Use Types Packs/Day Years [...] on file documented as of this encounter Plan of Treatment Upcoming Encounters Date Type Department Care Team (Late st Contact Info) Description 10/28/2025 10:30 AM EDT Ancillary Procedure [facility] [address] [id number] 10/28/2025 11:15 AM EDT Clinical Support No Requirements [facility] [address] [id number] 10/28/2025 11:30 AM EDT Office Visit [facility] [address] [id number] Florencia Franco MD [address] [place] [id number] documented as of this encounter Visit Diagnoses Not on filedocumented in this encounter Care Teams Nursery Technician Relationship Specialty Start Date End Date Barak Blas DO [address] [place] [id number] PCP - General Internal Medicine 09/12/23 documented as of this encounter
--- OUTSIDE RECORDS SUMMARY | 2025-05-04 12:42 | XMS_ITS | Clinical Summary ---
Author Organization [facility] Address [address] [place] [address] Care Team Providers Care Roguer Name Role Phone Barak Blas DO Primary Care Provider [phone] Allergies Active Allergy Reactions Criticality Noted Date [...] into each eye at bedtime 03/13/2024 Active omeprazole (priLOSEC) 40 MG capsule Take 1 capsule by mouth Daily. 02/28/2025 Active Active Problems Problem Noted Date Diagnosed [...] Encounters Date Type Department Care Team Description 04/29/2025 11:30 AM EST Office Visit [facility] [address] [phone] Florencia Franco MD Nonrheumatic mitral valve regurgitation (Primary Dx); Pacemaker [Z95.0]; Hypertension, essential 04/29/2025 Travel 03/30/2025 Telephone [facility] [address] [phone] Patty Vela APRN from Last 3 Months [...] Mass Index 23.34 04/29/2025 12:18 PM EST Plan of Treatment Upcoming Encounters Date Type Department Care Team (Late st Contact Info) Description 10/28/2025 10:30 AM EDT Ancillary Procedure [facility] [address] [id number] 10/28/2025 11:15 AM EDT Clinical Support No Requirements [facility] [address] [id number] 10/28/2025 11:30 AM EDT Office Visit [facility] [address] [id number] Florencia Franco MD [address] [id number] Health Maintenance Due Date Last Done Comments [...] 2:40 AM EDT) Date Time Interrogation Session [id number] [facility] Type Interrogation Session Remote [facility] Implantable Pulse Generator Geology Faculty Member [employer] [facility] Implantable Pulse Generator Type IPG [facility] Implantable Pulse Generator Model [place] XT DR MRI [id number] [facility] Implantable Pulse Generator Serial Number [id number] [facility] Implantable Pulse Generator Implant Date [id number] [facility] Battery Remaining Longevity 87.0 mo [facility] Battery Voltage [address] 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 2.625 [facility] Battery Status OK [facility] Abraham Statistic RA Percent Paced 99.85 [facility] Abraham Statistic RV Percent Paced 0.04 [facility] Atrial Tachy Statistic AT/AF [place] Percent 0.00 [facility] Lead Channel RA Sensing Intrinsic Amplitude 1.875 [facility] Lead Channel Setting RA Sensing Sensitivity 0.45 [facility] Lead Channel RA Impedance Value 437 [facility] Lead Channel RA Pacing Threshold Amplitude 0.375 [facility] Lead Channel RA Pacing Threshold Pulse Width 0.4 [facility] Lead Channel RA Measurements Date and Time [id number] [facility] Lead Channel Setting RA Pacing Amplitude 1.500 [facility] Lead Channel Setting RA Pacing Pulse Width 0.4 [facility] Lead Channel RV Sensing Intrinsic Amplitude 7.500 [facility] Lead Channel Setting RV Sensing Sensitivity 0.90 [facility] Lead Channel RV Impedance Value 608 [facility] Lead Channel RV Pacing Threshold Amplitude 0.500 [facility] Lead Channel RV Pacing Threshold Pulse Width 0.4 [facility] Lead Channel RV Measurements Date and Time [id number] [facility] Lead Channel Setting RV Pacing Amplitude 2.000 [facility] Lead Channel Setting RV Pacing Pulse Width 0.4 [facility] Abraham Setting Mode (NBG Code) AAIR<=>DDDR [facility] Abraham Setting Lower Rate Limit 60 [facility] Abraham Setting AT Mode Switch Rate 171 [facility] Abraham Setting Maximum Tracking Rate 130 [facility] Abraham Setting Maximum Sensor Rate 130 [facility] Abraham Setting PAV Delay 180 [facility] Abraham Setting EMA Delay 150 [facility] Lead Channel Setting RA Sensing Polarity Bipolar [facility] Lead Channel Setting RV Sensing Polarity Bipolar [facility] Lead Channel Setting RA Pacing Polarity Bipolar [facility] Lead Channel Setting RV Pacing Polarity Bipolar [facility] Lead Channel RA Pacing Threshold Polarity Bipolar [facility] Lead Channel RV Pacing Threshold Polarity Bipolar [facility] Zone Setting Type Category AT/AF [facility] IDC RATE 1 171 [facility] THERAPIES All Rx On [facility] Zone Setting Status Monitor [facility] Zone ID 2 [facility] Zone Setting Type Category VT [facility] IDC RATE 1 150 [facility] Zone Setting Status ENABLED [facility] Zone ID 6 [facility] 03/03/2025 2:40 AM EDT us Florencia Franco MD CV IMPLANTABLE CARDIAC DEVIC E Final Result [facility] from Last 3 Months Insurance MEDICARE ADVANTAGE HMO Care Teams Roguer Relationship Specialty Start Date End Date Barak Blas DO [address] [place] [address] [place] [id number] PCP - General Internal Medicine 09/12/23
--- NOTE | 2025-05-04 12:46 | XR_ITS ---
FINAL REPORT CLINICAL HISTORY: right patella fx COMPARISON: 04/13/2025 FINDINGS: Three views of the right knee were obtained. There is a transverse comminuted fracture of the mid patella with up to 9 mm of displacement, stable compared to the prior exam. The joint spaces are intact. There is a small joint effusion. There is no soft tissue abnormality. IMPRESSION: Patellar fracture as above. Reviewed, Interpreted and Dictated by Richie Perez MD Transcribed by Leona Chavarria Authenticated and [facility]
[2025-05-04 18:30] LABS: Anion Gap 12.6 mEq/L (5-15); Blood Urea Nitrogen 10 mg/dl (7-17); Calcium 9.4 mg/dl (8.4-10.2); Carbon Dioxide 22 mmol/L (22.0-30.0); Chloride 98 mmol/L (98-107); Creatinine,Serum 0.60 mg/dl (0.52-1.04); Estimated Glomerular Filt Rate 95 ml/min (>60); GFR (African American) 115 ML/MIN (>60); Glucose 128 mg/dl (74-100); Potassium 4.6 mmoL/L (3.5-5.1); Sodium 128 mmol/L (136-145)
== END 2025-05-04 23:59 | disposition home or self-care (01) ==
LOC: RAD 12:39
PROVIDERS: PCP Family Medicine; Visit Provider Orthopaedic Surgery
DX: S82.041D Displaced comminuted fracture of right patella, subsequent encounter for closed fracture with routine healing (principal); X58.XXXD Exposure to other specified factors, subsequent encounter; I10 Essential (primary) hypertension
CPT/HCPCS: 73562; 80048

== ENCOUNTER 2025-06-08 13:17 | Outpatient (CLI) | payer MEDICARE, SELFPAY ==
--- NOTE | 2025-06-08 13:23 | XR_ITS ---
FINAL REPORT CLINICAL HISTORY: right knee pain COMPARISON: 05/04/2025 and 03/18/2025 FINDINGS: Two views of the were obtained. There is no prior exam for comparison. There is no acute fracture or dislocation. Comminuted mildly displaced fracture of the inferior patella, best seen on the lateral view. Fracture fragments appear better positioned. The joint spaces are well preserved. Previously noted joint effusion has resolved. There is no acute soft tissue abnormality. IMPRESSION: Patellar fracture as above. Reviewed, Interpreted and Dictated by Maycol Frank MD Transcribed by Leona Chavarria Authenticated and [facility]
== END 2025-06-08 23:59 ==
LOC: RAD 13:18
PROVIDERS: PCP Family Medicine; Visit Provider Orthopaedic Surgery
DX: S82.041A Displaced comminuted fracture of right patella, initial encounter for closed fracture (principal); X58.XXXA Exposure to other specified factors, initial encounter
CPT/HCPCS: 73562